=== PATIENT | female | born 1955 | race Caucasian/White ===

== ENCOUNTER 2024-09-28 23:05 | Inpatient (IN) | payer MEDICARE, OTHER, SELFPAY ==
--- NOTE | 2024-09-28 22:40 | ECG_ITS ---
APPROVED REPORT Exam: Resting ECG HR:167 bpm ECG Measurements Heart Rate 167 AXES QRSd 86 QRS 78 QT 206 T 0 QTc 297 Conclusion ATRIAL FIBRILLATION WITH RAPID VENTRICULAR RESPONSE NONSPECIFIC ST & T-WAVE ABNORMALITY CRITICAL TEST RESULT UNCONFIRMED REPORT Electronically signed by : JAJA ZIMMERMAN, 09/29/2024 06:37:07
--- NOTE | 2024-09-28 22:42 | CT_ITS ---
PROCEDURE INFORMATION: Exam: CTA Chest With Contrast Exam date and time: 09/28/2024 11:44 PM Age: 69 years old Clinical indication: Shortness of breath; Additional info: SOA, cough, covid TECHNIQUE: Imaging protocol: Computed tomographic angiography of the chest with contrast. Exam focused on the arteries. 3D rendering (Not supervised by radiologist): MIP and/or 3D reconstructed images were created by the technologist. Total images: 837 Radiation optimization: All CT scans at this facility use at least one of these dose optimization techniques: automated exposure control; mA and/or kV adjustment per patient size (includes targeted exams where dose is matched to clinical indication); or iterative reconstruction. Contrast material: ISOVUE; Contrast volume: 70 ml; Contrast route: INTRAVENOUS (IV); COMPARISON: CR XR CHEST PORTABLE 09/28/2024 10:58 PM FINDINGS: Pulmonary arteries: Adequate contrast opacification of the pulmonary arteries. Mildly enlarged main pulmonary arteries implying pulmonary arterial hypertension. No acute pulmonary emboli. Aorta: Moderately atherosclerotic thoracic aorta without aneurysm or dissection. Lungs: The trachea and main bronchi are patent. Transverse tracheal narrowing compatible with COPD. Mild bronchial wall thickening greatest in the lower lobes. There are impacted segmental left lower lobe bronchi. Scattered pulmonary calcified granuloma. Severe upper lobe predominant centrilobular emphysema. Considerable left lower lobe airspace consolidation/pneumonia, greater than expected based on recent chest radiograph. Pleural spaces: Small left pleural effusion. No pneumothorax. Heart: Normal heart size. Trace pericardial fluid versus thickening. Small quantity fluid in the superior pericardial recess. Coronary arteries: Mild coronary artery calcifications. Mediastinal space: No mediastinal mass or hematoma. Lymph nodes: No mediastinal or hilar lymphadenopathy. Intraperitoneal space: No acute process in the upper abdomen. Bones/joints: Osteopenia. Moderate degenerative changes of the thoracic spine. Soft tissues: Unremarkable. IMPRESSION: 1. Considerable left lower lobe consolidation in keeping with lobar pneumonia. This is greater than expected based on recent chest radiograph. 2. No acute pulmonary emboli. 3. Severe upper lobe predominant centrilobular emphysema with pulmonary arterial hypertension. 4. Remote calcified granulomatous disease. 5. Additional chronic and incidental findings. COMMENTS: The presence of pulmonary emphysema on CT is an independent risk factor for lung cancer. In the absence of a history or active diagnosis of lung cancer, it is recommended that this patient with emphysema be evaluated for enrollment in a low dose CT lung cancer screening program.
--- NOTE | 2024-09-28 22:43 | XR_ITS ---
PROCEDURE INFORMATION: Exam: XR Chest Exam date and time: 09/28/2024 10:58 PM Age: 69 years old Clinical indication: Shortness of breath; Additional info: SOA cp covid, hypoxemia TECHNIQUE: Imaging protocol: Radiologic exam of the chest. Views: 1 view. Total images: 1 COMPARISON: No relevant prior studies available. FINDINGS: Tubes, catheters and devices: EKG leads are present. Lungs: Moderate upper lobe centrilobular emphysema. Bibasilar interstitial coarsening. Additional left basilar infiltrate or atelectasis. No pulmonary vascular congestion. Pleural spaces: Small left pleural effusion. No pneumothorax. Heart/Mediastinum: Unremarkable. No cardiomegaly. No mediastinal widening or hilar enlargement. Bones/joints: Osteopenia. Mild degenerative changes of the thoracic spine. IMPRESSION: 1. Moderate upper lobe centrilobular emphysema 2. Bibasilar interstitial coarsening/fibrosis 3. Additional left basilar mild infiltrate versus atelectasis 4. Small left pleural effusion.
[2024-09-28 22:45] VITALS: BP 152/120; PULSE 167; RESP 28; TEMP 36.7; O2SAT 90; BMI 23.3
--- NOTE | 2024-09-28 22:46 | [facility].EDCP ---
Discharge Plan Disposition Chief Complaint: Weakness Prescriptions Prescriptions: No Action bisoprolol-hydrochlorothiazide 5-6.25 mg tablet 5 tab PO DAILY Patient Comments: TAKE 1 TABLET BY MOUTH EVERY DAY levothyroxine 100 mcg tablet 100 mcg PO DAILY Patient Comments: TAKE 1 TABLET BY MOUTH EVERY DAY omeprazole 20 mg capsule,delayed release(DR/EC) 20 mg PO DAILY Patient Comments: TAKE 1 CAPSULE BY MOUTH EVERY DAY sertraline 50 mg tablet 50 mg PO DAILY Patient Comments: TAKE 1 TABLET BY MOUTH EVERY DAY Referrals Follow up/Referrals: Provider,Referral, MD [Primary Care Provider] - See instructions Clinical Impressions Clinical Impression: Atrial fibrillation with controlled ventricular rate, CHF exacerbation, Acute hypoxemic respiratory failure, Left lower lobe pneumonia Print Language Print Language: Japanese Discharge ED Provider: Bjorn Shea HPI General Chief Complaint: Weakness Stated Complaint: weakness Time Seen by Provider: 09/28/24 23:05 History of Present Illness HPI narrative: Please note that above description of symptoms, in this electronic medical record under categorization of recalled from ER triage doctor by RN are reflective of an initial nursing assessment, however, is not reflective of my full history and physical exam that was personally taken and clarified. Consequentially, this preceding description of symptoms, which may include the patient's categorized chief complaint in the EMR, do not reflect my personal clinical impression, and the ultimate description of history of present illness and patient stated complaints should be deferred to this section of the note. Unless stated otherwise or congruent with this section of the note, additional signs, symptoms, or incongruence should be interpreted as inaccurate with my clinical impression. Related Data Home Medications ?Medication ?Instructions ?Recorded ?Confirmed bisoprolol 5 5 tab PO DAILY 09/28/24 09/28/24 mg-hydrochlorothiazide 6.25 mg tablet levothyroxine 100 mcg tablet 100 mcg PO DAILY 09/28/24 09/28/24 omeprazole 20 mg capsule,delayed 20 mg PO DAILY 09/28/24 09/28/24 release sertraline 50 mg tablet 50 mg PO DAILY 09/28/24 09/28/24 Allergies Allergy/AdvReac Type Severity Reaction Status Date / Time No Known Allergies Allergy Unverified 09/11/17 14:16 [facility] Disclaimer: The information contained in this section may have been updated after the patient was seen, as this information can be updated by other users. Social History Smoking Status: Former smoker alcohol intake: never current occupational status: retired Travel in the last 8 weeks: None ROS Obtained: Yes All systems reviewed & no additional complaints except as documented Physical Exam General General appearance: alert and in distress (Moderate respiratory distress) Neck Neck exam: Present trachea midline Chest Chest inspection: Present normal inspection and symmetric chest wall rise Respiratory Respiratory exam: Present respiratory distress, wheezes, accessory muscle use and prolonged expiratory phase; Absent stridor Cardiovascular Cardiovascular exam: Present tachycardia, irregular rhythm and other (Pulses equal and symmetric in upper and lower extremities) Abdominal Exam Abdominal exam: Present soft; Absent distention or tenderness Extremities Exam Extremities exam: Absent edema Neurological Exam Neurological exam: Present alert, oriented X3 and CN II-XII intact Skin Skin exam: Present warm and dry; Absent cyanosis, diaphoresis or pallor HEART Score HEART Score HEART Score assessment performed?: Yes History (anamnesis): Slightly suspicious ECG: Non-specific disturbance Age: >65 years Risk factors: 3 or more risk factors Troponin: </= normal limit HEART Score: 5 Critical Care Critical Care Time Critical Care Time: Yes (cardiopulmonary) Attestation: On 09/28/24, the high probability of a clinically significant, sudden or life threatening deterioration of the following system(s) required my full and direct attention, intervention and personal management. The time I documented below is in addition to time spent performing reported procedures but includes the following listed in this critical care notation. Total Time Total Critical Care Time: 60 Medical Decision Making Medical Records Medical records reviewed: Yes I reviewed the patient's medical records. Kunal Inquiry Pt receiving controlled substance: No Kunal was queried for this patient: No Vital Signs Vital Signs: 09/28/24 22:45 Temperature 98.0 F Temperature Source Oral Pulse Rate [Right Apical] 167 H Respiratory Rate 28 H Blood Pressure [Right Arm] 152/120 H Blood Pressure Mean [Right Arm] 130 Blood Pressure Source [Right Arm] Automatic Cuff Blood Pressure Position [Right Arm] Supine 02 Sat by Pulse Oximetry 90 L Oxygen Delivery Method Nasal Cannula Oxygen Flow Rate (LPM) 4 Lab Data Labs: Lab Results 09/28/24 22:44: WBC 25.3 H*, RBC 5.48 H, Hgb 14.9, Hct 43.3, MCV 79.0 L, MCH 27.2, MCHC 34.4, RDW 13.3, Plt Count 215, MPV 10.7 H, Neut % (Auto) 87.3 H, Lymph % (Auto) 3.2 L, Lander % (Auto) 8.4, Eos % (Auto) 0.0 L, Baso % (Auto) 0.2, Neut # (Auto) 22.1 H, Lymph # (Auto) 0.8, Lander # (Auto) 2.1 H, Eos # (Auto) 0.0, Baso # (Auto) 0.1, Total Counted 100, Neutrophils % (Manual) 89 H, Lymphocytes % (Manual) 3 L, Monocytes % (Manual) 8, Platelet Estimate Normal, PT 11.0, INR 0.98, APTT 35.0 H, VBG pH 7.37, VBG pCO2 44.6, VBG pO2 25.2 L, VBG HCO3 24.9, VBG Total CO2 26.3, VBG O2 Saturation 45.2 L, VBG Base Excess -0.5, VBG Lactic Acid 2.0, Sodium 132 L, Potassium 3.1 L, Chloride 95 L, Carbon Dioxide 29, Anion Gap 11.1, BUN 27 H, Creatinine 1.20 H, Estimated Creat Clear 44, Estimated GFR 45 L, Est GFR ( Amer) 54 L, Glucose 121 H, Lactate 1.6, Calcium 8.9, Magnesium 1.8, Total Bilirubin 1.7 H, AST 23, ALT 18, Alkaline Phosphatase 94, Troponin I 0.02, NT-Pro-B Natriuret Pep 1100 H, Total Protein 6.4, Albumin 3.6, Globulin 2.8, Albumin/Globulin Ratio 1.3, Procalcitonin 2.20 H, TSH 16.80 H, Thyroxine (T4) 6.5 09/28/24 22:44 09/28/24 22:44 Response Orders (Tests/Meds): ED MEDICATIONS Generic Name Dose Route Start Last Admin Trade Name Freq PRN Reason Stop Dose Admin Enoxaparin Sodium 65 mg 09/28/24 23:15 09/28/24 23:16 Enoxaparin 100mg/Ml Syringe 1 mg/kg (65 mg) 10/28/24 23:14 65 mg SUBCUT Administration Q12H [facility] Lactated Ringer's 1,000 mls @ 999 mls/hr 09/28/24 23:13 09/28/24 23:21 Lactated Ringer's 1000 Ml Bag IV 09/29/24 00:13 999 mls/hr .Q1H1M ONE Administration Potassium Chloride/Water 100 mls @ 50 mls/hr 09/28/24 23:13 09/28/24 23:17 Potassium Chloride 20meq/100ml Ivpb IV 09/29/24 03:12 50 mls/hr Q2H BREEZY Administration Sodium Chloride 10 ml 09/28/24 23:51 09/28/24 23:51 Sodium Chloride 0.9% 10ml Syr (Rad Only) IV 10/28/24 23:50 10 ml NEEDED PRN Administration Maintain IV Site Discontinued Medications Generic Name Dose Route Start Last Admin Trade Name Freq PRN Reason Stop Dose Admin Albuterol/Ipratropium 9 ml 09/28/24 22:42 09/28/24 23:09 Ipratropium/Albuterol 3 Ml Neb IH 09/28/24 22:43 9 ml ONCE ONE Administration Aspirin 324 mg 09/28/24 22:42 09/28/24 22:53 Aspirin 81mg Chewable Tablet PO 09/28/24 22:43 324 mg ONCE ONE Administration Diltiazem HCl 15 mg 09/28/24 23:23 09/28/24 23:29 Diltiazem 25mg/5ml Vial IV 09/28/24 23:24 15 mg ONCE ONE Administration Diltiazem HCl 20 mg 09/28/24 23:55 09/28/24 23:57 Diltiazem 25mg/5ml Vial IV 09/28/24 23:56 20 mg ONCE ONE Administration Magnesium Sulfate 2 gm in 50 mls @ 50 mls/hr 09/28/24 22:42 09/28/24 22:54 Magnesium Sulfate 2gm/50ml Premix IV 09/28/24 23:41 50 mls/hr ONCE ONE Administration Ceftriaxone Sodium 2 gm/ 100 mls @ 200 mls/hr 09/28/24 22:42 09/28/24 22:59 Sodium Chloride IV 09/28/24 23:11 200 mls/hr ONCE ONE Administration Lactated Ringer's 1,000 mls @ 999 mls/hr 09/28/24 22:53 09/28/24 22:56 Lactated Ringer's 1000 Ml Bag IV 09/28/24 23:53 999 mls/hr .Q1H1M ONE Administration Iopamidol 70 ml 09/28/24 23:51 09/28/24 23:52 Iopamidol-370 (76%);100ml Bottle IV 09/28/24 23:52 70 ml ONCE ONE Administration Magnesium Oxide 800 mg 09/28/24 22:42 09/28/24 22:54 Magnesium Oxide 400mg Tablet PO 09/28/24 22:43 800 mg ONCE ONE Administration Methylprednisolone Sodium Succinate 125 mg 09/28/24 22:42 09/28/24 22:54 Methylprednisolone Sod Succ 125mg Vial IV 09/28/24 22:43 125 mg ONCE ONE Administration Ondansetron HCl 4 mg 09/28/24 22:42 09/28/24 22:54 Ondansetron 4mg/2ml Vial IV 09/28/24 22:43 4 mg ONCE ONE Administration Sodium Chloride 50 ml 09/28/24 23:51 09/28/24 23:51 0.9 % Sodium Chloride 50 Ml Vial IV 09/28/24 23:52 50 ml ONCE ONE Administration ORDERS Category Date Time Status CT angio chest PE protocol Stat Cat Scan 09/28/24 22:42 Taken POCUS Point of Care (ER Only) Stat Exams 09/28/24 22:47 Ordered XR chest portable Stat Exams 09/28/24 22:43 Taken Complete Blood Count Auto Diff Stat Lab 09/28/24 22:44 Completed Comprehensive Metabolic Panel Stat Lab 09/28/24 22:44 Completed HIV Combo Stat Lab 09/28/24 22:44 Received Hep C Ab with Reflex to RNA Stat Lab 09/28/24 22:44 Received Lactic Acid Stat Lab 09/28/24 22:44 Completed Magnesium Stat Lab 09/28/24 22:44 Completed NT Pro Brain Natriuretic Pep. Stat Lab 09/28/24 22:44 Completed PT INR [Prothrombin Time INR] Stat Lab 09/28/24 22:44 Completed PTT [Activated Partial Thrombo Time] Stat Lab 09/28/24 22:44 Completed Procalcitonin Stat Lab 09/28/24 22:44 Completed T4 (Thyroxine) Stat Lab 09/28/24 22:44 Completed TSH [Thyroid Stimulating Hormone] Stat Lab 09/28/24 22:44 Completed Troponin I Q3H Lab 09/29/24 01:45 Ordered Troponin I Q3H Lab 09/29/24 04:45 Ordered Troponin I Stat Lab 09/28/24 22:44 Completed Urinalysis and Microscopic Stat Lab 09/28/24 22:44 Ordered Blood Culture Stat Micro 09/28/24 22:55 Received Venous Blood Gas Stat RT 09/28/24 22:44 Completed MDM Narrative Medical Decision Narrative: 69-year-old female history of hypertension, hyperlipidemia, COPD not currently smoking and not on home oxygen presenting with shortness of breath and chest pain. Patient states that her recently . She has not eaten or drank anything in about 5 days. She is also been diagnosed with COVID a few days prior to this and has been dealing with the symptoms of that. States that she is not having fevers or chills, but she is having cough productive of clear sputum. Intermittently having chest pain that is left-sided, radiates around to the lateral left chest wall. Associated shortness of breath with all of the symptoms. No lower extremity swelling, syncope, neurologic deficits. Patient called EMS just prior to arrival. On EMS arrival, vital signs concerning for pretty significant tachycardia with right 1 80-200. Started on fluid and brought to the emergency department. Nebs were not given per protocol. History was obtained via conversation with patient and EMS. On arrival, patient hemodynamically stable, alert, oriented x4, appropriate, GCS 15, moving all extremities spontaneously, pupils equal and reactive to light. Full physical exam performed and significant for 69-year-old female who is appears to be in moderate distress. Speaking in 1-2 word sentences, prolonged expiratory phase with bilateral expiratory wheezes diffusely. Patient does have inspiratory wheezes on the right as well. Subcostal retractions. Tachycardic, difficult to discern whether regular or irregular, but seems to be irregular. No lower extremity edema. Abdomen soft, nontender, nondistended. Patient grossly neurologically intact and answering questions appropriately. Differential includes ACS, OR, PE, pneumothorax, dehydration, CHF, arrhythmia, metabolic abnormality, endocrinologic abnormality, COPD exacerbation, pneumonia, sepsis, among others. Patient was given 2 g Rocephin, Solu-Medrol, DuoNebs, 1 L LR, IV magnesium and p.o. magnesium, aspirin for symptomatic management and correction of underlying abnormalities. Patient placed on continuous cardiac monitoring and continuous pulse ox with initial blood pressure 152/120, heart rate 167, saturation 84% on room air. 90% on 4 L nasal cannula. Independent interpretation of EKG shows A-fib with RVR 160 bpm with QRS 86, QTc 297. Patient's axis is normal, but she does have rate related ST depressions throughout the twelve-lead. No reciprocal elevations.. Workup independently interpreted and significant for leukocytosis 25,000 with monocyte EMEA neutrophilia. Patient's coags nonactionable. Her VBG also nonactionable. Chemistry with hyponatremia 132, hypokalemia 3.1, KAIN 1.2 with BUN 27 consistent with prerenal process. Lactate negative. LFTs nonactionable. Troponin 0.02, BNP elevated 1100. Procalcitonin elevated at 2.2. Patient's chest x-ray independently interpreted. I am losing contours of the left hemidiaphragm consistent with potential infectious process. Left-sided pleural effusion. Right lower lobe patchy opacity consistent with potentially developing infection as well. See radiology read for full review of final results. Heart score 5. Shortly after arrival with nebs and meds as well as fluids, patient remaining tachycardic in the 160s to 170s. 15 mg IV diltiazem was ordered. On reevaluation remains tachycardic. 20 mg IV diltiazem was ordered. CT chest ordered given new onset tachycardia, A-fib with RVR. No evidence of PE, but patient does have large left lower lobe pneumonia. Given persistent tachycardia in the 160s and 170s, diltiazem drip was started. Patient was given 1 mg/kg of Lovenox. Given patient presentation, workup, history, this most likely represents new onset A-fib with RVR, hypoxemic respiratory failure and sepsis in the setting of pneumonia. Hospital medicine was consulted and case was discussed at length, to be admitted. [employer] disclaimer Much of this encounter note is an electronic regional hr manager spoken language to printed text. Electronic regional hr manager of the spoken language may permit errors. Although I have reviewed the note, some errors may still exist.
[2024-09-28] MEDS: ASPIRIN 81MG CHEWABLE TABLET 324 MG PO (22:53)
[2024-09-28] MEDS: METHYLPREDNISOLONE SOD SUCC 125MG VIAL 125 MG IV (22:54)
[2024-09-28] MEDS: MAGNESIUM SULFATE IN WATER 2 GM/50 ML PIGGYBACK IV (22:54)
[2024-09-28] MEDS: ONDANSETRON 4MG/2ML VIAL 4 MG IV (22:54)
[2024-09-28] MEDS: MAGNESIUM OXIDE 400MG TABLET 800 MG PO (22:54)
[2024-09-28 22:55] LABS: Basophils # 0.1 K/mm3 (0-0.2); Basophils % 0.2 % (0.1-2.0); Hematocrit 43.3 % (37.0-47.0); Hemoglobin 14.9 g/dL (12.2-16.2); Lymphocytes # 0.8 K/mm3 (0.7-4.5); Lymphocytes % 3.2 % (10-50); Mean Corpuscular HGB Conc 34.4 g/dL (31.8-35.4); Mean Corpuscular Hemoglobin 27.2 pg (27.0-31.2); Mean Platelet Volume 10.7 fl (7.4-10.4); Monocytes # 2.1 K/mm3 (0.1-1.0); Monocytes % 8.4 % (1.7-9.3); Neutrophils # 22.1 K/mm3 (1.8-7.8); Neutrophils % 87.3 % (37.0-80.0); Platelet Count 215 K/mm3 (142-424); Red Blood Count 5.48 M/mm3 (4.20-5.40); Red Cell Distribution Width 13.3 % (11.5-17.5); VBG Base Excess -0.5 mmol/L (-2.4-2.3); VBG HCO3 24.9 mmol/L (23-30); VBG Oxygen Saturation 45.2 % (50-70); VBG PCO2 44.6 mmol/L (35-51); VBG PH 7.37 mmol/L (7.31-7.41); VBG PO2 25.2 mmol/L (28-40); VBG Total CO2 26.3 mmol/L (23-27); White Blood Count 25.3 K/mm3 (4.8-10.8)
[2024-09-28] MEDS: LACTATED RINGERS 1000ML 1,000 ML 999 ML IV ×2 (22:56→23:21)
[2024-09-28] MEDS: CEFTRIAXONE SODIUM 2 GM in 0.9 % SODIUM CHLORIDE 100 ML IV (22:59)
--- NOTE | 2024-09-28 22:59 | PC.NURSE ---
both sets of blood cultures sent to lab
[2024-09-28 23:00] LABS: MANUAL DIFFERENTIAL MANUAL DIFFERENTIAL (MANUAL DIFF)
[2024-09-28 23:02] LABS: Alanine Aminotransferase 18 U/L (12-78); Albumin Level 3.6 g/dl (3.5-5.0); Albumin/Globulin Ratio 1.3 (1.1-1.8); Alkaline Phosphatase 94 U/L (38-126); Aspartate Amino Transferase 23 U/L (14-36); Bilirubin,Total 1.7 mg/dl (0.2-1.3); Blood Urea Nitrogen 27 mg/dl (7-17); Calcium 8.9 mg/dl (8.4-10.2); Carbon Dioxide 29 mmol/L (22.0-30.0); Chloride 95 mmol/L (98-107); Creatinine Clearance Estimated 44 mL/min (50-200); Estimated Glomerular Filt Rate 45 ml/min (>60); GFR (African American) 54 ML/MIN (>60); Globulin 2.8 g/dL (1.3-3.2); Glucose 121 mg/dl (74-100); Magnesium 1.8 mg/dl (1.6-2.3); Potassium 3.1 mmoL/L (3.5-5.1); Total Protein,Serum 6.4 g/dl (6.3-8.2)
[2024-09-28 23:03] LABS: Lactic Acid 1.6 mmol/L (0.7-2.1)
[2024-09-28 23:04] LABS: INR 0.98 (0.9-1.1)
[2024-09-28] MEDS: IPRATROPIUM/ALBUTEROL 3 ML NEB 9 ML IH (23:09)
[2024-09-28 23:14] VITALS: BP 140/85; PULSE 168; RESP 18; O2SAT 98
[2024-09-28 23:15] VITALS: PULSE 142; RESP 17; O2SAT 98
[2024-09-28 23:15] LABS: Anion Gap 11.1 mEq/L (5-15); NT Pro Brain Natriuretic Pep. 1100 pg/mL (0-125); Sodium 132 mmol/L (136-145); Troponin I 0.02 ng/ml (0.00-0.034)
[2024-09-28] MEDS: ENOXAPARIN 100MG/ML SYRINGE 65 MG SUBCUT (23:16)
[2024-09-28] MEDS: KCl 20mEq/100ml 100 ML 50 MEQ IV (23:17)
[2024-09-28 23:20] LABS: T4 (Thyroxine) 6.5 ug/dl (5.53-11.0)
[2024-09-28] MEDS: dilTIAZem 25MG/5ML VIAL 15 MG IV (23:29)
[2024-09-28 23:30] VITALS: PULSE 146; RESP 23; O2SAT 97
[2024-09-28 23:31] VITALS: BP 139/87; PULSE 134; RESP 20; O2SAT 98
[2024-09-28 23:51] VITALS: PULSE 170; RESP 15; O2SAT 92
[2024-09-28] MEDS: 0.9 % SODIUM CHLORIDE 50 ML VIAL IV (23:51)
[2024-09-28] MEDS: SODIUM CHLORIDE 0.9% 10ML SYR (RAD ONLY) 10 ML IV (23:51)
[2024-09-28 23:52] LABS: Lymphocytes % 3 % (10-50); Monocytes % 8 % (2-9); Neutrophils % 89 % (42-76); Total Cells Counted 100
[2024-09-28] MEDS: IOPAMIDOL-370 (76%);100ML BOTTLE 70 ML IV (23:52)
[2024-09-28] MEDS: dilTIAZem 25MG/5ML VIAL 20 MG IV (23:57)
[2024-09-29] VITALS (96 sets, daily range): BP systolic 106–196; BP diastolic 49–104; PULSE 67–168; RESP 10–29; TEMP 36.3–37; O2SAT 75–98; BMI 25.0
[2024-09-29] LABS: Platelet Estimate Normal
[2024-09-29 00:08] LABS: HIV Combo NEGATIVE (Negative)
[2024-09-29] MEDS: dilTIAZem HCL 100 MG in 0.9 % SODIUM CHLORIDE 100 ML IV (00:16)
--- NOTE | 2024-09-29 00:25 | PC.NURSE ---
Attempted to call report, Nurse is busy at the moment and will call back to receive report.
--- NOTE | 2024-09-29 01:12 | ECG_ITS ---
APPROVED REPORT Exam: Resting ECG HR:73 bpm ECG Measurements Heart Rate 73 AXES OK 183 P 63 QRSd 89 QRS 57 QT 400 T 44 QTc 426 Conclusion SINUS RHYTHM NORMAL ECG UNCONFIRMED REPORT Electronically signed by : Timothy Del Rio MD 09/30/2024 10:47:58
[2024-09-29] MEDS: 0.9 % SODIUM CHLORIDE 1000ML 1,000 ML 125 ML IV (01:25)
[2024-09-29] MEDS: FAMOTIDINE 20MG/2ML VIAL 20 MG IV ×3 (01:33→20:04)
[2024-09-29] MEDS: SODIUM CHLORIDE 0.9% 10ML VIAL 8 ML IV ×3 (01:33→10:05)
[2024-09-29] MEDS: METOPROLOL TARTRATE 5MG/5ML VIAL 5 MG IV (01:39)
[2024-09-29] MEDS: AZITHROMYCIN 500 MG in 0.9 % SODIUM CHLORIDE 250 ML 250 MG IV (01:40)
--- NOTE | 2024-09-29 02:05 | P.HP_ITS ---
<Statement entered by Jovany Arias MD - 09/30/24 22:28> I personally evaluated the patient and agree with the plan as outlined by the RESILIENT TILE INSTALLER. History of Present Illness *Admission Date: 09/29/24 *Reason for visit:: Respiratory failure atrial fibs RVR pneumonia *History of present illness: This 69-year-old female, has come to the emergency room with a elevated heart rate and atrial fibs significant dehydration, viral illness, respiratory distress. Also noting that her and her both have had COVID before Jorge approximately 10 September, the went to the bathroom today and collapsed called her name. She came in was unable to help him went to get the phone to call 911 when she returned her had . The patient herself says that she has tested negative for COVID on the felt good for a day or 2 but then was around other family members including an infant that are positive for flu A. She also had episodes of vomiting not being able to drink.. 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 Family then convinced her not to stay with her and has brought her to the emergency room.. In the emergency room heart rates into the 170s 180s atrial for, oxygen is required by nasal cannula. She was given breathing treatments, steroids, antibiotics started,. CT scan of the chest shows a significant consolidation in the left lower lung of pneumonia.. 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 Was going to see oncology in September for that. Patient is a noted smoker for more than 30 years, she stopped in 2016. Emphysema is an underlying condition on her. , Laboratory test significant for elevated white blood count, hypoxia on venous blood gas on oxygen.. EKG with very rapid ventricular rate on EKG, TO NOTE patient's heart rate was afib in the 150's when brought to the ICU, patient had received calcium channel renetta in the emergency room slowing the heart rate from in the 180 down to the 150s.. Patient was changed from nasal cannula onto Vapotherm. Oxygen saturations marino from 88% pulse ox to 95%. 1 dose of metoprolol IV 5 mg was given IV patient converted to sinus rhythm with heart rate in the 90s. Also noting the patient appears to be still significantly dehydrated, had received 2 L of fluid in the emergency room and an abundance of nebulizer treatments due to her lung wheezing. Steroids have also been administered. With the improved oxygen saturation and now being in sinus rhythm in the 70s, I will give 1 dose of Cardizem 30mg po and then we will stop the Cardizem bolus in 1 hour.. At that point in time we will also continue to replace electrolytes per labs.. Patient is much more stable at this point in time but still very fragile. Will have cardiology and pulmonology to see the patient in the a.m. have not addressed any type of mental health needs at this time for potential grieving due to the loss of her tonight. But have 1 mg of Ativan ordered IV if it is needed. Family members were in the room while I was talking with the patient. Most of the patient's daughters are registered nurses. And I was given permission to speak with one of them by phone. Update given on the seriousness of this condition that their mother was in. Patient is a full code. [facility] Disclaimer: The information contained in this section may have been updated after the patient was seen, as this information can be updated by other users. Medical History (Updated 09/29/24 @ 02:37 by Albert Mireles APRN) COPD (chronic obstructive pulmonary disease) Lymphoma in remission Social History Smoking Status: Former smoker alcohol intake: never current occupational status: retired Travel in the last 8 weeks: None Other Medical History Have you received the Flu Vaccine for this season: No Have you received the Pneumonia Vaccine: Yes Review of Systems Review of Systems Review of systems:: pertinent systems reviewed and negative unless documented below Constitutional Constitutional: Reports as per HPI, Reports fatigue, Reports poor appetite, Reports lethargy and Reports weight loss Eyes Eyes: Reports as per HPI ENT Ears, Nose, Mouth, and Throat: Reports as per HPI and Reports disequilibrium Comments: Denies any throat pain *Cardiovascular Cardiovascular: Reports as per HPI, Reports dyspnea, Reports dyspnea on exertion, Reports irregular heart rhythm, Reports orthopnea, Reports palpitations and Reports rapid heart rate *Respiratory Respiratory: Reports as per HPI, Reports chest congestion, Reports cough, Reports dyspnea, Reports dyspnea on exertion and Reports wheezing *Gastrointestinal Gastrointestinal: Reports as per HPI, Reports abdominal pain, Reports nausea and Reports vomiting *Genitourinary Genitourinary: Reports as per HPI *Musculoskeletal Musculoskeletal: Reports as per HPI and Reports myalgias Integumentary/Breasts Skin/Breast: Reports as per HPI and Reports dry skin *Neurologic Neurologic: Reports as per HPI, Reports disequilibrium and Reports other (Very ill at this time but no acute signs of CVA) Psychiatric Psychiatric: Reports as per HPI Comments: Patient's has tonight at home. Family has mentioned this but the patient has not set a word about Endocrine Endocrine: Reports fatigue, Reports heat intolerance and Reports palpitations Hematologic/Lymphatic Hematologic/Lymphatic: Reports as per HPI Allergic/Immunologic Allergic/Immunologic: Reports wheezing Meds Home Medications and Allergies Home Medications ?Medication ?Instructions ?Recorded ?Confirmed ?Type bisoprolol 5 5 tab PO DAILY 09/28/24 09/29/24 History mg-hydrochlorothiazide 6.25 mg tablet levothyroxine 100 mcg tablet 100 mcg PO DAILY 09/28/24 09/29/24 History omeprazole 20 mg capsule,delayed 20 mg PO DAILY 09/28/24 09/29/24 History release sertraline 50 mg tablet 50 mg PO DAILY 09/28/24 09/29/24 History albuterol 90 mcg/actuation aerosol 90 mcg inhalation 10 shortness of 09/29/24 09/29/24 History inhaler air New Prescriptions to Start Prescriptions: Allergies Allergy/AdvReac Type Severity Reaction Status Date / Time No Known Allergies Allergy Verified 09/29/24 01:55 Exam Data for Last 24 hours Vital signs and Labs for Last 24 Hours: Temp Pulse Resp BP Pulse Ox O2 Del Method O2 Flow Rate 98.0 F 161 H 23 178/104 H 90 L Nasal Cannula 4 09/29/24 00:36 09/29/24 00:36 09/29/24 00:36 09/29/24 00:36 09/28/24 22:45 09/29/24 00:36 09/29/24 00:36 Laboratory Results - last 24 hr 09/28/24 22:44: WBC 25.3 H*, RBC 5.48 H, Hgb 14.9, Hct 43.3, MCV 79.0 L, MCH 27.2, MCHC 34.4, RDW 13.3, Plt Count 215, MPV 10.7 H, Neut % (Auto) 87.3 H, Lymph % (Auto) 3.2 L, [place] % (Auto) 8.4, Eos % (Auto) 0.0 L, Baso % (Auto) 0.2, Neut # (Auto) 22.1 H, Lymph # (Auto) 0.8, [place] # (Auto) 2.1 H, Eos # (Auto) 0.0, Baso # (Auto) 0.1, Total Counted 100, Neutrophils % (Manual) 89 H, Lymphocytes % (Manual) 3 L, Monocytes % (Manual) 8, Platelet Estimate Normal, PT 11.0, INR 0 .98, APTT 35.0 H, VBG pH 7.37, VBG pCO2 44.6, VBG pO2 25.2 L, VBG HCO3 24.9, VBG Total CO2 26.3, VBG O2 Saturation 45.2 L, VBG Base Excess -0.5, VBG Lactic Acid 2.0, Sodium 132 L, Potassium 3.1 L, Chloride 95 L, Carbon Dioxide 29, Anion Gap 11.1, BUN 27 H, Creatinine 1.20 H, Estimated Creat Clear 44, Estimated GFR 45 L, Est GFR ( Amer) 54 L, Glucose 121 H, Lactate 1.6, Calcium 8.9, Magnesium 1.8, Total Bilirubin 1.7 H, AST 23, ALT 18, Alkaline Phosphatase 94, Troponin I 0.02, NT-Pro-B Natriuret Pep 1100 H, Total Protein 6.4, Albumin 3.6, Globulin 2.8, Albumin/Globulin Ratio 1.3, Procalcitonin 2.20 H, TSH 16.80 H, Thyroxine (T4) 6.5, HIV Ag/Ab Combo Qual Negative I & O for Last 24 hours: Intake & Output 09/26/24 09/27/24 09/28/24 09/29/24 05:59 05:59 05:59 05:59 Weight 140 lb Radiology Reports for the Last 24 Hours: Significant left lower lung pneumonia, trace fluid right lung Constitutional Constitutional: severe distress, obese and cooperative *Routine HEENT Exam Head: Present normocephalic and atraumatic Eye: Present EOMI, PERRL and normal accommodation ENT: Present mucous membranes dry, oropharynx clear, nares patent and external ear normal *Routine Neck Exam Neck: Present supple and full ROM Routine Chest/Breast/Axilla Exam Comments: No tenderness or sign of injury were found during the exam of the chest. Patient is breathing equally on both sides respiratory rate approximately 24 *Routine Respiratory Exam Respiratory: Present accessory muscle use, decreased breath sounds, prolonged expiratory phase, respiratory distress, rhonchi, wheezes, distant breath sounds and symmetric chest movement *Routine Cardiovascular Exam Cardiovascular: Present tachycardia and irregular rhythm Comments: Patient was in A-fib but has converted to sinus rhythm *Routine Abdominal Exam Abdominal: Present soft, normoactive bowel sounds and obese Comments: No tenderness to palpation of the abdomen *Routine Rectal Exam Rectal:: deferred *Routine Genitalia Exam Genitalia:: deferred *Routine Extremities Exam Extremities: Present full ROM Comments: Patient is able to move her arms and legs well., No signs of injury or significant decrease in range of motion of any joint Routine Back/Spine/Pelvis Exam Back/Spine: Present warmth Comments: Patient showed no specific area of tenderness or pain to the back or the hips. *Routine Skin Exam Skin: Present intact and warm Comments: Even after 2 L of fluid very poor turgor and distal extremities *Routine Neurological Exam Neurological: Present alert, oriented X3, CN II-XII intact, normal tone, vision grossly intact, hearing grossly intact and normal speech Comments: Per patient is being is ill that she is she had very calm voice and able to answer questions as well as she could being short of breath Routine Psychiatric Exam Psychiatric: Present normal affect, normal thought process, cooperative, good insight and good judgment Comments: Patient was very appropriate for being as illness she was in being through losing her H&P: Result Impressions 1. COPD/emphysema with hypoxia, related to viral illness 2. Tachycardia A-fib, now converted to sinus rhythm 3. Dehydration/secondary to viral illness causing nausea vomiting for the last several weeks 4. Hypothyroidism on replacement therapy 5, workup showing concern for possible lung cancer., Noting had abnormal nodes of the neck surgically removed also treated for cancer and has been followed for 5 years. Noting being on thyroid replacement medication Imaging and Cardiology CT scan - chest: Status: image reviewed by me Additional comments: Large area of consolidation left lower lung diagnosis pneumonia, trace fluid seen in small places in the right lung distal lower Assessment and Plan *Assessment and plan (1) Acute hypoxemic respiratory failure: Status: Acute Category: Medical Code(s): J96.01 - Acute respiratory failure with hypoxia (2) Atrial fibrillation with controlled ventricular rate: Status: Acute Category: Medical Code(s): I48.91 - Unspecified atrial fibrillation (3) Left lower lobe pneumonia: Status: Acute Qualifiers: Pneumonia type: due to unspecified organism Qualified Code(s): J18.9 - Pneumonia, unspecified organism Category: Medical Code(s): J18.9 - Pneumonia, unspecified organism (4) Viral upper respiratory illness: Status: Acute Category: Medical Code(s): J06.9 - Acute upper respiratory infection, unspecified (5) Oxygen deficiency: Status: Acute Category: Medical Code(s): R09.02 - Hypoxemia (6) COPD (chronic obstructive pulmonary disease): Status: Acute Qualifiers: COPD type: emphysema Emphysema type: panlobular Qualified Code(s): J43.1 - Panlobular emphysema Category: Medical Code(s): J44.9 - Chronic obstructive pulmonary disease, unspecified (7) Lymphoma in remission: Status: Acute Category: Medical Code(s): C85.9A - Non-Hodgkin lymphoma, unspecified, in remission (8) CHF exacerbation: Status: Acute Qualifiers: Heart failure type: systolic Qualified Code(s): I50.23 - Acute on chronic systolic (congestive) heart failure Category: Medical Code(s): I50.9 - Heart failure, unspecified (9) Hypothyroidism: Status: Acute Qualifiers: Hypothyroidism type: postoperative Qualified Code(s): E89.0 - Postprocedural hypothyroidism Category: Medical Code(s): E03.9 - Hypothyroidism, unspecified (10) Hypokalemia: Status: Acute Category: Medical Code(s): E87.6 - Hypokalemia Plan 1. For the hypoxia with the left lower lobe pneumonia placing the body on distress causing dehydration with atrial fibs rapid ventricular response. Patient will be placed into the ICU. As noted calcium channel blockers and beta-renetta used. Fluid replacement of 2 L. Placement now on Vapotherm oxygen with 95% O2 saturations converting back to sinus rhythm in the ICU.. Patient remaining up on anticoagulation at this time. Patient will receive antibiotics DuoNebs, steroids, pulmonology and cardiology consults have been ordered. Plan to monitor the patient tonight slowly replacing fluid to counteract what appears to be significant dehydration. Vapotherm working quite well since respiratory rate is decreased oxygen saturations at 95. Will continue with electrolyte replacements as needed checking venous blood gases, and the patient will be monitored constantly. TIME : 420, labs returned positive for mycoplasma IgM. Negative for COVID and flu and RSV. 2. Left lower lung pneumonia will continue antibiotics.. , Unsure what to make of statement that she had a scan done that showed concerning nodules in the lungs before this infection. On present scan unable to determine if there is a neoplasm in the lungs. Patient has limited record access says does not come to the hospital he had very few old records to look at to know previous conditions. 3. Sudden loss of tonight: Will continue to monitor for grieving., A small dose of benzodiazepine has been added if needed.
--- NOTE | 2024-09-29 02:09 | ECG_ITS ---
APPROVED REPORT Exam: Resting ECG HR:159 bpm ECG Measurements Heart Rate 159 AXES QRSd 82 QRS 73 QT 228 T -43 QTc 317 Conclusion ATRIAL FIBRILLATION WITH RAPID VENTRICULAR RESPONSE NONSPECIFIC ST & T-WAVE ABNORMALITY CRITICAL TEST RESULT UNCONFIRMED REPORT Electronically signed by : Timothy Del Rio MD 09/30/2024 10:48:03
[2024-09-29] MEDS: KCl 20mEq/100ml 100 ML 50 MEQ IV (02:32)
[2024-09-29] MEDS: dilTIAZem 30MG TABLET 30 MG PO (02:32)
[2024-09-29 02:40] LABS: Coronavirus 19, PCR Not Detected (NotDetected); Human Rhinovirus Not Detected (NotDetected); Influenza A, PCR Not Detected (NotDetected); Influenza B, PCR Not Detected (NotDetected); Respiratory Syncytial Virus Not Detected (NotDetected)
[2024-09-29] MEDS: LORazepam 2MG/ML VIAL 1 MG IV ×2 (02:45→22:32)
[2024-09-29 02:59] LABS: Troponin I 0.02 ng/ml (0.00-0.034)
--- NOTE | 2024-09-29 03:05 | PC.NURSE ---
She is A&Ox4. She is currently on a vapotherm at 30LPM 75% FiO2. She was on 4LPM n/c when she first arrived to the floor but was quickly transitioned to a vapotherm via respiratory for O2 ranging 85-86%. She was initially on a vapotherm at 40LPM 80FiO2 and then wean to current rate. She arrived to the unit receiving cardizem at 15 and converted to NSR after receiving IV metoprolol. She has since been given oral cardizem with plans to turn off the cardizem gtt at 0238. Her son is at the bedside. Family and her are grieving the of her which occurred tonight. She was educated on and refuses the CRE screen. She states she has not ate in 5 days. She has been drinking water. She has a cough that she states is productive; she states it was an orange tint but she believes it may have been related to medication she took. No sputum thus far and she has been educated on the need for a urine and sputum; she verbalizes understanding. She reports her last BM was on 09/28/24. She turns herself independently.
--- NOTE | 2024-09-29 03:32 | PC.NURSE ---
RESP CARE NOTE: Pt initially started on vapotherm at 40L/100% to achieve SPO2 at 96%. After several manipulations with vapotherm, patient is maintaining SPO2 of 95% with 30L/75% FIO2. Respiratory Care will continue to wean as tolerated.
[2024-09-29 03:58] LABS: Mycoplasma Pneumo IGM (Rapid) Reactive (Non-Reactiv)
[2024-09-29 04:02] LABS: Microscopic, Urine URINE MICROSCOPIC (MICROSCOPIC)
[2024-09-29 04:04] LABS: Appearance,Urine CLEAR (Clear); Bilirubin,Urine Negative (Negative); Blood, Urine TRACE-L (Negative); Color,Urine YELLOW (Yellow); Glucose,Urine (UA) Negative (Negative); Ketones,Urine 1+ (Negative); Leukocyte Esterase,Urine Negative (Negative); Nitrate,Urine Negative (Negative); Protein,Urine Negative (Negative); Specific Gravity, Urine <= 1.005 (1.005-1.030)
[2024-09-29 04:17] LABS: Bacteria,Urine 1+ /lpf; WBC,Urine Occasional #/hpf (0-3)
[2024-09-29 06:43] LABS: Lactate Venous 1.7 mmol/L (0.4-2.0); VBG Base Excess -3.8 mmol/L (-2.4-2.3); VBG HCO3 22.4 mmol/L (23-30); VBG Oxygen Saturation 48.4 % (50-70); VBG PCO2 45.5 mmol/L (35-51); VBG PH 7.31 mmol/L (7.31-7.41); VBG PO2 27.6 mmol/L (28-40); VBG Total CO2 23.8 mmol/L (23-27)
[2024-09-29] MEDS: IPRATROPIUM/ALBUTEROL 3 ML NEB IH ×5 (06:44→21:57)
--- NOTE | 2024-09-29 07:12 | ECG_ITS ---
APPROVED REPORT Exam: Resting ECG HR:79 bpm ECG Measurements Heart Rate 79 AXES IA 184 P 76 QRSd 86 QRS 59 QT 404 T 48 QTc 439 Conclusion SINUS RHYTHM WITH OCCASIONAL SUPRAVENTRICULAR PREMATURE COMPLEXES BORDERLINE ECG UNCONFIRMED REPORT Electronically signed by : Timothy Del Rio MD 09/30/2024 10:47:53
[2024-09-29 08:05] LABS: Troponin I 0.02 ng/ml (0.00-0.034)
--- NOTE | 2024-09-29 09:49 | PC.NURSE ---
Assisted patient up to BSC with assist x 1. Patient is unsteady but can safely stand and pivot to get on BSC with the 1 assist. Patient's oxygen sats remained in the mid 90s while moving. Also assisted patient with basin bath and changed bed linens. Patient was able to clean her face and front torso while I assisted with back and legs/feet. By the end when patient was getting back in bed, she started to feel worn out. Oxygen sats still remained in the 90s but RR was around slightly elevated from what it had been at 28. Patient recovered quickly after getting settled in bed. I explained to patient that getting up and moving around would be beneficial for her and asked patient if she would feel comfortable getting up to use the BSC when she needed to use the bathroom versus purwick and she agreed. Purwick was not replaced and BSC left at bedside. Patient was reminded that she still needed to call for assistance to use BSC. Call light within reach and family is at the bedside. Patient also given IS that was in the room, reminded on how to use it, and also to use it at least every hour while awake.
[2024-09-29] MEDS: LEVOTHYROXINE 100MCG (0.1MG) TAB 100 MCG PO (10:04)
[2024-09-29] MEDS: METHYLPREDNISOLONE SOD SUCC 40MG VIAL 40 MG IV ×2 (10:04→20:04)
[2024-09-29] MEDS: ASPIRIN EC 81MG TABLET 81 MG PO (10:05)
[2024-09-29] MEDS: SERTRALINE 50MG TABLET 50 MG PO (10:05)
[2024-09-29] MEDS: ARTIFICIAL TEARS SOLN 15ML BOTTLE OP (10:06)
--- NOTE | 2024-09-29 10:15 | CA_ITS ---
APPROVED REPORT EXAM: Comprehensive 2D, Doppler, and color-flow Echocardiogram Recovery Analyst: Patricia Bennett RVT Ht: 5 ft 4 in Wt: 150lbs BSA: 1.73 BP: 173/104 mmHg Indications: A-FIB,CP,HTN,HLD,SOA,EX SMOKER,HX LYMPHOMA,PT ON HIGH FLOW O2,PNEUMONIA TDS-PT SCANNED FLAT ON BACK,PT IS MOVING NON-STOP R/T RLS 2D Dimensions IVSd 0.91 cm F: 0.6-1.0 LVEF (Visual) 59.60 % PWd 1.05 cm F: 0.6 - 1.0 LA Volume 35.50 mL LVDd 3.58 cm F: 3.9 - 5.3 LA Volume Index 20.52 mL/m2 (M/F) 16-34 LVDs 2.47 cm F: 2.2 - 3.5 M-Mode Dimensions LA Diam 3.00 cm (1.9-4.0) TAPSE 2.58 (<1.7) LV Diastology E Decel Time 150 (160-240 msec) E/A Ratio 1.8 Aortic Valve AO Peak GR. 2.10 mmHg Mitral Valve MV E Max Freddy. 127.0 (40-130 cm/s) MV A Velocity 71.0 (40-130 cm/s) E/A Ratio 1.79 MV PHT 44.0 ms Pulmonary Valve PV Peak Velocity 81.0 (50-150 cm/s) Tricuspid Valve TR P. Velocity 357.00 cm/s RAP Estimate 10.00 mmHg RVSP 61.10 mmHg Left Ventricle The left ventricle is normal size. The left ventricular systolic function is normal. The left ventricular ejection fraction is within the normal range. There is increased LV wall thickness. There is normal LV segmental wall motion. The left ventricular diastolic function is normal. LVEF is 60%. Right Ventricle Right ventricle is mildly dilated. The right ventricular systolic function is normal. Atria The left atrium is mildly dilated. The right atrium size is normal. There is no Doppler evidence of interatrial shunt. Aortic Valve The aortic valve is mildly thickened. There is no aortic valvular stenosis. Trace aortic regurgitation. Mitral Valve The mitral valve is normal in structure. No evidence of mitral valve stenosis. Mild mitral regurgitation. Tricuspid Valve Tricuspid valve is grossly normal in structure and function. Trace tricuspid regurgitation. There is insufficient TR jet to estimate RVSP. Pulmonic Valve The pulmonary valve is normal in structure. Trace pulmonic regurgitation. Great Vessels The aortic root is normal in size. The IVC is dilated, but collapses > 50% with respirophasic variation. RA pressures estimated at 8 mmHg. Pericardium There is no pericardial effusion. Other Information Study Quality: Fair Conclusion Normal biventricular systolic function. Mild RV dilation. Mild LA dilation. Mild MR. Electronically signed by : Shelia Fenton MD 09/29/2024 17:52:37
[2024-09-29 10:25] LABS: Albumin Level 3.2 g/dl (3.5-5.0); Chloride 100 mmol/L (98-107); Potassium 3.7 mmoL/L (3.5-5.1); Sodium 136 mmol/L (136-145)
[2024-09-29 10:26] LABS: Basophils % 0.2 % (0.1-2.0); Hemoglobin 13.5 g/dL (12.2-16.2); Lymphocytes # 0.3 K/mm3 (0.7-4.5); Lymphocytes % 1.4 % (10-50); Mean Corpuscular HGB Conc 33.8 g/dL (31.8-35.4); Mean Corpuscular Hemoglobin 27.3 pg (27.0-31.2); Mean Corpuscular Volume 80.8 fl (81-99); Mean Platelet Volume 11.2 fl (7.4-10.4); Monocytes # 0.6 K/mm3 (0.1-1.0); Monocytes % 3.1 % (1.7-9.3); Neutrophils # 18.2 K/mm3 (1.8-7.8); Neutrophils % 93.4 % (37.0-80.0); Platelet Count 217 K/mm3 (142-424); Red Blood Count 4.95 M/mm3 (4.20-5.40); Red Cell Distribution Width 13.6 % (11.5-17.5); White Blood Count 19.5 K/mm3 (4.8-10.8)
[2024-09-29 10:27] LABS: Iron 22 ug/dL (37-170)
[2024-09-29 10:28] LABS: Alanine Aminotransferase 21 U/L (12-78); Albumin/Globulin Ratio 1.1 (1.1-1.8); Alkaline Phosphatase 96 U/L (38-126); Anion Gap 11.7 mEq/L (5-15); Aspartate Amino Transferase 26 U/L (14-36); Bilirubin,Total 0.9 mg/dl (0.2-1.3); Blood Urea Nitrogen 21 mg/dl (7-17); Carbon Dioxide 28 mmol/L (22.0-30.0); Creatinine Clearance Estimated 57 mL/min (50-200); Estimated Glomerular Filt Rate 71 ml/min (>60); GFR (African American) 86 ML/MIN (>60); Globulin 2.9 g/dL (1.3-3.2); Glucose 163 mg/dl (74-100); Total Protein,Serum 6.1 g/dl (6.3-8.2)
[2024-09-29 10:29] LABS: Calcium 8.5 mg/dl (8.4-10.2)
[2024-09-29 10:37] LABS: Total Iron Binding Capacity 240 ug/dL (265-497)
[2024-09-29 11:03] LABS: Ferritin 332 ng/ml (11.1-264)
[2024-09-29] MEDS: ENOXAPARIN 80MG/0.8ML SYRINGE 70 MG SUBCUT ×2 (11:34→20:06)
[2024-09-29] MEDS: PRAMIPEXOLE 1MG TAB 1 MG PO ×2 (11:39→20:06)
[2024-09-29] MEDS: KETOROLAC 30MG/ML VIAL 15 MG IV (13:27)
[2024-09-29] MEDS: METOPROLOL SUCCINATE XL 50MG TABLET 50 MG PO (13:38)
--- NOTE | 2024-09-29 15:13 | PC.NURSE ---
VS stable and patient weaned from 30L75% to 30L65%. NSR on monitor. Patient very restless, restless leg syndrome medication reordered with some improvement. Patient began to complain on pain starting on left side of back and radiating around the bottom of the lung to the abdomen, MD aware and toradol ordered and given. Some relief noted. Lung sounds expiratory rhonchi at bases, clear in upper lobes.
[2024-09-29] MEDS: BUDESONIDE 0.5MG/2ML NEB 0.5 MG IH (18:32)
--- NOTE | 2024-09-29 19:35 | PC.NURSE ---
bed alarm is off because family is in room
[2024-09-29] MEDS: CEFTRIAXONE SODIUM 2 GM in 0.9 % SODIUM CHLORIDE 100 ML IV (20:04)
--- NOTE | 2024-09-29 20:21 | EXP.EVENT.NO ---
Kaur Dan is a 69-year-old female with a history of COPD not on home O2 who presents with shortness of breath, chest pain and admitted for acute hypoxic respiratory failure secondary to COPD exacerbation, mycoplasma pneumonia, A-fib RVR. Of note, her from COVID-19 at home just prior to admission. #Acute hypoxic respiratory failure #Acute COPD exacerbation #Sepsis #Community-acquired pneumonia #Chronic pulmonary arterial hypertension ? CTA chest reveals LLL pneumonia with no pulmonary emboli. ? Requiring 30 L Vapotherm 65% FiO2. Initial VBG reassuring for hypercapnia. ? WBC improving 19.5, peaked 23.5. Tachycardia resolved. Procalcitonin 2.2. ? Respiratory panel positive for mycoplasma. ? Moderate wheezing, restricted air movement throughout lung rangel. ? DuoNebs Q4RT, Pulmicort twice daily. ? IV Solu-Medrol 40 mg twice daily. ? Ceftriaxone, azithromycin day 2. ? Follow-up blood, sputum cultures. ? Low suspicion for heart failure, no signs of fluid overload. BNP 1100. ? Follow-up ECHO. #A-fib versus SVT #RVR resolved ? Initial EKG is suggestive of A-fib versus SVT with HR 167 bpm. ? Converted to NSR with IV diltiazem. ? Started metoprolol succinate 50 mg daily. ? Therapeutic Lovenox until cardiology evaluation. Can be discontinued if arrhythmia is SVT. ? [id number] score 3 for age, sex, hypertension. ? ECHO reveals normal biventricular function without valvular issues. #Elevated TSH ? TSH 16.8, however obtained in acute and severe illness. Can be repeated once more stable. ? Follow-up T4. #Restless leg syndrome ? Continue home pramipexole. Full code DVT prophylaxis: Therapeutic Lovenox as above
--- NOTE | 2024-09-29 20:56 | PC.NURSE ---
Best IS of 750 at this time.
[2024-09-30] VITALS (122 sets, daily range): BP systolic 101–181; BP diastolic 46–114; PULSE 58–141; RESP 14–33; TEMP 36.5–37.2; O2SAT 85–98; BMI 23.5
[2024-09-30] MEDS: AZITHROMYCIN 500 MG in 0.9 % SODIUM CHLORIDE 250 ML 250 MG IV (00:28)
[2024-09-30] MEDS: IPRATROPIUM/ALBUTEROL 3 ML NEB IH ×4 (02:43→14:48)
--- NOTE | 2024-09-30 05:52 | PC.NURSE ---
Pt family member came from room to report pt was coughing up blood. Upon assessment of pt she does has streaky blood tinged sputum present on tissue. Hospitalist notified and sample sent to lab. Pt denies new complaints.
[2024-09-30] MEDS: LEVOTHYROXINE 100MCG (0.1MG) TAB 100 MCG PO (06:17)
[2024-09-30] MEDS: FUROSEMIDE 40MG/4ML VIAL 40 MG IV (06:17)
[2024-09-30] MEDS: BUDESONIDE 0.5MG/2ML NEB 0.5 MG IH ×2 (06:25→18:36)
[2024-09-30 07:09] LABS: Alanine Aminotransferase 25 U/L (12-78); Albumin Level 3.6 g/dl (3.5-5.0); Albumin/Globulin Ratio 1.2 (1.1-1.8); Alkaline Phosphatase 115 U/L (38-126); Anion Gap 11.3 mEq/L (5-15); Aspartate Amino Transferase 31 U/L (14-36); Bilirubin,Total 0.7 mg/dl (0.2-1.3); Blood Urea Nitrogen 29 mg/dl (7-17); Calcium 9.3 mg/dl (8.4-10.2); Carbon Dioxide 29 mmol/L (22.0-30.0); Chloride 100 mmol/L (98-107); Creatinine Clearance Estimated 54 mL/min (50-200); Estimated Glomerular Filt Rate 71 ml/min (>60); GFR (African American) 86 ML/MIN (>60); Globulin 2.9 g/dL (1.3-3.2); Glucose 119 mg/dl (74-100); Magnesium 2.4 mg/dl (1.6-2.3); Phosphorous 3.7 mg/dl (2.5-4.5); Potassium 4.3 mmoL/L (3.5-5.1); Sodium 136 mmol/L (136-145); Total Protein,Serum 6.5 g/dl (6.3-8.2)
[2024-09-30 07:11] LABS: Basophils # 0.1 K/mm3 (0-0.2); Basophils % 0.2 % (0.1-2.0); Hematocrit 40.3 % (37.0-47.0); Hemoglobin 13.3 g/dL (12.2-16.2); Lymphocytes # 0.5 K/mm3 (0.7-4.5); Lymphocytes % 1.7 % (10-50); Mean Corpuscular Hemoglobin 27.1 pg (27.0-31.2); Mean Corpuscular Volume 82.2 fl (81-99); Mean Platelet Volume 10.5 fl (7.4-10.4); Monocytes # 0.9 K/mm3 (0.1-1.0); Monocytes % 3.5 % (1.7-9.3); Neutrophils # 25.2 K/mm3 (1.8-7.8); Neutrophils % 94.1 % (37.0-80.0); Platelet Count 302 K/mm3 (142-424); Red Cell Distribution Width 14.3 % (11.5-17.5); White Blood Count 26.8 K/mm3 (4.8-10.8)
[2024-09-30 07:14] LABS: MANUAL DIFFERENTIAL MANUAL DIFFERENTIAL (MANUAL DIFF)
[2024-09-30 07:20] LABS: Lactic Acid 0.9 mmol/L (0.7-2.1)
[2024-09-30 07:40] LABS: Lymphocytes % 4 % (10-50); Monocytes % 1 % (2-9); Neutrophils % 95 % (42-76); Platelet Estimate Normal; RBC Morphology Normal; Total Cells Counted 100
[2024-09-30 08:34] LABS: VBG Base Excess 1.9 mmol/L (-2.4-2.3); VBG HCO3 26.8 mmol/L (23-30); VBG PCO2 44.6 mmol/L (35-51); VBG PO2 37.3 mmol/L (28-40); VBG Total CO2 28.1 mmol/L (23-27)
[2024-09-30 08:35] LABS: Lactate Venous 2.2 mmol/L (0.4-2.0)
[2024-09-30 08:57] LABS: Free T4 (Free Thyroxine) 1.65 ng/dl (0.78-2.19)
[2024-09-30] MEDS: ASPIRIN EC 81MG TABLET 81 MG PO (09:59)
[2024-09-30] MEDS: PRAMIPEXOLE 1MG TAB 1 MG PO ×3 (09:59→21:30)
[2024-09-30] MEDS: METHYLPREDNISOLONE SOD SUCC 40MG VIAL 40 MG IV ×2 (09:59→20:17)
[2024-09-30] MEDS: SERTRALINE 50MG TABLET 50 MG PO (09:59)
[2024-09-30] MEDS: FAMOTIDINE 20MG/2ML VIAL 20 MG IV ×2 (10:00→20:17)
[2024-09-30] MEDS: SODIUM CHLORIDE 0.9% 10ML VIAL 8 ML IV (10:00)
[2024-09-30] MEDS: ENOXAPARIN 80MG/0.8ML SYRINGE 65 MG SUBCUT ×2 (10:01→20:18)
[2024-09-30] MEDS: METOPROLOL SUCCINATE XL 50MG TABLET 50 MG PO (10:01)
[2024-09-30] MEDS: ARTIFICIAL TEARS SOLN 15ML BOTTLE OP ×4 (10:22→20:18)
--- NOTE | 2024-09-30 10:32 | P.CONS_ITS ---
[facility] Disclaimer: The information contained in this section may have been updated after the patient was seen, as this information can be updated by other users. Medical History (Updated 09/29/24 @ 02:37 by Alebrt Mireles APRN) COPD (chronic obstructive pulmonary disease) Lymphoma in remission Social History Smoking Status: Former smoker alcohol intake: never current occupational status: retired Travel in the last 8 weeks: None Review of Systems Constitutional Constitutional: Reports anorexia, Reports body ache(s) and Reports fatigue Eyes Eyes: Denies eye discharge, Denies dry eyes, Denies irritation and Denies itchy eyes ENT Ears, Nose, Mouth, and Throat: Reports disequilibrium, Denies lip swelling and Denies throat swelling *Cardiovascular Cardiovascular: Reports dyspnea and Reports dyspnea on exertion *Respiratory Respiratory: Reports chest congestion, Reports cough, Reports dyspnea, Reports dyspnea on exertion, Denies excessive phlegm production, Denies hemoptysis, Denies pain on inspiration, Denies pain with cough and Reports wheezing *Gastrointestinal Gastrointestinal: Denies abdominal pain, Denies belching and Denies cramping *Musculoskeletal Musculoskeletal: Reports back pain, Reports myalgias and Reports other (No small joint swelling or Pain) *Neurologic Neurologic: Reports as per HPI, Reports disequilibrium and Reports other (Very ill at this time but no acute signs of CVA) Psychiatric Psychiatric: Denies homicidal ideation and Denies suicidal ideation Endocrine Endocrine: Reports fatigue and Denies heat intolerance Hematologic/Lymphatic Hematologic/Lymphatic: Denies easy bleeding and Denies lymphadenopathy Allergic/Immunologic Allergic/Immunologic: Denies itchy eyes, Denies lip swelling, Denies throat swelling and Reports wheezing Pulmonology Exam Inpatient Vital signs and Labs for Last 24 Hours: Temp Pulse Resp BP Pulse Ox O2 Del Method O2 Flow Rate 98.2 F 76 20 159/74 H 91 L Vapotherm 30 09/30/24 08:13 09/30/24 10:07 09/30/24 10:07 09/30/24 10:08 09/30/24 10:07 09/30/24 07:00 09/30/24 07:00 FiO2 60 09/30/24 06:25 Laboratory Results - last 24 hr 09/29/24 06:10: TIBC 240 L, Iron Saturation 9.21679 L, Ferritin 332 H 09/30/24 06:35: WBC 26.8 H* D, RBC 4.90, Hgb 13.3, Hct 40.3, MCV 82.2, MCH 27.1, MCHC 33.0, RDW 14.3, Plt Count 302 D, MPV 10.5 H, Neut % (Auto) 94.1 H, Lymph % (Auto) 1.7 L, Roberts % (Auto) 3.5, Eos % (Auto) 0.0 L, Baso % (Auto) 0.2, Neut # (Auto) 25.2 H, Lymph # (Auto) 0.5 L, Roberts # (Auto) 0.9, Eos # (Auto) 0.0, Baso # (Auto) 0.1, Total Counted 100, Neutrophils % (Manual) 95 H, Lymphocytes % (Manual) 4 L, Monocytes % (Manual) 1 L, Platelet Estimate Normal, RBC Morphology Normal, Sodium 136, Potassium 4.3, Chloride 100, Carbon Dioxide 29, Anion Gap 11.3, BUN 29 H D, Creatinine 0.80, Estimated Creat Clear 54, Estimated GFR 71, Est GFR ( Amer) 86, Glucose 119 H, Lactate 0.9, Calcium 9.3, Phosphorus 3.7, Magnesium 2.4 H D, Total Bilirubin 0.7, AST 31, ALT 25, Alkaline Phosphatase 115, Total Protein 6.5, Albumin 3.6 D, Globulin 2.9, Albumin/Globulin Ratio 1.2, Free T4 1.65 09/30/24 08:11: VBG pH 7.40, VBG pCO2 44.6, VBG pO2 37.3, VBG HCO3 26.8, VBG Total CO2 28.1 H, VBG O2 Saturation 74.0 H, VBG Base Excess 1.9, VBG Lactic Acid 2.2 H I & O for Labs for Last 24 Hours: Intake & Output 09/27/24 09/28/24 09/29/24 09/30/24 23:59 23:59 23:59 23:59 Intake Total 1245 / 1345 590 / 590 Output Total 1100 / 1100 Balance 145 / 245 590 / 590 Weight 140 lb 150 lb 5 oz 141 lb 4.8 oz Microbiology Reports for the Last 24 Hours: Microbiology 09/29/24 12:21 Sputum - Expectorated Sputum Gram Stain - Final 09/29/24 12:21 Sputum - Expectorated Sputum Sputum Culture - Preliminary 09/28/24 22:55 Blood Blood Culture - Preliminary NO GROWTH AFTER 24 HOURS Constitutional: Present severe distress Head: Present normocephalic and atraumatic ENT: Present normal exam, normal oropharynx and mucous membranes moist Neck: Present normal inspection and full ROM Respiratory: Present prolonged expiratory phase, respiratory distress, rhonchi, wheezes and diminished air movement; Absent able to speak in complete sentences Cardiac: Present S1/S2, Tachycardia and radial pulses present GI: Present soft and distention; Absent tenderness or guarding Rectal (female): Present deferred (female): Present deferred Skin: Present intact; Absent cyanosis or jaundice Neuro: Present alert, awake and oriented x 3 Extremities: Present normal inspection; Absent clubbing or cyanosis Psychiatric: Present normal affect and cooperative Meds Home Medications and Allergies Home Medications ?Medication ?Instructions ?Recorded ?Confirmed ?Type bisoprolol 5 1 tab PO DAILY 09/28/24 09/29/24 History mg-hydrochlorothiazide 6.25 mg tablet levothyroxine 100 mcg tablet 100 mcg PO DAILY 09/28/24 09/29/24 History omeprazole 20 mg capsule,delayed 20 mg PO DAILY 09/28/24 09/29/24 History release sertraline 50 mg tablet 50 mg PO DAILY 09/28/24 09/29/24 History albuterol 90 mcg/actuation aerosol 90 mcg inhalation Q4HP PRN 09/29/24 09/29/24 History inhaler Shortness Of Breath pramipexole 1 mg tablet 1 mg PO TID 09/29/24 09/29/24 History New Prescriptions to Start Prescriptions: Allergies Allergy/AdvReac Type Severity Reaction Status Date / Time No Known Allergies Allergy Verified 09/29/24 01:55 Results Laboratory Findings 09/30/24 06:35 09/30/24 06:35 PT/INR, D-dimer PT 11.0 seconds (10.1-12.5) 09/28/24 22:44 INR 0.98 (0.9-1.1) 09/28/24 22:44 Abnormal lab findings: Abnormal Labs 09/28/24 09/29/24 09/29/24 22:44 06:00 06:10 WBC 25.3 H* 19.5 H RBC 5.48 H MCV 79.0 L 80.8 L MPV 10.7 H 11.2 H Neut % (Auto) 87.3 H 93.4 H Lymph % (Auto) 3.2 L 1.4 L Eos % (Auto) 0.0 L 0.0 L Neut # (Auto) 22.1 H 18.2 H Lymph # (Auto) 0.3 L Roberts # (Auto) 2.1 H Neutrophils % (Manual) 89 H Lymphocytes % (Manual) 3 L Monocytes % (Manual) APTT 35.0 H VBG pO2 25.2 L 27.6 L VBG HCO3 22.4 L VBG Total CO2 VBG O2 Saturation 45.2 L 48.4 L VBG Base Excess -3.8 L VBG Lactic Acid Sodium 132 L Potassium 3.1 L Chloride 95 L BUN 27 H 21 H Creatinine 1.20 H Estimated GFR 45 L Est GFR ( Amer) 54 L Glucose 121 H 163 H D Magnesium Iron 22 L TIBC 240 L Iron Saturation 9.37333 L Ferritin 332 H Total Bilirubin 1.7 H NT-Pro-B Natriuret Pep 1100 H Total Protein 6.1 L Albumin 3.2 L D Procalcitonin 2.20 H TSH 16.80 H Mycoplasma pneumon IgM Reactive A 09/30/24 09/30/24 06:35 08:11 WBC 26.8 H* D RBC MCV MPV 10.5 H Neut % (Auto) 94.1 H Lymph % (Auto) 1.7 L Eos % (Auto) 0.0 L Neut # (Auto) 25.2 H Lymph # (Auto) 0.5 L Roberts # (Auto) Neutrophils % (Manual) 95 H Lymphocytes % (Manual) 4 L Monocytes % (Manual) 1 L APTT VBG pO2 VBG HCO3 VBG Total CO2 28.1 H VBG O2 Saturation 74.0 H VBG Base Excess VBG Lactic Acid 2.2 H Sodium Potassium Chloride BUN 29 H D Creatinine Estimated GFR Est GFR ( Amer) Glucose 119 H Magnesium 2.4 H D Iron TIBC Iron Saturation Ferritin Total Bilirubin NT-Pro-B Natriuret Pep Total Protein Albumin Procalcitonin TSH Mycoplasma pneumon IgM Assessment and Plan *Assessment and plan (1) COPD (chronic obstructive pulmonary disease): Status: Acute Qualifiers: COPD type: emphysema Emphysema type: panlobular Qualified Code(s): J 43.1 - Panlobular emphysema Category: Medical Code(s): J44.9 - Chronic obstructive pulmonary disease, unspecified (2) Left lower lobe pneumonia: Status: Acute Qualifiers: Pneumonia type: due to unspecified organism Qualified Code(s): J18.9 - Pneumonia, unspecified organism Category: Medical Code(s): J18.9 - Pneumonia, unspecified organism (3) Acute hypoxemic respiratory failure: Status: Acute Category: Medical Code(s): J96.01 - Acute respiratory failure with hypoxia Plan Mr. Dan is a 69-year-old female presented to the ER with worsening respiratory distress needing high flow nasal oxygen supplementation pulmonary was called for further evaluation and management. Admits sick contact for COVID-19 pneumonia. CTA upon admission no evidence of pulmonary embolism. Diffuse centrilobular emphysematous changes. Left lower lobe lobar pneumonia noted. COVID-19 and flu PCR panel upon admission negative. Mycoplasma pneumonia positive. Receiving ceftriaxone and azithromycin. Worsening leukocytosis. On high flow nasal cannula. Prelim sputum cultures gram-negative rods. Plan: F/u CXR Continue high flow nasal oxygen supplementation, currently on 40 L 80%. Escalate antibiotics to cefepime pending final sputum culture results and MRSA PCR Continue methylprednisolone 40 twice daily
[2024-09-30 12:36] LABS: Reflex Lactic Add Lactic Reflex
--- NOTE | 2024-09-30 12:47 | XR_ITS ---
FINAL REPORT CLINICAL HISTORY: PNM COMPARISON: 09/28/2024 FINDINGS: The heart size is normal. The mediastinum is normal. There are worsening airspace opacities in the left base as well as a left pleural effusion, consistent with acute pneumonia. There are no pleural effusions. There is no pneumothorax. There is no osseous abnormality. IMPRESSION: There are worsening airspace opacities in the left base as well as a left pleural effusion, consistent with worsening pneumonia. Reviewed, Interpreted and Dictated by Kee Stanley MD Transcribed by Janie Ramos Authenticated and [facility]
--- NOTE | 2024-09-30 14:32 | EXP.CARD.CON ---
History of Present Illness History of Present Illness Consult date: 09/30/24 Requesting physician: Tylor Pagan Consult reason: shortness of breath Chief complaint: SOA History of present illness: Oxygen this is a 69-year-old female who presented to the emergency department with shortness of breath and was also found to be in atrial fibrillation with RVR. The patient reports that she and her were diagnosed with COVID on September 10. She states that they were very sick with the COVID and got over it and then on 19 September they were feeling better so they were around family members including an who tested positive for flu A. Since that time the patient states that she had gotten sick again with episodes of vomiting. She states that she felt very fatigued and was short of breath all the time with a productive cough. She states that she was coughing up phlegm. On the day of her admission she states that she found her on the floor after he yelled her name and collapsed. The patient reports that she went to try to get a belt to help get him up and called EMS and when she got back to her he had . She states that EMS was concerned about her health and told her she needed to come to the emergency department because her heart rate was in the 170s and 180s and her oxygen saturation was low. The patient agreed and came to the emergency department was found to be in atrial fibrillation with RVR. She also found to have multifocal pneumonia and severe COPD exacerbation. [facility] Disclaimer: The information contained in this section may have been updated after the patient was seen, as this information can be updated by other users. Medical History (Updated 09/30/24 @ 14:48 by Sheela Gary APRN) Emphysema lung Left lower lobe pneumonia Atrial fibrillation with RVR COPD (chronic obstructive pulmonary disease) Lymphoma in remission Social History Smoking Status: Former smoker alcohol intake: never current occupational status: retired Travel in the last 8 weeks: None Review of Systems Review of Systems Review of systems:: pertinent systems reviewed and negative unless documented below Constitutional Constitutional: Reports system reviewed and no additional complaints, except as documented, Reports body ache(s), Reports fatigue, Reports fever(s), Reports poor appetite, Reports lethargy and Reports weakness Eyes Eyes: Reports system reviewed and no additional complaints, except as documented ENT Ears, Nose, Mouth, and Throat: Reports system reviewed and no additional complaints, except as documented *Cardiovascular Cardiovascular: Reports system reviewed and no additional complaints, except as documented, Denies chest pain, Reports dyspnea, Reports dyspnea on exertion and Reports orthopnea *Respiratory Respiratory: Reports system reviewed and no additional complaints, except as documented, Reports dyspnea and Reports dyspnea on exertion *Gastrointestinal Gastrointestinal: Reports system reviewed and no additional complaints, except as documented *Genitourinary Genitourinary: Reports system reviewed and no additional complaints, except as documented *Musculoskeletal Musculoskeletal: Reports system reviewed and no additional complaints, except as documented Integumentary/Breasts Skin/Breast: Reports system reviewed and no additional complaints, except as documented *Neurologic Neurologic: Reports system reviewed and no additional complaints, except as documented, Reports as per HPI, Reports weakness and Reports other (Very ill at this time but no acute signs of CVA) Psychiatric Psychiatric: Reports system reviewed and no additional complaints, except as documented Endocrine Endocrine: Reports system reviewed and no additional complaints, except as documented and Reports fatigue Hematologic/Lymphatic Hematologic/Lymphatic: Reports system reviewed and no additional complaints, except as documented Allergic/Immunologic Allergic/Immunologic: Reports system reviewed and no additional complaints, except as documented Exam Data for Last 24 hours Vital signs and Labs for Last 24 Hours: Temp Pulse Resp BP Pulse Ox O2 Del Method O2 Flow Rate 97.7 F 76 21 152/65 H 94 L Vapotherm 40 09/30/24 12:00 09/30/24 13:15 09/30/24 13:15 09/30/24 12:05 09/30/24 13:15 09/30/24 11:35 09/30/24 11:35 FiO2 80 09/30/24 11:35 Laboratory Results - last 24 hr 09/30/24 06:35: WBC 26.8 H* D, RBC 4.90, Hgb 13.3, Hct 40.3, MCV 82.2, MCH 27.1, MCHC 33.0, RDW 14.3, Plt Count 302 D, MPV 10.5 H, Neut % (Auto) 94.1 H, Lymph % (Auto) 1.7 L, Bradley % (Auto) 3.5, Eos % (Auto) 0.0 L, Baso % (Auto) 0.2, Neut # (Auto) 25.2 H, Lymph # (Auto) 0.5 L, Bradley # (Auto) 0.9, Eos # (Auto) 0.0, Baso # (Auto) 0.1, Total Counted 100, Neutrophils % (Manual) 95 H, Lymphocytes % (Manual) 4 L, Monocytes % (Manual) 1 L, Platelet Estimate Normal, RBC Morphology Normal, Sodium 136, Potassium 4.3, Chloride 100, Carbon Dioxide 29, Anion Gap 11.3, BUN 29 H D, Creatinine 0.80, Estimated Creat Clear 54, Estimated GFR 71, Est GFR ( Amer) 86, Glucose 119 H, Lactate 0.9, Calcium 9.3, Phosphorus 3.7, Magnesium 2.4 H D, Total Bilirubin 0.7, AST 31, ALT 25, Alkaline Phosphatase 115, Total Protein 6.5, Albumin 3.6 D, Globulin 2.9, Albumin/Globulin Ratio 1.2, Free T4 1.65 09/30/24 08:11: VBG pH 7.40, VBG pCO2 44.6, VBG pO2 37.3, VBG HCO3 26.8, VBG Total CO2 28.1 H, VBG O2 Saturation 74.0 H, VBG Base Excess 1.9, VBG Lactic Acid 2.2 H I & O for Last 24 hours: Intake & Output 09/27/24 09/28/24 09/29/24 09/30/24 23:59 23:59 23:59 23:59 Intake Total 1245 / 1345 590 / 590 Output Total 1100 / 1100 0 / 0 Balance 145 / 245 590 / 590 Weight 140 lb 150 lb 5 oz 141 lb 4.8 oz Microbiology Reports for the Last 24 Hours: Microbiology 09/29/24 12:21 Sputum - Expectorated Sputum Gram Stain - Final 09/29/24 12:21 Sputum - Expectorated Sputum Sputum Culture - Preliminary 09/28/24 22:55 Blood Blood Culture - Preliminary NO GROWTH AFTER 24 HOURS Constitutional Constitutional: no acute distress and average body habitus *Routine HEENT Exam Head: Present normocephalic and atraumatic ENT: Present mucous membranes moist *Routine Neck Exam Neck: Present supple, full ROM and normal carotid upstroke; Absent JVD, carotid bruit or lymphadenopathy *Routine Respiratory Exam Respiratory: Present rhonchi, wheezes, diminished air movement and symmetric chest movement *Routine Cardiovascular Exam Cardiovascular: Present RRR, Normal S1 and Normal S2; Absent murmur or gallop *Routine Abdominal Exam Abdominal: Present soft and normoactive bowel sounds; Absent tenderness, distended or organomegaly *Routine Extremities Exam Extremities: Present full ROM, pulses intact and normal capillary refill; Absent cyanosis, clubbing or edema *Routine Skin Exam Skin: Present intact and warm; Absent erythema *Routine Neurological Exam Neurological: Present alert, oriented X3 and CN II-XII intact; Absent sensory deficit or motor deficit Routine Psychiatric Exam Psychiatric: Present normal affect Meds Home Medications and Allergies Home Medications ?Medication ?Instructions ?Recorded ?Confirmed ?Type bisoprolol 5 1 tab PO DAILY 09/28/24 09/29/24 History mg-hydrochlorothiazide 6.25 mg tablet levothyroxine 100 mcg tablet 100 mcg PO DAILY 09/28/24 09/29/24 History omeprazole 20 mg capsule,delayed 20 mg PO DAILY 09/28/24 09/29/24 History release sertraline 50 mg tablet 50 mg PO DAILY 09/28/24 09/29/24 History albuterol 90 mcg/actuation aerosol 90 mcg inhalation Q4HP PRN 09/29/24 09/29/24 History inhaler Shortness Of Breath pramipexole 1 mg tablet 1 mg PO TID 09/29/24 09/29/24 History New Prescriptions to Start Prescriptions: Allergies Allergy/AdvReac Type Severity Reaction Status Date / Time No Known Allergies Allergy Verified 09/29/24 01:55 Assessment and Plan *Assessment and plan (1) Atrial fibrillation with RVR: Status: Acute Category: Medical Code(s): I48.91 - Unspecified atrial fibrillation (2) Left lower lobe pneumonia: Status: Acute Qualifiers: Pneumonia type: due to unspecified organism Qualified Code(s): J18.9 - Pneumonia, unspecified organism Category: Medical Code(s): J18.9 - Pneumonia, unspecified organism (3) Lymphoma in remission: Status: Acute Category: Medical Code(s): C85.9A - Non-Hodgkin lymphoma, unspecified, in remission (4) Emphysema lung: Status: Acute Qualifiers: Emphysema type: other Qualified Code(s): J43.8 - Other emphysema Category: Medical Code(s): J43.9 - Emphysema, unspecified (5) COPD (chronic obstructive pulmonary disease): Status: Acute Qualifiers: COPD type: emphysema Emphysema type: panlobular Qualified Code(s): J43.1 - Panlobular emphysema Category: Medical Code(s): J44.9 - Chronic obstructive pulmonary disease, unspecified Plan Plan: 1. The patient was admitted to the hospital with multifocal pneumonia and severe emphysema. The patient has been consulted by pulmonology. Will defer. 2. The patient was found to be in atrial fibrillation with RVR on admission. She was treated with IV metoprolol and did convert to sinus rhythm. She maintained sinus rhythm at this time. Continue oral metoprolol for suppression of the atrial fibrillation. 3. Currently the patient is on Lovenox for anticoagulation. Prior to discharge home the patient will need to be converted over to either oral Xarelto or oral Eliquis for long-term anticoagulation. 4. The patient ruled out for an NM. No plans for invasive left cardiac catheterization at this time. She denies any chest pain or pressure. On an outpatient basis she would benefit from an outpatient ischemic evaluation once she has recovered from her pneumonia. 5. Her blood pressure is well-controlled. 6. Her LDL goal is less than 100. Will get a lipid panel. 7. The patient did have a slightly elevated BNP on admission. She was treated with IV Lasix. We do recommend low-dose Lasix 20 mg p.o. daily. 8. No further recommendations at this time from a cardiac standpoint. Once the patient is discharged home from a cardiac standpoint she can follow-up in cardiology clinic in 1 to 2 weeks on an outpatient basis with an outpatient ischemic evaluation. Once she is stable for discharge home the patient can be discharged on the following cardiac medications: Metoprolol succinate 50 mg p.o. daily, Lasix 20 mg daily and either Eliquis or Xarelto for long-term anticoagulation. Thank you for the opportunity to help dissipate in the care of this patient. All recommendations and orders are per Dr. Fenton.
[2024-09-30 14:39] LABS: Lactic Acid Follow Up (RFLX 1) 0.8 mmol/L (0.7-2.1)
[2024-09-30] MEDS: CEFEPIME HCL 2 GM in 0.9 % SODIUM CHLORIDE 100 ML IV (14:47)
--- NOTE | 2024-09-30 15:42 | ECG_ITS ---
APPROVED REPORT Exam: Resting ECG HR:140 bpm ECG Measurements Heart Rate 140 AXES QRSd 86 QRS 46 QT 282 T 1 QTc 363 Conclusion ATRIAL FLUTTER/TACHYCARDIA WITH RAPID VENTRICULAR RESPONSE MODERATE ST DEPRESSION [0.05+ mV ST DEPRESSION] ABNORMAL ECG UNCONFIRMED REPORT Electronically signed by : Timothy Del Rio MD 10/04/2024 08:33:35
--- NOTE | 2024-09-30 15:47 | P.PN_ITS ---
Subjective *Date: 09/30/24 *Time: 17:31 Interval history: Family at bedside. Continues to necessitate Vapotherm. Afebrile. White cell count elevated again today. Intermittent confusion. No nausea or vomiting. Denies chest pain. Still quite ill. Necessitating ICU level care. Medical Exam Vital signs and Labs for Last 24 Hours: Vital Signs Temp Pulse Pulse Resp BP Pulse Ox O2 Del Method 09/30/24 15:30 140 H 29 H 90 L 09/30/24 15:24 130 H 20 171/96 H 92 L 09/30/24 15:15 130 H 21 85 L 09/30/24 15:00 71 21 96 09/30/24 14:45 73 21 94 L 09/30/24 14:12 79 18 169/79 H 95 09/30/24 13:34 80 181/70 H 94 L 09/30/24 13:15 76 21 94 L 09/30/24 13:00 65 22 94 L 09/30/24 12:45 78 21 95 09/30/24 12:30 78 26 H 96 09/30/24 12:15 75 14 98 09/30/24 12:05 76 22 152/65 H 98 09/30/24 12:05 152/65 H 09/30/24 12:00 172/111 H 09/30/24 12:00 97.7 F 83 18 172/111 H 94 L 09/30/24 11:45 81 16 91 L 09/30/24 11:35 90 L Vapotherm 09/30/24 11:30 79 93 L 09/30/24 11:15 80 20 91 L 09/30/24 11:00 82 25 H 90 L 09/30/24 10:45 87 26 H 92 L 09/30/24 10:34 96 Vapotherm 09/30/24 10:30 85 23 95 09/30/24 10:15 78 18 91 L 09/30/24 10:15 78 09/30/24 10:15 81 09/30/24 10:08 81 26 H 92 L 09/30/24 10:08 159/74 H 09/30/24 10:07 76 20 159/74 H 91 L 09/30/24 10:00 81 22 92 L 09/30/24 09:45 82 25 H 90 L 09/30/24 09:30 85 92 L Vapotherm 09/30/24 09:30 69 21 93 L 09/30/24 09:15 84 17 93 L 09/30/24 09:00 Vapotherm 09/30/24 09:00 72 33 H 94 L 09/30/24 08:45 87 16 93 L 09/30/24 08:30 79 22 97 09/30/24 08:15 83 18 92 L 09/30/24 08:13 98.2 F 76 18 135/52 L 96 09/30/24 08:00 92 H 20 90 L 09/30/24 07:45 83 24 93 L 09/30/24 07:30 84 20 91 L 09/30/24 07:15 86 20 87 L 09/30/24 07:00 Vapotherm 09/30/24 07:00 82 17 94 L 09/30/24 06:45 81 21 95 09/30/24 06:30 83 18 93 L 09/30/24 06:25 89 09/30/24 06:25 90 09/30/24 06:25 91 L Vapotherm 09/30/24 06:15 85 25 H 90 L 09/30/24 06:08 84 18 93 L 09/30/24 06:07 83 20 170/86 H 91 L 09/30/24 05:00 Vapotherm 09/30/24 05:00 79 15 95 09/30/24 04:45 79 17 95 09/30/24 04:30 63 20 95 09/30/24 04:15 65 19 95 09/30/24 04:07 58 L 17 127/92 H 92 L 09/30/24 04:00 85 09/30/24 04:00 Vapotherm 09/30/24 03:51 97.8 F 09/30/24 03:45 65 18 95 09/30/24 03:30 69 21 93 L 09/30/24 03:15 82 22 95 09/30/24 03:00 Vapotherm 09/30/24 03:00 76 20 91 L 09/30/24 02:45 62 20 92 L 09/30/24 02:43 61 09/30/24 02:43 64 09/30/24 02:43 93 L Vapotherm 09/30/24 02:30 61 14 93 L 09/30/24 02:15 60 20 93 L 09/30/24 02:00 62 22 132/63 93 L 09/30/24 01:45 63 20 92 L 09/30/24 01:30 61 20 92 L 09/30/24 01:15 61 20 92 L 09/30/24 01:00 64 20 92 L 09/30/24 01:00 Vapotherm 09/30/24 00:45 65 21 92 L 09/30/24 00:30 64 21 91 L 09/30/24 00:15 65 21 91 L 09/30/24 00:01 67 20 127/59 L 92 L 09/30/24 00:00 65 09/30/24 00:00 68 21 92 L 09/29/24 23:45 76 21 91 L 09/29/24 23:33 98.6 F 09/29/24 23:30 71 23 90 L 09/29/24 23:15 73 23 91 L 09/29/24 23:00 88 22 75 L 09/29/24 23:00 Vapotherm 09/29/24 22:51 75 23 161/76 H 94 L 09/29/24 22:45 80 13 88 L 09/29/24 22:34 75 16 196/81 H 89 L 09/29/24 22:30 78 23 92 L 09/29/24 22:15 74 16 94 L 09/29/24 22:00 74 13 179/69 H 96 09/29/24 21:57 76 09/29/24 21:57 76 09/29/24 21:57 94 L Vapotherm 09/29/24 21:45 74 18 97 09/29/24 21:30 79 20 96 09/29/24 21:15 71 18 91 L 09/29/24 21:08 79 15 89 L 09/29/24 21:00 Vapotherm 09/29/24 20:15 84 19 95 09/29/24 20:01 81 20 96 09/29/24 20:00 80 09/29/24 20:00 96 Vapotherm 09/29/24 20:00 81 18 160/81 H 96 09/29/24 20:00 98.2 F 09/29/24 19:45 21 09/29/24 19:30 81 18 96 09/29/24 19:15 87 22 94 L 09/29/24 19:00 79 18 95 01/06/25 19:00 76 09/29/24 19:00 79 09/29/24 19:00 94 L Vapotherm 09/29/24 18:47 Room Air 09/29/24 18:45 78 16 91 L 09/29/24 18:30 17 09/29/24 18:22 19 09/29/24 18:22 152/70 H 09/29/24 18:15 22 09/29/24 18:00 24 09/29/24 17:45 67 19 94 L 09/29/24 17:30 72 21 95 09/29/24 17:15 82 17 97 09/29/24 17:00 76 18 98 09/29/24 17:00 Vapotherm 09/29/24 16:45 73 20 94 L 09/29/24 16:30 74 17 94 L 09/29/24 16:15 72 18 97 09/29/24 16:12 75 18 92 L 09/29/24 16:12 97.4 F L 155/77 H 09/29/24 16:00 76 O2 Flow Rate FiO2 09/30/24 15:30 09/30/24 15:24 09/30/24 15:15 09/30/24 15:00 09/30/24 14:45 09/30/24 14:12 09/30/24 13:34 09/30/24 13:15 09/30/24 13:00 09/30/24 12:45 09/30/24 12:30 09/30/24 12:15 09/30/24 12:05 09/30/24 12:05 09/30/24 12:00 09/30/24 12:00 09/30/24 11:45 09/30/24 11:35 40 80 09/30/24 11:30 09/30/24 11:15 09/30/24 11:00 09/30/24 10:45 09/30/24 10:34 70 09/30/24 10:30 09/30/24 10:15 09/30/24 10:15 09/30/24 10:15 09/30/24 10:08 09/30/24 10:08 09/30/24 10:07 09/30/24 10:00 09/30/24 09:45 09/30/24 09:30 30 70 09/30/24 09:30 09/30/24 09:15 09/30/24 09:00 30 09/30/24 09:00 09/30/24 08:45 09/30/24 08:30 09/30/24 08:15 09/30/24 08:13 09/30/24 08:00 09/30/24 07:45 09/30/24 07:30 09/30/24 07:15 09/30/24 07:00 30 09/30/24 07:00 09/30/24 06:45 09/30/24 06:30 09/30/24 06:25 09/30/24 06:25 09/30/24 06:25 30 60 09/30/24 06:15 09/30/24 06:08 09/30/24 06:07 09/30/24 05:00 30 09/30/24 05:00 09/30/24 04:45 09/30/24 04:30 09/30/24 04:15 09/30/24 04:07 09/30/24 04:00 09/30/24 04:00 30 09/30/24 03:51 09/30/24 03:45 09/30/24 03:30 09/30/24 03:15 09/30/24 03:00 09/30/24 03:00 09/30/24 02:45 09/30/24 02:43 09/30/24 02:43 09/30/24 02:43 30 60 09/30/24 02:30 09/30/24 02:15 09/30/24 02:00 09/30/24 01:45 09/30/24 01:30 09/30/24 01:15 09/30/24 01:00 09/30/24 01:00 09/30/24 00:45 09/30/24 00:30 09/30/24 00:15 09/30/24 00:01 09/30/24 00:00 09/30/24 00:00 09/29/24 23:45 09/29/24 23:33 09/29/24 23:30 09/29/24 23:15 09/29/24 23:00 09/29/24 23:00 30 09/29/24 22:51 09/29/24 22:45 09/29/24 22:34 09/29/24 22:30 09/29/24 22:15 09/29/24 22:00 09/29/24 21:57 09/29/24 21:57 09/29/24 21:57 30 50 09/29/24 21:45 09/29/24 21:30 09/29/24 21:15 09/29/24 21:08 09/29/24 21:00 30 09/29/24 20:15 09/29/24 20:01 09/29/24 20:00 09/29/24 20:00 30 65 09/29/24 20:00 09/29/24 20:00 09/29/24 19:45 09/29/24 19:30 09/29/24 19:15 09/29/24 19:00 09/29/24 19:00 09/29/24 19:00 09/29/24 19:00 30 65 09/29/24 18:47 09/29/24 18:45 09/29/24 18:30 09/29/24 18:22 09/29/24 18:22 09/29/24 18:15 09/29/24 18:00 09/29/24 17:45 09/29/24 17:30 09/29/24 17:15 09/29/24 17:00 09/29/24 17:00 30 09/29/24 16:45 09/29/24 16:30 09/29/24 16:15 09/29/24 16:12 09/29/24 16:12 09/29/24 16:00 Intake and Output 09/29/24 09/30/24 09/30/24 23:59 07:59 15:59 Intake Total 350 / 590 240 / 590 Output Total 0 / 1100 0 / 0 Balance 0 / 245 350 / 590 240 / 590 Intake: Intake, Oral Amount 240 / 240 Intake, Total IV Amount 350 / 350 Azithromycin 500 mg In 0.9 % 250 / 250 Sodium Chloride 250 ml @ 250 mls/hr IV Q24H [facility] Rx#:[id number] Ceftriaxone Sodium 2 gm In 0.9 100 / 100 % Sodium Chloride 100 ml @ 200 mls/hr IV Q24H [facility] Rx#:[id number] Output: Output, Urine Amount 0 / 1100 0 / 0 Other: Number of Unmeasured Voids 1 0 1 Weight 64.093 kg Patient Weight 09/30/24 23:59 Weight 64.093 kg Laboratory Results - last 24 hr 09/30/24 06:35: WBC 26.8 H* D, RBC 4.90, Hgb 13.3, Hct 40.3, MCV 82.2, MCH 27.1, MCHC 33.0, RDW 14.3, Plt Count 302 D, MPV 10.5 H, Neut % (Auto) 94.1 H, Lymph % (Auto) 1.7 L, Leslie % (Auto) 3.5, Eos % (Auto) 0.0 L, Baso % (Auto) 0.2, Neut # (Auto) 25.2 H, Lymph # (Auto) 0.5 L, Leslie # (Auto) 0.9, Eos # (Auto) 0.0, Baso # (Auto) 0.1, Total Counted 100, Neutrophils % (Manual) 95 H, Lymphocytes % (Manual) 4 L, Monocytes % (Manual) 1 L, Platelet Estimate Normal, RBC Morphology Normal, Sodium 136, Potassium 4.3, Chloride 100, Carbon Dioxide 29, Anion Gap 11.3, BUN 29 H D, Creatinine 0.80, Estimated Creat Clear 54, Estimated GFR 71, Est GFR ( Amer) 86, Glucose 119 H, Lactate 0.9, Calcium 9.3, Phosphorus 3.7, Magnesium 2.4 H D, Total Bilirubin 0.7, AST 31, ALT 25, Alkaline Phosphatase 115, Total Protein 6.5, Albumin 3.6 D, Globulin 2.9, Albumin/Globulin Ratio 1.2, Free T4 1.65 09/30/24 08:11: VBG pH 7.40, VBG pCO2 44.6, VBG pO2 37.3, VBG HCO3 26.8, VBG Total CO2 28.1 H, VBG O2 Saturation 74.0 H, VBG Base Excess 1.9, VBG Lactic Acid 2.2 H 09/30/24 14:25: Lactate 0.8 I & O for Labs for Last 24 Hours: Intake & Output 09/27/24 09/28/24 09/29/24 09/30/24 23:59 23:59 23:59 23:59 Intake Total 1245 / 1345 590 / 590 Output Total 1100 / 1100 0 / 0 Balance 145 / 245 590 / 590 Weight 63.503 kg 68.181 kg 64.093 kg Microbiology Reports for the Last 24 Hours: Microbiology 09/29/24 12:21 Sputum - Expectorated Sputum Gram Stain - Final 09/29/24 12:21 Sputum - Expectorated Sputum Sputum Culture - Preliminary 09/28/24 22:55 Blood Blood Culture - Preliminary NO GROWTH AFTER 24 HOURS Constitutional: Present moderate distress, average body habitus, chronically ill appearing and cooperative Head: Present atraumatic and normocephalic ENT: Present normal exam Respiratory: Present accessory muscle use, prolonged expiratory phase, wheezes and crackles; Absent rhonchi Cardiac: Present Regular Rate and Regular Rhythm GI: Present soft and normal bowel sounds; Absent distention or tenderness Extremities: Present normal inspection and full ROM Skin: Present intact; Absent erythema Neuro: Present Grossly Intact, alert, awake and moves all extremities Comment:: Oriented to self, thinks she is at hospital and [place] Assessment and Plan *Assessment and plan (1) Acute hypoxemic respiratory failure: Status: Acute Category: Medical Code(s): J96.01 - Acute respiratory failure with hypoxia (2) Atrial fibrillation with controlled ventricular rate: Status: Acute Category: Medical Code(s): I48.91 - Unspecified atrial fibrillation (3) Left lower lobe pneumonia: Status: Acute Qualifiers: Pneumonia type: due to unspecified organism Qualified Code(s): J18.9 - Pneumonia, unspecified organism Category: Medical Code(s): J18.9 - Pneumonia, unspecified organism (4) Viral upper respiratory illness: Status: Acute Category: Medical Code(s): J06.9 - Acute upper respiratory infection, unspecified (5) Oxygen deficiency: Status: Acute Category: Medical Code(s): R09.02 - Hypoxemia (6) COPD (chronic obstructive pulmonary disease): Status: Acute Qualifiers: COPD type: emphysema Emphysema type: panlobular Qualified Code(s): J43.1 - Panlobular emphysema Category: Medical Code(s): J44.9 - Chronic obstructive pulmonary disease, unspecified (7) Lymphoma in remission: Status: Acute Category: Medical Code(s): C85.9A - Non-Hodgkin lymphoma, unspecified, in remission (8) CHF exacerbation: Status: Acute Qualifiers: Heart failure type: systolic Qualified Code(s): I50.23 - Acute on chronic systolic (congestive) heart failure Category: Medical Code(s): I50.9 - Heart failure, unspecified (9) Hypothyroidism: Status: Acute Qualifiers: Hypothyroidism type: postoperative Qualified Code(s): E89.0 - Postprocedural hypothyroidism Category: Medical Code(s): E03.9 - Hypothyroidism, unspecified (10) Hypokalemia: Status: Acute Category: Medical Code(s): E87.6 - Hypokalemia Plan Kaur Dan is a 69-year-old female with a history of COPD not on home O2 who presents with shortness of breath, chest pain and admitted for acute hypoxic respiratory failure secondary to COPD exacerbation, mycoplasma pneumonia, A-fib RVR. Of note, her from COVID-19 at home just prior to admission. Patient has been sick for at least 2 weeks. Continues to require ICU level care. Increased oxygen requirement today. Condition serious, prognosis guarded. Problems addressed as follows: #Acute hypoxic respiratory failure #Acute COPD exacerbation #Sepsis #Community-acquired pneumonia #Chronic pulmonary arterial hypertension ? CTA chest reveals LLL pneumonia with no pulmonary emboli. Continues to r equire Vapotherm at 30 L and 80%. -Pulmonology consulted, discussed case today, broaden antibiotics to cefepime. Will hold on vancomycin. MRSA swab pending. Continue azithromycin 500 mg daily. -White cell count remains elevated at 26, blood gas with normal pH of 7.4, pCO2 44.6. Kidney function normal with BUN 29, creatinine 0.8. Electrolytes stable with potassium 4.3, phosphorus 3.7, magnesium 2.4. -Repeat CBC, CMP, magnesium ordered for the morning ?Serum IgM positive for mycoplasma. ? Moderate wheezing, restricted air movement throughout lung rangel. ? DuoNebs Q4RT, Pulmicort twice daily. ? IV Solu-Medrol 40 mg twice daily. ? Follow-up blood, sputum cultures. #A-fib versus SVT #RVR resolved ? Initial EKG is suggestive of A-fib versus SVT with HR 167 bpm. Converted to NSR with IV diltiazem. ? Discussed case with cardiology today, recommend continuing oral metoprolol 50 mg daily for suppression of A-fib. Continue Lovenox while admitted, recommend transitioning to oral NOAC prior to discharge. No plan for interventional procedure during admission. -Cardiology recommends low-dose Lasix daily due to elevated BNP on admission ? [id number] score 3 for age, sex, hypertension. ? ECHO reveals normal biventricular function without valvular issues. #Elevated TSH: TSH 16.8, however obtained in acute and severe illness. Can be repeated once more stable. Free T4 normal at 1.6. Continue levothyroxine 100 mcg daily #Restless leg syndrome: Continue home pramipexole. ICU/Critical care attestation This patient is critically ill with 35 minutes devoted solely to this patient managing life/organ supporting interventions that required physician assessment. This includes time spent making adjustments in ventilator settings, IV fluid administration, titration of pressors, adjustments of medications, discussion of patient with consultants and other care providers as well as updating patient and/or family (if patient by virtue of his/her condition is unable to participate in decision making). This does not include time spent performing separately billed procedures. Time is not concurrent with that of other providers. Full code PLOV
[2024-09-30] MEDS: METOPROLOL TARTRATE 5MG/5ML VIAL 5 MG IV ×3 (15:59→19:11)
[2024-09-30] MEDS: LORazepam 2MG/ML VIAL 1 MG IV (16:27)
[2024-09-30] MEDS: LEVALBUTEROL 0.63MG/3ML NEB 0.63 MG IH ×2 (18:36→21:51)
[2024-09-30] MEDS: IPRATROPIUM BROMIDE 0.5 MG/2.5ML SOLUTION IH ×2 (18:36→21:51)
--- NOTE | 2024-09-30 19:29 | PC.NURSE ---
pt noted to have fast hr in the 130-140's at 1530. upon entering room it was noted that pt was having a conversation with her family in regards to arrangments having been made for her without her input. pt was noted to be upset. a black present in unit at time rate noted. order received for pt to have 5mg lopressor. medicare biller at 1535 hr remained in the 130's. notified a black 1545 order received for 2nd dose of lopressor 5mg iv. notified a black 1505 that pt hr still elevated. per a black given lorazepam that is already ordered. if med unsuccesful, give 3rd dose of lopressor 5mg iv.
[2024-09-30] MEDS: OLANZapine 10 MG VIAL 5 MG IM (20:58)
[2024-10-01] VITALS (102 sets, daily range): BP systolic 47–212; BP diastolic 28–181; PULSE 43–87; RESP 11–25; TEMP 36.2–36.9; O2SAT 84–98; BMI 24.6
--- NOTE | 2024-10-01 00:22 | ECG_ITS ---
APPROVED REPORT Exam: Resting ECG HR:77 bpm ECG Measurements Heart Rate 77 AXES NM 187 P 55 QRSd 91 QRS 36 QT 416 T 39 QTc 448 Conclusion SINUS RHYTHM WITH FREQUENT SUPRAVENTRICULAR PREMATURE COMPLEXES ABNORMAL RHYTHM ECG UNCONFIRMED REPORT Electronically signed by : Timothy Del Rio MD 10/04/2024 08:32:55
[2024-10-01] MEDS: CEFEPIME HCL 2 GM in 0.9 % SODIUM CHLORIDE 100 ML IV ×2 (00:46→12:32)
[2024-10-01] MEDS: AZITHROMYCIN 500 MG in 0.9 % SODIUM CHLORIDE 250 ML 250 MG IV (01:25)
[2024-10-01 05:10] LABS: HCV Ab Non Reactive (Non Reactive)
[2024-10-01 06:06] LABS: Basophils % 0.1 % (0.1-2.0); Lymphocytes % 2.7 % (10-50)
[2024-10-01 06:12] LABS: Hematocrit 35.5 % (37.0-47.0); Hemoglobin 11.5 g/dL (12.2-16.2); Lymphocytes # 0.4 K/mm3 (0.7-4.5); Mean Corpuscular HGB Conc 32.4 g/dL (31.8-35.4); Mean Corpuscular Hemoglobin 26.7 pg (27.0-31.2); Mean Corpuscular Volume 82.6 fl (81-99); Mean Platelet Volume 10.2 fl (7.4-10.4); Monocytes # 0.6 K/mm3 (0.1-1.0); Monocytes % 4.9 % (1.7-9.3); Neutrophils # 11.8 K/mm3 (1.8-7.8); Neutrophils % 91.8 % (37.0-80.0); Platelet Count 241 K/mm3 (142-424); Red Cell Distribution Width 14.1 % (11.5-17.5); White Blood Count 12.9 K/mm3 (4.8-10.8)
[2024-10-01 06:13] LABS: MANUAL DIFFERENTIAL MANUAL DIFFERENTIAL (MANUAL DIFF)
[2024-10-01 06:14] LABS: Lactate Dehydrogenase 183 U/L (313-618)
[2024-10-01 06:19] LABS: C-Reactive Protein 216.1 mg/L (0-4)
[2024-10-01] MEDS: IPRATROPIUM BROMIDE 0.5 MG/2.5ML SOLUTION IH ×5 (06:29→22:07)
[2024-10-01] MEDS: BUDESONIDE 0.5MG/2ML NEB 0.5 MG IH ×2 (06:29→18:15)
[2024-10-01] MEDS: LEVALBUTEROL 0.63MG/3ML NEB 0.63 MG IH ×5 (06:30→22:07)
[2024-10-01 06:57] LABS: Alanine Aminotransferase 22 U/L (12-78); Albumin Level 2.8 g/dl (3.5-5.0); Albumin/Globulin Ratio 1.1 (1.1-1.8); Alkaline Phosphatase 91 U/L (38-126); Aspartate Amino Transferase 29 U/L (14-36); Bilirubin,Total 0.8 mg/dl (0.2-1.3); Blood Urea Nitrogen 33 mg/dl (7-17); Calcium 8.6 mg/dl (8.4-10.2); Carbon Dioxide 28 mmol/L (22.0-30.0); Chloride 103 mmol/L (98-107); Creatinine Clearance Estimated 56 mL/min (50-200); Estimated Glomerular Filt Rate 83 ml/min (>60); GFR (African American) 100 ML/MIN (>60); Globulin 2.5 g/dL (1.3-3.2); Glucose 111 mg/dl (74-100); Lymphocytes % 4 % (10-50); Magnesium 2.3 mg/dl (1.6-2.3); Monocytes % 1 % (2-9); Neutrophils % 95 % (42-76); Potassium 3.7 mmoL/L (3.5-5.1); Total Cells Counted 100; Total Protein,Serum 5.3 g/dl (6.3-8.2)
[2024-10-01 06:58] LABS: Hypochromasia 1+
[2024-10-01 07:01] LABS: Anion Gap 8.7 mEq/L (5-15); Platelet Estimate Normal; Sodium 136 mmol/L (136-145)
--- NOTE | 2024-10-01 07:40 | EXP.PHA.CONS ---
Pharmacy Consult Date: 10/01/24 Time: 07:42 Referring provider: DR CRUZ Reason for Consult:: VANCOMYCIN DOSING CONSULT Allergies Allergy/AdvReac Type Severity Reaction Status Date / Time No Known Allergies Allergy Verified 09/29/24 01:55 Home Medications ?Medication ?Instructions ?Recorded ?Confirmed ?Type bisoprolol 5 1 tab PO DAILY 09/28/24 09/29/24 History mg-hydrochlorothiazide 6.25 mg tablet levothyroxine 100 mcg tablet 100 mcg PO DAILY 09/28/24 09/29/24 History omeprazole 20 mg capsule,delayed 20 mg PO DAILY 09/28/24 09/29/24 History release sertraline 50 mg tablet 50 mg PO DAILY 09/28/24 09/29/24 History albuterol 90 mcg/actuation aerosol 90 mcg inhalation Q4HP PRN 09/29/24 09/29/24 History inhaler Shortness Of Breath pramipexole 1 mg tablet 1 mg PO TID 09/29/24 09/29/24 History New Prescriptions to Start Prescriptions: Height: 1.65 m Weight: 67.086 kg Laboratory Results:: Laboratory Results - last 24 hr 09/28/24 22:44: Hepatitis C Antibody Non reactive 09/30/24 06:35: Total Counted 100, Neutrophils % (Manual) 95 H, Lymphocytes % (Manual) 4 L, Monocytes % (Manual) 1 L, Platelet Estimate Normal, RBC Morphology Normal, Free T4 1.65 09/30/24 08:11: VBG pH 7.40, VBG pCO2 44.6, VBG pO2 37.3, VBG HCO3 26.8, VBG Total CO2 28.1 H, VBG O2 Saturation 74.0 H, VBG Base Excess 1.9, VBG Lactic Acid 2.2 H 09/30/24 14:25: Lactate 0.8 10/01/24 05:52: WBC 12.9 H D, RBC 4.30, Hgb 11.5 L D, Hct 35.5 L, MCV 82.6, MCH 26.7 L, MCHC 32.4, RDW 14.1, Plt Count 241, MPV 10.2, Neut % (Auto) 91.8 H, Lymph % (Auto) 2.7 L, [place] % (Auto) 4.9, Eos % (Auto) 0.0 L, Baso % (Auto) 0.1, Neut # (Auto) 11.8 H, Lymph # (Auto) 0.4 L, [place] # (Auto) 0.6, Eos # (Auto) 0.0, Baso # (Auto) 0.0, Total Counted 100, Neutrophils % (Manual) 95 H, Lymphocytes % (Manual) 4 L, Monocytes % (Manual) 1 L, Platelet Estimate Normal, Hypochromasia 1+, Sodium 136, Potassium 3.7, Chloride 103, Carbon Dioxide 28, Anion Gap 8.7, BUN 33 H, Creatinine 0.70, Estimated Creat Clear 56, Estimated GFR 83, Est GFR ( Amer) 100, Glucose 111 H, Calcium 8.6, Magnesium 2.3, Total Bilirubin 0.8, AST 29, ALT 22, Alkaline Phosphatase 91, Lactate Dehydrogenase 183 L, C-Reactive Protein 216.1 H, Total Protein 5.3 L, Albumin 2.8 L D, Globulin 2.5, Albumin/Globulin Ratio 1.1 Medical History: Medical History (Updated 09/30/24 @ 14:48 by Sheela Gary APRN) Emphysema lung Left lower lobe pneumonia Atrial fibrillation with RVR COPD (chronic obstructive pulmonary disease) Lymphoma in remission Assessment and Plan Assessment and plan all Dx Assessment and Plan for all problems:: Pharmacokinetic dosing service Objective: Age: 69 yo Serum creatinine: 0.7 mg/dL Height: 65.0 Inches Weight (kg): 67.086 Diagnosis: COMMUNITY ACQUIRED PNEUMONIA,ICU Assessment: IBW (kg): 57.00 Dosing wt(kg): 67.086 Estimated Creatinine clearance (ml/min): 68.3 CRCL method: Cockcroft and Gault using ibw(default). Drug selected: Vancomycin Loading dose (mg): 1250 MG Vd (liters): 43.6 (factor used: 0.65 L/kg) Rojas (hr-1): 0.061 Half life (hrs): 11.36 CLvanco=?? 2.660 L/hr Recommended dose: 1000 mg Interval: 18 hrs Infusion time (hrs): 2.0 Predicted peak (mcg/mL): 32.4 Predicted trough (mcg/mL): 12.21 Total body weight is being used for vancomycin dosing. Recommendations: Give Vancomycin 1000 mg q 18 hrs with an expected Cpeak of 32.4 mcg/ml and an expected Ctrough of 12.21 mcg/ml TO START 10/02/24 AT 02:00, PATIENT TO RECEIVE ONE TIME LOADING DOSE OF VANCOMYCIN 1250 MG IV 10/01/24 AT 08:00. AUC 0-24 /JOSUÉ Data: JOSUÉ 0.5 mcg/mL:?? AUC/JOSUÉ:? 1002.5 JOSUÉ 1.0 mcg/mL:?? AUC/JOSUÉ:? 501.3 --------- JOSUÉ 1.5 mcg/mL:?? AUC/JOSUÉ:? 334.2 JOSUÉ 2.0 mcg/mL:?? AUC/JOSUÉ:? 250.6 Thank you for the consult
[2024-10-01] MEDS: FAMOTIDINE 20MG/2ML VIAL 20 MG IV ×2 (08:21→20:59)
[2024-10-01] MEDS: SERTRALINE 50MG TABLET 50 MG PO (08:21)
[2024-10-01] MEDS: LEVOTHYROXINE 100MCG (0.1MG) TAB 100 MCG PO (08:21)
[2024-10-01] MEDS: METOPROLOL SUCCINATE XL 50MG TABLET 50 MG PO (08:21)
[2024-10-01] MEDS: SODIUM CHLORIDE 0.9% 10ML VIAL 8 ML IV ×2 (08:21→20:59)
[2024-10-01] MEDS: PRAMIPEXOLE 1MG TAB 1 MG PO ×3 (08:21→20:59)
[2024-10-01] MEDS: METHYLPREDNISOLONE SOD SUCC 40MG VIAL 40 MG IV ×2 (08:21→20:59)
[2024-10-01] MEDS: ASPIRIN EC 81MG TABLET 81 MG PO (08:21)
[2024-10-01] MEDS: ENOXAPARIN 80MG/0.8ML SYRINGE 65 MG SUBCUT ×2 (08:21→20:59)
[2024-10-01] MEDS: ARTIFICIAL TEARS SOLN 15ML BOTTLE OP (08:22)
[2024-10-01] MEDS: VANCOMYCIN/WATER FOR INJ (PEG) 1.25 GM/250 ML PIGGYBACK IV (08:22)
--- NOTE | 2024-10-01 09:30 | EXP.ACUTE.PN ---
Subjective *Date: 10/01/24 *Time: 20:24 Interval history: Patient appeared somewhat comfortable on exam this morning. Family at bedside. Remains on Vapotherm. Poor p.o. intake. Sputum culture with gram-positive cocci, antibiotics broadened today. Afebrile overnight. No nausea or vomiting. Medical Exam Vital signs and Labs for Last 24 Hours: Vital Signs Temp Pulse Pulse Resp BP Pulse Ox O2 Del Method 10/01/24 06:59 66 18 148/73 H 94 L Vapotherm 10/01/24 06:55 Vapotherm 10/01/24 06:01 168/72 H 10/01/24 06:01 70 18 168/72 H 94 L 10/01/24 06:00 67 17 94 L 10/01/24 05:45 64 10/01/24 05:45 67 10/01/24 05:45 94 L Vapotherm 10/01/24 05:45 67 18 93 L 10/01/24 05:30 67 19 92 L 10/01/24 05:30 144/62 H 10/01/24 05:15 67 19 93 L 10/01/24 05:01 68 19 135/61 92 L 10/01/24 05:01 135/61 10/01/24 05:00 Vapotherm 10/01/24 05:00 97.1 F L 65 18 90 L 10/01/24 04:45 69 19 93 L 10/01/24 04:30 69 18 92 L 10/01/24 04:30 119/63 10/01/24 04:15 67 18 91 L 10/01/24 04:01 68 17 89 L 10/01/24 04:01 123/77 10/01/24 04:00 60 10/01/24 04:00 79 17 91 L 10/01/24 04:00 69 93 L Vapotherm 10/01/24 03:48 127/97 H 10/01/24 03:48 22 90 L 10/01/24 03:33 61 90 L 10/01/24 03:33 47/28 L 10/01/24 03:30 43 L 91 L 10/01/24 03:15 68 17 95 10/01/24 03:00 Vapotherm 10/01/24 03:00 77 19 112/69 94 L 10/01/24 03:00 112/69 10/01/24 02:45 68 19 96 10/01/24 02:30 119/62 10/01/24 02:30 69 17 95 10/01/24 02:15 50 L 23 95 10/01/24 02:00 80 21 92 L 10/01/24 02:00 122/55 L 10/01/24 01:31 60 18 96 10/01/24 01:31 118/65 10/01/24 01:30 16 10/01/24 01:15 71 17 95 10/01/24 01:00 Vapotherm 10/01/24 01:00 62 17 118/54 L 93 L 10/01/24 01:00 118/54 L 10/01/24 00:45 67 19 96 10/01/24 00:30 123/52 L 10/01/24 00:30 70 18 94 L 10/01/24 00:15 73 21 96 10/01/24 00:00 97.7 F 10/01/24 00:00 65 95 Vapotherm 10/01/24 00:00 80 10/01/24 00:00 92/44 L 10/01/24 00:00 53 L 22 92/44 L 92 L 09/30/24 23:45 64 20 94 L 09/30/24 23:31 82 19 94 L 09/30/24 23:31 113/46 L 09/30/24 23:30 71 20 92 L 09/30/24 23:17 101/63 L 09/30/24 23:17 136 H 22 95 09/30/24 23:15 134 H 20 95 09/30/24 23:00 75 92 L 09/30/24 23:00 Vapotherm 09/30/24 22:45 115 H 93 L 09/30/24 22:42 137 H 93 L 09/30/24 22:42 148/98 H 09/30/24 22:38 133 H 18 92 L 09/30/24 22:38 169/114 H 09/30/24 22:36 155/101 H 09/30/24 22:36 131 H 29 H 88 L 09/30/24 22:30 135 H 18 95 09/30/24 22:15 81 22 94 L 09/30/24 22:10 84 09/30/24 22:10 84 09/30/24 22:09 82 18 176/83 H 95 09/30/24 22:09 176/83 H 09/30/24 22:00 78 17 95 09/30/24 21:48 83 24 96 09/30/24 21:48 165/70 H 09/30/24 21:45 86 18 96 09/30/24 21:30 87 17 95 09/30/24 21:15 25 H 09/30/24 21:00 78 22 94 L 09/30/24 21:00 82 24 165/70 H 96 Vapotherm 09/30/24 21:00 Vapotherm 09/30/24 20:45 85 16 93 L 09/30/24 20:30 73 20 95 09/30/24 20:15 74 20 95 09/30/24 20:00 78 92 L Vapotherm 09/30/24 20:00 98.9 F 75 21 95 09/30/24 19:45 81 16 95 09/30/24 19:30 77 22 98 09/30/24 19:28 Vapotherm 09/30/24 19:15 79 16 95 09/30/24 19:00 134 H 21 95 09/30/24 18:54 108 H 09/30/24 18:54 108 H 09/30/24 18:54 96 Vapotherm 09/30/24 18:45 133 H 28 H 91 L 09/30/24 18:30 81 21 95 09/30/24 18:15 19 09/30/24 18:04 135 H 22 144/65 H 96 09/30/24 18:04 144/65 H 09/30/24 18:01 135 H 23 96 09/30/24 18:00 135 H 22 96 09/30/24 17:45 139 H 21 94 L 09/30/24 17:30 139 H 25 H 95 09/30/24 17:27 139 H 18 95 09/30/24 17:26 138 H 22 151/91 H 95 09/30/24 17:25 137 H 21 149/100 H 95 09/30/24 17:23 138 H 22 169/109 H 94 L 09/30/24 17:22 138 H 155/110 H 94 L 09/30/24 17:15 138 H 94 L 09/30/24 17:00 132 H 93 L 09/30/24 17:00 Vapotherm 09/30/24 16:45 81 88 L 09/30/24 16:30 70 19 95 09/30/24 16:15 136 H 16 95 09/30/24 16:00 130 H 09/30/24 16:00 98.5 F 25 H 158/97 H 09/30/24 16:00 158/97 H 09/30/24 16:00 134 H 96 Vapotherm 09/30/24 15:52 133 H 26 H 140/103 H 91 L 09/30/24 15:52 140/103 H 09/30/24 15:52 78 09/30/24 15:45 141 H 24 90 L 09/30/24 15:30 140 H 29 H 90 L 09/30/24 15:24 130 H 20 171/96 H 92 L 09/30/24 15:15 130 H 21 85 L 09/30/24 15:00 Vapotherm 09/30/24 15:00 71 21 96 09/30/24 14:48 91 L Vapotherm 09/30/24 14:48 131 H 09/30/24 14:45 73 21 94 L 09/30/24 14:12 79 18 169/79 H 95 09/30/24 13:34 80 181/70 H 94 L 09/30/24 13:15 76 21 94 L 09/30/24 13:00 Vapotherm 09/30/24 13:00 65 22 94 L 09/30/24 12:45 78 21 95 09/30/24 12:40 76 94 L Vapotherm 09/30/24 12:30 78 26 H 96 09/30/24 12:15 75 14 98 09/30/24 12:05 76 22 152/65 H 98 09/30/24 12:05 152/65 H 09/30/24 12:00 70 09/30/24 12:00 172/111 H 09/30/24 12:00 97.7 F 83 18 172/111 H 94 L 09/30/24 11:45 81 16 91 L 09/30/24 11:35 90 L Vapotherm 09/30/24 11:30 79 93 L 09/30/24 11:15 80 20 91 L 09/30/24 11:00 Vapotherm 09/30/24 11:00 82 25 H 90 L 09/30/24 10:45 87 26 H 92 L 09/30/24 10:34 96 Vapotherm 09/30/24 10:30 85 23 95 09/30/24 10:15 78 18 91 L 09/30/24 10:15 78 09/30/24 10:15 81 09/30/24 10:08 81 26 H 92 L 09/30/24 10:08 159/74 H 09/30/24 10:07 76 20 159/74 H 91 L 09/30/24 10:00 81 22 92 L 09/30/24 09:45 82 25 H 90 L O2 Flow Rate FiO2 10/01/24 06:59 10/01/24 06:55 40 10/01/24 06:01 10/01/24 06:01 10/01/24 06:00 10/01/24 05:45 10/01/24 05:45 10/01/24 05:45 75 10/01/24 05:45 10/01/24 05:30 10/01/24 05:30 10/01/24 05:15 10/01/24 05:01 10/01/24 05:01 10/01/24 05:00 40 10/01/24 05:00 10/01/24 04:45 10/01/24 04:30 10/01/24 04:30 10/01/24 04:15 10/01/24 04:01 10/01/24 04:01 10/01/24 04:00 10/01/24 04:00 10/01/24 04:00 40 10/01/24 03:48 10/01/24 03:48 10/01/24 03:33 10/01/24 03:33 10/01/24 03:30 10/01/24 03:15 10/01/24 03:00 40 10/01/24 03:00 10/01/24 03:00 10/01/24 02:45 10/01/24 02:30 10/01/24 02:30 10/01/24 02:15 10/01/24 02:00 10/01/24 02:00 10/01/24 01:31 10/01/24 01:31 10/01/24 01:30 10/01/24 01:15 10/01/24 01:00 40 10/01/24 01:00 10/01/24 01:00 10/01/24 00:45 10/01/24 00:30 10/01/24 00:30 10/01/24 00:15 10/01/24 00:00 10/01/24 00:00 40 10/01/24 00:00 10/01/24 00:00 10/01/24 00:00 09/30/24 23:45 09/30/24 23:31 09/30/24 23:31 09/30/24 23:30 09/30/24 23:17 09/30/24 23:17 09/30/24 23:15 09/30/24 23:00 09/30/24 23:00 40 09/30/24 22:45 09/30/24 22:42 09/30/24 22:42 09/30/24 22:38 09/30/24 22:38 09/30/24 22:36 09/30/24 22:36 09/30/24 22:30 09/30/24 22:15 09/30/24 22:10 09/30/24 22:10 09/30/24 22:09 09/30/24 22:09 09/30/24 22:00 09/30/24 21:48 09/30/24 21:48 09/30/24 21:45 09/30/24 21:30 09/30/24 21:15 09/30/24 21:00 09/30/24 21:00 40 09/30/24 21:00 40 09/30/24 20:45 09/30/24 20:30 09/30/24 20:15 09/30/24 20:00 09/30/24 20:00 09/30/24 19:45 09/30/24 19:30 09/30/24 19:28 40 09/30/24 19:15 09/30/24 19:00 09/30/24 18:54 09/30/24 18:54 09/30/24 18:54 40 75 09/30/24 18:45 09/30/24 18:30 09/30/24 18:15 09/30/24 18:04 09/30/24 18:04 09/30/24 18:01 09/30/24 18:00 09/30/24 17:45 09/30/24 17:30 09/30/24 17:27 09/30/24 17:26 09/30/24 17:25 09/30/24 17:23 09/30/24 17:22 09/30/24 17:15 09/30/24 17:00 09/30/24 17:00 40 09/30/24 16:45 09/30/24 16:30 09/30/24 16:15 09/30/24 16:00 09/30/24 16:00 09/30/24 16:00 09/30/24 16:00 40 75 09/30/24 15:52 09/30/24 15:52 09/30/24 15:52 09/30/24 15:45 09/30/24 15:30 09/30/24 15:24 09/30/24 15:15 09/30/24 15:00 40 09/30/24 15:00 09/30/24 14:48 40 75 09/30/24 14:48 09/30/24 14:45 09/30/24 14:12 09/30/24 13:34 09/30/24 13:15 09/30/24 13:00 40 09/30/24 13:00 09/30/24 12:45 09/30/24 12:40 40 80 09/30/24 12:30 09/30/24 12:15 09/30/24 12:05 09/30/24 12:05 09/30/24 12:00 09/30/24 12:00 09/30/24 12:00 09/30/24 11:45 09/30/24 11:35 40 80 09/30/24 11:30 09/30/24 11:15 09/30/24 11:00 09/30/24 11:00 09/30/24 10:45 09/30/24 10:34 70 09/30/24 10:30 09/30/24 10:15 09/30/24 10:15 09/30/24 10:15 09/30/24 10:08 09/30/24 10:08 09/30/24 10:07 09/30/24 10:00 09/30/24 09:45 Intake and Output 09/30/24 10/01/24 10/01/24 23:59 07:59 15:59 Intake Total 100 / 690 100 / 100 Output Total 1000 / 1000 300 / 300 Balance -900 / -310 -200 / -200 Intake: Intake, Oral Amount 0 / 240 0 / 0 Intake, Total IV Amount 100 / 450 100 / 100 Cefepime HCl 2 gm In 0.9 % 100 / 100 100 / 100 Sodium Chloride 100 ml @ 200 mls/hr IV Q12H [facility] Rx#:[id number] Output: Output, Urine Amount 1000 / 1000 300 / 300 Other: Number of Unmeasured Voids 1 0 Weight 67.086 kg 67 kg Patient Weight 10/01/24 23:59 Weight 67 kg Laboratory Results - last 24 hr 09/28/24 22:44: Hepatitis C Antibody Non reactive 09/30/24 14:25: Lactate 0.8 10/01/24 05:52: WBC 12.9 H D, RBC 4.30, Hgb 11.5 L D, Hct 35.5 L, MCV 82.6, MCH 26.7 L, MCHC 32.4, RDW 14.1, Plt Count 241, MPV 10.2, Neut % (Auto) 91.8 H, Lymph % (Auto) 2.7 L, Bollinger % (Auto) 4.9, Eos % (Auto) 0.0 L, Baso % (Auto) 0.1, Neut # (Auto) 11.8 H, Lymph # (Auto) 0.4 L, Bollinger # (Auto) 0.6, Eos # (Auto) 0.0, Baso # (Auto) 0.0, Total Counted 100, Neutrophils % (Manual) 95 H, Lymphocytes % (Manual) 4 L, Monocytes % (Manual) 1 L, Platelet Estimate Normal, Hypochromasia 1+, Sodium 136, Potassium 3.7, Chloride 103, Carbon Dioxide 28, Anion Gap 8.7, BUN 33 H, Creatinine 0.70, Estimated Creat Clear 56, Estimated GFR 83, Est GFR ( Amer) 100, Glucose 111 H, Calcium 8.6, Magnesium 2.3, Total Bilirubin 0.8, AST 29, ALT 22, Alkaline Phosphatase 91, Lactate Dehydrogenase 183 L, C-Reactive Protein 216.1 H, Total Protein 5.3 L, Albumin 2.8 L D, Globulin 2.5, Albumin/Globulin Ratio 1.1 I & O for Labs for Last 24 Hours: Intake & Output 09/28/24 09/29/24 09/30/24 10/01/24 23:59 23:59 23:59 23:59 Intake Total 1245 / 1345 690 / 690 100 / 100 Output Total 1100 / 1100 1000 / 1000 300 / 300 Balance 145 / 245 -310 / -310 -200 / -200 Weight 63.503 kg 68.181 kg 64.093 kg 67 kg Microbiology Reports for the Last 24 Hours: Microbiology 09/29/24 14:15 Anus CRE Surveillance Culture - Final Negative 09/29/24 12:21 Sputum - Expectorated Sputum Gram Stain - Final 09/29/24 12:21 Sputum - Expectorated Sputum Sputum Culture - Preliminary Gram Positive Cocci 09/28/24 22:55 Blood Blood Culture - Preliminary NO GROWTH AFTER 48 HOURS Constitutional: Present moderate distress, average body habitus, chronically ill appearing and cooperative Head: Present atraumatic and normocephalic ENT: Present normal exam Respiratory: Present accessory muscle use, prolonged expiratory phase, wheezes and crackles; Absent rhonchi Cardiac: Present Regular Rate and Regular Rhythm GI: Present soft and normal bowel sounds; Absent distention or tenderness Extremities: Present normal inspection and full ROM Skin: Present intact; Absent erythema Neuro: Present Grossly Intact, alert, awake and moves all extremities Comment:: Oriented to self, thinks she is at hospital and Deputy Assessment and Plan *Assessment and plan (1) Acute hypoxemic respiratory failure: Status: Acute Category: Medical Code(s): J96.01 - Acute respiratory failure with hypoxia (2) Atrial fibrillation with controlled ventricular rate: Status: Acute Category: Medical Code(s): I48.91 - Unspecified atrial fibrillation (3) Left lower lobe pneumonia: Status: Acute Qualifiers: Pneumonia type: due to unspecified organism Qualified Code(s): J18.9 - Pneumonia, unspecified organism Category: Medical Code(s): J18.9 - Pneumonia, unspecified organism (4) Viral upper respiratory illness: Status: Acute Category: Medical Code(s): J06.9 - Acute upper respiratory infection, unspecified (5) Oxygen deficiency: Status: Acute Category: Medical Code(s): R09.02 - Hypoxemia (6) COPD (chronic obstructive pulmonary disease): Status: Acute Qualifiers: COPD type: emphysema Emphysema type: panlobular Qualified Code(s): J43.1 - Panlobular emphysema Category: Medical Code(s): J44.9 - Chronic obstructive pulmonary disease, unspecified (7) Lymphoma in remission: Status: Acute Category: Medical Code(s): C85.9A - Non-Hodgkin lymphoma, unspecified, in remission (8) CHF exacerbation: Status: Acute Qualifiers: Heart failure type: systolic Qualified Code(s): I50.23 - Acute on chronic systolic (congestive) heart failure Category: Medical Code(s): I50.9 - Heart failure, unspecified (9) Hypothyroidism: Status: Acute Qualifiers: Hypothyroidism type: postoperative Qualified Code(s): E89.0 - Postprocedural hypothyroidism Category: Medical Code(s): E03.9 - Hypothyroidism, unspecified (10) Hypokalemia: Status: Acute Category: Medical Code(s): E87.6 - Hypokalemia Plan Kaur Dan is a 69-year-old female with a history of COPD not on home O2 who presents with shortness of breath, chest pain and admitted for acute hypoxic respiratory failure secondary to COPD exacerbation, mycoplasma pneumonia, A-fib RVR. Of note, her from COVID-19 at home just prior to admission. Patient has been sick for at least 2 weeks. Continues to require ICU level care. Increased oxygen requirement today. Condition serious, prognosis guarded. Problems addressed as follows: #Acute hypoxic respiratory failure #Acute COPD exacerbation #Sepsis #Community-acquired pneumonia #Chronic pulmonary arterial hypertension ? CTA chest reveals LLL pneumonia with no pulmonary emboli. - Discussed case with pulmonology, continue high flow nasal cannula. Wean as tolerated, goal sats greater 90%. - Continue cefepime pending final culture results and nasal PCR. Continue methylprednisolone 40 mg IV twice daily -Initiate vancomycin today, monitor for renal toxicity. -BUN elevated at 33, creatinine 0.7. Repeat CBC, CMP, magnesium ordered for the morning. -White count improved to 13, down from 26. Hemoglobin 12. -CRP severely elevated 216. ? DuoNebs Q4RT, Pulmicort twice daily. #A-fib versus SVT #RVR resolved ? Initial EKG is suggestive of A-fib versus SVT with HR 167 bpm. Converted to NSR with IV diltiazem. ? Discussed case with cardiology today, recommend continuing oral metoprolol 50 mg daily for suppression of A-fib. Continue Lovenox while admitted, recommend transitioning to oral NOAC prior to discharge. No plan for interventional procedure during admission. -Cardiology recommends low-dose Lasix daily due to elevated BNP on admission ? [id number] score 3 for age, sex, hypertension. ? ECHO reveals normal biventricular function without valvular issues. #Elevated TSH: TSH 16.8, however obtained in acute and severe illness. Can be repeated once more stable. Free T4 normal at 1.6. Continue levothyroxine 100 mcg daily #Restless leg syndrome: Continue home pramipexole. ICU/Critical care attestation This patient is critically ill with 35 minutes devoted solely to this patient managing life/organ supporting interventions that required physician assessment. This includes time spent making adjustments in ventilator settings, IV fluid administration, titration of pressors, adjustments of medications, discussion of patient with consultants and other care providers as well as updating patient and/or family (if patient by virtue of his/her condition is unable to participate in decision making). This does not include time spent performing separately billed procedures. Time is not concurrent with that of other providers. Full code PLOV
--- NOTE | 2024-10-01 09:51 | HMH.OTEV ---
OT Inpatient Evaluation Rehab OT IP Evaluation Start: 09/30/24 11:07 Freq: ONCE Status: Active Protocol: Document 10/01/24 09:45 [facility] (Rec: 10/01/24 09:51 [facility] [id number]) Rehab OT IP Assessment Subjective History Pt oriented x 1 on arrival. Pt agreeable to engage in therapy session. Family present and supportive during therapy evaluation. Pt admitted on 09/29/24. History and physical: This 69-year-old female, has come to the emergency room with a elevated heart rate and atrial fibs significant dehydration, viral illness, respiratory distress. Also noting that her and her both have had COVID before [place] approximately 10 September, the went to the bathroom today and collapsed called her name. She came in was unable to help him went to get the phone to call 911 when she returned her had . The patient herself says that she has tested negative for COVID on the felt good for a day or 2 but then was around other family members including an that are positive for flu A. She also had episodes of vomiting not being able to drink.. 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 Family then convinced her not to stay with her and has brought her to the emergency room.. In the emergency room heart rates into the 170s 180s atrial for, oxygen is required by nasal cannula. She was given breathing treatments, steroids, antibiotics started, . CT scan of the chest shows a significant consolidation in the left lower lung of pneumonia.. Subjective Kaur. Family provides prior functioning history. Prior to being in the hospital, pt lived at home with her . She provided care for him. She was independent with all ADLs and IADLs. She did not require any type of AE during functional transfers. Pt also still drove. Objective Patient Orientation Person Right Upper Extremity Gross ROM Min Limitation <25% Left Upper Extremity Gross ROM Min Limitation <25% Shoulder ROM Limitations Muscle Weakness Elbow ROM Limitations Muscle Weakness Wrist Limitations of Range of Motion Muscle Weakness Bed Mobility bed mobility-scooting,bed mobility - supine/sit Assist Level Minimal x 2 (25% assist) Transfer Training Sit/Stand Transfer Assist Level Minimal x 2 (25% assist) Lower Body Dressing Ability Maximum Assistance Rehab OT IP prob,goals,plan Problems Date of Evaluation: 10/01/24 OT IP Problems Bed Mobility,Transfers,Balance ,Self care,Safety Rehab Potential Rehab Potential Good Equipment Needs Assistive Devices Rolling / Wheeled Walker Plan OT intervention Plan Bed Mobility,Transfers,Balance ,Self care,Safety,Therapeutic Exercise OT Plan Frequency Daily Duration LOS Discharge Goals Bed Mobility Ability Standby Assistance Sit to Stand Chair Transfer Ability Minimal x 1 (25% assist) Chair Transfer Ability Minimal x 1 (25% assist) Chair Transfer Technique Sit to/from Ambulatory Chair Transfer Assistive Devices Rolling Walker Feeding Ability Assist with Tray Set Up Lower Body Dressing Ability Moderate Assistance Upper Body Dressing Ability Standby Assistance Bathing Ability Moderate Assistance Performing Toilet Hygiene Ability Moderate Assistance Overall Commode/Toilet Transfer Ability Contact Guard,Minimal Assistance Commode/Toilet Transfer Technique Sit to/from Ambulatory Discharge Plan OT Discharge Plan Pt will continue to be seen for OT services while at [facility]. Therapist recommended short term rehab at [facility] following hospital stay. However, family appeared reluctant. Family reports they will provide 24/7 assist upon discharge as long as needed. If she does return home with family, therapist recommends OT evaluation for continued skilled therapy. Continued skilled therapy is important in order for patient to improve strength, safety, endurance, ADL independence, and functional transfers to reach PLOF. Eval Complexity Eval Charge Codes 05124 - Moderate Complexity PHYSICIAN CERTIFICATION: I certify the specified therapy services for Kaur Dan are required, authorized, and reviewed every 30 days.
--- NOTE | 2024-10-01 09:54 | HMH.PTEV ---
Physical Therapy Evaluation Rehab PT IP Evaluation Start: 09/30/24 11:07 Freq: ONCE Status: Active Protocol: Document 10/01/24 09:43 BELEN (Rec: 10/01/24 09:54 BELEN [id number]) Subjective/History History History Per H&P, This 69-year-old female, has come to the emergency room with a elevated heart rate and atrial fibs significant dehydration, viral illness, respiratory distress . Also noting that her and her both have had COVID before approximately 10 September, the went to the bathroom today and collapsed called her name. She came in was unable to help him went to get the phone to call 911 when she returned her had . The patient herself says that she has tested negative for COVID on the felt good for a day or 2 but then was around other family members including an infant that are positive for flu A. She also had episodes of vomiting not being able to drink.. 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 Family then convinced her not to stay with her and has brought her to the emergency room.. In the emergency room heart rates into the 170s 180s atrial for, oxygen is required by nasal cannula. She was given breathing treatments, steroids, antibiotics started, . CT scan of the chest shows a significant consolidation in the left lower lung of pneumonia.. 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 Was going to see oncology in September for that. Patient is a noted smoker for more than 30 years, she stopped in 2016. Emphysema is an underlying condition on her. , Laboratory test significant for elevated white blood count, hypoxia on venous blood gas on oxygen.. EKG with very rapid ventricular rate on EKG, TO NOTE patient's heart rate was afib in the 150's when brought to the ICU, patient had received calcium channel renetta in the emergency room slowing the heart rate from in the 180 down to the 150s.. Patient was changed from nasal cannula onto Vapotherm. Oxygen saturations marino from 88% pulse ox to 95%. 1 dose of metoprolol IV 5 mg was given IV patient converted to sinus rhythm with heart rate in the 90s. Also noting the patient appears to be still significantly dehydrated, had received 2 L of fluid in the emergency room and an abundance of nebulizer treatments due to her lung wheezing. Steroids have also been administered. With the improved oxygen saturation and now being in sinus rhythm in the 70s, I will give 1 dose of Cardizem 30mg po and then we will stop the Cardizem bolus in 1 hour.. At that point in time we will also continue to replace electrolytes per labs. . Patient is much more stable at this point in time but still very fragile. Will have cardiology and pulmonology to see the patient in the a.m. have not addressed any type of mental health needs at this time for potential grieving due to the loss of her carlos manuel. But have 1 mg of Ativan ordered IV if it is needed. Family members were in the room while I was talking with the patient. Most of the patient's daughters are registered nurses. And I was given permission to speak with one of them by phone. Update given on the seriousness of this condition that their mother was in. Patient is a full code. Subjective Subjective Pt is supine in bed upon arrival with family members present. Pt unable to provide thorough history. Pt's daughter able to provide subjective history. Dtr reports that she was fully independent prior to getting sick before Jorge. 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 Pt ambulated without an assistive device. She also continued to drive. New diagnosis of cancer in past 12 No months? Rehab PT IP Eval Objective Appearance Patient Behavior Confused Patient Orientation Name Difficulty following instructions none Speech Pattern Soft-Spoken Ambulation Patient Able to Ambulate No Balance Ability to Arise Able, uses arms to help Sitting Balance Steady, safe Standing Balance Steady, wide stance Dynamic Sitting Balance Ability Poor Dynamic Standing Balance Ability Poor Transfers Bed Transfer Ability Minimal x 2 (25% assist) Sit to Stand Bed Transfer Ability Minimal x 2 (25% assist) Rehab PT IP prob,goals,plan Problems Date of Evaluation: 10/01/24 PT IP Problems Bed Mobility,Transfers,Gait, Balance,Self care,Safety Rehab Potential Rehab Potential Fair Equipment Needs Assistive Devices Rolling / Wheeled Walker Plan PT Intervention Plan Bed Mobility,Transfers,Gait, Balance,Self care,Safety, Therapeutic Exercise PT Plan Frequency BID Duration LOS Discharge Goals Bed Transfer Ability Independent Sit to Stand Chair Transfer Ability Supervision/Stand by Ambulation Assistive Device Rolling Walker Ambulation Distance (feet) 20 Discharge Plan PT Discharge Plan Pt presents below baseline in bed mobility, transfers and ambulation. PT is recommending home with HH and 24 hr assist upon discharge. If the patient does not have 24 hr assist upon discharge, then short term rehab would be more appropriate for this patient. The pt would benefit from skilled PT while she is in the hospital to address her current impairments and to prevent further decline. Eval Complexity Eval Charge Codes 96038 - High Complexity PHYSICIAN CERTIFICATION: I certify the specified therapy services for Kaur Dan are required, authorized, and reviewed every 30 days.
--- NOTE | 2024-10-01 10:21 | XR_ITS ---
FINAL REPORT CLINICAL HISTORY: repeat for pneumonia COMPARISON: 09/30/2024 FINDINGS: The heart size remains normal. There are airspace infiltrates present at the left base and left perihilar regions, that are worse than seen on the prior exam of September 30. A small to moderate left pleural effusion is noted. There is no pneumothorax. There is no osseous abnormality. IMPRESSION: Increasing airspace infiltrates involving the left base and perihilar regions, consistent with progressive pneumonia. Small to moderate left pleural effusion. Reviewed, Interpreted and Dictated by Kee Stanley MD Transcribed by Janie Ramos Authenticated and [facility]
--- NOTE | 2024-10-01 11:00 | EXP.PULM.PN ---
Subjective *Date: 10/01/24 *Time: 12:57 Interval history: No acute respiratory vents overnight. Patient admits continued improvement in her respiratory symptoms. Pulmonology Exam Inpatient Vital signs and Labs for Last 24 Hours: Temp Pulse Resp BP Pulse Ox O2 Del Method O2 Flow Rate 97.1 F L 69 19 202/87 H 95 Vapotherm 40 10/01/24 05:00 10/01/24 10:30 10/01/24 10:30 10/01/24 09:00 10/01/24 10:30 10/01/24 10:17 10/01/24 10:17 FiO2 75 10/01/24 10:17 Laboratory Results - last 24 hr 09/28/24 22:44: Hepatitis C Antibody Non reactive 09/30/24 14:25: Lactate 0.8 10/01/24 05:52: WBC 12.9 H D, RBC 4.30, Hgb 11.5 L D, Hct 35.5 L, MCV 82.6, MCH 26.7 L, MCHC 32.4, RDW 14.1, Plt Count 241, MPV 10.2, Neut % (Auto) 91.8 H, Lymph % (Auto) 2.7 L, [place] % (Auto) 4.9, Eos % (Auto) 0.0 L, Baso % (Auto) 0.1, Neut # (Auto) 11.8 H, Lymph # (Auto) 0.4 L, [place] # (Auto) 0.6, Eos # (Auto) 0.0, Baso # (Auto) 0.0, Total Counted 100, Neutrophils % (Manual) 95 H, Lymphocytes % (Manual) 4 L, Monocytes % (Manual) 1 L, Platelet Estimate Normal, Hypochromasia 1+, Sodium 136, Potassium 3.7, Chloride 103, Carbon Dioxide 28, Anion Gap 8.7, BUN 33 H, Creatinine 0.70, Estimated Creat Clear 56, Estimated GFR 83, Est GFR ( Amer) 100, Glucose 111 H, Calcium 8.6, Magnesium 2.3, Total Bilirubin 0.8, AST 29, ALT 22, Alkaline Phosphatase 91, Lactate Dehydrogenase 183 L, C-Reactive Protein 216.1 H, Total Protein 5.3 L, Albumin 2.8 L D, Globulin 2.5, Albumin/Globulin Ratio 1.1 Temp Pulse Resp BP Pulse Ox O2 Del Method O2 Flow Rate 98.2 F 76 20 159/74 H 91 L Vapotherm 30 09/30/24 08:13 09/30/24 10:07 09/30/24 10:07 09/30/24 10:08 09/30/24 10:07 09/30/24 07:00 09/30/24 07:00 FiO2 60 09/30/24 06:25 Laboratory Results - last 24 hr 09/29/24 06:10: TIBC 240 L, Iron Saturation 9.16728 L, Ferritin 332 H 09/30/24 06:35: WBC 26.8 H* D, RBC 4.90, Hgb 13.3, Hct 40.3, MCV 82.2, MCH 27.1, MCHC 33.0, RDW 14.3, Plt Count 302 D, MPV 10.5 H, Neut % (Auto) 94.1 H, Lymph % (Auto) 1.7 L, [place] % (Auto) 3.5, Eos % (Auto) 0.0 L, Baso % (Auto) 0.2, Neut # (Auto) 25.2 H, Lymph # (Auto) 0.5 L, [place] # (Auto) 0.9, Eos # (Auto) 0.0, Baso # (Auto) 0.1, Total Counted 100, Neutrophils % (Manual) 95 H, Lymphocytes % (Manual) 4 L, Monocytes % (Manual) 1 L, Platelet Estimate Normal, RBC Morphology Normal, Sodium 136, Potassium 4.3, Chloride 100, Carbon Dioxide 29, Anion Gap 11.3, BUN 29 H D, Creatinine 0.80, Estimated Creat Clear 54, Estimated GFR 71, Est GFR ( Amer) 86, Glucose 119 H, Lactate 0.9, Calcium 9.3, Phosphorus 3.7, Magnesium 2.4 H D, Total Bilirubin 0.7, AST 31, ALT 25, Alkaline Phosphatase 115, Total Protein 6.5, Albumin 3.6 D, Globulin 2.9, Albumin/Globulin Ratio 1.2, Free T4 1.65 09/30/24 08:11: VBG pH 7.40, VBG pCO2 44.6, VBG pO2 37.3, VBG HCO3 26.8, VBG Total CO2 28.1 H, VBG O2 Saturation 74.0 H, VBG Base Excess 1.9, VBG Lactic Acid 2.2 H I & O for Labs for Last 24 Hours: Intake & Output 09/28/24 09/29/24 09/30/24 10/01/24 23:59 23:59 23:59 23:59 Intake Total 1245 / 1345 690 / 690 100 / 100 Output Total 1100 / 1100 1000 / 1000 300 / 300 Balance 145 / 245 -310 / -310 -200 / -200 Weight 140 lb 150 lb 5 oz 141 lb 4.8 oz 147 lb 11.355 oz Intake & Output 09/27/24 09/28/24 09/29/24 09/30/24 23:59 23:59 23:59 23:59 Intake Total 1245 / 1345 590 / 590 Output Total 1100 / 1100 Balance 145 / 245 590 / 590 Weight 140 lb 150 lb 5 oz 141 lb 4.8 oz Microbiology Reports for the Last 24 Hours: Microbiology 09/29/24 14:15 Anus CRE Surveillance Culture - Final Negative 09/29/24 12:21 Sputum - Expectorated Sputum Gram Stain - Final 09/29/24 12:21 Sputum - Expectorated Sputum Sputum Culture - Preliminary Gram Positive Cocci 09/28/24 22:55 Blood Blood Culture - Preliminary NO GROWTH AFTER 48 HOURS Microbiology 09/29/24 12:21 Sputum - Expectorated Sputum Gram Stain - Final 09/29/24 12:21 Sputum - Expectorated Sputum Sputum Culture - Preliminary 09/28/24 22:55 Blood Blood Culture - Preliminary NO GROWTH AFTER 24 HOURS Constitutional: Present severe distress Head: Present normocephalic and atraumatic ENT: Present normal exam, normal oropharynx and mucous membranes moist Neck: Present normal inspection and full ROM Respiratory: Present prolonged expiratory phase, respiratory distress, rhonchi, wheezes and diminished air movement; Absent able to speak in complete sentences Cardiac: Present S1/S2, Tachycardia and radial pulses present GI: Present soft and distention; Absent tenderness or guarding Rectal (female): Present deferred (female): Present deferred Skin: Present intact; Absent cyanosis or jaundice Neuro: Present alert, awake and oriented x 3 Extremities: Present normal inspection; Absent clubbing or cyanosis Psychiatric: Present normal affect and cooperative Assessment and Plan *Assessment and plan (1) COPD (chronic obstructive pulmonary disease): Status: Acute Qualifiers: COPD type: emphysema Emphysema type: panlobular Qualified Code(s): J43.1 - Panlobular emphysema Category: Medical Code(s): J44.9 - Chronic obstructive pulmonary disease, unspecified (2) Left lower lobe pneumonia: Status: Acute Qualifiers: Pneumonia type: due to unspecified organism Qualified Code(s): J18.9 - Pneumonia, unspecified organism Category: Medical Code(s): J18.9 - Pneumonia, unspecified organism (3) Acute hypoxemic respiratory failure: Status: Acute Category: Medical Code(s): J96.01 - Acute respiratory failure with hypoxia Plan Mr. Dan is a 69-year-old female presented to the ER with worsening respiratory distress needing high flow nasal oxygen supplementation pulmonary was called for further evaluation and management. Admits sick contact for COVID-19 pneumonia. CTA upon admission no evidence of pulmonary embolism. Diffuse centrilobular emphysematous changes. Left lower lobe lobar pneumonia noted. COVID-19 and flu PCR panel upon admission negative. Mycoplasma pneumonia positive. Receiving ceftriaxone and azithromycin. Worsening leukocytosis. On high flow nasal cannula. Prelim sputum cultures gram-negative rods. Interval update: Chest x-ray bilateral lower lobe predominant left greater than right pulmonary infiltrates appear to be worsened from admission, concerning for ARDS. Antibiotics cleared to cefepime. White count continued to improve. Slight improvement in oxygen placement with improving saturation levels from yesterday. CRP elevated at 216.1 Plan: Continue high flow nasal oxygen supplementation, wean to 35 L 65%. Will follow. Continue vancomycin and cefepime pending final culture results and nasal MRSA PCR Continue methylprednisolone 40mg IV twice daily Total critical care time spent on this patient is 35 minutes managing acute hypoxic respiratory failure HFNC . This time spent include reviewing test results including interpreting chest x-rays, labs and optimizing the HFNC settings,formulating plan of care, discussing the plan of care with the team and the nursing staff.
[2024-10-02] VITALS (71 sets, daily range): BP systolic 140–199; BP diastolic 56–120; PULSE 62–87; RESP 14–23; TEMP 36.4–37.1; O2SAT 84–95; BMI 24.5
[2024-10-02] MEDS: CEFEPIME HCL 2 GM in 0.9 % SODIUM CHLORIDE 100 ML IV ×2 (00:48→13:44)
[2024-10-02] MEDS: AZITHROMYCIN 500 MG in 0.9 % SODIUM CHLORIDE 250 ML 250 MG IV (01:21)
[2024-10-02] MEDS: LEVALBUTEROL 0.63MG/3ML NEB 0.63 MG IH ×6 (02:22→21:12)
[2024-10-02] MEDS: IPRATROPIUM BROMIDE 0.5 MG/2.5ML SOLUTION IH ×6 (02:22→21:12)
[2024-10-02] MEDS: VANCOMYCIN HCL 1,000 MG in 0.9 % SODIUM CHLORIDE 250 ML 125 MG IV ×2 (02:42→20:00)
--- NOTE | 2024-10-02 06:08 | PC.NURSE ---
Pt alert to person. Pt has been confused pulling off her vapotherm multiple times during shift and becoming restless/agitated with staff at times. Pt is currently on vapotherm at 40L/75%, tolerating well with sat 90-95%. Pt drops to low 80s when removing oxygen but quickly recovers when reapplied by staff. Lung sounds diminished throughout with exp. rhochi noted to LLL and has had intermittent productive cough throughout shift. Pt has been hypertensive during shift with SBP going into 180s/190s at times. has been made aware. Pt has been up to BSC during shift, tolerating well with 1x assist. Purewick in place while asleep. Family at bedside. Bed alarm on for pt safety. Call light within reach.
[2024-10-02] MEDS: LEVOTHYROXINE 100MCG (0.1MG) TAB 100 MCG PO (06:21)
[2024-10-02] MEDS: BUDESONIDE 0.5MG/2ML NEB 0.5 MG IH ×2 (06:24→18:46)
[2024-10-02 06:44] LABS: Basophils % 0.1 % (0.1-2.0); Hematocrit 35.5 % (37.0-47.0); Hemoglobin 11.7 g/dL (12.2-16.2); Lymphocytes # 0.3 K/mm3 (0.7-4.5); Lymphocytes % 3.2 % (10-50); Mean Corpuscular Volume 81.8 fl (81-99); Mean Platelet Volume 10.4 fl (7.4-10.4); Monocytes # 0.7 K/mm3 (0.1-1.0); Monocytes % 6.7 % (1.7-9.3); Neutrophils % 88.9 % (37.0-80.0); Platelet Count 256 K/mm3 (142-424); Red Blood Count 4.34 M/mm3 (4.20-5.40); Red Cell Distribution Width 14.1 % (11.5-17.5); White Blood Count 10.2 K/mm3 (4.8-10.8)
[2024-10-02 06:58] LABS: Alanine Aminotransferase 22 U/L (12-78); Albumin Level 2.8 g/dl (3.5-5.0); Albumin/Globulin Ratio 1.1 (1.1-1.8); Alkaline Phosphatase 90 U/L (38-126); Aspartate Amino Transferase 25 U/L (14-36); Bilirubin,Total 0.4 mg/dl (0.2-1.3); Blood Urea Nitrogen 37 mg/dl (7-17); Calcium 8.8 mg/dl (8.4-10.2); Carbon Dioxide 31 mmol/L (22.0-30.0); Chloride 105 mmol/L (98-107); Creatinine Clearance Estimated 56 mL/min (50-200); Estimated Glomerular Filt Rate 83 ml/min (>60); GFR (African American) 100 ML/MIN (>60); Globulin 2.5 g/dL (1.3-3.2); Glucose 115 mg/dl (74-100); Sodium 139 mmol/L (136-145); Total Protein,Serum 5.3 g/dl (6.3-8.2)
[2024-10-02] MEDS: ENOXAPARIN 80MG/0.8ML SYRINGE 65 MG SUBCUT ×2 (08:05→20:01)
[2024-10-02] MEDS: PRAMIPEXOLE 1MG TAB 1 MG PO ×3 (08:06→20:02)
[2024-10-02] MEDS: METOPROLOL SUCCINATE XL 50MG TABLET 50 MG PO (08:06)
[2024-10-02] MEDS: SERTRALINE 50MG TABLET 50 MG PO (08:06)
[2024-10-02] MEDS: ASPIRIN EC 81MG TABLET 81 MG PO (08:07)
[2024-10-02] MEDS: METHYLPREDNISOLONE SOD SUCC 40MG VIAL 40 MG IV ×2 (08:07→20:02)
[2024-10-02 08:39] LABS: Magnesium 2.4 mg/dl (1.6-2.3)
--- NOTE | 2024-10-02 10:07 | EXP.PULM.PN ---
Subjective *Date: 10/02/24 *Time: 12:31 Interval history: No acute respiratory vents overnight. Pulmonology Exam Inpatient Vital signs and Labs for Last 24 Hours: Temp Pulse Resp BP Pulse Ox O2 Del Method O2 Flow Rate 98.4 F 77 18 190/84 H 93 L Vapotherm 40 10/02/24 08:00 10/02/24 09:00 10/02/24 09:00 10/02/24 09:00 10/02/24 09:00 10/02/24 09:00 10/02/24 08:05 FiO2 75 10/02/24 08:05 Laboratory Results - last 24 hr 10/02/24 05:52: WBC 10.2, RBC 4.34, Hgb 11.7 L, Hct 35.5 L, MCV 81.8, MCH 27.0, MCHC 33.0, RDW 14.1, Plt Count 256, MPV 10.4, Neut % (Auto) 88.9 H, Lymph % (Auto) 3.2 L, [place] % (Auto) 6.7, Eos % (Auto) 0.0 L, Baso % (Auto) 0.1, Neut # (Auto) 9.0 H, Lymph # (Auto) 0.3 L, [place] # (Auto) 0.7, Eos # (Auto) 0.0, Baso # (Auto) 0.0, Sodium 139, Potassium 4.0, Chloride 105, Carbon Dioxide 31 H, Anion Gap 7.0, BUN 37 H, Creatinine 0.70, Estimated Creat Clear 56, Estimated GFR 83, Est GFR ( Amer) 100, Glucose 115 H, Calcium 8.8, Magnesium 2.4 H, Total Bilirubin 0.4, AST 25, ALT 22, Alkaline Phosphatase 90, Total Protein 5.3 L, Albumin 2.8 L, Globulin 2.5, Albumin/Globulin Ratio 1.1 Temp Pulse Resp BP Pulse Ox O2 Del Method O2 Flow Rate 98.2 F 76 20 159/74 H 91 L Vapotherm 30 09/30/24 08:13 09/30/24 10:07 09/30/24 10:07 09/30/24 10:08 09/30/24 10:07 09/30/24 07:00 09/30/24 07:00 FiO2 60 09/30/24 06:25 Laboratory Results - last 24 hr 09/29/24 06:10: TIBC 240 L, Iron Saturation 9.39289 L, Ferritin 332 H 09/30/24 06:35: WBC 26.8 H* D, RBC 4.90, Hgb 13.3, Hct 40.3, MCV 82.2, MCH 27.1, MCHC 33.0, RDW 14.3, Plt Count 302 D, MPV 10.5 H, Neut % (Auto) 94.1 H, Lymph % (Auto) 1.7 L, [place] % (Auto) 3.5, Eos % (Auto) 0.0 L, Baso % (Auto) 0.2, Neut # (Auto) 25.2 H, Lymph # (Auto) 0.5 L, [place] # (Auto) 0.9, Eos # (Auto) 0.0, Baso # (Auto) 0.1, Total Counted 100, Neutrophils % (Manual) 95 H, Lymphocytes % (Manual) 4 L, Monocytes % (Manual) 1 L, Platelet Estimate Normal, RBC Morphology Normal, Sodium 136, Potassium 4.3, Chloride 100, Carbon Dioxide 29, Anion Gap 11.3, BUN 29 H D, Creatinine 0.80, Estimated Creat Clear 54, Estimated GFR 71, Est GFR ( Amer) 86, Glucose 119 H, Lactate 0.9, Calcium 9.3, Phosphorus 3.7, Magnesium 2.4 H D, Total Bilirubin 0.7, AST 31, ALT 25, Alkaline Phosphatase 115, Total Protein 6.5, Albumin 3.6 D, Globulin 2.9, Albumin/Globulin Ratio 1.2, Free T4 1.65 09/30/24 08:11: VBG pH 7.40, VBG pCO2 44.6, VBG pO2 37.3, VBG HCO3 26.8, VBG Total CO2 28.1 H, VBG O2 Saturation 74.0 H, VBG Base Excess 1.9, VBG Lactic Acid 2.2 H I & O for Labs for Last 24 Hours: Intake & Output 09/29/24 09/30/24 10/01/24 10/02/24 23:59 23:59 23:59 23:59 Intake Total 1245 / 1345 690 / 690 660 / 660 910 / 910 Output Total 1100 / 1100 1000 / 1000 550 / 550 0 / 0 Balance 145 / 245 -310 / -310 110 / 110 910 / 910 Weight 150 lb 5 oz 141 lb 4.8 oz 147 lb 11.355 oz 147 lb Intake & Output 09/27/24 09/28/24 09/29/24 09/30/24 23:59 23:59 23:59 23:59 Intake Total 1245 / 1345 590 / 590 Output Total 1100 / 1100 Balance 145 / 245 590 / 590 Weight 140 lb 150 lb 5 oz 141 lb 4.8 oz Microbiology Reports for the Last 24 Hours: Microbiology 09/30/24 14:58 Nose - Nasal MRSA Culture - Final Negative 09/29/24 12:21 Sputum - Expectorated Sputum Gram Stain - Final 09/29/24 12:21 Sputum - Expectorated Sputum Sputum Culture - Final Staphylococcus aureus 09/29/24 14:15 Anus CRE Surveillance Culture - Final Negative Microbiology 09/29/24 12:21 Sputum - Expectorated Sputum Gram Stain - Final 09/29/24 12:21 Sputum - Expectorated Sputum Sputum Culture - Preliminary 09/28/24 22:55 Blood Blood Culture - Preliminary NO GROWTH AFTER 24 HOURS Constitutional: Present severe distress Head: Present normocephalic and atraumatic ENT: Present normal exam, normal oropharynx and mucous membranes moist Neck: Present normal inspection and full ROM Respiratory: Present prolonged expiratory phase, respiratory distress, rhonchi, wheezes and diminished air movement; Absent able to speak in complete sentences Cardiac: Present S1/S2, Tachycardia and radial pulses present GI: Present soft and distention; Absent tenderness or guarding Rectal (female): Present deferred (female): Present deferred Skin: Present intact; Absent cyanosis or jaundice Neuro: Present alert, awake and oriented x 3 Extremities: Present normal inspection; Absent clubbing or cyanosis Psychiatric: Present normal affect and cooperative Assessment and Plan *Assessment and plan (1) COPD (chronic obstructive pulmonary disease): Status: Acute Qualifiers: COPD type: emphysema Emphysema type: panlobular Qualified Code(s): J43.1 - Panlobular emphysema Category: Medical Code(s): J44.9 - Chronic obstructive pulmonary disease, unspecified (2) Left lower lobe pneumonia: Status: Acute Qualifiers: Pneumonia type: due to unspecified organism Qualified Code(s): J18.9 - Pneumonia, unspecified organism Category: Medical Code(s): J18.9 - Pneumonia, unspecified organism (3) Acute hypoxemic respiratory failure: Status: Acute Category: Medical Code(s): J96.01 - Acute respiratory failure with hypoxia Plan Mr. Dan is a 69-year-old female presented to the ER with worsening respiratory distress needing high flow nasal oxygen supplementation pulmonary was called for further evaluation and management. Admits sick contact for COVID-19 pneumonia. CTA upon admission no evidence of pulmonary embolism. Diffuse centrilobular emphysematous changes. Left lower lobe lobar pneumonia noted. COVID-19 and flu PCR panel upon admission negative. Mycoplasma pneumonia positive. Receiving ceftriaxone and azithromycin. Worsening leukocytosis. On high flow nasal cannula. Prelim sputum cultures gram-negative rods. Continue to receive cefepime and vancomycin. CRP elevated at 216.1. Interval update: Sputum cultures growing Staph aureus MRSA. Improving leukocytosis Worsening oxygen Compared to yesterday, now back on 40 L 75% with saturations at 90 to 92%. Plan: Follow with repeat sputum cultures Lasix 40 mg IV once Continue high flow nasal oxygen supplementation, wean to 35 L 65%. Will follow. Continue vancomycin x 10 days and cefepime Continue DuoNebs every 4 and Pulmicort every 12 scheduled Continue methylprednisolone 40mg IV twice daily Total critical care time spent on this patient is 35 minutes managing acute hypoxic respiratory failure HFNC . This time spent include reviewing test results including interpreting labs and optimizing the HFNC settings,formulating plan of care, discussing the plan of care with the team and the nursing staff.
--- NOTE | 2024-10-02 10:15 | P.PN_ITS ---
Subjective *Date: 10/02/24 *Time: 10:15 Medical Exam Vital signs and Labs for Last 24 Hours: Vital Signs Temp Pulse Pulse Resp BP Pulse Ox O2 Del Method 10/02/24 10:00 78 22 92 L 10/02/24 10:00 199/96 H 10/02/24 09:00 77 18 93 L 10/02/24 09:00 190/84 H 10/02/24 09:00 Vapotherm 10/02/24 08:45 79 19 94 L 10/02/24 08:30 83 16 92 L 10/02/24 08:30 199/92 H 10/02/24 08:15 80 19 92 L 10/02/24 08:05 94 L Vapotherm 10/02/24 08:00 98.4 F 10/02/24 08:00 87 19 93 L 10/02/24 08:00 179/87 H 10/02/24 07:30 196/89 H 10/02/24 07:15 83 91 L 10/02/24 07:00 73 90 L 10/02/24 07:00 87 180/72 H 93 L 10/02/24 06:47 Vapotherm 10/02/24 06:30 76 10/02/24 06:30 75 10/02/24 06:30 92 L Vapotherm 10/02/24 06:00 66 193/93 H 91 L Vapotherm 10/02/24 05:30 66 19 145/60 H 91 L Vapotherm 10/02/24 05:15 74 21 88 L 10/02/24 05:00 165/69 H 10/02/24 05:00 70 19 165/69 H 92 L Vapotherm 10/02/24 04:45 84 18 86 L 10/02/24 04:43 Vapotherm 10/02/24 04:30 63 18 92 L 10/02/24 04:30 143/57 H 10/02/24 04:15 63 19 93 L 10/02/24 04:01 62 18 93 L 10/02/24 04:01 145/61 H 10/02/24 04:00 98.4 F 62 20 145/61 H 91 L Vapotherm 10/02/24 04:00 63 10/02/24 04:00 93 L Vapotherm 10/02/24 03:45 64 93 L 10/02/24 03:30 165/72 H 10/02/24 03:30 71 88 L 10/02/24 03:15 67 90 L 10/02/24 03:01 72 20 179/73 H 93 L Vapotherm 10/02/24 03:01 179/73 H 10/02/24 03:00 75 94 L 10/02/24 03:00 Vapotherm 10/02/24 02:45 73 95 10/02/24 02:35 69 10/02/24 02:35 74 10/02/24 02:30 171/76 H 10/02/24 02:30 70 90 L 10/02/24 02:15 74 85 L 10/02/24 02:00 176/75 H 10/02/24 02:00 75 22 176/75 H 93 L Vapotherm 10/02/24 01:45 74 91 L 10/02/24 01:30 175/73 H 10/02/24 01:30 75 92 L 10/02/24 01:15 68 95 10/02/24 01:00 171/80 H 10/02/24 01:00 71 20 171/80 H 93 L Vapotherm 10/02/24 01:00 Vapotherm 10/02/24 00:45 69 92 L 10/02/24 00:30 193/79 H 10/02/24 00:30 76 88 L 10/02/24 00:15 74 94 L 10/02/24 00:00 70 92 L 10/02/24 00:00 179/95 H 10/02/24 00:00 98.7 F 10/02/24 00:00 74 10/02/24 00:00 93 L 10/02/24 00:00 77 20 179/95 H 94 L Vapotherm 10/01/24 23:45 76 92 L 10/01/24 23:30 186/67 H 10/01/24 23:30 72 19 88 L 10/01/24 23:15 69 94 L 10/01/24 23:11 74 94 L 10/01/24 23:11 182/82 H 10/01/24 23:09 67 95 10/01/24 23:09 177/75 H 10/01/24 23:00 Vapotherm 10/01/24 23:00 73 22 182/82 H 94 L Vapotherm 10/01/24 23:00 190/85 H 10/01/24 22:45 74 95 10/01/24 22:30 71 92 L 10/01/24 22:30 173/80 H 10/01/24 22:15 74 96 10/01/24 22:11 78 10/01/24 22:11 77 10/01/24 22:11 96 Vapotherm 10/01/24 22:00 73 21 179/76 H 96 Vapotherm 10/01/24 22:00 179/76 H 10/01/24 21:45 80 25 H 97 10/01/24 21:30 78 22 96 10/01/24 21:30 167/79 H 10/01/24 21:15 79 18 93 L 10/01/24 21:00 65 20 157/78 H 93 L Vapotherm 10/01/24 21:00 157/78 H 10/01/24 20:56 Vapotherm 10/01/24 20:45 63 18 94 L 10/01/24 20:30 64 92 L 10/01/24 20:30 152/69 H 10/01/24 20:15 63 95 10/01/24 20:01 60 10/01/24 20:00 94 L Vapotherm 10/01/24 20:00 141/68 H 10/01/24 20:00 98.4 F 65 18 141/68 H 92 L Vapotherm 10/01/24 19:45 64 18 93 L 10/01/24 19:36 66 11 L 90 L 10/01/24 19:36 175/80 H 10/01/24 19:32 65 19 92 L 10/01/24 19:32 212/181 H 10/01/24 19:30 62 17 94 L 10/01/24 19:15 65 19 93 L 10/01/24 19:00 66 17 92 L 10/01/24 19:00 157/74 H 10/01/24 19:00 70 17 157/74 H 90 L Vapotherm 10/01/24 18:45 74 16 91 L 10/01/24 18:33 74 10/01/24 18:33 70 10/01/24 18:33 93 L Vapotherm 10/01/24 18:33 Vapotherm 10/01/24 18:30 73 18 92 L 10/01/24 18:15 67 17 97 10/01/24 18:03 154/69 H 10/01/24 18:03 72 17 97 10/01/24 17:30 60 17 155/68 H 84 L 10/01/24 17:01 66 18 167/67 H 93 L 10/01/24 17:00 Vapotherm 10/01/24 16:45 69 18 96 10/01/24 16:00 70 10/01/24 16:00 68 16 95 10/01/24 16:00 132/50 L 10/01/24 16:00 68 91 L Vapotherm 10/01/24 15:45 72 12 93 L 10/01/24 15:01 70 20 91 L 10/01/24 15:00 67 19 168/73 H 91 L 10/01/24 15:00 Vapotherm 10/01/24 14:30 74 21 139/123 H 88 L 10/01/24 14:15 85 16 92 L 10/01/24 14:00 164/65 H 10/01/24 14:00 74 19 89 L 10/01/24 13:55 92 L Vapotherm 10/01/24 13:45 87 19 90 L 10/01/24 13:30 79 21 90 L 10/01/24 13:30 168/71 H 10/01/24 13:10 82 10/01/24 13:10 86 10/01/24 13:00 84 19 166/69 H 93 L 10/01/24 13:00 Vapotherm 10/01/24 12:45 83 22 94 L 10/01/24 12:30 189/81 H 10/01/24 12:30 78 19 92 L 10/01/24 12:15 81 24 92 L 10/01/24 12:00 75 21 93 L 10/01/24 12:00 187/83 H 10/01/24 12:00 74 10/01/24 12:00 78 Vapotherm 10/01/24 11:45 80 22 97 10/01/24 11:30 77 21 94 L 10/01/24 11:30 162/83 H 10/01/24 11:20 189/85 H 10/01/24 11:20 77 23 94 L 10/01/24 11:15 76 20 94 L 10/01/24 11:00 72 23 94 L 10/01/24 11:00 Vapotherm 10/01/24 10:45 72 19 94 L 10/01/24 10:30 69 19 95 10/01/24 10:17 66 10/01/24 10:17 67 10/01/24 10:17 94 L Vapotherm O2 Flow Rate FiO2 10/02/24 10:00 10/02/24 10:00 10/02/24 09:00 10/02/24 09:00 10/02/24 09:00 10/02/24 08:45 10/02/24 08:30 10/02/24 08:30 10/02/24 08:15 10/02/24 08:05 40 75 10/02/24 08:00 10/02/24 08:00 10/02/24 08:00 10/02/24 07:30 10/02/24 07:15 10/02/24 07:00 10/02/24 07:00 10/02/24 06:47 40 10/02/24 06:30 10/02/24 06:30 10/02/24 06:30 40 75 10/02/24 06:00 40 10/02/24 05:30 40 10/02/24 05:15 10/02/24 05:00 10/02/24 05:00 40 10/02/24 04:45 10/02/24 04:43 40 10/02/24 04:30 10/02/24 04:30 10/02/24 04:15 10/02/24 04:01 10/02/24 04:01 10/02/24 04:00 40 10/02/24 04:00 10/02/24 04:00 40 75 10/02/24 03:45 10/02/24 03:30 10/02/24 03:30 10/02/24 03:15 10/02/24 03:01 40 10/02/24 03:01 10/02/24 03:00 10/02/24 03:00 40 10/02/24 02:45 10/02/24 02:35 10/02/24 02:35 10/02/24 02:30 10/02/24 02:30 10/02/24 02:15 10/02/24 02:00 10/02/24 02:00 40 10/02/24 01:45 10/02/24 01:30 10/02/24 01:30 10/02/24 01:15 10/02/24 01:00 10/02/24 01:00 40 10/02/24 01:00 40 10/02/24 00:45 10/02/24 00:30 10/02/24 00:30 10/02/24 00:15 10/02/24 00:00 10/02/24 00:00 10/02/24 00:00 10/02/24 00:00 10/02/24 00:00 40 80 10/02/24 00:00 40 10/01/24 23:45 10/01/24 23:30 10/01/24 23:30 10/01/24 23:15 10/01/24 23:11 10/01/24 23:11 10/01/24 23:09 10/01/24 23:09 10/01/24 23:00 40 10/01/24 23:00 40 10/01/24 23:00 10/01/24 22:45 10/01/24 22:30 10/01/24 22:30 10/01/24 22:15 10/01/24 22:11 10/01/24 22:11 10/01/24 22:11 40 90 10/01/24 22:00 40 10/01/24 22:00 10/01/24 21:45 10/01/24 21:30 10/01/24 21:30 10/01/24 21:15 10/01/24 21:00 40 10/01/24 21:00 10/01/24 20:56 40 10/01/24 20:45 10/01/24 20:30 10/01/24 20:30 10/01/24 20:15 10/01/24 20:01 10/01/24 20:00 40 90 10/01/24 20:00 10/01/24 20:00 40 10/01/24 19:45 10/01/24 19:36 10/01/24 19:36 10/01/24 19:32 10/01/24 19:32 10/01/24 19:30 10/01/24 19:15 10/01/24 19:00 10/01/24 19:00 10/01/24 19:00 40 10/01/24 18:45 10/01/24 18:33 10/01/24 18:33 10/01/24 18:33 40 90 10/01/24 18:33 40 10/01/24 18:30 10/01/24 18:15 10/01/24 18:03 10/01/24 18:03 10/01/24 17:30 10/01/24 17:01 10/01/24 17:00 10/01/24 16:45 10/01/24 16:00 10/01/24 16:00 10/01/24 16:00 10/01/24 16:00 40 90 10/01/24 15:45 10/01/24 15:01 10/01/24 15:00 10/01/24 15:00 10/01/24 14:30 10/01/24 14:15 10/01/24 14:00 10/01/24 14:00 10/01/24 13:55 32 10/01/24 13:45 10/01/24 13:30 10/01/24 13:30 10/01/24 13:10 10/01/24 13:10 10/01/24 13:00 10/01/24 13:00 35 10/01/24 12:45 10/01/24 12:30 10/01/24 12:30 10/01/24 12:15 10/01/24 12:00 10/01/24 12:00 10/01/24 12:00 10/01/24 12:00 35 65 10/01/24 11:45 10/01/24 11:30 10/01/24 11:30 10/01/24 11:20 10/01/24 11:20 10/01/24 11:15 10/01/24 11:00 10/01/24 11:00 40 10/01/24 10:45 10/01/24 10:30 10/01/24 10:17 10/01/24 10:17 10/01/24 10:17 40 75 Intake and Output 10/01/24 10/02/24 10/02/24 23:59 07:59 15:59 Intake Total 240 / 660 790 / 910 120 / 910 Output Total 250 / 550 0 / 0 Balance -10 110 790 / 910 120 / 910 Intake: Intake, Oral Amount 200 / 320 120 / 320 Intake, Oral Supplement Amount 240 / 240 Intake, Total IV Amount 590 / 590 Azithromycin 500 mg In 0.9 % 245 / 245 Sodium Chloride 250 ml @ 250 mls/hr IV Q24H [facility] Rx#:[id number] Cefepime HCl 2 gm In 0.9 % 100 / 100 Sodium Chloride 100 ml @ 200 mls/hr IV Q12H [facility] Rx#:[id number] Vancomycin HCl 1,000 mg In 0.9 245 / 245 % Sodium Chloride 250 ml @ 125 mls/hr IV Q18H [facility] Rx#:[id number] Output: Output, Urine Amount 250 / 550 0 / 0 Other: Number of Unmeasured Voids 0 1 Weight 66.678 kg Patient Weight 10/02/24 23:59 Weight 66.678 kg Laboratory Results - last 24 hr 10/02/24 05:52: WBC 10.2, RBC 4.34, Hgb 11.7 L, Hct 35.5 L, MCV 81.8, MCH 27.0, MCHC 33.0, RDW 14.1, Plt Count 256, MPV 10.4, Neut % (Auto) 88.9 H, Lymph % (Auto) 3.2 L, [place] % (Auto) 6.7, Eos % (Auto) 0.0 L, Baso % (Auto) 0.1, Neut # (Auto) 9.0 H, Lymph # (Auto) 0.3 L, [place] # (Auto) 0.7, Eos # (Auto) 0.0, Baso # (Auto) 0.0, Sodium 139, Potassium 4.0, Chloride 105, Carbon Dioxide 31 H, Anion Gap 7.0, BUN 37 H, Creatinine 0.70, Estimated Creat Clear 56, Estimated GFR 83, Est GFR ( Amer) 100, Glucose 115 H, Calcium 8.8, Magnesium 2.4 H, Total Bilirubin 0.4, AST 25, ALT 22, Alkaline Phosphatase 90, Total Protein 5.3 L, Albumin 2.8 L, Globulin 2.5, Albumin/Globulin Ratio 1.1 I & O for Labs for Last 24 Hours: Intake & Output 01/03/1809/30/24 10/01/24 10/02/24 23:59 23:59 23:59 23:59 Intake Total 1245 / 1345 690 / 690 660 / 660 910 / 910 Output Total 1100 / 1100 1000 / 1000 550 / 550 0 / 0 Balance 145 / 245 -310 / -310 110 / 110 910 / 910 Weight 68.181 kg 64.093 kg 67 kg 66.678 kg Microbiology Reports for the Last 24 Hours: Microbiology 09/30/24 14:58 Nose - Nasal MRSA Culture - Final Negative 09/29/24 12:21 Sputum - Expectorated Sputum Gram Stain - Final 09/29/24 12:21 Sputum - Expectorated Sputum Sputum Culture - Final Staphylococcus aureus 09/29/24 14:15 Anus CRE Surveillance Culture - Final Negative The patient's infection will respond to the chosen ABx?: Yes (SPUTUM = MRSA, PATIENT ON VANCOMYCIN. WHITE COUNT 10.2, AFEBRILE OVER 24 HR) Is the patient receiving the right drug, dose, and route?: Yes Could a more targeted ABx be ordered?: No
[2024-10-02] MEDS: FUROSEMIDE 40MG/4ML VIAL 40 MG IV (13:44)
--- NOTE | 2024-10-02 14:17 | P.PN_ITS ---
Subjective *Date: 10/02/24 *Time: 11:30 Interval history: Patient more interactive on exam this morning. Answering questions and paying attention to discussion. Discussed current status with family at bedside and over the phone. Remains afebrile. White count normalized. Tolerating Mountain Dew, seems to be enjoying it this morning. Slight improvement in Vapotherm overnight, down to 75% by morning rounds. No nausea or vomiting. Denies chest pain. Medical Exam Vital signs and Labs for Last 24 Hours: Vital Signs Temp Pulse Pulse Resp BP Pulse Ox O2 Del Method 10/02/24 14:00 82 23 84 L 10/02/24 14:00 185/86 H 10/02/24 13:44 79 10/02/24 13:44 78 10/02/24 13:44 94 L Vapotherm 10/02/24 13:00 180/78 H 10/02/24 13:00 75 22 94 L 10/02/24 13:00 Vapotherm 10/02/24 12:31 82 20 193/83 H 94 L 10/02/24 12:00 97.9 F 10/02/24 12:00 80 91 L 10/02/24 12:00 95 Vapotherm 10/02/24 11:45 77 20 90 L 10/02/24 11:01 76 19 90 L 10/02/24 11:01 181/79 H 10/02/24 11:00 Vapotherm 10/02/24 11:00 71 20 181/79 H 90 L 10/02/24 10:30 73 10/02/24 10:30 75 10/02/24 10:30 93 L Vapotherm 10/02/24 10:00 78 22 92 L 10/02/24 10:00 199/96 H 10/02/24 09:00 77 18 93 L 10/02/24 09:00 190/84 H 10/02/24 09:00 Vapotherm 10/02/24 08:45 79 19 94 L 10/02/24 08:30 83 16 92 L 10/02/24 08:30 199/92 H 10/02/24 08:15 80 19 92 L 10/02/24 08:05 94 L Vapotherm 10/02/24 08:00 98.4 F 10/02/24 08:00 87 19 93 L 10/02/24 08:00 179/87 H 10/02/24 07:30 196/89 H 10/02/24 07:15 83 91 L 10/02/24 07:00 73 90 L 10/02/24 07:00 87 180/72 H 93 L 10/02/24 06:47 Vapotherm 10/02/24 06:30 76 10/02/24 06:30 75 10/02/24 06:30 92 L Vapotherm 10/02/24 06:00 66 193/93 H 91 L Vapotherm 10/02/24 05:30 66 19 145/60 H 91 L Vapotherm 10/02/24 05:15 74 21 88 L 10/02/24 05:00 165/69 H 10/02/24 05:00 70 19 165/69 H 92 L Vapotherm 10/02/24 04:45 84 18 86 L 10/02/24 04:43 Vapotherm 10/02/24 04:30 63 18 92 L 10/02/24 04:30 143/57 H 10/02/24 04:15 63 19 93 L 10/02/24 04:01 62 18 93 L 10/02/24 04:01 145/61 H 10/02/24 04:00 98.4 F 62 20 145/61 H 91 L Vapotherm 10/02/24 04:00 63 10/02/24 04:00 93 L Vapotherm 10/02/24 03:45 64 93 L 10/02/24 03:30 165/72 H 10/02/24 03:30 71 88 L 10/02/24 03:15 67 90 L 10/02/24 03:01 72 20 179/73 H 93 L Vapotherm 10/02/24 03:01 179/73 H 10/02/24 03:00 75 94 L 10/02/24 03:00 Vapotherm 10/02/24 02:45 73 95 10/02/24 02:35 69 10/02/24 02:35 74 10/02/24 02:30 171/76 H 10/02/24 02:30 70 90 L 10/02/24 02:15 74 85 L 10/02/24 02:00 176/75 H 10/02/24 02:00 75 22 176/75 H 93 L Vapotherm 10/02/24 01:45 74 91 L 10/02/24 01:30 175/73 H 10/02/24 01:30 75 92 L 10/02/24 01:15 68 95 10/02/24 01:00 171/80 H 10/02/24 01:00 71 20 171/80 H 93 L Vapotherm 10/02/24 01:00 Vapotherm 10/02/24 00:45 69 92 L 10/02/24 00:30 193/79 H 10/02/24 00:30 76 88 L 10/02/24 00:15 74 94 L 10/02/24 00:00 70 92 L 10/02/24 00:00 179/95 H 10/02/24 00:00 98.7 F 10/02/24 00:00 74 10/02/24 00:00 93 L 10/02/24 00:00 77 20 179/95 H 94 L Vapotherm 10/01/24 23:45 76 92 L 10/01/24 23:30 186/67 H 10/01/24 23:30 72 19 88 L 10/01/24 23:15 69 94 L 10/01/24 23:11 74 94 L 10/01/24 23:11 182/82 H 10/01/24 23:09 67 95 10/01/24 23:09 177/75 H 10/01/24 23:00 Vapotherm 10/01/24 23:00 73 22 182/82 H 94 L Vapotherm 10/01/24 23:00 190/85 H 10/01/24 22:45 74 95 10/01/24 22:30 71 92 L 10/01/24 22:30 173/80 H 10/01/24 22:15 74 96 10/01/24 22:11 78 10/01/24 22:11 77 10/01/24 22:11 96 Vapotherm 10/01/24 22:00 73 21 179/76 H 96 Vapotherm 10/01/24 22:00 179/76 H 10/01/24 21:45 80 25 H 97 10/01/24 21:30 78 22 96 10/01/24 21:30 167/79 H 10/01/24 21:15 79 18 93 L 10/01/24 21:00 65 20 157/78 H 93 L Vapotherm 10/01/24 21:00 157/78 H 10/01/24 20:56 Vapotherm 10/01/24 20:45 63 18 94 L 10/01/24 20:30 64 92 L 10/01/24 20:30 152/69 H 10/01/24 20:15 63 95 10/01/24 20:01 60 10/01/24 20:00 94 L Vapotherm 10/01/24 20:00 141/68 H 10/01/24 20:00 98.4 F 65 18 141/68 H 92 L Vapotherm 10/01/24 19:45 64 18 93 L 10/01/24 19:36 66 11 L 90 L 10/01/24 19:36 175/80 H 10/01/24 19:32 65 19 92 L 10/01/24 19:32 212/181 H 10/01/24 19:30 62 17 94 L 10/01/24 19:15 65 19 93 L 10/01/24 19:00 66 17 92 L 10/01/24 19:00 157/74 H 10/01/24 19:00 70 17 157/74 H 90 L Vapotherm 10/01/24 18:45 74 16 91 L 10/01/24 18:33 74 10/01/24 18:33 70 10/01/24 18:33 93 L Vapotherm 10/01/24 18:33 Vapotherm 10/01/24 18:30 73 18 92 L 10/01/24 18:15 67 17 97 10/01/24 18:03 154/69 H 10/01/24 18:03 72 17 97 10/01/24 17:30 60 17 155/68 H 84 L 10/01/24 17:01 66 18 167/67 H 93 L 10/01/24 17:00 Vapotherm 10/01/24 16:45 69 18 96 10/01/24 16:00 70 10/01/24 16:00 68 16 95 10/01/24 16:00 132/50 L 10/01/24 16:00 68 91 L Vapotherm 10/01/24 15:45 72 12 93 L 10/01/24 15:01 70 20 91 L 10/01/24 15:00 67 19 168/73 H 91 L 10/01/24 15:00 Vapotherm 10/01/24 14:30 74 21 139/123 H 88 L O2 Flow Rate FiO2 10/02/24 14:00 10/02/24 14:00 10/02/24 13:44 10/02/24 13:44 10/02/24 13:44 40 75 10/02/24 13:00 10/02/24 13:00 10/02/24 13:00 10/02/24 12:31 10/02/24 12:00 10/02/24 12:00 10/02/24 12:00 40 75 10/02/24 11:45 10/02/24 11:01 10/02/24 11:01 10/02/24 11:00 10/02/24 11:00 10/02/24 10:30 10/02/24 10:30 10/02/24 10:30 40 75 10/02/24 10:00 10/02/24 10:00 10/02/24 09:00 10/02/24 09:00 10/02/24 09:00 10/02/24 08:45 10/02/24 08:30 10/02/24 08:30 10/02/24 08:15 10/02/24 08:05 40 75 10/02/24 08:00 10/02/24 08:00 10/02/24 08:00 10/02/24 07:30 10/02/24 07:15 10/02/24 07:00 10/02/24 07:00 10/02/24 06:47 40 10/02/24 06:30 10/02/24 06:30 10/02/24 06:30 40 75 10/02/24 06:00 40 10/02/24 05:30 40 10/02/24 05:15 10/02/24 05:00 10/02/24 05:00 40 10/02/24 04:45 10/02/24 04:43 40 10/02/24 04:30 10/02/24 04:30 10/02/24 04:15 10/02/24 04:01 10/02/24 04:01 10/02/24 04:00 40 10/02/24 04:00 10/02/24 04:00 40 75 10/02/24 03:45 10/02/24 03:30 10/02/24 03:30 10/02/24 03:15 10/02/24 03:01 40 10/02/24 03:01 10/02/24 03:00 10/02/24 03:00 40 10/02/24 02:45 10/02/24 02:35 10/02/24 02:35 10/02/24 02:30 10/02/24 02:30 10/02/24 02:15 10/02/24 02:00 10/02/24 02:00 40 10/02/24 01:45 10/02/24 01:30 10/02/24 01:30 10/02/24 01:15 10/02/24 01:00 10/02/24 01:00 40 10/02/24 01:00 40 10/02/24 00:45 10/02/24 00:30 10/02/24 00:30 10/02/24 00:15 10/02/24 00:00 10/02/24 00:00 10/02/24 00:00 10/02/24 00:00 10/02/24 00:00 40 80 10/02/24 00:00 40 10/01/24 23:45 10/01/24 23:30 10/01/24 23:30 10/01/24 23:15 10/01/24 23:11 10/01/24 23:11 10/01/24 23:09 10/01/24 23:09 10/01/24 23:00 40 10/01/24 23:00 40 10/01/24 23:00 10/01/24 22:45 10/01/24 22:30 10/01/24 22:30 10/01/24 22:15 10/01/24 22:11 10/01/24 22:11 10/01/24 22:11 40 90 10/01/24 22:00 40 10/01/24 22:00 10/01/24 21:45 10/01/24 21:30 10/01/24 21:30 10/01/24 21:15 10/01/24 21:00 40 10/01/24 21:00 10/01/24 20:56 40 10/01/24 20:45 10/01/24 20:30 10/01/24 20:30 10/01/24 20:15 10/01/24 20:01 10/01/24 20:00 40 90 10/01/24 20:00 10/01/24 20:00 40 10/01/24 19:45 10/01/24 19:36 10/01/24 19:36 10/01/24 19:32 10/01/24 19:32 10/01/24 19:30 10/01/24 19:15 10/01/24 19:00 10/01/24 19:00 10/01/24 19:00 40 10/01/24 18:45 10/01/24 18:33 10/01/24 18:33 10/01/24 18:33 40 90 10/01/24 18:33 40 10/01/24 18:30 10/01/24 18:15 10/01/24 18:03 10/01/24 18:03 10/01/24 17:30 10/01/24 17:01 10/01/24 17:00 10/01/24 16:45 10/01/24 16:00 10/01/24 16:00 10/01/24 16:00 10/01/24 16:00 40 90 10/01/24 15:45 10/01/24 15:01 10/01/24 15:00 10/01/24 15:00 10/01/24 14:30 Intake and Output 10/01/24 10/02/24 10/02/24 23:59 07:59 15:59 Intake Total 240 / 660 790 / 910 120 / 910 Output Total 250 / 550 0 / 350 350 / 350 Balance -10 / 110 790 / 560 -230 / 560 Intake: Intake, Oral Amount 200 / 320 120 / 320 Intake, Oral Supplement Amount 240 / 240 Intake, Total IV Amount 590 / 590 Azithromycin 500 mg In 0.9 % 245 / 245 Sodium Chloride 250 ml @ 250 mls/hr IV Q24H [facility] Rx#:[id number] Cefepime HCl 2 gm In 0.9 % 100 / 100 Sodium Chloride 100 ml @ 200 mls/hr IV Q12H [facility] Rx#:[id number] Vancomycin HCl 1,000 mg In 0.9 245 / 245 % Sodium Chloride 250 ml @ 125 mls/hr IV Q18H [facility] Rx#:[id number] Output: Output, Urine Amount 250 / 550 0 / 350 350 / 350 Other: Number of Unmeasured Voids 0 1 Weight 66.678 kg Patient Weight 10/02/24 23:59 Weight 66.678 kg Laboratory Results - last 24 hr 10/02/24 05:52: WBC 10.2, RBC 4.34, Hgb 11.7 L, Hct 35.5 L, MCV 81.8, MCH 27.0, MCHC 33.0, RDW 14.1, Plt Count 256, MPV 10.4, Neut % (Auto) 88.9 H, Lymph % (Auto) 3.2 L, [place] % (Auto) 6.7, Eos % (Auto) 0.0 L, Baso % (Auto) 0.1, Neut # (Auto) 9.0 H, Lymph # (Auto) 0.3 L, [place] # (Auto) 0.7, Eos # (Auto) 0.0, Baso # (Auto) 0.0, Sodium 139, Potassium 4.0, Chloride 105, Carbon Dioxide 31 H, Anion Gap 7.0, BUN 37 H, Creatinine 0.70, Estimated Creat Clear 56, Estimated GFR 83, Est GFR ( Amer) 100, Glucose 115 H, Calcium 8.8, Magnesium 2.4 H, Total Bilirubin 0.4, AST 25, ALT 22, Alkaline Phosphatase 90, Total Protein 5.3 L, Albumin 2.8 L, Globulin 2.5, Albumin/Globulin Ratio 1.1 I & O for Labs for Last 24 Hours: Intake & Output 09/29/24 09/30/24 10/01/24 10/02/24 23:59 23:59 23:59 23:59 Intake Total 1245 / 1345 690 / 690 660 / 660 910 / 910 Output Total 1100 / 1100 1000 / 1000 550 / 550 350 / 350 Balance 145 / 245 -310 / -310 110 / 110 560 / 560 Weight 68.181 kg 64.093 kg 67 kg 66.678 kg Microbiology Reports for the Last 24 Hours: Microbiology 09/30/24 14:58 Nose - Nasal MRSA Culture - Final Negative 09/29/24 12:21 Sputum - Expectorated Sputum Gram Stain - Final 09/29/24 12:21 Sputum - Expectorated Sputum Sputum Culture - Final Staphylococcus aureus Constitutional: Present mild distress, average body habitus, chronically ill appearing and cooperative Head: Present atraumatic and normocephalic ENT: Present normal exam Respiratory: Present accessory muscle use, prolonged expiratory phase, wheezes and crackles; Absent rhonchi Cardiac: Present Regular Rate and Regular Rhythm GI: Present soft and normal bowel sounds; Absent distention or tenderness Extremities: Present normal inspection and full ROM Skin: Present intact; Absent erythema Neuro: Present Grossly Intact, alert, awake and moves all extremities Comment:: Oriented to self, thinks she is at hospital and [place] Assessment and Plan *Assessment and plan (1) Acute hypoxemic respiratory failure: Status: Acute Category: Medical Code(s): J96.01 - Acute respiratory failure with hypoxia (2) Atrial fibrillation with controlled ventricular rate: Status: Acute Category: Medical Code(s): I48.91 - Unspecified atrial fibrillation (3) Left lower lobe pneumonia: Status: Acute Qualifiers: Pneumonia type: due to unspecified organism Qualified Code(s): J18.9 - Pneumonia, unspecified organism Category: Medical Code(s): J18.9 - Pneumonia, unspecified organism (4) Viral upper respiratory illness: Status: Acute Category: Medical Code(s): J06.9 - Acute upper respiratory infection, unspecified (5) Oxygen deficiency: Status: Acute Category: Medical Code(s): R09.02 - Hypoxemia (6) COPD (chronic obstructive pulmonary disease): Status: Acute Qualifiers: COPD type: emphysema Emphysema type: panlobular Qualified Code(s): J43.1 - Panlobular emphysema Category: Medical Code(s): J44.9 - Chronic obstructive pulmonary disease, unspecified (7) Lymphoma in remission: Status: Acute Category: Medical Code(s): C85.9A - Non-Hodgkin lymphoma, unspecified, in remission (8) CHF exacerbation: Status: Acute Qualifiers: Heart failure type: systolic Qualified Code(s): I50.23 - Acute on chronic systolic (congestive) heart failure Category: Medical Code(s): I50.9 - Heart failure, unspecified (9) Hypothyroidism: Status: Acute Qualifiers: Hypothyroidism type: postoperative Qualified Code(s): E89.0 - Postprocedural hypothyroidism Category: Medical Code(s): E03.9 - Hypothyroidism, unspecified (10) Hypokalemia: Status: Acute Category: Medical Code(s): E87.6 - Hypokalemia Plan Kaur Dan is a 69-year-old female with a history of COPD not on home O2 who presents with shortness of breath, chest pain and admitted for acute hypoxic respiratory failure secondary to COPD exacerbation, mycoplasma pneumonia, A-fib RVR. Of note, her from COVID-19 at home just prior to admission. Patient has been sick for at least 2 weeks. Continues to require ICU level care. Showing slight improvement in oxygen requirement. Condition serious, prognosis guarded. Problems addressed as follows: #Acute hypoxic respiratory failure #Acute COPD exacerbation #Sepsis #Community-acquired pneumonia #Chronic pulmonary arterial hypertension ? Discussed case with pulmonology, recommend continuing Vapotherm. Wean to 35 L and 65%. Goal sats greater 90%. Administer Lasix 40 mg IV once today. - continue vancomycin for 10 days and cefepime due to MRSA positive sputum. Continue DuoNebs every 4 hours and Pulmicort twice daily. Methylprednisolone 40 mg IV twice daily. -BUN elevated at 37, creatinine 0.7. Repeat CBC, CMP, magnesium ordered for the morning. -White count improved to 10, down from 26 on admission. Hemoglobin stable at approximately 12. - CRP severely elevated 216 yesterday, repeat CRP and procalcitonin ordered for tomorrow. #A-fib versus SVT #RVR resolved ? Initial EKG is suggestive of A-fib versus SVT with HR 167 bpm. Converted to NSR with IV diltiazem. ? Discussed case with cardiology today, recommend continuing oral metoprolol 50 mg daily for suppression of A-fib. Continue Lovenox while admitted, recommend transitioning to oral NOAC prior to discharge. No plan for interventional procedure during admission. -Cardiology recommends low-dose Lasix daily due to elevated BNP on admission ? [id number] score 3 for age, sex, hypertension. ? ECHO reveals normal biventricular function without valvular issues. #Elevated TSH: TSH 16.8, however obtained in acute and severe illness. Can be repeated once more stable. Free T4 normal at 1.6. Continue levothyroxine 100 mcg daily #Restless leg syndrome: Continue home pramipexole. ICU/Critical care attestation This patient is critically ill with 35 minutes devoted solely to this patient managing life/organ supporting interventions that required physician assessment. This includes time spent making adjustments in ventilator settings, IV fluid administration, titration of pressors, adjustments of medications, discussion of patient with consultants and other care providers as well as updating patient and/or family (if patient by virtue of his/her condition is unable to participate in decision making). This does not include time spent performing separately billed procedures. Time is not concurrent with that of other providers. Full code PLOV
[2024-10-02] MEDS: SODIUM CHLORIDE 0.9% 10ML VIAL 8 ML IV (20:01)
[2024-10-02] MEDS: FAMOTIDINE 20MG/2ML VIAL 20 MG IV (20:01)
[2024-10-03] VITALS (62 sets, daily range): BP systolic 130–220; BP diastolic 50–146; PULSE 40–101; RESP 14–28; TEMP 36.2–36.9; O2SAT 80–100; BMI 24.5
[2024-10-03 00:57] LABS: Lactate Venous 1.2 mmol/L (0.4-2.0); VBG Base Excess 6.1 mmol/L (-2.4-2.3); VBG HCO3 27.8 mmol/L (23-30); VBG Oxygen Saturation 96.2 % (50-70); VBG PCO2 29.9 mmol/L (35-51); VBG PO2 74.9 mmol/L (28-40); VBG Total CO2 28.8 mmol/L (23-27)
[2024-10-03 00:58] LABS: VBG PH 7.59 mmol/L (7.31-7.41)
--- NOTE | 2024-10-03 01:13 | EXP.EVENT.NO ---
Problem: Patient having hallucinations some agitation at time. Question ICU psychosis,, patient constantly taking oxygen off dropping into the 70s with oxygen on the pulse ox usually 92 but can be up into the mid 90s., Venous blood gas done showing an increase in pH to 7.59 CO2 decreased to 29.9 base excess increased to 6.1 with lactic acid declining. Patient making slow gains about 5% today. As far as oxygenation. Other problems is her is going to be very sometime this week.,, Family members that are with her daughter are also mentally and physically stressed. But are very appropriate Exam: Patient is sitting up skin is pink she is sitting on the side of the bed drinking milk talking to her daughter.. Respiratory rate approximately 18-20, without signs of respiratory distress. Plan: Have talked with the daughter and give her an update on her mom's condition. 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 That this is common with a lot of patients who have been under stress and into an ICU. Teaching done with the daughter that she must also have sleep and rest during this stressful time., Will add ABG for the a.m. and then reevaluate for acid-base levels..
[2024-10-03] MEDS: LEVALBUTEROL 0.63MG/3ML NEB 0.63 MG IH ×6 (01:20→22:52)
[2024-10-03] MEDS: IPRATROPIUM BROMIDE 0.5 MG/2.5ML SOLUTION IH ×6 (01:20→22:52)
[2024-10-03] MEDS: CEFEPIME HCL 2 GM in 0.9 % SODIUM CHLORIDE 100 ML IV (01:25)
[2024-10-03] MEDS: AZITHROMYCIN 500 MG in 0.9 % SODIUM CHLORIDE 250 ML 250 MG IV (02:09)
--- NOTE | 2024-10-03 04:39 | ECG_ITS ---
APPROVED REPORT Exam: Resting ECG HR:70 bpm ECG Measurements Heart Rate 70 AXES AZ 170 P 61 QRSd 98 QRS 45 QT 449 T 76 QTc 470 Conclusion SINUS RHYTHM NORMAL ECG UNCONFIRMED REPORT Electronically signed by : Timothy Del Rio MD 10/04/2024 08:31:22
--- NOTE | 2024-10-03 04:50 | PC.NURSE ---
Addendum entered by Audrey Contreras RN 10/03/24 06:38: After EKG performed, pt was able to state chest pain was intermittent, worse with insp. breathing. Pt states pain resolved shortly afterward. Original Note: Pt voiced complaint of chest pain and was holding hand to chest. Attempted to ask about pt chest pain and pt confused, not answering. VSS. EKG performed showing NSR.
[2024-10-03] MEDS: LEVOTHYROXINE 100MCG (0.1MG) TAB 100 MCG PO (06:29)
[2024-10-03 06:34] LABS: Basophils % 0.2 % (0.1-2.0); Hematocrit 37.1 % (37.0-47.0); Hemoglobin 12.4 g/dL (12.2-16.2); Lymphocytes # 0.4 K/mm3 (0.7-4.5); Lymphocytes % 3.6 % (10-50); Mean Corpuscular HGB Conc 33.4 g/dL (31.8-35.4); Mean Corpuscular Hemoglobin 26.9 pg (27.0-31.2); Mean Corpuscular Volume 80.5 fl (81-99); Monocytes % 10.2 % (1.7-9.3); Neutrophils # 7.9 K/mm3 (1.8-7.8); Neutrophils % 81.5 % (37.0-80.0); Platelet Count 294 K/mm3 (142-424); Red Blood Count 4.61 M/mm3 (4.20-5.40); Red Cell Distribution Width 13.7 % (11.5-17.5); White Blood Count 9.7 K/mm3 (4.8-10.8)
[2024-10-03] MEDS: BUDESONIDE 0.5MG/2ML NEB 0.5 MG IH ×2 (06:40→18:07)
--- NOTE | 2024-10-03 06:40 | PC.NURSE ---
Pt is more alert and oriented this AM compared to last night. Pt is currently sitting up in bed talking to family. Vapotherm continues @ 40L/70%. Pt pulled oxygen off multiple times through night dropping to upper 70s quickly. Pt o2 sat 90-95% while oxygen remains in place. Lung sounds diminished this AM with exp rhonchi to LLL. Pt has been using IS while awake, best of was 1000. NSR on telemetry. Pt has got up to BSC during shift, tolerating well with 1x assist. Call light within reach.
[2024-10-03 06:46] LABS: Alanine Aminotransferase 23 U/L (12-78); Albumin Level 3.1 g/dl (3.5-5.0); Albumin/Globulin Ratio 1.2 (1.1-1.8); Alkaline Phosphatase 87 U/L (38-126); Anion Gap 8.3 mEq/L (5-15); Aspartate Amino Transferase 27 U/L (14-36); Bilirubin,Total 0.8 mg/dl (0.2-1.3); Blood Urea Nitrogen 34 mg/dl (7-17); Calcium 8.8 mg/dl (8.4-10.2); Carbon Dioxide 33 mmol/L (22.0-30.0); Chloride 101 mmol/L (98-107); Creatinine Clearance Estimated 56 mL/min (50-200); Estimated Glomerular Filt Rate 83 ml/min (>60); GFR (African American) 100 ML/MIN (>60); Globulin 2.6 g/dL (1.3-3.2); Glucose 126 mg/dl (74-100); Potassium 3.3 mmoL/L (3.5-5.1); Sodium 139 mmol/L (136-145); Total Protein,Serum 5.7 g/dl (6.3-8.2)
--- NOTE | 2024-10-03 07:00 | XR_ITS ---
FINAL REPORT CLINICAL HISTORY: PNM COMPARISON: 10/01/2024 FINDINGS: The heart size is normal. The mediastinum is normal. There is an abnormal airspace opacity in the left lung base. A moderate left pleural effusion is noted. Findings are similar to the previous study.. There are no pleural effusions. There is no pneumothorax. There is no osseous abnormality. IMPRESSION: Stable left lung base airspace opacity and left pleural effusion. Reviewed, Interpreted and Dictated by Kee Stanley MD Transcribed by Edna E[place]a Authenticated and [facility]
[2024-10-03 07:39] LABS: Magnesium 2.2 mg/dl (1.6-2.3); Phosphorous 2.5 mg/dl (2.5-4.5)
[2024-10-03 07:44] LABS: C-Reactive Protein 52.1 mg/L (0-4)
[2024-10-03] MEDS: METOPROLOL SUCCINATE XL 50MG TABLET 50 MG PO (08:00)
[2024-10-03] MEDS: PRAMIPEXOLE 1MG TAB 1 MG PO ×3 (08:00→20:45)
[2024-10-03] MEDS: ASPIRIN EC 81MG TABLET 81 MG PO (08:00)
[2024-10-03] MEDS: ENOXAPARIN 80MG/0.8ML SYRINGE 65 MG SUBCUT ×2 (08:00→20:40)
[2024-10-03] MEDS: SERTRALINE 50MG TABLET 50 MG PO (08:00)
[2024-10-03] MEDS: METHYLPREDNISOLONE SOD SUCC 40MG VIAL 40 MG IV ×2 (08:01→20:40)
[2024-10-03] MEDS: ARTIFICIAL TEARS SOLN 15ML BOTTLE OP ×3 (08:14→16:14)
--- NOTE | 2024-10-03 08:48 | P.PN_ITS ---
Subjective *Date: 10/03/24 *Time: 08:48 Medical Exam Vital signs and Labs for Last 24 Hours: Vital Signs Temp Pulse Resp BP Pulse Ox O2 Del Method O2 Flow Rate 10/03/24 08:00 69 89 L Vapotherm 10/03/24 08:00 179/75 H 10/03/24 08:00 97.5 F L Vapotherm 10/03/24 07:03 71 94 L Vapotherm 10/03/24 07:03 169/73 H 10/03/24 07:00 73 19 169/73 H 93 L Vapotherm 40 10/03/24 06:50 Vapotherm 40 10/03/24 06:40 72 10/03/24 06:40 72 10/03/24 06:40 92 L Vapotherm 40 10/03/24 06:00 171/73 H 10/03/24 06:00 73 18 171/73 H 92 L Vapotherm 40 10/03/24 06:00 74 18 171/73 H 93 L Vapotherm 40 10/03/24 05:30 63 20 88 L 10/03/24 05:30 143/57 H 10/03/24 05:00 160/73 H 10/03/24 05:00 61 20 160/73 H 90 L Vapotherm 40 10/03/24 04:49 Vapotherm 40 10/03/24 04:42 72 19 93 L 10/03/24 04:42 155/62 H 10/03/24 04:31 80 20 97 10/03/24 04:31 165/146 H 10/03/24 04:12 80 10/03/24 04:01 149/53 H 10/03/24 04:01 64 18 92 L 10/03/24 04:00 59 L 19 91 L 10/03/24 04:00 94 L Vapotherm 40 10/03/24 04:00 66 18 155/62 H 94 L Vapotherm 40 10/03/24 03:31 82 17 90 L 10/03/24 03:31 220/74 H 10/03/24 03:00 70 14 93 L 10/03/24 03:00 141/60 H 10/03/24 03:00 Vapotherm 40 10/03/24 03:00 79 18 141/60 H 95 Vapotherm 40 10/03/24 02:30 138/63 10/03/24 02:30 65 20 95 10/03/24 02:01 65 20 130/50 L 93 L Vapotherm 40 10/03/24 02:01 130/50 L 10/03/24 02:00 67 21 96 10/03/24 01:31 66 20 89 L 10/03/24 01:31 162/72 H 10/03/24 01:21 74 10/03/24 01:21 67 10/03/24 01:19 77 17 91 L 10/03/24 01:19 173/94 H 10/03/24 01:00 72 21 173/94 H 95 Vapotherm 40 10/03/24 01:00 Vapotherm 40 10/03/24 00:42 70 10/03/24 00:31 161/100 H 10/03/24 00:31 74 23 85 L 10/03/24 00:19 69 25 H 87 L 10/03/24 00:19 174/70 H 10/03/24 00:00 91 L Vapotherm 40 10/03/24 00:00 71 18 174/70 H 95 Vapotherm 40 10/02/24 23:31 70 15 92 L 10/02/24 23:31 173/73 H 10/02/24 23:17 66 21 173/73 H 91 L Vapotherm 40 10/02/24 23:17 163/101 H 10/02/24 23:00 Vapotherm 40 10/02/24 23:00 66 15 95 10/02/24 22:16 169/86 H 10/02/24 22:16 72 16 169/86 H 92 L Vapotherm 40 10/02/24 22:01 70 14 90 L 10/02/24 22:01 159/120 H 10/02/24 22:00 68 19 88 L 10/02/24 21:31 74 17 90 L 10/02/24 21:31 146/61 H 10/02/24 21:21 74 16 95 10/02/24 21:21 169/70 H 10/02/24 21:12 76 10/02/24 21:12 75 10/02/24 21:00 71 21 146/61 H 90 L Vapotherm 40 10/02/24 21:00 Vapotherm 40 10/02/24 20:30 80 22 91 L 10/02/24 20:30 181/79 H 10/02/24 20:00 70 10/02/24 20:00 97.9 F 79 18 170/72 H 90 L Vapotherm 40 10/02/24 20:00 170/72 H 10/02/24 20:00 91 L Vapotherm 40 10/02/24 19:30 71 16 92 L 10/02/24 19:30 153/61 H 10/02/24 19:00 171/89 H 10/02/24 19:00 72 20 153/61 H 90 L Vapotherm 40 10/02/24 18:46 74 10/02/24 18:46 79 10/02/24 18:46 93 L Vapotherm 40 10/02/24 18:30 73 19 94 L 10/02/24 18:30 144/73 H 10/02/24 18:01 66 16 93 L 10/02/24 18:01 167/73 H 10/02/24 18:00 76 15 91 L 10/02/24 18:00 69 20 167/73 H 93 L Vapotherm 10/02/24 17:30 140/56 L 10/02/24 17:30 65 20 89 L 10/02/24 17:00 Vapotherm 10/02/24 17:00 68 19 89 L 10/02/24 17:00 153/62 H 10/02/24 16:01 74 16 91 L 10/02/24 16:01 169/73 H 10/02/24 16:00 97.5 F L 10/02/24 16:00 90 L Vapotherm 40 10/02/24 16:00 76 15 91 L 10/02/24 15:00 Vapotherm 10/02/24 15:00 174/67 H 10/02/24 15:00 77 15 89 L 10/02/24 14:31 77 15 88 L 10/02/24 14:31 191/97 H 10/02/24 14:00 82 23 84 L 10/02/24 14:00 185/86 H 10/02/24 13:44 79 10/02/24 13:44 78 10/02/24 13:44 94 L Vapotherm 40 10/02/24 13:00 180/78 H 10/02/24 13:00 75 22 94 L 10/02/24 13:00 Vapotherm 10/02/24 12:31 82 20 193/83 H 94 L 10/02/24 12:00 97.9 F 10/02/24 12:00 80 91 L 10/02/24 12:00 95 Vapotherm 40 10/02/24 11:45 77 20 90 L 10/02/24 11:01 76 19 90 L 10/02/24 11:01 181/79 H 10/02/24 11:00 Vapotherm 10/02/24 11:00 71 20 181/79 H 90 L 10/02/24 10:30 73 10/02/24 10:30 75 10/02/24 10:30 93 L Vapotherm 40 10/02/24 10:00 78 22 92 L 10/02/24 10:00 199/96 H 10/02/24 09:00 77 18 93 L 10/02/24 09:00 190/84 H 10/02/24 09:00 Vapotherm FiO2 10/03/24 08:00 10/03/24 08:00 10/03/24 08:00 10/03/24 07:03 10/03/24 07:03 10/03/24 07:00 10/03/24 06:50 10/03/24 06:40 10/03/24 06:40 10/03/24 06:40 70 10/03/24 06:00 10/03/24 06:00 10/03/24 06:00 10/03/24 05:30 10/03/24 05:30 10/03/24 05:00 10/03/24 05:00 10/03/24 04:49 10/03/24 04:42 10/03/24 04:42 10/03/24 04:31 10/03/24 04:31 10/03/24 04:12 10/03/24 04:01 10/03/24 04:01 10/03/24 04:00 10/03/24 04:00 70 10/03/24 04:00 10/03/24 03:31 10/03/24 03:31 10/03/24 03:00 10/03/24 03:00 10/03/24 03:00 10/03/24 03:00 10/03/24 02:30 10/03/24 02:30 10/03/24 02:01 10/03/24 02:01 10/03/24 02:00 10/03/24 01:31 10/03/24 01:31 10/03/24 01:21 10/03/24 01:21 10/03/24 01:19 10/03/24 01:19 10/03/24 01:00 10/03/24 01:00 10/03/24 00:42 10/03/24 00:31 10/03/24 00:31 10/03/24 00:19 10/03/24 00:19 10/03/24 00:00 70 10/03/24 00:00 10/02/24 23:31 10/02/24 23:31 10/02/24 23:17 10/02/24 23:17 10/02/24 23:00 10/02/24 23:00 10/02/24 22:16 10/02/24 22:16 10/02/24 22:01 10/02/24 22:01 10/02/24 22:00 10/02/24 21:31 10/02/24 21:31 10/02/24 21:21 10/02/24 21:21 10/02/24 21:12 10/02/24 21:12 10/02/24 21:00 10/02/24 21:00 10/02/24 20:30 10/02/24 20:30 10/02/24 20:00 10/02/24 20:00 10/02/24 20:00 10/02/24 20:00 70 10/02/24 19:30 10/02/24 19:30 10/02/24 19:00 10/02/24 19:00 10/02/24 18:46 10/02/24 18:46 10/02/24 18:46 70 10/02/24 18:30 10/02/24 18:30 10/02/24 18:01 10/02/24 18:01 10/02/24 18:00 10/02/24 18:00 10/02/24 17:30 10/02/24 17:30 10/02/24 17:00 10/02/24 17:00 10/02/24 17:00 10/02/24 16:01 10/02/24 16:01 10/02/24 16:00 10/02/24 16:00 70 10/02/24 16:00 10/02/24 15:00 10/02/24 15:00 10/02/24 15:00 10/02/24 14:31 10/02/24 14:31 10/02/24 14:00 10/02/24 14:00 10/02/24 13:44 10/02/24 13:44 10/02/24 13:44 75 10/02/24 13:00 10/02/24 13:00 10/02/24 13:00 10/02/24 12:31 10/02/24 12:00 10/02/24 12:00 10/02/24 12:00 75 10/02/24 11:45 10/02/24 11:01 10/02/24 11:01 10/02/24 11:00 10/02/24 11:00 10/02/24 10:30 10/02/24 10:30 10/02/24 10:30 75 10/02/24 10:00 10/02/24 10:00 10/02/24 09:00 10/02/24 09:00 10/02/24 09:00 Intake and Output 10/02/24 10/03/24 10/03/24 23:59 07:59 15:59 Intake Total 235 / 1306 335 / 335 Output Total 900 / 2650 300 / 300 Balance -665 / -1344 35 / 35 Intake: Intake, Total IV Amount 235 / 926 335 / 335 Azithromycin 500 mg In 0.9 % 235 / 235 Sodium Chloride 250 ml @ 250 mls/hr IV Q24H [facility] Rx#:[id number] Cefepime HCl 2 gm In 0.9 % 100 / 100 Sodium Chloride 100 ml @ 200 mls/hr IV Q12H [facility] Rx#:[id number] Vancomycin HCl 1,000 mg In 0.9 235 / 480 % Sodium Chloride 250 ml @ 125 mls/hr IV Q18H [facility] Rx#:[id number] Output: Output, Urine Amount 900 / 2650 300 / 300 Other: Number of Unmeasured Voids 0 0 Weight 66.75 kg Patient Weight 10/03/24 23:59 Weight 66.75 kg Laboratory Results - last 24 hr 10/03/24 00:52: VBG pH 7.59 H, VBG pCO2 29.9 L, VBG pO2 74.9 H, VBG HCO3 27.8, VBG Total CO2 28.8 H, VBG O2 Saturation 96.2 H, VBG Base Excess 6.1 H, VBG Lactic Acid 1.2 10/03/24 05:41: WBC 9.7, RBC 4.61, Hgb 12.4, Hct 37.1, MCV 80.5 L, MCH 26.9 L, MCHC 33.4, RDW 13.7, Plt Count 294, MPV 10.0, Neut % (Auto) 81.5 H, Lymph % (Auto) 3.6 L, [place] % (Auto) 10.2 H, Eos % (Auto) 0.0 L, Baso % (Auto) 0.2, Neut # (Auto) 7.9 H, Lymph # (Auto) 0.4 L, [place] # (Auto) 1.0, Eos # (Auto) 0.0, Baso # (Auto) 0.0, Sodium 139, Potassium 3.3 L, Chloride 101, Carbon Dioxide 33 H, Anion Gap 8.3, BUN 34 H, Creatinine 0.70, Estimated Creat Clear 56, Estimated GFR 83, Est GFR ( Amer) 100, Glucose 126 H, Calcium 8.8, Phosphorus 2.5 D, Magnesium 2.2, Total Bilirubin 0.8, AST 27, ALT 23, Alkaline Phosphatase 87, C-Reactive Protein 52.1 H D, Total Protein 5.7 L, Albumin 3.1 L D, Globulin 2.6, Albumin/Globulin Ratio 1.2 I & O for Labs for Last 24 Hours: Intake & Output 09/30/24 10/01/24 10/02/24 10/03/24 23:59 23:59 23:59 23:59 Intake Total 690 / 690 660 / 660 1306 / 1306 335 / 335 Output Total 1000 / 1000 550 / 550 2350 / 2650 300 / 300 Balance -310 / -310 110 / 110 -1044 / -1344 35 / 35 Weight 64.093 kg 67 kg 66.678 kg 66.75 kg Microbiology Reports for the Last 24 Hours: Microbiology 09/28/24 22:55 Blood Blood Culture - Preliminary NO GROWTH AFTER 4 DAYS 09/30/24 14:58 Nose - Nasal MRSA Culture - Final Negative 09/29/24 12:21 Sputum - Expectorated Sputum Gram Stain - Final 09/29/24 12:21 Sputum - Expectorated Sputum Sputum Culture - Final Staphylococcus aureus The patient's infection will respond to the chosen ABx?: Yes (SPUTUM = MRSA, ON VANCOMYCIN, BLOOD CX PENDING, AFEBRILE OVER 24 HR) Is the patient receiving the right drug, dose, and route?: Yes Could a more targeted ABx be ordered?: No How long ABx needed (days)?: 7
--- NOTE | 2024-10-03 09:19 | PC.NURSE ---
pt at bedside working with pt
--- NOTE | 2024-10-03 09:45 | EXP.PULM.PN ---
Subjective *Date: 10/03/24 *Time: 11:22 Interval history: No acute respiratory vents overnight. Patient admits improvement in her respiratory symptoms from yesterday. Pulmonology Exam Inpatient Vital signs and Labs for Last 24 Hours: Temp Pulse Resp BP Pulse Ox O2 Del Method O2 Flow Rate 97.5 F L 72 19 170/73 H 91 L Vapotherm 40 10/03/24 08:00 10/03/24 09:00 10/03/24 09:00 10/03/24 09:00 10/03/24 09:00 10/03/24 09:10 10/03/24 09:10 FiO2 70 10/03/24 08:00 Laboratory Results - last 24 hr 10/03/24 00:52: VBG pH 7.59 H, VBG pCO2 29.9 L, VBG pO2 74.9 H, VBG HCO3 27.8, VBG Total CO2 28.8 H, VBG O2 Saturation 96.2 H, VBG Base Excess 6.1 H, VBG Lactic Acid 1.2 10/03/24 05:41: WBC 9.7, RBC 4.61, Hgb 12.4, Hct 37.1, MCV 80.5 L, MCH 26.9 L, MCHC 33.4, RDW 13.7, Plt Count 294, MPV 10.0, Neut % (Auto) 81.5 H, Lymph % (Auto) 3.6 L, [place] % (Auto) 10.2 H, Eos % (Auto) 0.0 L, Baso % (Auto) 0.2, Neut # (Auto) 7.9 H, Lymph # (Auto) 0.4 L, [place] # (Auto) 1.0, Eos # (Auto) 0.0, Baso # (Auto) 0.0, Sodium 139, Potassium 3.3 L, Chloride 101, Carbon Dioxide 33 H, Anion Gap 8.3, BUN 34 H, Creatinine 0.70, Estimated Creat Clear 56, Estimated GFR 83, Est GFR ( Amer) 100, Glucose 126 H, Calcium 8.8, Phosphorus 2.5 D, Magnesium 2.2, Total Bilirubin 0.8, AST 27, ALT 23, Alkaline Phosphatase 87, C-Reactive Protein 52.1 H D, Total Protein 5.7 L, Albumin 3.1 L D, Globulin 2.6, Albumin/Globulin Ratio 1.2 Temp Pulse Resp BP Pulse Ox O2 Del Method O2 Flow Rate 98.2 F 76 20 159/74 H 91 L Vapotherm 30 09/30/24 08:13 09/30/24 10:07 09/30/24 10:07 09/30/24 10:08 09/30/24 10:07 09/30/24 07:00 09/30/24 07:00 FiO2 60 09/30/24 06:25 Laboratory Results - last 24 hr 09/29/24 06:10: TIBC 240 L, Iron Saturation 9.90802 L, Ferritin 332 H 09/30/24 06:35: WBC 26.8 H* D, RBC 4.90, Hgb 13.3, Hct 40.3, MCV 82.2, MCH 27.1, MCHC 33.0, RDW 14.3, Plt Count 302 D, MPV 10.5 H, Neut % (Auto) 94.1 H, Lymph % (Auto) 1.7 L, [place] % (Auto) 3.5, Eos % (Auto) 0.0 L, Baso % (Auto) 0.2, Neut # (Auto) 25.2 H, Lymph # (Auto) 0.5 L, [place] # (Auto) 0.9, Eos # (Auto) 0.0, Baso # (Auto) 0.1, Total Counted 100, Neutrophils % (Manual) 95 H, Lymphocytes % (Manual) 4 L, Monocytes % (Manual) 1 L, Platelet Estimate Normal, RBC Morphology Normal, Sodium 136, Potassium 4.3, Chloride 100, Carbon Dioxide 29, Anion Gap 11.3, BUN 29 H D, Creatinine 0.80, Estimated Creat Clear 54, Estimated GFR 71, Est GFR ( Amer) 86, Glucose 119 H, Lactate 0.9, Calcium 9.3, Phosphorus 3.7, Magnesium 2.4 H D, Total Bilirubin 0.7, AST 31, ALT 25, Alkaline Phosphatase 115, Total Protein 6.5, Albumin 3.6 D, Globulin 2.9, Albumin/Globulin Ratio 1.2, Free T4 1.65 09/30/24 08:11: VBG pH 7.40, VBG pCO2 44.6, VBG pO2 37.3, VBG HCO3 26.8, VBG Total CO2 28.1 H, VBG O2 Saturation 74.0 H, VBG Base Excess 1.9, VBG Lactic Acid 2.2 H I & O for Labs for Last 24 Hours: Intake & Output 09/30/24 10/01/24 10/02/24 10/03/24 23:59 23:59 23:59 23:59 Intake Total 690 / 690 660 / 660 1306 / 1306 335 / 335 Output Total 1000 / 1000 550 / 550 2350 / 2650 600 / 600 Balance -310 / -310 110 / 110 -1044 / -1344 -265 / -265 Weight 141 lb 4.8 oz 147 lb 11.355 oz 147 lb 147 lb 2.537 oz Intake & Output 09/27/24 09/28/24 09/29/24 09/30/24 23:59 23:59 23:59 23:59 Intake Total 1245 / 1345 590 / 590 Output Total 1100 / 1100 Balance 145 / 245 590 / 590 Weight 140 lb 150 lb 5 oz 141 lb 4.8 oz Microbiology Reports for the Last 24 Hours: Microbiology 09/28/24 22:55 Blood Blood Culture - Preliminary NO GROWTH AFTER 4 DAYS 09/30/24 14:58 Nose - Nasal MRSA Culture - Final Negative 09/29/24 12:21 Sputum - Expectorated Sputum Gram Stain - Final 09/29/24 12:21 Sputum - Expectorated Sputum Sputum Culture - Final Staphylococcus aureus Microbiology 09/29/24 12:21 Sputum - Expectorated Sputum Gram Stain - Final 09/29/24 12:21 Sputum - Expectorated Sputum Sputum Culture - Preliminary 09/28/24 22:55 Blood Blood Culture - Preliminary NO GROWTH AFTER 24 HOURS Constitutional: Present severe distress Head: Present normocephalic and atraumatic ENT: Present normal exam, normal oropharynx and mucous membranes moist Neck: Present normal inspection and full ROM Respiratory: Present prolonged expiratory phase, respiratory distress, rhonchi and wheezes; Absent able to speak in complete sentences Cardiac: Present S1/S2, Tachycardia and radial pulses present GI: Present soft and distention; Absent tenderness or guarding Rectal (female): Present deferred (female): Present deferred Skin: Present intact; Absent cyanosis or jaundice Neuro: Present alert, awake and oriented x 3 Extremities: Present normal inspection; Absent clubbing or cyanosis Psychiatric: Present normal affect and cooperative Assessment and Plan *Assessment and plan (1) COPD (chronic obstructive pulmonary disease): Status: Acute Qualifiers: COPD type: emphysema Emphysema type: panlobular Qualified Code(s): J43.1 - Panlobular emphysema Category: Medical Code(s): J44.9 - Chronic obstructive pulmonary disease, unspecified (2) Left lower lobe pneumonia: Status: Acute Qualifiers: Pneumonia type: due to unspecified organism Qualified Code(s): J18.9 - Pneumonia, unspecified organism Category: Medical Code(s): J18.9 - Pneumonia, unspecified organism (3) Acute hypoxemic respiratory failure: Status: Acute Category: Medical Code(s): J96.01 - Acute respiratory failure with hypoxia Plan Mr. Dan is a 69-year-old female presented to the ER with worsening respiratory distress needing high flow nasal oxygen supplementation pulmonary was called for further evaluation and management. Admits sick contact for COVID-19 pneumonia. CTA upon admission no evidence of pulmonary embolism. Diffuse centrilobular emphysematous changes. Left lower lobe lobar pneumonia noted. COVID-19 and flu PCR panel upon admission negative. Mycoplasma pneumonia positive. Receiving ceftriaxone and azithromycin. Worsening leukocytosis. On high flow nasal cannula. Prelim sputum cultures gram-negative rods. Continue to receive cefepime and vancomycin. CRP elevated at 216.1, improving now at 52.1 Sputum cultures growing Staph aureus MRSA. Interval update: No acute respiratory vents overnight. Stable leukocytosis. Continue to receive vancomycin and cefepime. Chest x-ray from this morning stable bilateral lower lobe predominant infiltrates left greater than right with small left pleural effusion. Improving oxygen requirements from yesterday. Plan: Follow with repeat sputum cultures Lasix 40 mg IV once today after potassium repletion for noted hypokalemia with K at 3.3 Continue high flow nasal oxygen supplementation, wean to 30L 55%. Will follow. Continue vancomycin x 10 days and cefepime Continue DuoNebs every 4 and Pulmicort every 12 scheduled Continue methylprednisolone 40mg IV twice daily Total critical care time spent on this patient is 35 minutes managing acute hypoxic respiratory failure HFNC . This time spent include reviewing test results including interpreting labs and optimizing the HFNC settings,formulating plan of care, discussing the plan of care with the team and the nursing staff.
--- NOTE | 2024-10-03 10:10 | PC.NURSE ---
assisted pt to the chair.
--- NOTE | 2024-10-03 10:20 | PC.NURSE ---
family assisted pt back to the her bed.
--- NOTE | 2024-10-03 10:23 | PC.NURSE ---
dr fisher at bedside
--- NOTE | 2024-10-03 10:57 | DIET.NUTRFU ---
Meal intake improved this AM, 100% ensure consumed.
--- NOTE | 2024-10-03 11:14 | SW/DCPLANNER ---
I spoke w/ patient and her son this AM regarding plans once medically stable for discharge. PT/OT evaluated patient and recommended SNF level of care or home w/ 16/04 care and home health services. Patient stated that she is not interested in SNF level of care and prefers to return home. Son stated that family will be available to assist patient at home. Patient stated that she would like to think about home health services prior to making a decision. I will continue to follow up w/ patient, family and MD. Discharge date is unknown at this time.
--- NOTE | 2024-10-03 13:09 | PC.NURSE ---
pt/ot at bedside working with pt at this time
[2024-10-03] MEDS: KCl 20mEq/100ml 100 ML 50 MEQ IV (13:15)
[2024-10-03] MEDS: FUROSEMIDE 40MG/4ML VIAL 40 MG IV (13:16)
--- NOTE | 2024-10-03 13:16 | PC.NURSE ---
lab at bedside drawing labs
[2024-10-03] MEDS: PHA TO NURSING INSTRUCTION 1 EACH NOTAPPLIC (13:20)
--- NOTE | 2024-10-03 14:20 | PC.NURSE ---
called jelena in pharmacy about vanc trough being 8.0. he stated to hold vanc and he was going to look at her order and possibly redose her
--- NOTE | 2024-10-03 14:42 | P.CONPHA_ITS ---
Pharmacy Consult Date: 10/03/24 Time: 14:43 Referring provider: DR. CRUZ Reason for Consult:: VANCOMYCIN LEVEL AND DOSE CHANGE Allergies Allergy/AdvReac Type Severity Reaction Status Date / Time No Known Allergies Allergy Verified 09/29/24 01:55 Home Medications ?Medication ?Instructions ?Recorded ?Confirmed ?Type bisoprolol 5 1 tab PO DAILY 09/28/24 09/29/24 History mg-hydrochlorothiazide 6.25 mg tablet levothyroxine 100 mcg tablet 100 mcg PO DAILY 09/28/24 09/29/24 History omeprazole 20 mg capsule,delayed 20 mg PO DAILY 09/28/24 09/29/24 History release sertraline 50 mg tablet 50 mg PO DAILY 09/28/24 09/29/24 History albuterol 90 mcg/actuation aerosol 90 mcg inhalation Q4HP PRN 09/29/24 09/29/24 History inhaler Shortness Of Breath pramipexole 1 mg tablet 1 mg PO TID 09/29/24 09/29/24 History New Prescriptions to Start Prescriptions: Height: 1.65 m Weight: 66.75 kg Laboratory Results:: Laboratory Results - last 24 hr 10/03/24 00:52: VBG pH 7.59 H, VBG pCO2 29.9 L, VBG pO2 74.9 H, VBG HCO3 27.8, VBG Total CO2 28.8 H, VBG O2 Saturation 96.2 H, VBG Base Excess 6.1 H, VBG Lactic Acid 1.2 10/03/24 05:41: WBC 9.7, RBC 4.61, Hgb 12.4, Hct 37.1, MCV 80.5 L, MCH 26.9 L, MCHC 33.4, RDW 13.7, Plt Count 294, MPV 10.0, Neut % (Auto) 81.5 H, Lymph % (Auto) 3.6 L, [place] % (Auto) 10.2 H, Eos % (Auto) 0.0 L, Baso % (Auto) 0.2, Neut # (Auto) 7.9 H, Lymph # (Auto) 0.4 L, [place] # (Auto) 1.0, Eos # (Auto) 0.0, Baso # (Auto) 0.0, Sodium 139, Potassium 3.3 L, Chloride 101, Carbon Dioxide 33 H, Anion Gap 8.3, BUN 34 H, Creatinine 0.70, Estimated Creat Clear 56, Estimated GFR 83, Est GFR ( Amer) 100, Glucose 126 H, Calcium 8.8, Phosphorus 2.5 D, Magnesium 2.2, Total Bilirubin 0.8, AST 27, ALT 23, Alkaline Phosphatase 87, C-Reactive Protein 52.1 H D, Total Protein 5.7 L, Albumin 3.1 L D, Globulin 2.6, Albumin/Globulin Ratio 1.2 10/03/24 13:15: Vancomycin Trough 8.0 Medical History: Medical History (Updated 09/30/24 @ 14:48 by Sheela Gary APRN) Emphysema lung Left lower lobe pneumonia Atrial fibrillation with RVR COPD (chronic obstructive pulmonary disease) Lymphoma in remission Assessment and Plan Assessment and plan all Dx Assessment and Plan for all problems:: Pharmacokinetic dosing service Patient: Floor: Weight: 67.1 Kilograms Vancomycin single level analysis: Current dose being given: 1000 mg Current dosing interval: 18 hrs Current infusion time (hrs): 2 Single level Trough Data: Trough level obtained: 8 mcg/ml Timing of trough - # of hrs before next dose: 1 Hrs Desired peak: 35 mcg/ml Desired trough: 15 mcg/ml Estimated PK Parameters: New rate constant (josesito): 0.071 hr-1 Half-life: 9.76 Hours Vd from levels: 53.68 Liters (0.7 L/kg) CLvanco=?? 3.811 L/hr Estimated New Dose and Interval Recommended dose: 1264.2 mg Recommended interval: 13.9 Hrs Patient response: Patient is responding to treatment [yes/no] wbc decreasing, S/SX reduced [yes/no] Renal function is stable/unstable Recommendations: Give Vancomycin 1000 mg q 12 hrs. Infuse over 2 hrs Expected Cpeak: 30.3 mcg/mL Expected Ctrough: 14.9 mcg/mL AUC 0-24 /JOSUÉ Data: JOSUÉ 0.5 mcg/mL:?? AUC/JOSUÉ:? 1049.6 JOSUÉ 1.0 mcg/mL:?? AUC/JOSUÉ:? 524.8
[2024-10-03] MEDS: VANCOMYCIN HCL 1,000 MG in 0.9 % SODIUM CHLORIDE 250 ML 125 MG IV ×2 (14:54→22:52)
--- NOTE | 2024-10-03 18:33 | EXP.ACUTE.PN ---
Subjective *Date: 10/03/24 *Time: 18:52 Interval history: Patient pleasant on exam this morning. Has been having sundowning at night and some confusion. Blood gas this morning showed VBG with respiratory alkalosis. Inflammatory markers however another labs improving. Family at bedside. Slowly weaning oxygen, currently on 70% with Vapotherm. Tolerating more p.o. intake. Got up to bedside chair yesterday, said it felt good to get out of bed. Medical Exam Vital signs and Labs for Last 24 Hours: Vital Signs Temp Pulse Resp BP Pulse Ox O2 Del Method O2 Flow Rate 10/03/24 18:07 76 10/03/24 18:07 74 10/03/24 18:07 91 L Vapotherm 30 10/03/24 18:00 68 20 175/77 H 91 L Vapotherm 30 10/03/24 17:30 83 18 164/70 H 100 Vapotherm 30 10/03/24 17:10 Vapotherm 30 10/03/24 16:33 178/72 H 10/03/24 16:33 68 21 91 L 10/03/24 16:20 92 L Vapotherm 30 10/03/24 16:00 97.2 F L 10/03/24 16:00 85 10/03/24 15:08 Vapotherm 30 10/03/24 15:01 82 18 91 L 10/03/24 15:01 161/97 H 10/03/24 14:30 80 14 92 L Vapotherm 10/03/24 14:00 72 16 88 L Vapotherm 10/03/24 14:00 166/70 H 10/03/24 13:58 89 L Vapotherm 30 10/03/24 13:18 77 10/03/24 13:18 78 10/03/24 13:18 91 L Vapotherm 30 10/03/24 13:08 Vapotherm 30 10/03/24 13:00 170/83 H 10/03/24 13:00 76 20 90 L Vapotherm 10/03/24 12:25 91 L Vapotherm 30 10/03/24 12:00 98.4 F 10/03/24 12:00 69 10/03/24 12:00 177/78 H 10/03/24 12:00 68 16 91 L Vapotherm 10/03/24 11:05 90 L Vapotherm 10/03/24 11:03 Vapotherm 30 10/03/24 11:00 76 23 80 L 10/03/24 11:00 175/83 H 10/03/24 10:38 70 10/03/24 10:38 68 10/03/24 10:38 91 L Vapotherm 30 10/03/24 10:00 67 16 93 L Vapotherm 10/03/24 10:00 182/77 H 10/03/24 09:10 Vapotherm 40 10/03/24 09:00 170/73 H 10/03/24 09:00 72 19 91 L Vapotherm 10/03/24 08:00 72 10/03/24 08:00 92 L Vapotherm 40 10/03/24 08:00 69 89 L Vapotherm 10/03/24 08:00 179/75 H 10/03/24 08:00 97.5 F L Vapotherm 10/03/24 07:03 71 94 L Vapotherm 10/03/24 07:03 169/73 H 10/03/24 07:00 73 19 169/73 H 93 L Vapotherm 40 10/03/24 06:50 Vapotherm 40 10/03/24 06:40 72 10/03/24 06:40 72 10/03/24 06:40 92 L Vapotherm 40 10/03/24 06:00 171/73 H 10/03/24 06:00 73 18 171/73 H 92 L Vapotherm 40 10/03/24 06:00 74 18 171/73 H 93 L Vapotherm 40 10/03/24 05:30 63 20 88 L 10/03/24 05:30 143/57 H 10/03/24 05:00 160/73 H 10/03/24 05:00 61 20 160/73 H 90 L Vapotherm 40 10/03/24 04:49 Vapotherm 40 10/03/24 04:42 72 19 93 L 10/03/24 04:42 155/62 H 10/03/24 04:31 80 20 97 10/03/24 04:31 165/146 H 10/03/24 04:12 80 10/03/24 04:01 149/53 H 10/03/24 04:01 64 18 92 L 10/03/24 04:00 59 L 19 91 L 10/03/24 04:00 94 L Vapotherm 40 10/03/24 04:00 66 18 155/62 H 94 L Vapotherm 40 10/03/24 03:31 82 17 90 L 10/03/24 03:31 220/74 H 10/03/24 03:00 70 14 93 L 10/03/24 03:00 141/60 H 10/03/24 03:00 Vapotherm 40 10/03/24 03:00 79 18 141/60 H 95 Vapotherm 40 10/03/24 02:30 138/63 10/03/24 02:30 65 20 95 10/03/24 02:01 65 20 130/50 L 93 L Vapotherm 40 10/03/24 02:01 130/50 L 10/03/24 02:00 67 21 96 10/03/24 01:31 66 20 89 L 10/03/24 01:31 162/72 H 10/03/24 01:21 74 10/03/24 01:21 67 10/03/24 01:19 77 17 91 L 10/03/24 01:19 173/94 H 10/03/24 01:00 72 21 173/94 H 95 Vapotherm 40 10/03/24 01:00 Vapotherm 40 10/03/24 00:42 70 10/03/24 00:31 161/100 H 10/03/24 00:31 74 23 85 L 10/03/24 00:19 69 25 H 87 L 10/03/24 00:19 174/70 H 10/03/24 00:00 91 L Vapotherm 40 10/03/24 00:00 71 18 174/70 H 95 Vapotherm 40 10/02/24 23:31 70 15 92 L 10/02/24 23:31 173/73 H 10/02/24 23:17 66 21 173/73 H 91 L Vapotherm 40 10/02/24 23:17 163/101 H 10/02/24 23:00 Vapotherm 40 10/02/24 23:00 66 15 95 10/02/24 22:16 169/86 H 10/02/24 22:16 72 16 169/86 H 92 L Vapotherm 40 10/02/24 22:01 70 14 90 L 10/02/24 22:01 159/120 H 10/02/24 22:00 68 19 88 L 10/02/24 21:31 74 17 90 L 10/02/24 21:31 146/61 H 10/02/24 21:21 74 16 95 10/02/24 21:21 169/70 H 10/02/24 21:12 76 10/02/24 21:12 75 10/02/24 21:00 71 21 146/61 H 90 L Vapotherm 40 10/02/24 21:00 Vapotherm 40 10/02/24 20:30 80 22 91 L 10/02/24 20:30 181/79 H 10/02/24 20:00 70 10/02/24 20:00 97.9 F 79 18 170/72 H 90 L Vapotherm 40 10/02/24 20:00 170/72 H 10/02/24 20:00 91 L Vapotherm 40 10/02/24 19:30 71 16 92 L 10/02/24 19:30 153/61 H 10/02/24 19:00 171/89 H 10/02/24 19:00 72 20 153/61 H 90 L Vapotherm 40 10/02/24 18:46 74 10/02/24 18:46 79 10/02/24 18:46 93 L Vapotherm 40 FiO2 10/03/24 18:07 10/03/24 18:07 10/03/24 18:07 70 10/03/24 18:00 10/03/24 17:30 10/03/24 17:10 10/03/24 16:33 10/03/24 16:33 10/03/24 16:20 70 10/03/24 16:00 10/03/24 16:00 10/03/24 15:08 10/03/24 15:01 10/03/24 15:01 10/03/24 14:30 10/03/24 14:00 10/03/24 14:00 10/03/24 13:58 80 10/03/24 13:18 10/03/24 13:18 10/03/24 13:18 70 10/03/24 13:08 10/03/24 13:00 10/03/24 13:00 10/03/24 12:25 70 10/03/24 12:00 10/03/24 12:00 10/03/24 12:00 10/03/24 12:00 10/03/24 11:05 10/03/24 11:03 10/03/24 11:00 10/03/24 11:00 10/03/24 10:38 10/03/24 10:38 10/03/24 10:38 55 10/03/24 10:00 10/03/24 10:00 10/03/24 09:10 10/03/24 09:00 10/03/24 09:00 10/03/24 08:00 10/03/24 08:00 70 10/03/24 08:00 10/03/24 08:00 10/03/24 08:00 10/03/24 07:03 10/03/24 07:03 10/03/24 07:00 10/03/24 06:50 10/03/24 06:40 10/03/24 06:40 10/03/24 06:40 70 10/03/24 06:00 10/03/24 06:00 10/03/24 06:00 10/03/24 05:30 10/03/24 05:30 10/03/24 05:00 10/03/24 05:00 10/03/24 04:49 10/03/24 04:42 10/03/24 04:42 10/03/24 04:31 10/03/24 04:31 10/03/24 04:12 10/03/24 04:01 10/03/24 04:01 10/03/24 04:00 10/03/24 04:00 70 10/03/24 04:00 10/03/24 03:31 10/03/24 03:31 10/03/24 03:00 10/03/24 03:00 10/03/24 03:00 10/03/24 03:00 10/03/24 02:30 10/03/24 02:30 10/03/24 02:01 10/03/24 02:01 10/03/24 02:00 10/03/24 01:31 10/03/24 01:31 10/03/24 01:21 10/03/24 01:21 10/03/24 01:19 10/03/24 01:19 10/03/24 01:00 10/03/24 01:00 10/03/24 00:42 10/03/24 00:31 10/03/24 00:31 10/03/24 00:19 10/03/24 00:19 10/03/24 00:00 70 10/03/24 00:00 10/02/24 23:31 10/02/24 23:31 10/02/24 23:17 10/02/24 23:17 10/02/24 23:00 10/02/24 23:00 10/02/24 22:16 10/02/24 22:16 10/02/24 22:01 10/02/24 22:01 10/02/24 22:00 10/02/24 21:31 10/02/24 21:31 10/02/24 21:21 10/02/24 21:21 10/02/24 21:12 10/02/24 21:12 10/02/24 21:00 10/02/24 21:00 10/02/24 20:30 10/02/24 20:30 10/02/24 20:00 10/02/24 20:00 10/02/24 20:00 10/02/24 20:00 70 10/02/24 19:30 10/02/24 19:30 10/02/24 19:00 10/02/24 19:00 10/02/24 18:46 10/02/24 18:46 10/02/24 18:46 70 Intake and Output 10/03/24 10/03/24 10/03/24 07:59 15:59 23:59 Intake Total 335 / 575 240 / 575 Output Total 300 / 2350 300 / 2350 1750 / 2350 Balance 35 / -1775 -60 / -1775 -1750 / -1775 Intake: Intake, Oral Amount 240 / 240 Intake, Total IV Amount 335 / 335 Azithromycin 500 mg In 0.9 % 235 / 235 Sodium Chloride 250 ml @ 250 mls/hr IV Q24H [facility] Rx#:[id number] Cefepime HCl 2 gm In 0.9 % 100 / 100 Sodium Chloride 100 ml @ 200 mls/hr IV Q12H [facility] Rx#:[id number] Output: Output, Urine Amount 300 / 2350 300 / 2350 1750 / 2350 Other: Number of Unmeasured Voids 0 Weight 66.75 kg 66.75 kg Patient Weight 10/03/24 23:59 Weight 66.75 kg Laboratory Results - last 24 hr 10/03/24 00:52: VBG pH 7.59 H, VBG pCO2 29.9 L, VBG pO2 74.9 H, VBG HCO3 27.8, VBG Total CO2 28.8 H, VBG O2 Saturation 96.2 H, VBG Base Excess 6.1 H, VBG Lactic Acid 1.2 10/03/24 05:41: WBC 9.7, RBC 4.61, Hgb 12.4, Hct 37.1, MCV 80.5 L, MCH 26.9 L, MCHC 33.4, RDW 13.7, Plt Count 294, MPV 10.0, Neut % (Auto) 81.5 H, Lymph % (Auto) 3.6 L, Sutter % (Auto) 10.2 H, Eos % (Auto) 0.0 L, Baso % (Auto) 0.2, Neut # (Auto) 7.9 H, Lymph # (Auto) 0.4 L, Sutter # (Auto) 1.0, Eos # (Auto) 0.0, Baso # (Auto) 0.0, Sodium 139, Potassium 3.3 L, Chloride 101, Carbon Dioxide 33 H, Anion Gap 8.3, BUN 34 H, Creatinine 0.70, Estimated Creat Clear 56, Estimated GFR 83, Est GFR ( Amer) 100, Glucose 126 H, Calcium 8.8, Phosphorus 2.5 D, Magnesium 2.2, Total Bilirubin 0.8, AST 27, ALT 23, Alkaline Phosphatase 87, C-Reactive Protein 52.1 H D, Total Protein 5.7 L, Albumin 3.1 L D, Globulin 2.6, Albumin/Globulin Ratio 1.2 10/03/24 13:15: Vancomycin Trough 8.0 I & O for Labs for Last 24 Hours: Intake & Output 09/30/24 10/01/24 10/02/24 10/03/24 23:59 23:59 23:59 23:59 Intake Total 690 / 690 660 / 660 1306 / 1306 575 / 575 Output Total 1000 / 1000 550 / 550 2350 / 2650 2350 / 2350 Balance -310 / -310 110 / 110 -1044 / -1344 -1775 / -1775 Weight 64.093 kg 67 kg 66.678 kg 66.75 kg Microbiology Reports for the Last 24 Hours: Microbiology 09/28/24 22:55 Blood Blood Culture - Preliminary NO GROWTH AFTER 4 DAYS Constitutional: Present mild distress, average body habitus, chronically ill appearing and cooperative Head: Present atraumatic and normocephalic ENT: Present normal exam Respiratory: Present accessory muscle use, prolonged expiratory phase, wheezes and crackles; Absent rhonchi Cardiac: Present Regular Rate and Regular Rhythm GI: Present soft and normal bowel sounds; Absent distention or tenderness Extremities: Present normal inspection and full ROM Skin: Present intact; Absent erythema Neuro: Present Grossly Intact, alert, awake and moves all extremities Comment:: Oriented to self, thinks she is at hospital and [place] Assessment and Plan *Assessment and plan (1) Acute hypoxemic respiratory failure: Status: Acute Category: Medical Code(s): J96.01 - Acute respiratory failure with hypoxia (2) Atrial fibrillation with controlled ventricular rate: Status: Acute Category: Medical Code(s): I48.91 - Unspecified atrial fibrillation (3) Left lower lobe pneumonia: Status: Acute Qualifiers: Pneumonia type: due to unspecified organism Qualified Code(s): J18.9 - Pneumonia, unspecified organism Category: Medical Code(s): J18.9 - Pneumonia, unspecified organism (4) Viral upper respiratory illness: Status: Acute Category: Medical Code(s): J06.9 - Acute upper respiratory infection, unspecified (5) Oxygen deficiency: Status: Acute Category: Medical Code(s): R09.02 - Hypoxemia (6) COPD (chronic obstructive pulmonary disease): Status: Acute Qualifiers: COPD type: emphysema Emphysema type: panlobular Qualified Code(s): J43.1 - Panlobular emphysema Category: Medical Code(s): J44.9 - Chronic obstructive pulmonary disease, unspecified (7) Lymphoma in remission: Status: Acute Category: Medical Code(s): C85.9A - Non-Hodgkin lymphoma, unspecified, in remission (8) CHF exacerbation: Status: Acute Qualifiers: Heart failure type: systolic Qualified Code(s): I50.23 - Acute on chronic systolic (congestive) heart failure Category: Medical Code(s): I50.9 - Heart failure, unspecified (9) Hypothyroidism: Status: Acute Qualifiers: Hypothyroidism type: postoperative Qualified Code(s): E89.0 - Postprocedural hypothyroidism Category: Medical Code(s): E03.9 - Hypothyroidism, unspecified (10) Hypokalemia: Status: Acute Category: Medical Code(s): E87.6 - Hypokalemia (11) Delirium: Status: Acute Category: Medical Code(s): R41.0 - Disorientation, unspecified Plan Kaur Dan is a 69-year-old female with a history of COPD not on home O2 who presents with shortness of breath, chest pain and admitted for acute hypoxic respiratory failure secondary to COPD exacerbation, mycoplasma pneumonia, A-fib RVR. Of note, her from COVID-19 at home just prior to admission. Patient has been sick for at least 2 weeks. Continues to require ICU level care. Having delirium at night. Showing slight improvement in oxygen requirement. Condition serious, prognosis guarded. Problems addressed as follows: #Acute hypoxic respiratory failure #Acute COPD exacerbation #Sepsis #Community-acquired pneumonia #Chronic pulmonary arterial hypertension ? Discussed case with pulmonology, recommend continuing Vapotherm. Wean to 30 L and 70%. Goal sats greater 90%. - Lasix 40 mg IV once today, patient is negative almost 2 L. - Chest x-ray obtained today, per my review shows stable airspace disease. Effusion appears stable. No new consolidation. - continue vancomycin for 10 days. Discontinue cefepime and azithromycin as sputum culture is growing MRSA. Has completed at least 5 days of antibiotics for gram-negative's. Additionally will see if mentation improves with stopping cefepime. - Continue DuoNebs every 4 hours and Pulmicort twice daily. Methylprednisolone 40 mg IV twice daily. -BUN 34, creatinine 0.7. Repeat CBC, CMP, magnesium, procalcitonin and CRP ordered for the morning. -White count remains normal at 9.7, inflammatory markers improved at 52 for CRP down from 216. #A-fib versus SVT #RVR resolved ? Initial EKG is suggestive of A-fib versus SVT with HR 167 bpm. Converted to NSR with IV diltiazem. ? Discussed case with cardiology today, recommend continuing oral metoprolol 50 mg daily for suppression of A-fib. Continue Lovenox while admitted, recommend transitioning to oral NOAC prior to discharge. No plan for interventional procedure during admission. -Cardiology recommends low-dose Lasix daily due to elevated BNP on admission ? [id number] score 3 for age, sex, hypertension. ? ECHO reveals normal biventricular function without valvular issues. #Elevated TSH: TSH 16.8, however obtained in acute and severe illness. Can be repeated once more stable. Free T4 normal at 1.6. Continue levothyroxine 100 mcg daily #Restless leg syndrome: Continue home pramipexole. Developing some ICU delirium. Initiate Zyprexa 5 mg scheduled nightly. Will administer a second 5 mg dose if no benefit after 1 hour. Continue with day night routine. Reorientation from nursing and family at bedside. Minimize interruptions and distractions at night. Full code PLOV Cardiac diet
[2024-10-03] MEDS: FAMOTIDINE 20MG/2ML VIAL 20 MG IV (20:40)
[2024-10-03] MEDS: OLANZapine 5 MG ODT TABLET SL (20:44)
--- NOTE | 2024-10-03 20:53 | PC.NURSE ---
Patient visitor came running out of room screaming I need some help Upon entering room pt was diaphoretic and pale. Visitor stated the patient became unresponsive and her eye rolled back in her head. Noted to have a HR >200 on cardiac cath technologist. Episode lasted 30-40 secs. Pt assessed upon entering room, A&Ox4. states she just feels hot and nauseous. Provider notified, new orders received for state mag, ekg, BMP and troponin.
[2024-10-03] MEDS: ONDANSETRON 4MG/2ML VIAL 4 MG IV (21:02)
--- NOTE | 2024-10-03 21:11 | ECG_ITS ---
APPROVED REPORT Exam: Resting ECG HR:69 bpm ECG Measurements Heart Rate 69 AXES GA 174 P 57 QRSd 73 QRS 13 QT 482 T 66 QTc 501 Conclusion SINUS RHYTHM Norm ecg UNCONFIRMED REPORT Electronically signed by : Timothy Del Rio MD 10/04/2024 08:31:05
--- NOTE | 2024-10-03 21:13 | PC.NURSE ---
provider at bedside.
[2024-10-03 21:22] LABS: Chloride 98 mmol/L (98-107); Potassium 3.1 mmoL/L (3.5-5.1); Sodium 135 mmol/L (136-145)
[2024-10-03 21:25] LABS: Blood Urea Nitrogen 29 mg/dl (7-17); Creatinine Clearance Estimated 56 mL/min (50-200); Estimated Glomerular Filt Rate 83 ml/min (>60); GFR (African American) 100 ML/MIN (>60)
[2024-10-03 21:26] LABS: Anion Gap 8.1 mEq/L (5-15); Calcium 9.1 mg/dl (8.4-10.2); Carbon Dioxide 32 mmol/L (22.0-30.0); Glucose 132 mg/dl (74-100)
[2024-10-03 21:38] LABS: Troponin I 0.18 ng/ml (0.00-0.034)
--- NOTE | 2024-10-03 21:54 | PC.NURSE ---
Milton ARCE on phone with bryan
--- NOTE | 2024-10-03 23:25 | PC.NURSE ---
Spoke to Floyd pt step daughter (password given) about patient POC and update of status. Step daughter asked about her episode she had earlier, updated her on that. Samira stated she wants to know when any medications are ordered to her. Will pass along in report.
[2024-10-04] VITALS (58 sets, daily range): BP systolic 95–189; BP diastolic 44–97; PULSE 43–90; RESP 11–24; TEMP 36.4–36.8; O2SAT 82–94; BMI 22.8
[2024-10-04] MEDS: IPRATROPIUM BROMIDE 0.5 MG/2.5ML SOLUTION IH ×6 (01:45→21:51)
[2024-10-04] MEDS: LEVALBUTEROL 0.63MG/3ML NEB 0.63 MG IH ×6 (01:45→21:52)
[2024-10-04] MEDS: KCl 20mEq/100ml 100 ML 50 MEQ IV (01:51)
--- NOTE | 2024-10-04 03:25 | PC.NURSE ---
Assumed care of patient at 0100. She is A&Ox4. She continues on vapotherm but has been weaned from 35LPM 90% FiO2 to 30LPM 80 FiO2. She denies any pain. Her sister is at the bedside.
[2024-10-04] MEDS: BUDESONIDE 0.5MG/2ML NEB 0.5 MG IH ×2 (06:00→18:30)
[2024-10-04] MEDS: LEVOTHYROXINE 100MCG (0.1MG) TAB 100 MCG PO (06:04)
[2024-10-04 06:28] LABS: Basophils % 0.1 % (0.1-2.0); Hematocrit 40.9 % (37.0-47.0); Hemoglobin 13.7 g/dL (12.2-16.2); Lymphocytes # 0.5 K/mm3 (0.7-4.5); Lymphocytes % 3.9 % (10-50); Mean Corpuscular HGB Conc 33.5 g/dL (31.8-35.4); Mean Corpuscular Volume 80.7 fl (81-99); Mean Platelet Volume 9.9 fl (7.4-10.4); Monocytes # 1.1 K/mm3 (0.1-1.0); Monocytes % 7.9 % (1.7-9.3); Neutrophils # 11.5 K/mm3 (1.8-7.8); Neutrophils % 85.4 % (37.0-80.0); Platelet Count 371 K/mm3 (142-424); Red Blood Count 5.07 M/mm3 (4.20-5.40); Red Cell Distribution Width 13.7 % (11.5-17.5); White Blood Count 13.5 K/mm3 (4.8-10.8)
[2024-10-04 06:36] LABS: Albumin Level 3.4 g/dl (3.5-5.0); Chloride 99 mmol/L (98-107); Potassium 3.8 mmoL/L (3.5-5.1); Sodium 135 mmol/L (136-145)
[2024-10-04 06:39] LABS: Alanine Aminotransferase 28 U/L (12-78); Albumin/Globulin Ratio 1.3 (1.1-1.8); Alkaline Phosphatase 90 U/L (38-126); Anion Gap 7.8 mEq/L (5-15); Aspartate Amino Transferase 27 U/L (14-36); Bilirubin,Total 1.1 mg/dl (0.2-1.3); Blood Urea Nitrogen 38 mg/dl (7-17); Carbon Dioxide 32 mmol/L (22.0-30.0); Creatinine Clearance Estimated 52 mL/min (50-200); Estimated Glomerular Filt Rate 83 ml/min (>60); GFR (African American) 100 ML/MIN (>60); Globulin 2.7 g/dL (1.3-3.2); Total Protein,Serum 6.1 g/dl (6.3-8.2)
[2024-10-04 06:40] LABS: Glucose 131 mg/dl (74-100); Magnesium 2.1 mg/dl (1.6-2.3)
[2024-10-04 06:53] LABS: C-Reactive Protein 34.1 mg/L (0-4)
[2024-10-04 07:06] LABS: Procalcitonin 0.146 ng/mL (0.0-2.0)
--- NOTE | 2024-10-04 08:52 | ECG_ITS ---
APPROVED REPORT Exam: Resting ECG HR:78 bpm ECG Measurements Heart Rate 78 AXES IA 145 P 22 QRSd 83 QRS -11 QT 483 T 77 QTc 517 Conclusion SINUS RHYTHM WITH FREQUENT SUPRAVENTRICULAR PREMATURE COMPLEXES SEPTAL MYOCARDIAL INFARCTION , OF INDETERMINATE AGE [40+ ms Q WAVE IN V1/V2] ABNORMAL ECG UNCONFIRMED REPORT Electronically signed by : Timothy Del Rio MD 10/07/2024 20:07:07
[2024-10-04] MEDS: ENOXAPARIN 80MG/0.8ML SYRINGE 65 MG SUBCUT ×2 (09:10→20:25)
[2024-10-04] MEDS: METOPROLOL SUCCINATE XL 50MG TABLET 50 MG PO (09:11)
[2024-10-04] MEDS: METHYLPREDNISOLONE SOD SUCC 40MG VIAL 40 MG IV ×2 (09:11→20:26)
[2024-10-04] MEDS: ASPIRIN EC 81MG TABLET 81 MG PO (09:11)
[2024-10-04] MEDS: ARTIFICIAL TEARS SOLN 15ML BOTTLE OP ×3 (09:12→20:26)
[2024-10-04] MEDS: VANCOMYCIN HCL 1,000 MG in 0.9 % SODIUM CHLORIDE 250 ML 125 MG IV (11:38)
--- NOTE | 2024-10-04 15:49 | PC.NURSE ---
Pt A&O x4 this shift. Has denied any discomfort. She has remained on Vapotherm, but it has been titrated down. Current settings are: 30L 65%. Pt O2 sats are low 90s. Pt educated on using incentive spirometer with returned demonstration. Pt has voided via BSC. No BM. Appetite has been fair. Family remains a bedside. Call light within reach.
--- NOTE | 2024-10-04 18:13 | EXP.ACUTE.PN ---
Subjective *Date: 10/04/24 *Time: 21:16 Interval history: Patient pleasant on exam this morning. Has been having sundowning at night and some confusion. Overnight had an episode of torsades and QT prolongation. Suspect secondary to medications. I have discontinued her Zofran, pramipexole, Zoloft, and Zyprexa. Discussed with family the need to de-escalate medications. They state understanding. Patient appears comfortable this morning. Still on Vapotherm. Currently 30 L and 80%. Will attempt to wean today. Patient denies any nausea or vomiting. Tolerating portions of her diet. Getting to bedside chair. Medical Exam Vital signs and Labs for Last 24 Hours: Vital Signs Temp Pulse Pulse Resp BP Pulse Ox O2 Del Method 10/04/24 18:00 87 19 89 L 10/04/24 18:00 177/92 H 10/04/24 17:30 87 16 89 L 10/04/24 17:30 182/97 H 10/04/24 17:01 90 20 91 L 10/04/24 17:01 189/86 H 10/04/24 17:00 Vapotherm 10/04/24 16:00 70 10/04/24 16:00 98.3 F 76 16 162/70 H 91 L Vapotherm 10/04/24 16:00 Vapotherm 10/04/24 15:30 78 17 88 L 10/04/24 15:30 86 17 189/86 H 93 L Vapotherm 10/04/24 15:00 147/73 H 10/04/24 15:00 79 11 L 91 L 10/04/24 15:00 Vapotherm 10/04/24 14:31 77 14 91 L 10/04/24 14:31 146/60 H 10/04/24 14:10 83 10/04/24 14:10 73 10/04/24 14:10 93 L Vapotherm 10/04/24 14:00 158/64 H 10/04/24 14:00 79 18 90 L 10/04/24 14:00 97.8 F 78 18 146/60 H 90 L Vapotherm 10/04/24 13:31 144/66 H 10/04/24 13:31 76 11 L 94 L 10/04/24 13:00 82 15 89 L 10/04/24 13:00 179/74 H 10/04/24 13:00 Vapotherm 10/04/24 12:30 84 20 93 L 10/04/24 12:30 185/89 H 10/04/24 12:00 90 10/04/24 12:00 184/84 H 10/04/24 12:00 77 13 92 L 10/04/24 12:00 98.0 F 84 20 184/84 H 91 L Vapotherm 10/04/24 12:00 Vapotherm 10/04/24 11:30 81 19 90 L 10/04/24 11:30 179/87 H 10/04/24 11:01 182/74 H 10/04/24 11:01 72 21 94 L 10/04/24 11:00 20 10/04/24 11:00 Vapotherm 10/04/24 11:00 74 20 184/74 H 90 L Vapotherm 10/04/24 10:30 136/67 10/04/24 10:30 74 17 86 L 10/04/24 10:00 98.1 F 66 18 94 L 10/04/24 10:00 163/72 H 10/04/24 09:59 72 10/04/24 09:59 71 10/04/24 09:59 92 L Vapotherm 10/04/24 09:30 78 14 89 L 10/04/24 09:30 166/83 H 10/04/24 09:00 Vapotherm 10/04/24 08:30 161/76 H 10/04/24 08:30 85 14 92 L 10/04/24 08:01 82 19 94 L 10/04/24 08:01 144/62 H 10/04/24 08:00 80 10/04/24 08:00 79 15 90 L 10/04/24 08:00 97.5 F L 84 20 161/76 H 90 L Vapotherm 10/04/24 07:44 Vapotherm 10/04/24 07:30 159/64 H 10/04/24 07:30 87 21 91 L 10/04/24 07:00 160/76 H 10/04/24 07:00 72 18 90 L 10/04/24 06:38 98.1 F 77 20 163/72 H 90 L Vapotherm 10/04/24 06:37 80 20 171/77 H 92 L Vapotherm 10/04/24 06:30 74 21 89 L 10/04/24 06:30 154/67 H 10/04/24 06:29 97.5 F L 10/04/24 06:07 83 10/04/24 06:07 67 10/04/24 06:07 92 L Vapotherm 10/04/24 06:05 Vapotherm 10/04/24 06:01 74 24 156/83 H 92 L Vapotherm 10/04/24 05:00 70 16 150/94 H 89 L Vapotherm 10/04/24 04:45 97.7 F 10/04/24 04:37 Vapotherm 10/04/24 04:31 151/85 H 10/04/24 04:00 66 18 138/59 L 88 L Vapotherm 10/04/24 04:00 80 10/04/24 03:31 69 12 91 L 10/04/24 03:31 95/66 L 10/04/24 03:26 75 92 L Vapotherm 10/04/24 03:00 69 15 93 L 10/04/24 03:00 142/72 H 10/04/24 03:00 Vapotherm 10/04/24 02:31 67 16 149/62 H 94 L Vapotherm 10/04/24 02:28 97.7 F 75 22 121/76 91 L 10/04/24 02:01 66 19 85 L 10/04/24 02:01 121/76 10/04/24 02:00 76 21 82 L 10/04/24 01:45 72 10/04/24 01:45 73 10/04/24 01:45 90 L Vapotherm 10/04/24 01:30 46 L 23 89 L 10/04/24 01:30 119/60 10/04/24 01:15 Vapotherm 10/04/24 01:00 115/56 L 10/04/24 01:00 51 L 24 89 L 10/04/24 01:00 69 22 119/60 90 L 10/04/24 01:00 91 L Vapotherm 10/04/24 00:32 43 L 19 92 L 10/04/24 00:32 105/66 L 10/04/24 00:15 90 L Vapotherm 10/04/24 00:01 58 L 20 90 L 10/04/24 00:01 104/44 L 10/04/24 00:00 54 L 20 89 L 10/04/24 00:00 90 L Vapotherm 10/04/24 00:00 60 10/04/24 00:00 97.7 F 60 20 104/44 L 92 L 10/03/24 23:31 65 20 88 L 10/03/24 23:31 149/71 H 10/03/24 23:30 Vapotherm 10/03/24 23:01 148/60 H 10/03/24 23:01 40 L 23 90 L 10/03/24 23:00 40 L 19 89 L 10/03/24 23:00 101 H 22 148/60 H 92 L 10/03/24 22:55 83 10/03/24 22:31 41 L 21 90 L 10/03/24 22:31 163/66 H 10/03/24 22:01 71 17 93 L 10/03/24 22:01 173/79 H 10/03/24 22:00 62 15 94 L 10/03/24 22:00 69 19 163/76 H 95 Vapotherm 10/03/24 21:30 72 19 92 L 10/03/24 21:30 163/76 H 10/03/24 21:15 Vapotherm 10/03/24 21:01 67 20 92 L 10/03/24 21:01 178/74 H 10/03/24 21:00 54 L 20 93 L 10/03/24 21:00 94 H 18 167/82 H 93 L Vapotherm 10/03/24 20:31 69 19 91 L 10/03/24 20:31 167/82 H 10/03/24 20:30 85 L Vapotherm 10/03/24 20:30 74 19 155/80 H 85 L Vapotherm 10/03/24 20:30 70 10/03/24 20:01 155/80 H 10/03/24 20:01 69 22 89 L 10/03/24 20:00 74 19 88 L 10/03/24 19:30 169/83 H 10/03/24 19:30 74 16 87 L 10/03/24 19:01 161/85 H 10/03/24 19:01 81 19 88 L 10/03/24 19:00 72 16 89 L 10/03/24 19:00 69 18 161/85 H 90 L Vapotherm 10/03/24 18:46 Vapotherm 10/03/24 18:30 153/68 H 10/03/24 18:30 68 15 175/77 H 94 L Vapotherm 10/03/24 18:30 91 L Vapotherm O2 Flow Rate FiO2 10/04/24 18:00 10/04/24 18:00 10/04/24 17:30 10/04/24 17:30 10/04/24 17:01 10/04/24 17:01 10/04/24 17:00 30 10/04/24 16:00 10/04/24 16:00 10/04/24 16:00 30 65 10/04/24 15:30 10/04/24 15:30 10/04/24 15:00 10/04/24 15:00 10/04/24 15:00 30 10/04/24 14:31 10/04/24 14:31 10/04/24 14:10 10/04/24 14:10 10/04/24 14:10 30 70 10/04/24 14:00 10/04/24 14:00 10/04/24 14:00 30 10/04/24 13:31 10/04/24 13:31 10/04/24 13:00 10/04/24 13:00 10/04/24 13:00 30 10/04/24 12:30 10/04/24 12:30 10/04/24 12:00 10/04/24 12:00 10/04/24 12:00 10/04/24 12:00 30 10/04/24 12:00 30 70 10/04/24 11:30 10/04/24 11:30 10/04/24 11:01 10/04/24 11:01 10/04/24 11:00 10/04/24 11:00 30 10/04/24 11:00 10/04/24 10:30 10/04/24 10:30 10/04/24 10:00 10/04/24 10:00 10/04/24 09:59 10/04/24 09:59 10/04/24 09:59 30 80 10/04/24 09:30 10/04/24 09:30 10/04/24 09:00 30 01/11/25 08:30 10/04/24 08:30 10/04/24 08:01 10/04/24 08:01 10/04/24 08:00 10/04/24 08:00 10/04/24 08:00 10/04/24 07:44 30 80 10/04/24 07:30 10/04/24 07:30 10/04/24 07:00 10/04/24 07:00 10/04/24 06:38 30 10/04/24 06:37 30 10/04/24 06:30 10/04/24 06:30 10/04/24 06:29 10/04/24 06:07 10/04/24 06:07 10/04/24 06:07 30 80 10/04/24 06:05 30 10/04/24 06:01 30 10/04/24 05:00 30 10/04/24 04:45 10/04/24 04:37 30 10/04/24 04:31 10/04/24 04:00 30 10/04/24 04:00 10/04/24 03:31 10/04/24 03:31 10/04/24 03:26 30 80 10/04/24 03:00 10/04/24 03:00 10/04/24 03:00 30 10/04/24 02:31 30 10/04/24 02:28 40 10/04/24 02:01 10/04/24 02:01 10/04/24 02:00 10/04/24 01:45 10/04/24 01:45 10/04/24 01:45 40 90 10/04/24 01:30 10/04/24 01:30 10/04/24 01:15 35 10/04/24 01:00 10/04/24 01:00 10/04/24 01:00 40 10/04/24 01:00 40 90 10/04/24 00:32 10/04/24 00:32 10/04/24 00:15 35 80 10/04/24 00:01 10/04/24 00:01 10/04/24 00:00 10/04/24 00:00 35 80 10/04/24 00:00 10/04/24 00:00 35 10/03/24 23:31 10/03/24 23:31 10/03/24 23:30 35 10/03/24 23:01 10/03/24 23:01 10/03/24 23:00 10/03/24 23:00 35 10/03/24 22:55 10/03/24 22:31 10/03/24 22:31 10/03/24 22:01 10/03/24 22:01 10/03/24 22:00 10/03/24 22:00 35 10/03/24 21:30 10/03/24 21:30 10/03/24 21:15 35 10/03/24 21:01 10/03/24 21:01 10/03/24 21:00 10/03/24 21:00 35 10/03/24 20:31 10/03/24 20:31 10/03/24 20:30 35 75 10/03/24 20:30 30 10/03/24 20:30 10/03/24 20:01 10/03/24 20:01 10/03/24 20:00 10/03/24 19:30 10/03/24 19:30 10/03/24 19:01 10/03/24 19:01 10/03/24 19:00 10/03/24 19:00 35 10/03/24 18:46 30 10/03/24 18:30 10/03/24 18:30 35 10/03/24 18:30 35 70 Intake and Output 10/04/24 10/04/24 10/04/24 07:59 15:59 23:59 Intake Total 300 / 1090 790 / 1090 Output Total 300 / 500 200 / 500 Balance 300 / 590 490 / 590 -200 / 590 Intake: Intake, Oral Amount 540 / 540 Intake, Total IV Amount 300 / 550 250 / 550 KCl 20mEq/100ml 100 ml @ 50 mls 50 / 50 /hr IV ONCE ONE Rx#:[id number] Vancomycin HCl 1,000 mg In 0.9 250 / 250 % Sodium Chloride 250 ml @ 125 mls/hr IV 1100,2300 BREE[facility]Y Rx#: [id number] Vancomycin HCl 1,000 mg In 0.9 250 / 250 % Sodium Chloride 250 ml @ 125 mls/hr IV Q18H BREEZY Rx#:[id number] Output: Output, Urine Amount 300 / 500 200 / 500 Other: Number of Unmeasured Voids 1 Weight 62.199 kg Patient Weight 10/04/24 23:59 Weight 62.199 kg Laboratory Results - last 24 hr 10/03/24 21:08: Sodium 135 L, Potassium 3.1 L, Chloride 98, Carbon Dioxide 32 H, Anion Gap 8.1, BUN 29 H, Creatinine 0.70, Estimated Creat Clear 56, Estimated GFR 83, Est GFR ( Amer) 100, Glucose 132 H, Calcium 9.1, Magnesium 2.0, Troponin I 0.18 H 10/04/24 06:12: WBC 13.5 H D, RBC 5.07, Hgb 13.7, Hct 40.9, MCV 80.7 L, MCH 27.0, MCHC 33.5, RDW 13.7, Plt Count 371 D, MPV 9.9, Neut % (Auto) 85.4 H, Lymph % (Auto) 3.9 L, [place] % (Auto) 7.9, Eos % (Auto) 0.0 L, Baso % (Auto) 0.1, Neut # (Auto) 11.5 H, Lymph # (Auto) 0.5 L, [place] # (Auto) 1.1 H, Eos # (Auto) 0.0, Baso # (Auto) 0.0, Sodium 135 L, Potassium 3.8 D, Chloride 99, Carbon Dioxide 32 H, Anion Gap 7.8, BUN 38 H D, Creatinine 0.70, Estimated Creat Clear 52, Estimated GFR 83, Est GFR ( Amer) 100, Glucose 131 H, Calcium 9.0, Magnesium 2.1, Total Bilirubin 1.1, AST 27, ALT 28, Alkaline Phosphatase 90, C-Reactive Protein 34.1 H D, Total Protein 6.1 L, Albumin 3.4 L, Globulin 2.7, Albumin/Globulin Ratio 1.3, Procalcitonin 0.146 I & O for Labs for Last 24 Hours: Intake & Output 10/01/24 10/02/24 10/03/24 10/04/24 23:59 23:59 23:59 23:59 Intake Total 660 / 660 1306 / 1306 695 / 945 1090 / 1090 Output Total 550 / 550 2350 / 2650 2650 / 2650 500 / 500 Balance 110 / 110 -1044 / -1344 -1955 / -1705 590 / 590 Weight 67 kg 66.678 kg 66.75 kg 62.199 kg Microbiology Reports for the Last 24 Hours: Microbiology 09/28/24 22:55 Blood Blood Culture - Final NO GROWTH AFTER 5 DAYS Constitutional: Present mild distress, average body habitus, chronically ill appearing and cooperative Head: Present atraumatic and normocephalic ENT: Present normal exam Respiratory: Present accessory muscle use and prolonged expiratory phase; Absent rhonchi, wheezes or crackles Cardiac: Present Regular Rate and Regular Rhythm GI: Present soft and normal bowel sounds; Absent distention or tenderness Extremities: Present normal inspection and full ROM Skin: Present intact; Absent erythema Neuro: Present Grossly Intact, alert, awake and moves all extremities Comment:: Oriented to self, thinks she is at hospital and [place] Assessment and Plan *Assessment and plan (1) Acute hypoxemic respiratory failure: Status: Acute Category: Medical Code(s): J96.01 - Acute respiratory failure with hypoxia (2) Atrial fibrillation with controlled ventricular rate: Status: Acute Category: Medical Code(s): I48.91 - Unspecified atrial fibrillation (3) Left lower lobe pneumonia: Status: Acute Qualifiers: Pneumonia type: due to unspecified organism Qualified Code(s): J18.9 - Pneumonia, unspecified organism Category: Medical Code(s): J18.9 - Pneumonia, unspecified organism (4) Viral upper respiratory illness: Status: Acute Category: Medical Code(s): J06.9 - Acute upper respiratory infection, unspecified (5) Oxygen deficiency: Status: Acute Category: Medical Code(s): R09.02 - Hypoxemia (6) COPD (chronic obstructive pulmonary disease): Status: Acute Qualifiers: COPD type: emphysema Emphysema type: panlobular Qualified Code(s): J43.1 - Panlobular emphysema Category: Medical Code(s): J44.9 - Chronic obstructive pulmonary disease, unspecified (7) Lymphoma in remission: Status: Acute Category: Medical Code(s): C85.9A - Non-Hodgkin lymphoma, unspecified, in remission (8) CHF exacerbation: Status: Acute Qualifiers: Heart failure type: systolic Qualified Code(s): I50.23 - Acute on chronic systolic (congestive) heart failure Category: Medical Code(s): I50.9 - Heart failure, unspecified (9) Hypothyroidism: Status: Acute Qualifiers: Hypothyroidism type: postoperative Qualified Code(s): E89.0 - Postprocedural hypothyroidism Category: Medical Code(s): E03.9 - Hypothyroidism, unspecified (10) Hypokalemia: Status: Acute Category: Medical Code(s): E87.6 - Hypokalemia (11) Delirium: Status: Acute Category: Medical Code(s): R41.0 - Disorientation, unspecified Plan Kaur Dan is a 69-year-old female with a history of COPD not on home O2 who presents with shortness of breath, chest pain and admitted for acute hypoxic respiratory failure secondary to COPD exacerbation, mycoplasma pneumonia, A-fib RVR. Of note, her from COVID-19 at home just prior to admission. Patient has been sick for at least 2 weeks. Continues to require ICU level care. Had an episode of torsades overnight due to QTc prolongation. Medications de-escalated. Slight improvement on oxygen. Alert this morning. Problems addressed as follows: #Acute hypoxic respiratory failure #Acute COPD exacerbation #Sepsis #Community-acquired pneumonia #Chronic pulmonary arterial hypertension ? Discussed case with pulmonology, recommend continuing Vapotherm. If unable to wean today, recommend CTA tomorrow to evaluate for PE as her inflammatory markers are improving along with white count but oxygen requirement slow to recover. -Hold on Lasix today. Negative volume status since admission - continue vancomycin for 10 days. - Continue DuoNebs every 4 hours and Pulmicort twice daily. Methylprednisolone 40 mg IV twice daily. -BUN 38, creatinine 0.7, procalcitonin improved at 0.146. CRP improved to 34. Repeat CBC, CMP, magnesium, procalcitonin and CRP ordered for the morning. -White count with slight bump with patient remains afebrile. White count 13.5. Hemoglobin 13.7. #A-fib versus SVT #RVR resolved QTc prolongation/torsades ? Initial EKG is suggestive of A-fib versus SVT with HR 167 bpm. Converted to NSR with IV diltiazem. ?No plan for intervention at this time from cardiology. -Will consider Lasix daily. ? [id number] score 3 for age, sex, hypertension. ? ECHO reveals normal biventricular function without valvular issues. -Torsades overnight due to meds. Evaluated med list. Discontinued all QT prolonging medications. Repeat EKG still shows QTc of 500. Will reevaluate EKG in the morning. #Elevated TSH: TSH 16.8, however obtained in acute and severe illness. Can be repeated once more stable. Free T4 normal at 1.6. Continue levothyroxine 100 mcg daily #Restless leg syndrome: Continue home pramipexole. Developing some ICU delirium. Initiate melatonin 5 mg nightly for sleep. If needs anything stronger, will continue trazodone or temazepam. Will avoid antipsychotics due to QT prolongation, continue daily routine. Reorientation from nursing and family at bedside. Minimize interruptions and distractions at night. Full code PLOV Cardiac diet
[2024-10-04] MEDS: CAPTOPRIL 12.5MG TABLET 6.25 MG PO (18:44)
--- NOTE | 2024-10-04 18:44 | PC.NURSE ---
notified of BP trending up. New orders received to give Captopril 6.25 mg PO. Orders carried out.
[2024-10-04] MEDS: MELATONIN 5MG TABLET 5 MG PO (20:25)
[2024-10-04] MEDS: FAMOTIDINE 20MG TABLET 20 MG PO (20:25)
[2024-10-04 22:50] LABS: Vancomycin,Trough 16.6 ug/mL (5.0-10.0)
--- NOTE | 2024-10-04 22:52 | PC.NURSE ---
pt o2 sat was consistently 87-88%. RT called and instructed to adjust vapotherm settings. pt adjusted from 30L and 65% to 30L and 80%. pt now satting 90% and above. no new orders at this time.
[2024-10-05] VITALS (49 sets, daily range): BP systolic 98–211; BP diastolic 43–153; PULSE 55–89; RESP 10–26; TEMP 36.6–36.8; O2SAT 85–99; BMI 23.0
[2024-10-05] MEDS: VANCOMYCIN HCL 1,000 MG in 0.9 % SODIUM CHLORIDE 250 ML 125 MG IV ×2 (00:05→11:37)
--- NOTE | 2024-10-05 00:40 | PC.NURSE ---
pt has been resting in bed most of shift. pt vapotherm settings adjusted previously in shift ( see previous note). pt was satting 95% on . pt settings are now 30/60. pt is satting 91% on new settings. pt has had some spells of confusion (hospitalist aware of past delirium) but answered all orientation questions correctly. pt has had no complaints this shift. pt voided 200 using bsc x1 assistance. no new orders at this time. call light within reach.
[2024-10-05] MEDS: BUDESONIDE 0.5MG/2ML NEB 0.5 MG IH ×2 (05:08→18:45)
[2024-10-05] MEDS: IPRATROPIUM BROMIDE 0.5 MG/2.5ML SOLUTION IH ×5 (05:08→22:45)
[2024-10-05] MEDS: LEVALBUTEROL 0.63MG/3ML NEB 0.63 MG IH ×5 (05:08→22:45)
[2024-10-05] MEDS: LEVOTHYROXINE 100MCG (0.1MG) TAB 100 MCG PO (06:09)
[2024-10-05 06:21] LABS: Basophils % 0.2 % (0.1-2.0); Hematocrit 39.8 % (37.0-47.0); Hemoglobin 13.3 g/dL (12.2-16.2); Lymphocytes # 0.7 K/mm3 (0.7-4.5); Lymphocytes % 3.7 % (10-50); MANUAL DIFFERENTIAL MANUAL DIFFERENTIAL (MANUAL DIFF); Mean Corpuscular HGB Conc 33.4 g/dL (31.8-35.4); Mean Corpuscular Hemoglobin 27.1 pg (27.0-31.2); Mean Corpuscular Volume 81.2 fl (81-99); Mean Platelet Volume 9.9 fl (7.4-10.4); Monocytes # 1.1 K/mm3 (0.1-1.0); Monocytes % 6.1 % (1.7-9.3); Neutrophils # 15.3 K/mm3 (1.8-7.8); Neutrophils % 87.3 % (37.0-80.0); Platelet Count 342 K/mm3 (142-424); Red Cell Distribution Width 13.7 % (11.5-17.5); White Blood Count 17.6 K/mm3 (4.8-10.8)
[2024-10-05 06:29] LABS: Potassium 3.8 mmoL/L (3.5-5.1)
[2024-10-05 06:32] LABS: Alanine Aminotransferase 31 U/L (12-78); Albumin Level 3.3 g/dl (3.5-5.0); Albumin/Globulin Ratio 1.3 (1.1-1.8); Alkaline Phosphatase 72 U/L (38-126); Anion Gap 10.8 mEq/L (5-15); Aspartate Amino Transferase 31 U/L (14-36); Bilirubin,Total 0.9 mg/dl (0.2-1.3); Blood Urea Nitrogen 45 mg/dl (7-17); Carbon Dioxide 32 mmol/L (22.0-30.0); Chloride 100 mmol/L (98-107); Creatinine Clearance Estimated 52 mL/min (50-200); Estimated Glomerular Filt Rate 71 ml/min (>60); GFR (African American) 86 ML/MIN (>60); Globulin 2.5 g/dL (1.3-3.2); Glucose 110 mg/dl (74-100); Sodium 139 mmol/L (136-145); Total Protein,Serum 5.8 g/dl (6.3-8.2)
[2024-10-05 06:33] LABS: Magnesium 2.2 mg/dl (1.6-2.3)
[2024-10-05 06:48] LABS: Lymphocytes % 8 % (10-50); Monocytes % 1 % (2-9); Neutrophils % 91 % (42-76); Platelet Estimate Normal; Total Cells Counted 100
[2024-10-05 06:49] LABS: Microcytosis 1+
[2024-10-05] MEDS: SENNA 8.6MG TABLET 8.6 MG PO (07:00)
[2024-10-05] MEDS: ENOXAPARIN 80MG/0.8ML SYRINGE 65 MG SUBCUT ×2 (08:11→20:12)
[2024-10-05] MEDS: METOPROLOL SUCCINATE XL 50MG TABLET 50 MG PO (08:12)
[2024-10-05] MEDS: METHYLPREDNISOLONE SOD SUCC 40MG VIAL 40 MG IV ×2 (08:12→20:12)
[2024-10-05] MEDS: ASPIRIN EC 81MG TABLET 81 MG PO (08:12)
[2024-10-05] MEDS: ARTIFICIAL TEARS SOLN 15ML BOTTLE OP ×4 (08:12→20:11)
--- NOTE | 2024-10-05 08:36 | CT_ITS ---
PROCEDURE INFORMATION: Exam: CTA Chest With Contrast Exam date and time: 10/05/2024 10:26 AM Age: 69 years old Clinical indication: Shortness of breath; Additional info: Eval fro pe, inability to wean o2 TECHNIQUE: Imaging protocol: Computed tomographic angiography of the chest with contrast. Exam focused on the arteries. 3D rendering (Not supervised by radiologist): MIP and/or 3D reconstructed images were created by the technologist. Radiation optimization: All CT scans at this facility use at least one of these dose optimization techniques: automated exposure control; mA and/or kV adjustment per patient size (includes targeted exams where dose is matched to clinical indication); or iterative reconstruction. Contrast material: ISOVUE; Contrast volume: 70 ml; Contrast route: INTRAVENOUS (IV); COMPARISON: CT ANGIO CHEST PE PROTOCOL 09/28/2024 11:44 PM FINDINGS: Pulmonary arteries: Pulmonary vasculature is adequately opacified without filling defects or other evidence of acute pulmonary embolism. Aorta: Unremarkable. No aortic aneurysm. No aortic dissection. Lungs: COPD with diffuse upper lobe emphysematous changes redemonstrated. There is heterogeneous confluence consolidation posteriorly left lower lobe redemonstrated likely representing combination of pneumonia and atelectasis. There is a small accompanying left basilar pleural effusion mildly increased from previous exam. There are superimposed diffuse interstitial opacities within the mid to lower lung zones more extensive on the left that have significantly progressed from prior examination and of uncertain etiology. They may also be infectious in nature or represent atypical CHF pattern. Pleural spaces: See Lungs finding. Heart: Heart is borderline enlarged unchanged. Mild calcification of coronary arteries. No significant pericardial effusion. Lymph nodes: Unremarkable. No enlarged lymph nodes. Bones/joints: Unremarkable. No acute fracture. Soft tissues: Unremarkable. IMPRESSION: 1. Negative CT angiogram of the chest. No evidence of acute pulmonary embolism. 2. Left lower lobe consolidation with small accompanying pleural effusion likely representing combination of pneumonia and atelectasis redemonstrated. 3. COPD with progressive lower lobe interstitial infiltrates more pronounced on the left there may also be infectious in nature or represent atypical CHF pattern. COMMENTS: The presence of pulmonary emphysema on CT is an independent risk factor for lung cancer. In the absence of a history or active diagnosis of lung cancer, it is recommended that this patient with emphysema be evaluated for enrollment in a low dose CT lung cancer screening program.
--- NOTE | 2024-10-05 09:34 | EXP.PHA.CONS ---
Pharmacy Consult Date: 10/05/24 Time: 09:34 Referring provider: DR. CRUZ Reason for Consult:: VANCOMYCIN TROUGH LEVEL Allergies Allergy/AdvReac Type Severity Reaction Status Date / Time No Known Allergies Allergy Verified 09/29/24 01:55 Home Medications ?Medication ?Instructions ?Recorded ?Confirmed ?Type bisoprolol 5 1 tab PO DAILY 09/28/24 09/29/24 History mg-hydrochlorothiazide 6.25 mg tablet levothyroxine 100 mcg tablet 100 mcg PO DAILY 09/28/24 09/29/24 History omeprazole 20 mg capsule,delayed 20 mg PO DAILY 09/28/24 09/29/24 History release sertraline 50 mg tablet 50 mg PO DAILY 09/28/24 09/29/24 History albuterol 90 mcg/actuation aerosol 90 mcg inhalation Q4HP PRN 09/29/24 09/29/24 History inhaler Shortness Of Breath pramipexole 1 mg tablet 1 mg PO TID 09/29/24 09/29/24 History New Prescriptions to Start Prescriptions: Height: 1.65 m Weight: 62.596 kg Laboratory Results:: Laboratory Results - last 24 hr 09/29/24 03:25: Urine Color Yellow, Urine Appearance Clear, Urine pH 6.0, Ur Specific [place] <= 1.005, Urine Protein Negative, Urine Glucose (UA) Negative, Urine Ketones 1+, Urine Blood Trace-l, Urine Nitrate Negative, Urine Bilirubin Negative, Urine Urobilinogen 1.0, Ur Leukocyte Esterase Negative, Urine RBC None, Urine WBC Occasional, Ur Squamous Epith Cells 3-5, Urine Bacteria 1+ 10/04/24 21:55: Vancomycin Trough 16.6 H 10/05/24 06:13: WBC 17.6 H D, RBC 4.90, Hgb 13.3, Hct 39.8, MCV 81.2, MCH 27.1, MCHC 33.4, RDW 13.7, Plt Count 342, MPV 9.9, Neut % (Auto) 87.3 H, Lymph % (Auto) 3.7 L, [place] % (Auto) 6.1, Eos % (Auto) 0.0 L, Baso % (Auto) 0.2, Neut # (Auto) 15.3 H, Lymph # (Auto) 0.7, [place] # (Auto) 1.1 H, Eos # (Auto) 0.0, Baso # (Auto) 0.0, Total Counted 100, Neutrophils % (Manual) 91 H, Lymphocytes % (Manual) 8 L, Monocytes % (Manual) 1 L, Platelet Estimate Normal, Microcytosis 1+, Sodium 139, Potassium 3.8, Chloride 100, Carbon Dioxide 32 H, Anion Gap 10.8, BUN 45 H, Creatinine 0.80, Estimated Creat Clear 52, Estimated GFR 71, Est GFR ( Amer) 86, Glucose 110 H, Calcium 9.0, Magnesium 2.2, Total Bilirubin 0.9, AST 31, ALT 31, Alkaline Phosphatase 72, Total Protein 5.8 L, Albumin 3.3 L, Globulin 2.5, Albumin/Globulin Ratio 1.3 Medical History: Medical History (Updated 10/03/24 @ 18:34 by Tylor Cruz MD) Emphysema lung Left lower lobe pneumonia Atrial fibrillation with RVR COPD (chronic obstructive pulmonary disease) Lymphoma in remission Assessment and Plan Assessment and plan all Dx Assessment and Plan for all problems:: BASED ON PATIENT FACTORS AND VANCOMYCIN TROUGH LEVEL OF 16.6, RECOMMEND CONTINUING CURRENT DOSE OF VANCOMYCIN AT 1,000MG IV EVERY 12 HOURS. PHARMACY WILL CONTINUE TO MONITOR AND WILL ADJUST DOSE APPROPRIATE. -TONY RODRIGUEZ, ERICD
[2024-10-05] MEDS: 0.9 % SODIUM CHLORIDE 50 ML VIAL IV (10:39)
[2024-10-05] MEDS: IOPAMIDOL-370 (76%);100ML BOTTLE 70 ML IV (10:39)
[2024-10-05] MEDS: SODIUM CHLORIDE 0.9% 10ML SYR (RAD ONLY) 10 ML IV (10:39)
[2024-10-05] MEDS: CAPTOPRIL 12.5MG TABLET 6.25 MG PO (11:27)
[2024-10-05] MEDS: BUMETANIDE 1MG/4ML VIAL 1 MG IV (12:35)
--- NOTE | 2024-10-05 13:14 | EXP.ACUTE.PN ---
Subjective *Date: 10/05/24 *Time: 13:33 Interval history: Patient was interactive this morning. Alert and oriented x 4. Had a better night last night. Does not appear dyspneic on exam, able to complete sentences without shortness of breath. Remains on 30 L and 70%. Afebrile overnight. Denies chest pain. Family at bedside even thinks she looks better today. Medical Exam Vital signs and Labs for Last 24 Hours: Vital Signs Temp Pulse Resp BP Pulse Ox O2 Del Method O2 Flow Rate 10/05/24 12:00 65 10/05/24 12:00 Vapotherm 30 10/05/24 12:00 68 17 146/67 H 91 L Vapotherm 10/05/24 11:00 Vapotherm 30 10/05/24 11:00 73 18 209/95 H 91 L Vapotherm 10/05/24 09:00 Vapotherm 30 10/05/24 09:00 66 18 172/69 H 90 L Vapotherm 10/05/24 08:00 74 10/05/24 08:00 98.3 F 71 18 178/71 H 90 L Vapotherm 10/05/24 07:59 Vapotherm 30 10/05/24 07:00 74 18 178/81 H 90 L Vapotherm 30 10/05/24 06:52 Vapotherm 30 10/05/24 06:00 67 20 166/71 H 89 L Vapotherm 30 10/05/24 05:08 60 10/05/24 05:08 64 10/05/24 05:08 91 L Vapotherm 30 10/05/24 05:00 Vapotherm 30 10/05/24 05:00 61 16 156/66 H 96 Vapotherm 30 10/05/24 04:06 Vapotherm 30 10/05/24 04:00 92 L Vapotherm 30 10/05/24 04:00 60 10/05/24 04:00 97.8 F 59 L 18 102/43 L 96 Vapotherm 30 10/05/24 03:00 Vapotherm 30 10/05/24 03:00 55 L 20 128/66 90 L Vapotherm 30 10/05/24 02:00 57 L 18 98/69 L 89 L Vapotherm 30 10/05/24 01:00 63 20 135/61 90 L Vapotherm 30 10/05/24 00:44 Vapotherm 30 10/05/24 00:00 98.0 F 63 18 165/70 H 93 L Vapotherm 30 10/05/24 00:00 Vapotherm 30 10/05/24 00:00 60 10/04/24 23:00 60 20 127/60 89 L Vapotherm 30 10/04/24 22:45 Vapotherm 30 10/04/24 22:00 65 22 146/60 H 90 L Vapotherm 30 10/04/24 21:52 81 10/04/24 21:52 81 10/04/24 21:00 Vapotherm 30 10/04/24 21:00 70 22 152/68 H 90 L Vapotherm 30 10/04/24 20:08 Vapotherm 30 10/04/24 20:00 65 10/04/24 20:00 98.3 F 75 22 174/74 H 92 L Vapotherm 30 10/04/24 19:27 90 L Vapotherm 10/04/24 19:00 79 18 174/70 H 92 L Vapotherm 10/04/24 18:49 Vapotherm 30 10/04/24 18:45 83 10/04/24 18:30 84 10/04/24 18:00 87 19 89 L 10/04/24 18:00 177/92 H 10/04/24 17:30 87 16 89 L 10/04/24 17:30 182/97 H 10/04/24 17:01 90 20 91 L 10/04/24 17:01 189/86 H 10/04/24 17:00 Vapotherm 30 10/04/24 16:00 70 10/04/24 16:00 98.3 F 76 16 162/70 H 91 L Vapotherm 10/04/24 16:00 Vapotherm 30 10/04/24 15:30 78 17 88 L 10/04/24 15:30 86 17 189/86 H 93 L Vapotherm 10/04/24 15:00 147/73 H 10/04/24 15:00 79 11 L 91 L 10/04/24 15:00 Vapotherm 30 10/04/24 14:31 77 14 91 L 10/04/24 14:31 146/60 H 10/04/24 14:10 83 10/04/24 14:10 73 10/04/24 14:10 93 L Vapotherm 30 10/04/24 14:00 158/64 H 10/04/24 14:00 79 18 90 L 10/04/24 14:00 97.8 F 78 18 146/60 H 90 L Vapotherm 30 10/04/24 13:31 144/66 H 10/04/24 13:31 76 11 L 94 L FiO2 10/05/24 12:00 10/05/24 12:00 70 10/05/24 12:00 10/05/24 11:00 10/05/24 11:00 10/05/24 09:00 10/05/24 09:00 10/05/24 08:00 10/05/24 08:00 10/05/24 07:59 70 10/05/24 07:00 10/05/24 06:52 10/05/24 06:00 10/05/24 05:08 10/05/24 05:08 10/05/24 05:08 70 10/05/24 05:00 10/05/24 05:00 10/05/24 04:06 80 10/05/24 04:00 70 10/05/24 04:00 10/05/24 04:00 10/05/24 03:00 10/05/24 03:00 10/05/24 02:00 10/05/24 01:00 10/05/24 00:44 10/05/24 00:00 10/05/24 00:00 10/05/24 00:00 10/04/24 23:00 10/04/24 22:45 10/04/24 22:00 10/04/24 21:52 10/04/24 21:52 10/04/24 21:00 10/04/24 21:00 10/04/24 20:08 65 10/04/24 20:00 10/04/24 20:00 10/04/24 19:27 10/04/24 19:00 10/04/24 18:49 10/04/24 18:45 10/04/24 18:30 10/04/24 18:00 10/04/24 18:00 10/04/24 17:30 10/04/24 17:30 10/04/24 17:10/04/24 17:01 10/04/24 17:00 10/04/24 16:00 10/04/24 16:00 10/04/24 16:00 65 10/04/24 15:30 10/04/24 15:30 10/04/24 15:00 10/04/24 15:00 10/04/24 15:00 10/04/24 14:31 10/04/24 14:31 10/04/24 14:10 10/04/24 14:10 10/04/24 14:10 70 10/04/24 14:00 10/04/24 14:00 10/04/24 14:00 10/04/24 13:31 10/04/24 13:31 Intake and Output 10/04/24 10/05/24 10/05/24 23:59 07:59 15:59 Intake Total 240 / 1450 370 / 640 270 / 640 Output Total 200 / 500 200 / 400 200 / 400 Balance 40 / 950 170 / 240 70 / 240 Intake: Intake, Oral Amount 240 / 900 120 / 390 270 / 390 Intake, Total IV Amount 250 / 250 Vancomycin HCl 1,000 mg In 0.9 250 / 250 % Sodium Chloride 250 ml @ 125 mls/hr IV Q18H [facility] Rx#:[id number] Output: Output, Urine Amount 200 / 500 200 / 400 200 / 400 Other: Number of Unmeasured Voids 1 1 Weight 62.596 kg 62.596 kg Patient Weight 10/05/24 23:59 Weight 62.596 kg Laboratory Results - last 24 hr 09/29/24 03:25: Urine Color Yellow, Urine Appearance Clear, Urine pH 6.0, Ur Specific [place] <= 1.005, Urine Protein Negative, Urine Glucose (UA) Negative, Urine Ketones 1+, Urine Blood Trace-l, Urine Nitrate Negative, Urine Bilirubin Negative, Urine Urobilinogen 1.0, Ur Leukocyte Esterase Negative, Urine RBC None, Urine WBC Occasional, Ur Squamous Epith Cells 3-5, Urine Bacteria 1+ 10/04/24 21:55: Vancomycin Trough 16.6 H 10/05/24 06:13: WBC 17.6 H D, RBC 4.90, Hgb 13.3, Hct 39.8, MCV 81.2, MCH 27.1, MCHC 33.4, RDW 13.7, Plt Count 342, MPV 9.9, Neut % (Auto) 87.3 H, Lymph % (Auto) 3.7 L, [place] % (Auto) 6.1, Eos % (Auto) 0.0 L, Baso % (Auto) 0.2, Neut # (Auto) 15.3 H, Lymph # (Auto) 0.7, [place] # (Auto) 1.1 H, Eos # (Auto) 0.0, Baso # (Auto) 0.0, Total Counted 100, Neutrophils % (Manual) 91 H, Lymphocytes % (Manual) 8 L, Monocytes % (Manual) 1 L, Platelet Estimate Normal, Microcytosis 1+, Sodium 139, Potassium 3.8, Chloride 100, Carbon Dioxide 32 H, Anion Gap 10.8, BUN 45 H, Creatinine 0.80, Estimated Creat Clear 52, Estimated GFR 71, Est GFR ( Amer) 86, Glucose 110 H, Calcium 9.0, Magnesium 2.2, Total Bilirubin 0.9, AST 31, ALT 31, Alkaline Phosphatase 72, Total Protein 5.8 L, Albumin 3.3 L, Globulin 2.5, Albumin/Globulin Ratio 1.3 I & O for Labs for Last 24 Hours: Intake & Output 10/02/24 10/03/24 10/04/24 10/05/24 23:59 23:59 23:59 23:59 Intake Total 1306 / 1306 695 / 945 1330 / 1450 640 / 640 Output Total 2350 / 2650 2650 / 2650 500 / 500 400 / 400 Balance -1044 / -1344 -1955 / -1705 830 / 950 240 / 240 Weight 66.678 kg 66.75 kg 62.199 kg 62.596 kg Microbiology Reports for the Last 24 Hours: Microbiology 09/28/24 22:55 Blood Blood Culture - Final Staphylococcus hominis Constitutional: Present no acute distress, average body habitus, chronically ill appearing and cooperative Head: Present atraumatic and normocephalic ENT: Present normal exam Respiratory: Present prolonged expiratory phase; Absent rhonchi, wheezes or crackles Cardiac: Present Regular Rate and Regular Rhythm GI: Present soft and normal bowel sounds; Absent distention or tenderness Extremities: Present normal inspection and full ROM Skin: Present intact; Absent erythema Neuro: Present Grossly Intact, alert, awake, oriented x 3 and moves all extremities Assessment and Plan *Assessment and plan (1) Acute hypoxemic respiratory failure: Status: Acute Category: Medical Code(s): J96.01 - Acute respiratory failure with hypoxia (2) Atrial fibrillation with controlled ventricular rate: Status: Acute Category: Medical Code(s): I48.91 - Unspecified atrial fibrillation (3) Left lower lobe pneumonia: Status: Acute Qualifiers: Pneumonia type: due to unspecified organism Qualified Code(s): J18.9 - Pneumonia, unspecified organism Category: Medical Code(s): J18.9 - Pneumonia, unspecified organism (4) Viral upper respiratory illness: Status: Acute Category: Medical Code(s): J06.9 - Acute upper respiratory infection, unspecified (5) Oxygen deficiency: Status: Acute Category: Medical Code(s): R09.02 - Hypoxemia (6) COPD (chronic obstructive pulmonary disease): Status: Acute Qualifiers: COPD type: emphysema Emphysema type: panlobular Qualified Code(s): J43.1 - Panlobular emphysema Category: Medical Code(s): J44.9 - Chronic obstructive pulmonary disease, unspecified (7) Lymphoma in remission: Status: Acute Category: Medical Code(s): C85.9A - Non-Hodgkin lymphoma, unspecified, in remission (8) CHF exacerbation: Status: Acute Qualifiers: Heart failure type: systolic Qualified Code(s): I50.23 - Acute on chronic systolic (congestive) heart failure Category: Medical Code(s): I50.9 - Heart failure, unspecified (9) Hypothyroidism: Status: Acute Qualifiers: Hypothyroidism type: postoperative Qualified Code(s): E89.0 - Postprocedural hypothyroidism Category: Medical Code(s): E03.9 - Hypothyroidism, unspecified (10) Hypokalemia: Status: Acute Category: Medical Code(s): E87.6 - Hypokalemia (11) Delirium: Status: Acute Category: Medical Code(s): R41.0 - Disorientation, unspecified Plan Kaur Dan is a 69-year-old female with a history of COPD not on home O2 who presents with shortness of breath, chest pain and admitted for acute hypoxic respiratory failure secondary to COPD exacerbation, mycoplasma pneumonia, A-fib RVR. Of note, her from COVID-19 at home just prior to admission. Patient has been sick for at least 2 weeks prior to admission. Showing very slow improvement. Continues to require inpatient management, de-escalate to stepdown level of care. CTA of chest today to evaluate for PE. No further cardiac events overnight. Alert and oriented x 4 this morning. Problems addressed as follows: #Acute hypoxic respiratory failure #Acute COPD exacerbation #Sepsis #Community-acquired pneumonia #Chronic pulmonary arterial hypertension ? Discussed case with pulmonology, recommend continuing Vapotherm, wean if tolerated. Currently on 30 L and 70%. CTA of chest obtained, per my read, has bilateral lower lobe pneumonia with small effusion on the left side. Discussed results with pulmonology. Since there is no PE, continue with current course. Will continue with vancomycin only for positive MRSA sputum culture. -White count increased to 17.6 but patient remains afebrile. Suspect secondary to steroid effect. Inflammatory markers continuing to trend down. -Repeat CBC, CMP, magnesium, CRP, procalcitonin ordered for the morning -In light of effusion, will give Bumex 1 mg once today - continue vancomycin for 10 days. - Continue DuoNebs every 4 hours and Pulmicort twice daily. Methylprednisolone 40 mg IV twice daily. -Kidney function unchanged with BUN 45, creatinine 0.8. Potassium 3.8, magnesium 2.2. Hemoglobin stable at 13.3. #A-fib versus SVT #RVR resolved QTc prolongation/torsades ? Initial EKG is suggestive of A-fib versus SVT with HR 167 bpm. Converted to NSR with IV diltiazem. ? No plan for intervention at this time from cardiology. ? [id number] score 3 for age, sex, hypertension. ? ECHO reveals normal biventricular function without valvular issues. -Repeat EKG to monitor QTc. QTc prolonged at 500 yesterday. Holding prolonging medications at this time. #Elevated TSH: TSH 16.8, however obtained in acute and severe illness. Can be repeated once more stable. Free T4 normal at 1.6. Continue levothyroxine 100 mcg daily #Restless leg syndrome: Continue home pramipexole. Developing some ICU delirium, appears to be improving. Continue melatonin 5 mg nightly for sleep. If needs anything stronger, will continue trazodone or temazepam. Will avoid antipsychotics due to QT prolongation, continue daily routine. Reorientation from nursing and family at bedside. Minimize interruptions and distractions at night. Full code PLOV Cardiac diet
--- NOTE | 2024-10-05 13:37 | ECG_ITS ---
APPROVED REPORT Exam: Resting ECG HR:68 bpm ECG Measurements Heart Rate 68 AXES NC 147 P 54 QRSd 82 QRS 11 QT 444 T 71 QTc 460 Conclusion SINUS RHYTHM NONSPECIFIC T-WAVE ABNORMALITY BORDERLINE ECG UNCONFIRMED REPORT Electronically signed by : Timothy Del Rio MD 10/06/2024 13:39:22
[2024-10-05] MEDS: MINERAL OIL 30 ML UDC PO (18:30)
[2024-10-05] MEDS: FAMOTIDINE 20MG TABLET 20 MG PO (20:12)
[2024-10-05] MEDS: MELATONIN 5MG TABLET 5 MG PO (20:12)
[2024-10-05] MEDS: POLYETHYLENE GLYCOL 3350 17 GM PACKET PO (20:48)
[2024-10-06] VITALS (32 sets, daily range): BP systolic 90–182; BP diastolic 44–84; PULSE 56–83; RESP 12–29; TEMP 36.3–36.5; O2SAT 87–100; BMI 23.0
[2024-10-06] MEDS: VANCOMYCIN HCL 1,000 MG in 0.9 % SODIUM CHLORIDE 250 ML 125 MG IV ×3 (00:30→23:29)
[2024-10-06] MEDS: LEVALBUTEROL 0.63MG/3ML NEB 0.63 MG IH ×5 (02:11→22:18)
[2024-10-06] MEDS: IPRATROPIUM BROMIDE 0.5 MG/2.5ML SOLUTION IH ×5 (02:11→22:18)
[2024-10-06] MEDS: BUDESONIDE 0.5MG/2ML NEB 0.5 MG IH (06:05)
[2024-10-06 06:22] LABS: Basophils # 0.1 K/mm3 (0-0.2); Basophils % 0.2 % (0.1-2.0); Hematocrit 38.8 % (37.0-47.0); Hemoglobin 12.8 g/dL (12.2-16.2); Lymphocytes # 0.8 K/mm3 (0.7-4.5); Lymphocytes % 3.6 % (10-50); Mean Corpuscular Hemoglobin 26.7 pg (27.0-31.2); Mean Platelet Volume 10.2 fl (7.4-10.4); Neutrophils # 18.5 K/mm3 (1.8-7.8); Neutrophils % 89.5 % (37.0-80.0); Platelet Count 317 K/mm3 (142-424); Red Blood Count 4.79 M/mm3 (4.20-5.40); Red Cell Distribution Width 13.7 % (11.5-17.5); White Blood Count 20.7 K/mm3 (4.8-10.8)
[2024-10-06] MEDS: LEVOTHYROXINE 100MCG (0.1MG) TAB 100 MCG PO (06:28)
[2024-10-06 06:36] LABS: MANUAL DIFFERENTIAL MANUAL DIFFERENTIAL (MANUAL DIFF)
[2024-10-06 06:40] LABS: Alanine Aminotransferase 34 U/L (12-78); Albumin Level 3.3 g/dl (3.5-5.0); Albumin/Globulin Ratio 1.4 (1.1-1.8); Alkaline Phosphatase 82 U/L (38-126); Anion Gap 9.7 mEq/L (5-15); Aspartate Amino Transferase 48 U/L (14-36); Bilirubin,Total 1.2 mg/dl (0.2-1.3); Blood Urea Nitrogen 39 mg/dl (7-17); Calcium 8.8 mg/dl (8.4-10.2); Carbon Dioxide 30 mmol/L (22.0-30.0); Chloride 102 mmol/L (98-107); Creatinine Clearance Estimated 52 mL/min (50-200); Estimated Glomerular Filt Rate 83 ml/min (>60); GFR (African American) 100 ML/MIN (>60); Globulin 2.4 g/dL (1.3-3.2); Glucose 102 mg/dl (74-100); Magnesium 2.1 mg/dl (1.6-2.3); Potassium 3.7 mmoL/L (3.5-5.1); Sodium 138 mmol/L (136-145); Total Protein,Serum 5.7 g/dl (6.3-8.2)
[2024-10-06 06:45] LABS: C-Reactive Protein 12.7 mg/L (0-4)
[2024-10-06 06:57] LABS: Procalcitonin 0.122 ng/mL (0.0-2.0)
[2024-10-06 07:36] LABS: Hypochromasia 1+; Lymphocytes % 7 % (10-50); Monocytes % 1 % (2-9); Neutrophils % 92 % (42-76); Platelet Estimate Normal; Total Cells Counted 100
--- NOTE | 2024-10-06 08:13 | EXP.PHA.PN ---
Subjective *Date: 10/06/24 *Time: 08:13 Medical Exam Vital signs and Labs for Last 24 Hours: Vital Signs Temp Pulse Resp BP Pulse Ox O2 Del Method O2 Flow Rate 10/06/24 07:00 65 16 103/62 L 93 L Vapotherm 30 10/06/24 07:00 Vapotherm 10/06/24 06:06 61 10/06/24 06:06 58 L 10/06/24 06:06 97 Vapotherm 30 10/06/24 06:00 56 L 25 H 161/72 H 99 Vapotherm 30 10/06/24 05:00 66 18 167/75 H 100 Vapotherm 10/06/24 04:00 97.5 F L 60 20 155/67 H 100 Vapotherm 30 10/06/24 04:00 Vapotherm 30 10/06/24 04:00 66 10/06/24 03:00 61 19 163/64 H 88 L Vapotherm 30 10/06/24 02:12 66 10/06/24 02:11 65 10/06/24 02:00 61 15 153/68 H 92 L Vapotherm 30 10/06/24 01:00 61 19 149/73 H 88 L Vapotherm 30 10/06/24 01:00 Vapotherm 10/06/24 00:00 97.7 F 10/06/24 00:00 58 L 17 158/73 H 87 L 30 10/06/24 00:00 Vapotherm 30 10/06/24 00:00 60 10/05/24 23:00 62 16 152/82 H 93 L 30 10/05/24 23:00 Vapotherm 10/05/24 22:46 65 10/05/24 22:46 63 10/05/24 22:00 160/69 H 10/05/24 22:00 59 L 10 L 160/69 H 90 L Vapotherm 30 10/05/24 21:00 59 L 19 153/68 H 89 L Vapotherm 30 10/05/24 21:00 Vapotherm 30 10/05/24 20:02 98.3 F 74 12 175/76 H 92 L Vapotherm 30 10/05/24 20:00 72 10/05/24 20:00 Vapotherm 30 10/05/24 19:47 Vapotherm 30 10/05/24 19:01 71 10 L 135/65 96 Vapotherm 30 10/05/24 19:00 66 10/05/24 19:00 71 18 135/65 96 Vapotherm 10/05/24 18:45 66 10/05/24 18:41 Vapotherm 30 10/05/24 18:00 79 18 168/72 H 94 L Vapotherm 30 10/05/24 17:00 Vapotherm 30 10/05/24 17:00 76 16 171/83 H 91 L Vapotherm 30 10/05/24 16:00 82 10/05/24 16:00 75 15 199/74 H 93 L Vapotherm 10/05/24 15:31 Vapotherm 30 10/05/24 15:00 Vapotherm 30 10/05/24 15:00 79 18 163/71 H 91 L Vapotherm 10/05/24 14:00 98.2 F 89 18 154/76 H 87 L Vapotherm 10/05/24 13:38 92 L Vapotherm 30 10/05/24 13:24 65 10/05/24 13:24 65 10/05/24 13:23 69 10/05/24 13:23 67 10/05/24 13:00 183/78 H 10/05/24 13:00 69 17 92 L 10/05/24 13:00 Vapotherm 30 10/05/24 12:30 176/86 H 10/05/24 12:30 66 12 96 10/05/24 12:00 58 L 17 91 L 10/05/24 12:00 173/69 H 10/05/24 12:00 65 10/05/24 12:00 Vapotherm 30 10/05/24 12:00 68 17 146/67 H 91 L Vapotherm 10/05/24 11:31 64 15 92 L 10/05/24 11:31 177/64 H 10/05/24 11:21 66 26 H 99 10/05/24 11:21 209/95 H 10/05/24 11:20 75 15 92 L 10/05/24 11:20 211/105 H 10/05/24 11:18 201/96 H 10/05/24 11:18 73 13 92 L 10/05/24 11:00 80 22 90 L 10/05/24 11:00 Vapotherm 30 10/05/24 11:00 73 18 209/95 H 91 L Vapotherm 10/05/24 10:00 66 16 88 L 10/05/24 10:00 168/69 H 10/05/24 09:30 63 22 87 L 10/05/24 09:30 172/69 H 10/05/24 09:01 185/153 H 10/05/24 09:01 75 19 89 L 10/05/24 09:00 73 24 91 L 10/05/24 09:00 Vapotherm 30 10/05/24 09:00 66 18 172/69 H 90 L Vapotherm 10/05/24 08:30 185/121 H 10/05/24 08:30 66 19 91 L FiO2 10/06/24 07:00 10/06/24 07:00 10/06/24 06:06 10/06/24 06:06 10/06/24 06:06 60 10/06/24 06:00 10/06/24 05:00 10/06/24 04:00 10/06/24 04:00 65 10/06/24 04:00 10/06/24 03:00 10/06/24 02:12 10/06/24 02:11 10/06/24 02:00 10/06/24 01:00 10/06/24 01:00 10/06/24 00:00 10/06/24 00:00 10/06/24 00:00 75 10/06/24 00:00 10/05/24 23:00 10/05/24 23:00 10/05/24 22:46 10/05/24 22:46 10/05/24 22:00 10/05/24 22:00 10/05/24 21:00 10/05/24 21:00 10/05/24 20:02 10/05/24 20:00 10/05/24 20:00 60 10/05/24 19:47 60 10/05/24 19:01 10/05/24 19:00 10/05/24 19:00 10/05/24 18:45 10/05/24 18:41 10/05/24 18:00 10/05/24 17:00 10/05/24 17:00 10/05/24 16:00 10/05/24 16:00 10/05/24 15:31 60 10/05/24 15:00 10/05/24 15:00 10/05/24 14:00 10/05/24 13:38 50 10/05/24 13:24 10/05/24 13:24 10/05/24 13:23 10/05/24 13:23 10/05/24 13:00 10/05/24 13:00 10/05/24 13:00 10/05/24 12:30 10/05/24 12:30 10/05/24 12:00 10/05/24 12:00 10/05/24 12:00 10/05/24 12:00 70 10/05/24 12:00 10/05/24 11:31 10/05/24 11:31 10/05/24 11:21 10/05/24 11:21 10/05/24 11:20 10/05/24 11:20 10/05/24 11:18 10/05/24 11:18 10/05/24 11:00 10/05/24 11:00 10/05/24 11:00 10/05/24 10:00 10/05/24 10:00 10/05/24 09:30 10/05/24 09:30 10/05/24 09:01 10/05/24 09:01 10/05/24 09:00 10/05/24 09:00 10/05/24 09:00 10/05/24 08:30 10/05/24 08:30 Intake and Output 10/05/24 10/06/24 10/06/24 23:59 07:59 15:59 Intake Total 890 / 2390 500 / 500 Output Total 900 / 1700 300 / 300 Balance -10 / 200 / 200 Intake: Intake, Oral Amount 890 / 1890 250 / 250 Intake, Total IV Amount 250 / 250 Vancomycin HCl 1,000 mg In 0.9 250 / 250 % Sodium Chloride 250 ml @ 125 mls/hr IV 1100,2300 [facility] Rx#: [id number] Output: Output, Urine Amount 900 / 1700 300 / 300 Other: Number of Unmeasured Voids 0 1 Number of Bowel Movements 1 Weight 62.596 kg Patient Weight 10/06/24 23:59 Weight 62.596 kg Laboratory Results - last 24 hr 10/06/24 05:26: WBC 20.7 H*, RBC 4.79, Hgb 12.8, Hct 38.8, MCV 81.0, MCH 26.7 L, MCHC 33.0, RDW 13.7, Plt Count 317, MPV 10.2, Neut % (Auto) 89.5 H, Lymph % (Auto) 3.6 L, [place] % (Auto) 5.0, Eos % (Auto) 0.0 L, Baso % (Auto) 0.2, Neut # (Auto) 18.5 H, Lymph # (Auto) 0.8, [place] # (Auto) 1.0, Eos # (Auto) 0.0, Baso # (Auto) 0.1, Total Counted 100, Neutrophils % (Manual) 92 H, Lymphocytes % (Manual) 7 L, Monocytes % (Manual) 1 L, Platelet Estimate Normal, Hypochromasia 1+, Sodium 138, Potassium 3.7, Chloride 102, Carbon Dioxide 30, Anion Gap 9.7, BUN 39 H, Creatinine 0.70, Estimated Creat Clear 52, Estimated GFR 83, Est GFR ( Amer) 100, Glucose 102 H, Calcium 8.8, Magnesium 2.1, Total Bilirubin 1.2, AST 48 H D, ALT 34, Alkaline Phosphatase 82, C-Reactive Protein 12.7 H D, Total Protein 5.7 L, Albumin 3.3 L, Globulin 2.4, Albumin/Globulin Ratio 1.4, Procalcitonin 0.122 I & O for Labs for Last 24 Hours: Intake & Output 10/03/24 10/04/24 10/05/24 10/06/24 23:59 23:59 23:59 23:59 Intake Total 695 / 945 1330 / 1450 1890 / 2390 500 / 500 Output Total 2650 / 2650 500 / 500 1700 / 1700 300 / 300 Balance -1955 / -1705 830 / 950 190 / 690 200 / 200 Weight 66.75 kg 62.199 kg 62.596 kg 62.596 kg Microbiology Reports for the Last 24 Hours: Microbiology 09/28/24 22:55 Blood Blood Culture - Final Staphylococcus hominis The patient's infection will respond to the chosen ABx?: Yes Is the patient receiving the right drug, dose, and route?: Yes Could a more targeted ABx be ordered?: No (AFEBRILE, WBC STILL ELEVATED, MRSA IN SPUTUM-SENSITIVE TO VANCO) How long ABx needed (days)?: 7
[2024-10-06] MEDS: METOPROLOL SUCCINATE XL 50MG TABLET 50 MG PO (10:00)
[2024-10-06] MEDS: POLYETHYLENE GLYCOL 3350 17 GM PACKET PO ×2 (10:01→20:45)
[2024-10-06] MEDS: ENOXAPARIN 80MG/0.8ML SYRINGE 65 MG SUBCUT ×2 (10:01→20:45)
[2024-10-06] MEDS: METHYLPREDNISOLONE SOD SUCC 40MG VIAL 40 MG IV ×2 (10:01→20:45)
[2024-10-06] MEDS: ASPIRIN EC 81MG TABLET 81 MG PO (10:01)
[2024-10-06] MEDS: ARTIFICIAL TEARS SOLN 15ML BOTTLE OP ×3 (10:02→20:46)
--- NOTE | 2024-10-06 10:04 | EXP.PULM.PN ---
Subjective *Date: 10/06/24 *Time: 12:02 Interval history: No acute respiratory vents overnight. Patient admits improvement in her respiratory distress. Improving hemoptysis Pulmonology Exam Inpatient Vital signs and Labs for Last 24 Hours: Temp Pulse Resp BP Pulse Ox O2 Del Method O2 Flow Rate 97.5 F L 70 29 H 96/63 L 93 L Vapotherm 25 10/06/24 04:00 10/06/24 10:00 10/06/24 08:00 10/06/24 08:00 10/06/24 10:00 10/06/24 10:00 10/06/24 10:00 FiO2 50 10/06/24 10:00 Laboratory Results - last 24 hr 10/06/24 05:26: WBC 20.7 H*, RBC 4.79, Hgb 12.8, Hct 38.8, MCV 81.0, MCH 26.7 L, MCHC 33.0, RDW 13.7, Plt Count 317, MPV 10.2, Neut % (Auto) 89.5 H, Lymph % (Auto) 3.6 L, [place] % (Auto) 5.0, Eos % (Auto) 0.0 L, Baso % (Auto) 0.2, Neut # (Auto) 18.5 H, Lymph # (Auto) 0.8, [place] # (Auto) 1.0, Eos # (Auto) 0.0, Baso # (Auto) 0.1, Total Counted 100, Neutrophils % (Manual) 92 H, Lymphocytes % (Manual) 7 L, Monocytes % (Manual) 1 L, Platelet Estimate Normal, Hypochromasia 1+, Sodium 138, Potassium 3.7, Chloride 102, Carbon Dioxide 30, Anion Gap 9.7, BUN 39 H, Creatinine 0.70, Estimated Creat Clear 52, Estimated GFR 83, Est GFR ( Amer) 100, Glucose 102 H, Calcium 8.8, Magnesium 2.1, Total Bilirubin 1.2, AST 48 H D, ALT 34, Alkaline Phosphatase 82, C-Reactive Protein 12.7 H D, Total Protein 5.7 L, Albumin 3.3 L, Globulin 2.4, Albumin/Globulin Ratio 1.4, Procalcitonin 0.122 I & O for Labs for Last 24 Hours: Intake & Output 10/03/24 10/04/24 10/05/2410/06/25 23:59 23:59 23:59 23:59 Intake Total 695 / 945 1330 / 1450 1890 / 2390 770 / 770 Output Total 2650 / 2650 500 / 500 1700 / 1700 300 / 300 Balance -1955 / -1705 830 / 950 190 / 690 470 / 470 Weight 147 lb 2.537 oz 137 lb 2 oz 138 lb 138 lb Microbiology Reports for the Last 24 Hours: Microbiology 09/28/24 22:55 Blood Blood Culture - Final Staphylococcus hominis Assessment and Plan *Assessment and plan (1) COPD (chronic obstructive pulmonary disease): Status: Acute Qualifiers: COPD type: emphysema Emphysema type: panlobular Qualified Code(s): J43.1 - Panlobular emphysema Category: Medical Code(s): J44.9 - Chronic obstructive pulmonary disease, unspecified (2) Left lower lobe pneumonia: Status: Acute Qualifiers: Pneumonia type: due to unspecified organism Qualified Code(s): J18.9 - Pneumonia, unspecified organism Category: Medical Code(s): J18.9 - Pneumonia, unspecified organism (3) Acute hypoxemic respiratory failure: Status: Acute Category: Medical Code(s): J96.01 - Acute respiratory failure with hypoxia Plan Mr. Dan is a 69-year-old female presented to the ER with worsening respiratory distress needing high flow nasal oxygen supplementation pulmonary was called for further evaluation and management. Admits sick contact for COVID-19 pneumonia. CTA upon admission no evidence of pulmonary embolism. Diffuse centrilobular emphysematous changes. Left lower lobe lobar pneumonia noted. COVID-19 and flu PCR panel upon admission negative. Mycoplasma pneumonia positive. Receiving ceftriaxone and azithromycin. Worsening leukocytosis. On high flow nasal cannula. Prelim sputum cultures gram-negative rods. Continue to receive cefepime and vancomycin. CRP elevated at 216.1, improving now at 52.1 Sputum cultures growing Staph aureus MRSA. Interval update: No acute respiratory vents over the weekend. Continue to receive vancomycin. Worsening leukocytosis. CTA over the weekend, bilateral lower lobe airspace disease left greater than right. Bilateral small effusions left greater than right. Left lingular opacity also noted. The left lingula and right lower lobe airspace disease were new from her admission CT scan. Procalcitonin from this morning within normal limits. CRP improving. Plan: Continue high flow nasal oxygen supplementation. Currently on 25 L 50%. Continue vancomycin x 10 days e Continue DuoNebs every 4 and Pulmicort every 12 scheduled Continue methylprednisolone 40mg IV twice daily Total critical care time spent on this patient is 35 minutes managing acute hypoxic respiratory failure HFNC . This time spent include reviewing test results including interpreting labs and optimizing the HFNC settings,formulating plan of care, discussing the plan of care with the team and the nursing staff.
[2024-10-06] MEDS: MELATONIN 5MG TABLET 5 MG PO (20:45)
[2024-10-06] MEDS: FAMOTIDINE 20MG TABLET 20 MG PO (20:45)
--- NOTE | 2024-10-06 23:40 | EXP.ACUTE.PN ---
Subjective *Date: 10/06/24 *Time: 23:40 Interval history: Patient was interactive this morning. Alert and oriented x 4. Did not sleep last night but feels good today. Weaning Vapotherm. Inflammatory markers coming down. Tolerating p.o. intake. Overall doing well Medical Exam Vital signs and Labs for Last 24 Hours: Vital Signs Temp Pulse Pulse Resp BP BP Pulse Ox 10/06/24 22:18 70 10/06/24 22:18 68 10/06/24 22:18 90 L 10/06/24 21:00 10/06/24 20:00 65 19 125/61 91 L 10/06/24 20:00 92 L 10/06/24 20:00 80 10/06/24 20:00 97.3 F L 10/06/24 18:46 10/06/24 18:00 83 18 90/44 L 89 L 10/06/24 17:00 10/06/24 16:00 90 L 10/06/24 16:00 97.7 F 10/06/24 16:00 70 10/06/24 16:00 80 18 100/57 L 90 L 10/06/24 15:25 89 L 10/06/24 15:00 10/06/24 14:32 75 10/06/24 14:32 74 10/06/24 14:32 89 L 10/06/24 14:00 70 12 135/61 88 L 10/06/24 13:00 13 148/75 H 10/06/24 13:00 10/06/24 12:37 91 L 10/06/24 12:34 73 15 167/82 H 93 L 10/06/24 12:01 97.7 F 71 15 175/73 H 89 L 10/06/24 12:00 80 10/06/24 11:40 10/06/24 11:10 72 20 146/81 H 91 L 10/06/24 10:00 75 22 182/76 H 93 L 10/06/24 10:00 70 10/06/24 10:00 66 10/06/24 10:00 93 L 10/06/24 09:00 10/06/24 09:00 76 15 151/71 H 90 L 10/06/24 08:01 70 10/06/24 08:00 78 29 H 96/63 L 93 L 10/06/24 08:00 71 92 L 10/06/24 07:25 70 22 103/62 L 92 L 10/06/24 07:00 65 16 103/62 L 93 L 10/06/24 07:00 10/06/24 06:06 61 10/06/24 06:06 58 L 10/06/24 06:06 97 10/06/24 06:00 56 L 25 H 161/72 H 99 10/06/24 05:00 66 18 167/75 H 100 10/06/24 04:00 97.5 F L 60 20 155/67 H 100 10/06/24 04:00 10/06/24 04:00 66 10/06/24 03:00 61 19 163/64 H 88 L 10/06/24 02:12 66 10/06/24 02:11 65 10/06/24 02:00 61 15 153/68 H 92 L 10/06/24 01:00 61 19 149/73 H 88 L 10/06/24 01:00 10/06/24 00:00 97.7 F 10/06/24 00:00 58 L 17 158/73 H 87 L 10/06/24 00:00 10/06/24 00:00 60 O2 Del Method O2 Flow Rate FiO2 10/06/24 22:18 10/06/24 22:18 10/06/24 22:18 Vapotherm 25 50 10/06/24 21:00 Vapotherm 25 10/06/24 20:00 Vapotherm 25 50 10/06/24 20:00 Vapotherm 25 50 10/06/24 20:00 10/06/24 20:00 10/06/24 18:46 Vapotherm 25 10/06/24 18:00 Vapotherm 25 50 10/06/24 17:00 Vapotherm 25 10/06/24 16:00 Vapotherm 25 50 10/06/24 16:00 10/06/24 16:00 10/06/24 16:00 Vapotherm 25 50 10/06/24 15:25 Vapotherm 25 50 10/06/24 15:00 Vapotherm 20 10/06/24 14:32 10/06/24 14:32 10/06/24 14:32 Vapotherm 25 50 10/06/24 14:00 Vapotherm 10/06/24 13:00 10/06/24 13:00 Vapotherm 25 10/06/24 12:37 Vapotherm 25 10/06/24 12:34 Vapotherm 10/06/24 12:01 Vapotherm 25 10/06/24 12:00 10/06/24 11:40 Vapotherm 25 10/06/24 11:10 Vapotherm 25 10/06/24 10:00 Vapotherm 25 10/06/24 10:00 10/06/24 10:00 10/06/24 10:00 Vapotherm 25 50 10/06/24 09:00 Vapotherm 30 10/06/24 09:00 Vapotherm 30 10/06/24 08:01 10/06/24 08:00 Vapotherm 30 10/06/24 08:00 Vapotherm 30 60 10/06/24 07:25 Vapotherm 30 10/06/24 07:00 Vapotherm 30 10/06/24 07:00 Vapotherm 10/06/24 06:06 10/06/24 06:06 10/06/24 06:06 Vapotherm 30 60 10/06/24 06:00 Vapotherm 30 10/06/24 05:00 Vapotherm 10/06/24 04:00 Vapotherm 30 10/06/24 04:00 Vapotherm 30 65 10/06/24 04:00 10/06/24 03:00 Vapotherm 30 10/06/24 02:12 10/06/24 02:11 10/06/24 02:00 Vapotherm 30 10/06/24 01:00 Vapotherm 30 10/06/24 01:00 Vapotherm 10/06/24 00:00 10/06/24 00:00 30 10/06/24 00:00 Vapotherm 30 75 10/06/24 00:00 Intake and Output 10/06/24 10/06/24 10/06/24 07:59 15:59 23:59 Intake Total 500 / 1345 605 / 1345 240 / 1345 Output Total 300 / 900 300 / 900 300 / 900 Balance 200 / 445 305 / 445 -60 / 445 Intake: Intake, Oral Amount 250 / 1095 605 / 1095 240 / 1095 Intake, Total IV Amount 250 / 250 Vancomycin HCl 1,000 mg In 0.9 250 / 250 % Sodium Chloride 250 ml @ 125 mls/hr IV 1100,2300 [facility] Rx#: [id number] Output: Output, Urine Amount 300 / 900 300 / 900 300 / 900 Other: Number of Unmeasured Voids 1 Number of Bowel Movements 1 1 Weight 62.596 kg Patient Weight 10/06/24 23:59 Weight 62.596 kg Laboratory Results - last 24 hr 10/06/24 05:26: WBC 20.7 H*, RBC 4.79, Hgb 12.8, Hct 38.8, MCV 81.0, MCH 26.7 L, MCHC 33.0, RDW 13.7, Plt Count 317, MPV 10.2, Neut % (Auto) 89.5 H, Lymph % (Auto) 3.6 L, [place] % (Auto) 5.0, Eos % (Auto) 0.0 L, Baso % (Auto) 0.2, Neut # (Auto) 18.5 H, Lymph # (Auto) 0.8, [place] # (Auto) 1.0, Eos # (Auto) 0.0, Baso # (Auto) 0.1, Total Counted 100, Neutrophils % (Manual) 92 H, Lymphocytes % (Manual) 7 L, Monocytes % (Manual) 1 L, Platelet Estimate Normal, Hypochromasia 1+, Sodium 138, Potassium 3.7, Chloride 102, Carbon Dioxide 30, Anion Gap 9.7, BUN 39 H, Creatinine 0.70, Estimated Creat Clear 52, Estimated GFR 83, Est GFR ( Amer) 100, Glucose 102 H, Calcium 8.8, Magnesium 2.1, Total Bilirubin 1.2, AST 48 H D, ALT 34, Alkaline Phosphatase 82, C-Reactive Protein 12.7 H D, Total Protein 5.7 L, Albumin 3.3 L, Globulin 2.4, Albumin/Globulin Ratio 1.4, Procalcitonin 0.122 I & O for Labs for Last 24 Hours: Intake & Output 10/03/24 10/04/24 10/05/24 10/06/24 23:59 23:59 23:59 23:59 Intake Total 695 / 945 1330 / 1450 1890 / 2390 1345 / 1345 Output Total 2650 / 2650 500 / 500 1700 / 1700 900 / 900 Balance -1955 / -1705 830 / 950 190 / 690 445 / 445 Weight 66.75 kg 62.199 kg 62.596 kg 62.596 kg Constitutional: Present no acute distress, average body habitus, chronically ill appearing and cooperative Head: Present atraumatic and normocephalic ENT: Present normal exam Respiratory: Present prolonged expiratory phase; Absent rhonchi, wheezes or crackles Cardiac: Present Regular Rate and Regular Rhythm GI: Present soft and normal bowel sounds; Absent distention or tenderness Extremities: Present normal inspection and full ROM Skin: Present intact; Absent erythema Neuro: Present Grossly Intact, alert, awake, oriented x 3 and moves all extremities Assessment and Plan *Assessment and plan (1) Acute hypoxemic respiratory failure: Status: Acute Category: Medical Code(s): J96.01 - Acute respiratory failure with hypoxia (2) Atrial fibrillation with controlled ventricular rate: Status: Acute Category: Medical Code(s): I48.91 - Unspecified atrial fibrillation (3) Left lower lobe pneumonia: Status: Acute Qualifiers: Pneumonia type: due to unspecified organism Qualified Code(s): J18.9 - Pneumonia, unspecified organism Category: Medical Code(s): J18.9 - Pneumonia, unspecified organism (4) Viral upper respiratory illness: Status: Acute Category: Medical Code(s): J06.9 - Acute upper respiratory infection, unspecified (5) Oxygen deficiency: Status: Acute Category: Medical Code(s): R09.02 - Hypoxemia (6) COPD (chronic obstructive pulmonary disease): Status: Acute Qualifiers: COPD type: emphysema Emphysema type: panlobular Qualified Code(s): J43.1 - Panlobular emphysema Category: Medical Code(s): J44.9 - Chronic obstructive pulmonary disease, unspecified (7) Lymphoma in remission: Status: Acute Category: Medical Code(s): C85.9A - Non-Hodgkin lymphoma, unspecified, in remission (8) CHF exacerbation: Status: Acute Qualifiers: Heart failure type: systolic Qualified Code(s): I50.23 - Acute on chronic systolic (congestive) heart failure Category: Medical Code(s): I50.9 - Heart failure, unspecified (9) Hypothyroidism: Status: Acute Qualifiers: Hypothyroidism type: postoperative Qualified Code(s): E89.0 - Postprocedural hypothyroidism Category: Medical Code(s): E03.9 - Hypothyroidism, unspecified (10) Hypokalemia: Status: Acute Category: Medical Code(s): E87.6 - Hypokalemia (11) Delirium: Status: Acute Category: Medical Code(s): R41.0 - Disorientation, unspecified Plan Kaur Dan is a 69-year-old female with a history of COPD not on home O2 who presents with shortness of breath, chest pain and admitted for acute hypoxic respiratory failure secondary to COPD exacerbation, mycoplasma pneumonia, A-fib RVR. Of note, her from COVID-19 at home just prior to admission. Patient has been sick for at least 2 weeks prior to admission. Showing very slow improvement. Continues to require inpatient management, stepdown level of care. CTA of chest yesterday with no PE. Looking better today. Weaning Vapotherm. Anticipate discharge in the coming days. Problems addressed as follows: #Acute hypoxic respiratory failure #Acute COPD exacerbation #Sepsis #Community-acquired pneumonia #Chronic pulmonary arterial hypertension ? Discussed case with pulmonology, recommend continuing high flow nasal cannula oxygen. Currently on 25 L and 50%. Plan to complete 10 days of vancomycin for MRSA pneumonia. -White count increased again today to 20. Inflammatory markers however coming down with CRP of 12.7, Pro-[place] normal at 0.122. Likely reactive to steroids with elevation of white count. -Hold off on broadening antibiotics -Repeat CBC, CMP, magnesium, CRP, procalcitonin ordered for the morning - Continue DuoNebs every 4 hours and Pulmicort twice daily. Methylprednisolone 40 mg IV twice daily. -Kidney function improving with BUN 39, creatinine 0.7. Potassium 3.7, magnesium 2.1. #A-fib versus SVT #RVR resolved QTc prolongation/torsades ? Initial EKG is suggestive of A-fib versus SVT with HR 167 bpm. Converted to NSR with IV diltiazem. ? No plan for intervention at this time from cardiology. ? [id number] score 3 for age, sex, hypertension. ? ECHO reveals normal biventricular function without valvular issues. - Repeat EKG yesterday with QT of 460. Avoiding QT prolonging meds. #Elevated TSH: TSH 16.8, however obtained in acute and severe illness. Can be repeated once more stable. Free T4 normal at 1.6. Continue levothyroxine 100 mcg daily #Restless leg syndrome: Continue home pramipexole. Developing some ICU delirium, appears to be improving. Continue melatonin 5 mg nightly for sleep. If needs anything stronger, will continue trazodone or temazepam. Will avoid antipsychotics due to QT prolongation, continue daily routine. Reorientation from nursing and family at bedside. Minimize interruptions and distractions at night. Full code PLOV Cardiac diet
[2024-10-07] VITALS (20 sets, daily range): BP systolic 92–174; BP diastolic 59–89; PULSE 60–83; RESP 18–31; TEMP 36.5–36.6; O2SAT 88–93; BMI 22.9
[2024-10-07] MEDS: LEVALBUTEROL 0.63MG/3ML NEB 0.63 MG IH ×6 (01:16→22:11)
[2024-10-07] MEDS: IPRATROPIUM BROMIDE 0.5 MG/2.5ML SOLUTION IH ×6 (01:16→22:11)
[2024-10-07] MEDS: BUDESONIDE 0.5MG/2ML NEB 0.5 MG IH ×2 (06:13→18:28)
[2024-10-07 06:15] LABS: Basophils # 0.1 K/mm3 (0-0.2); Basophils % 0.2 % (0.1-2.0); Hematocrit 36.8 % (37.0-47.0); Hemoglobin 12.1 g/dL (12.2-16.2); Lymphocytes # 0.9 K/mm3 (0.7-4.5); Lymphocytes % 3.5 % (10-50); Mean Corpuscular HGB Conc 32.9 g/dL (31.8-35.4); Mean Corpuscular Hemoglobin 26.7 pg (27.0-31.2); Mean Corpuscular Volume 81.1 fl (81-99); Mean Platelet Volume 10.9 fl (7.4-10.4); Monocytes # 1.2 K/mm3 (0.1-1.0); Monocytes % 4.7 % (1.7-9.3); Neutrophils # 22.6 K/mm3 (1.8-7.8); Neutrophils % 90.1 % (37.0-80.0); Platelet Count 290 K/mm3 (142-424); Red Blood Count 4.54 M/mm3 (4.20-5.40); Red Cell Distribution Width 13.8 % (11.5-17.5); White Blood Count 25.1 K/mm3 (4.8-10.8)
[2024-10-07 06:17] LABS: MANUAL DIFFERENTIAL MANUAL DIFFERENTIAL (MANUAL DIFF)
[2024-10-07] MEDS: LEVOTHYROXINE 100MCG (0.1MG) TAB 100 MCG PO (06:25)
[2024-10-07 06:34] LABS: Alanine Aminotransferase 44 U/L (12-78); Albumin Level 3.3 g/dl (3.5-5.0); Albumin/Globulin Ratio 1.4 (1.1-1.8); Alkaline Phosphatase 74 U/L (38-126); Anion Gap 9.7 mEq/L (5-15); Aspartate Amino Transferase 47 U/L (14-36); Bilirubin,Total 1.2 mg/dl (0.2-1.3); Blood Urea Nitrogen 38 mg/dl (7-17); Calcium 8.6 mg/dl (8.4-10.2); Carbon Dioxide 27 mmol/L (22.0-30.0); Chloride 103 mmol/L (98-107); Creatinine Clearance Estimated 52 mL/min (50-200); Estimated Glomerular Filt Rate 83 ml/min (>60); GFR (African American) 100 ML/MIN (>60); Globulin 2.3 g/dL (1.3-3.2); Glucose 132 mg/dl (74-100); Magnesium 2.2 mg/dl (1.6-2.3); Potassium 3.7 mmoL/L (3.5-5.1); Sodium 136 mmol/L (136-145); Total Protein,Serum 5.6 g/dl (6.3-8.2)
[2024-10-07 07:53] LABS: Hypochromasia 1+; Lymphocytes % 4 % (10-50); Monocytes % 1 % (2-9); Neutrophils % 95 % (42-76); Platelet Estimate Normal; Total Cells Counted 100
[2024-10-07] MEDS: POLYETHYLENE GLYCOL 3350 17 GM PACKET PO (09:18)
[2024-10-07] MEDS: METHYLPREDNISOLONE SOD SUCC 40MG VIAL 40 MG IV (09:19)
[2024-10-07] MEDS: ARTIFICIAL TEARS SOLN 15ML BOTTLE OP ×3 (09:19→20:50)
[2024-10-07] MEDS: METOPROLOL SUCCINATE XL 50MG TABLET 50 MG PO (09:19)
[2024-10-07] MEDS: ASPIRIN EC 81MG TABLET 81 MG PO (09:19)
[2024-10-07] MEDS: ENOXAPARIN 80MG/0.8ML SYRINGE 65 MG SUBCUT ×2 (09:20→20:50)
--- NOTE | 2024-10-07 09:39 | EXP.PULM.PN ---
Subjective *Date: 10/07/24 *Time: 12:08 Interval history: No acute respiratory vents overnight. Patient admits continued improvement in her respiratory symptoms. Pulmonology Exam Inpatient Vital signs and Labs for Last 24 Hours: Temp Pulse Resp BP Pulse Ox O2 Del Method O2 Flow Rate 97.9 F 72 18 104/61 L 93 L Vapotherm 10/07/24 08:00 10/07/24 08:00 10/07/24 08:00 10/07/24 08:00 10/07/24 08:00 10/07/24 08:00 10/07/24 08:00 FiO2 55 10/07/24 08:00 Laboratory Results - last 24 hr 10/07/24 05:43: WBC 25.1 H*, RBC 4.54, Hgb 12.1 L, Hct 36.8 L, MCV 81.1, MCH 26.7 L, MCHC 32.9, RDW 13.8, Plt Count 290, MPV 10.9 H, Neut % (Auto) 90.1 H, Lymph % (Auto) 3.5 L, [place] % (Auto) 4.7, Eos % (Auto) 0.0 L, Baso % (Auto) 0.2, Neut # (Auto) 22.6 H, Lymph # (Auto) 0.9, [place] # (Auto) 1.2 H, Eos # (Auto) 0.0, Baso # (Auto) 0.1, Total Counted 100, Neutrophils % (Manual) 95 H, Lymphocytes % (Manual) 4 L, Monocytes % (Manual) 1 L, Platelet Estimate Normal, Hypochromasia 1+, Sodium 136, Potassium 3.7, Chloride 103, Carbon Dioxide 27, Anion Gap 9.7, BUN 38 H, Creatinine 0.70, Estimated Creat Clear 52, Estimated GFR 83, Est GFR ( Amer) 100, Glucose 132 H, Calcium 8.6, Magnesium 2.2, Total Bilirubin 1.2, AST 47 H, ALT 44 D, Alkaline Phosphatase 74, Total Protein 5.6 L, Albumin 3.3 L, Globulin 2.3, Albumin/Globulin Ratio 1.4 Temp Pulse Resp BP Pulse Ox O2 Del Method O2 Flow Rate 98.2 F 76 20 159/74 H 91 L Vapotherm 30 09/30/24 08:13 09/30/24 10:07 09/30/24 10:07 09/30/24 10:08 09/30/24 10:07 09/30/24 07:00 09/30/24 07:00 FiO2 60 09/30/24 06:25 Laboratory Results - last 24 hr 09/29/24 06:10: TIBC 240 L, Iron Saturation 9.17332 L, Ferritin 332 H 09/30/24 06:35: WBC 26.8 H* D, RBC 4.90, Hgb 13.3, Hct 40.3, MCV 82.2, MCH 27.1, MCHC 33.0, RDW 14.3, Plt Count 302 D, MPV 10.5 H, Neut % (Auto) 94.1 H, Lymph % (Auto) 1.7 L, [place] % (Auto) 3.5, Eos % (Auto) 0.0 L, Baso % (Auto) 0.2, Neut # (Auto) 25.2 H, Lymph # (Auto) 0.5 L, [place] # (Auto) 0.9, Eos # (Auto) 0.0, Baso # (Auto) 0.1, Total Counted 100, Neutrophils % (Manual) 95 H, Lymphocytes % (Manual) 4 L, Monocytes % (Manual) 1 L, Platelet Estimate Normal, RBC Morphology Normal, Sodium 136, Potassium 4.3, Chloride 100, Carbon Dioxide 29, Anion Gap 11.3, BUN 29 H D, Creatinine 0.80, Estimated Creat Clear 54, Estimated GFR 71, Est GFR ( Amer) 86, Glucose 119 H, Lactate 0.9, Calcium 9.3, Phosphorus 3.7, Magnesium 2.4 H D, Total Bilirubin 0.7, AST 31, ALT 25, Alkaline Phosphatase 115, Total Protein 6.5, Albumin 3.6 D, Globulin 2.9, Albumin/Globulin Ratio 1.2, Free T4 1.65 09/30/24 08:11: VBG pH 7.40, VBG pCO2 44.6, VBG pO2 37.3, VBG HCO3 26.8, VBG Total CO2 28.1 H, VBG O2 Saturation 74.0 H, VBG Base Excess 1.9, VBG Lactic Acid 2.2 H I & O for Labs for Last 24 Hours: Intake & Output 10/04/24 10/05/24 10/06/2410/07/25 23:59 23:59 23:59 23:59 Intake Total 1330 / 1450 1890 / 2390 1345 / 1345 610 / 610 Output Total 500 / 500 1700 / 1700 900 / 900 Balance 830 / 950 190 / 690 445 / 445 610 / 610 Weight 137 lb 2 oz 138 lb 138 lb 137 lb 14.4 oz Intake & Output 09/27/24 09/28/24 09/29/24 09/30/24 23:59 23:59 23:59 23:59 Intake Total 1245 / 1345 590 / 590 Output Total 1100 / 1100 Balance 145 / 245 590 / 590 Weight 140 lb 150 lb 5 oz 141 lb 4.8 oz Microbiology Reports for the Last 24 Hours: Microbiology 09/29/24 12:21 Sputum - Expectorated Sputum Gram Stain - Final 09/29/24 12:21 Sputum - Expectorated Sputum Sputum Culture - Preliminary 09/28/24 22:55 Blood Blood Culture - Preliminary NO GROWTH AFTER 24 HOURS Constitutional: Present severe distress Head: Present normocephalic and atraumatic ENT: Present normal exam, normal oropharynx and mucous membranes moist Neck: Present normal inspection and full ROM Respiratory: Present prolonged expiratory phase, respiratory distress, rhonchi and wheezes; Absent able to speak in complete sentences Cardiac: Present S1/S2, Tachycardia and radial pulses present GI: Present soft and distention; Absent tenderness or guarding Rectal (female): Present deferred (female): Present deferred Skin: Present intact; Absent cyanosis or jaundice Neuro: Present alert, awake and oriented x 3 Extremities: Present normal inspection; Absent clubbing or cyanosis Psychiatric: Present normal affect and cooperative Assessment and Plan *Assessment and plan (1) COPD (chronic obstructive pulmonary disease): Status: Acute Qualifiers: COPD type: emphysema Emphysema type: panlobular Qualified Code(s): J43.1 - Panlobular emphysema Category: Medical Code(s): J44.9 - Chronic obstructive pulmonary disease, unspecified (2) Left lower lobe pneumonia: Status: Acute Qualifiers: Pneumonia type: due to unspecified organism Qualified Code(s): J18.9 - Pneumonia, unspecified organism Category: Medical Code(s): J18.9 - Pneumonia, unspecified organism (3) Acute hypoxemic respiratory failure: Status: Acute Category: Medical Code(s): J96.01 - Acute respiratory failure with hypoxia Plan Mr. Dan is a 69-year-old female presented to the ER with worsening respiratory distress needing high flow nasal oxygen supplementation pulmonary was called for further evaluation and management. Admits sick contact for COVID-19 pneumonia. CTA upon admission no evidence of pulmonary embolism. Diffuse centrilobular emphysematous changes. Left lower lobe lobar pneumonia noted. COVID-19 and flu PCR panel upon admission negative. Mycoplasma pneumonia positive. Receiving ceftriaxone and azithromycin. Worsening leukocytosis. On high flow nasal cannula. Prelim sputum cultures gram-negative rods. Continue to receive cefepime and vancomycin. CRP elevated at 216.1, improving now at 52.1 Sputum cultures growing Staph aureus MRSA. CTA bilateral lower lobe airspace disease left greater than right. Bilateral small effusions left greater than right. Left lingular opacity also noted. The left lingula and right lower lobe airspace disease were new from her admission CT scan. Procalcitonin from this morning within normal limits. CRP improving. Interval update: No acute respiratory vents overnight. Relatively stable oxygen requirements. Patient admits continued improvement in her respiratory status. Worsening leukocytosis now at 25. Afebrile. Chest x-ray from this morning stable with no new infiltrates. Continue to left lower lobe airspace disease and small effusion. Will hold off on escalating antibiotics at this point of time. Follow-up with repeat cultures. Plan: Continue high flow nasal oxygen supplementation. Currently on 25 L 55%. Weaned to nasal cannula as tolerated Continue vancomycin x 10 days Continue DuoNebs every 4 and Pulmicort every 12 scheduled Stop methylprednisolone 40mg IV twice daily Total critical care time spent on this patient is 35 minutes managing acute hypoxic respiratory failure HFNC . This time spent include reviewing test results including interpreting labs and optimizing the HFNC settings,formulating plan of care, discussing the plan of care with the team and the nursing staff.
--- NOTE | 2024-10-07 09:41 | XR_ITS ---
FINAL REPORT CLINICAL HISTORY: PNM COMPARISON: 10/03/2024 FINDINGS: There is slight worsening of left basilar pneumonia. Minimal right basilar pneumonia is noted. Small left effusion is identified. There is underlying emphysema. There is no pneumothorax. Mediastinum is unremarkable. Heart size is normal. IMPRESSION: Minimal worsening of pneumonia. Reviewed, Interpreted and Dictated by Charmaine Peacock MD Transcribed by Jessenia Raines Authenticated and [facility]
--- NOTE | 2024-10-07 10:37 | PC.NURSE ---
RESP CARE NOTE: Pt placed on 8 lpm high flow nasal cannula per Dr Evans bedside order and direct observation, SPO2 at 91%. Will continue to monitor patient continuously and adjust oxygen to keep SPO2 above 88%.
[2024-10-07] MEDS: VANCOMYCIN HCL 1,000 MG in 0.9 % SODIUM CHLORIDE 250 ML 125 MG IV ×2 (10:52→23:48)
[2024-10-07 11:00] LABS: Microscopic, Urine URINE MICROSCOPIC (MICROSCOPIC)
[2024-10-07 11:08] LABS: Appearance,Urine CLEAR (Clear); Bilirubin,Urine Negative (Negative); Blood, Urine Negative (Negative); Color,Urine YELLOW (Yellow); Glucose,Urine (UA) Negative (Negative); Ketones,Urine Negative (Negative); Leukocyte Esterase,Urine Negative (Negative); Nitrate,Urine Negative (Negative); PH,Urine 6.5 (5.0-8.5); Protein,Urine Negative (Negative); Urobilinogen,Urine 0.2 EU/dl (0.2)
[2024-10-07 11:58] LABS: Bacteria,Urine 3+ /lpf; RBC,Urine Occasional #/hpf (0-3); Renal Epithelial Cells,Urine Occasional #/lpf (0); WBC,Urine Occasional #/hpf (0-3)
--- NOTE | 2024-10-07 13:05 | P.PN_ITS ---
Subjective *Date: 10/07/24 *Time: 21:37 Interval history: Patient alert and oriented x 4 this morning. Transitioned from Vapotherm to high flow nasal cannula 8 L. Continues to have poor sleep but is in good spirits. Afebrile. Doing her breathing exercises with flutter valve and incentive spirometry. Tolerating p.o. intake. Medical Exam Vital signs and Labs for Last 24 Hours: Vital Signs Temp Pulse Pulse Resp BP BP Pulse Ox 10/07/24 11:59 97.9 F 69 18 174/76 H 88 L 10/07/24 11:00 10/07/24 10:36 91 L 10/07/24 10:34 69 20 92/59 L 91 L 10/07/24 09:47 62 10/07/24 09:47 63 10/07/24 09:47 90 L 10/07/24 09:30 90 L 10/07/24 09:00 10/07/24 08:00 97.9 F 10/07/24 08:00 72 18 104/61 L 93 L 10/07/24 08:00 70 10/07/24 06:39 10/07/24 06:13 60 10/07/24 06:13 60 10/07/24 06:13 90 L 10/07/24 06:00 60 22 124/74 92 L 10/07/24 05:00 10/07/24 04:00 89 L 10/07/24 04:00 70 10/07/24 04:00 97.7 F 10/07/24 03:00 10/07/24 01:16 67 10/07/24 01:16 63 10/07/24 01:00 10/07/24 00:04 97.7 F 10/07/24 00:00 70 10/06/24 23:46 60 20 117/84 90 L 10/06/24 23:00 10/06/24 22:50 92 L 10/06/24 22:18 70 10/06/24 22:18 68 10/06/24 22:18 90 L 10/06/24 22:00 63 21 99/65 L 92 L 10/06/24 21:00 10/06/24 20:00 65 19 125/61 91 L 10/06/24 20:00 92 L 10/06/24 20:00 80 10/06/24 20:00 97.3 F L 10/06/24 18:46 10/06/24 18:00 83 18 90/44 L 89 L 10/06/24 17:00 10/06/24 16:00 90 L 10/06/24 16:00 97.7 F 10/06/24 16:00 70 10/06/24 16:00 80 18 100/57 L 90 L 10/06/24 15:25 89 L 10/06/24 15:00 10/06/24 14:32 75 10/06/24 14:32 74 10/06/24 14:32 89 L 10/06/24 14:00 70 12 135/61 88 L O2 Del Method O2 Flow Rate FiO2 10/07/24 11:59 Nasal Cannula 8 10/07/24 11:00 Nasal Cannula 8 10/07/24 10:36 Nasal Cannula 8 10/07/24 10:34 Vapotherm 25 55 10/07/24 09:47 10/07/24 09:47 10/07/24 09:47 Vapotherm 25 55 10/07/24 09:30 Vapotherm 25 55 10/07/24 09:00 Vapotherm 25 10/07/24 08:00 10/07/24 08:00 Vapotherm 25 55 10/07/24 08:00 10/07/24 06:39 Vapotherm 25 10/07/24 06:13 10/07/24 06:13 10/07/24 06:13 Vapotherm 25 55 10/07/24 06:00 Vapotherm 25 55 10/07/24 05:00 Vapotherm 25 10/07/24 04:00 Vapotherm 25 55 10/07/24 04:00 10/07/24 04:00 10/07/24 03:00 Vapotherm 25 10/07/24 01:16 10/07/24 01:16 10/07/24 01:00 Vapotherm 25 10/07/24 00:04 10/07/24 00:00 10/06/24 23:46 Vapotherm 25 50 10/06/24 23:00 Vapotherm 25 10/06/24 22:50 Vapotherm 25 55 10/06/24 22:18 10/06/24 22:18 10/06/24 22:18 Vapotherm 25 50 01/13/25 22:00 Vapotherm 25 50 10/06/24 21:00 Vapotherm 25 10/06/24 20:00 Vapotherm 25 50 10/06/24 20:00 Vapotherm 25 50 10/06/24 20:00 10/06/24 20:00 10/06/24 18:46 Vapotherm 25 10/06/24 18:00 Vapotherm 25 50 10/06/24 17:00 Vapotherm 25 10/06/24 16:00 Vapotherm 25 50 10/06/24 16:00 10/06/24 16:00 10/06/24 16:00 Vapotherm 25 50 10/06/24 15:25 Vapotherm 25 50 10/06/24 15:00 Vapotherm 20 10/06/24 14:32 10/06/24 14:32 10/06/24 14:32 Vapotherm 25 50 10/06/24 14:00 Vapotherm Intake and Output 10/06/24 10/07/24 10/07/24 23:59 07:59 15:59 Intake Total 240 / 1345 490 / 610 120 / 610 Output Total 300 / 900 700 / 700 Balance -60 / 445 490 / -90 -580 / -90 Intake: Intake, Oral Amount 240 / 1095 240 / 360 120 / 360 Intake, Total IV Amount 250 / 250 Vancomycin HCl 1,000 mg In 0.9 250 / 250 % Sodium Chloride 250 ml @ 125 mls/hr IV 1100,2300 [facility] Rx#: [id number] Output: Output, Urine Amount 300 / 900 700 / 700 Other: Weight 62.55 kg Patient Weight 10/07/24 23:59 Weight 62.55 kg Laboratory Results - last 24 hr 10/07/24 05:43: WBC 25.1 H*, RBC 4.54, Hgb 12.1 L, Hct 36.8 L, MCV 81.1, MCH 26.7 L, MCHC 32.9, RDW 13.8, Plt Count 290, MPV 10.9 H, Neut % (Auto) 90.1 H, Lymph % (Auto) 3.5 L, [place] % (Auto) 4.7, Eos % (Auto) 0.0 L, Baso % (Auto) 0.2, Neut # (Auto) 22.6 H, Lymph # (Auto) 0.9, [place] # (Auto) 1.2 H, Eos # (Auto) 0.0, Baso # (Auto) 0.1, Total Counted 100, Neutrophils % (Manual) 95 H, Lymphocytes % (Manual) 4 L, Monocytes % (Manual) 1 L, Platelet Estimate Normal, Hypochromasia 1+, Sodium 136, Potassium 3.7, Chloride 103, Carbon Dioxide 27, Anion Gap 9.7, BUN 38 H, Creatinine 0.70, Estimated Creat Clear 52, Estimated GFR 83, Est GFR ( Amer) 100, Glucose 132 H, Calcium 8.6, Magnesium 2.2, Total Bilirubin 1.2, AST 47 H, ALT 44 D, Alkaline Phosphatase 74, Total Protein 5.6 L, Albumin 3.3 L, Globulin 2.3, Albumin/Globulin Ratio 1.4 10/07/24 10:54: Urine Color Yellow, Urine Appearance Clear, Urine pH 6.5, Ur Specific [place] 1.020, Urine Protein Negative, Urine Glucose (UA) Negative, Urine Ketones Negative, Urine Blood Negative, Urine Nitrate Negative, Urine Bilirubin Negative, Urine Urobilinogen 0.2, Ur Leukocyte Esterase Negative, Urine RBC Occasional, Urine WBC Occasional, Ur Squamous Epith Cells 5-10, Ur Renal Epithelial Cell Occasional, Urine Bacteria 3+ I & O for Labs for Last 24 Hours: Intake & Output 10/04/24 10/05/24 10/06/24 10/07/24 23:59 23:59 23:59 23:59 Intake Total 1330 / 1450 1890 / 2390 1345 / 1345 610 / 610 Output Total 500 / 500 1700 / 1700 900 / 900 700 / 700 Balance 830 / 950 190 / 690 445 / 445 -90 / -90 Weight 62.199 kg 62.596 kg 62.596 kg 62.55 kg Constitutional: Present no acute distress, average body habitus, chronically ill appearing and cooperative Head: Present atraumatic and normocephalic ENT: Present normal exam Respiratory: Present prolonged expiratory phase and crackles (Left lower lung field, right clear); Absent rhonchi or wheezes Cardiac: Present Reg Rate and Rhythm GI: Present soft and normal bowel sounds; Absent distention or tenderness Extremities: Present normal inspection and full ROM Skin: Present intact; Absent erythema Neuro: Present Grossly Intact, alert, awake, oriented x 3 and moves all extremities Assessment and Plan *Assessment and plan (1) Acute hypoxemic respiratory failure: Status: Acute Category: Medical Code(s): J96.01 - Acute respiratory failure with hypoxia (2) Atrial fibrillation with controlled ventricular rate: Status: Acute Category: Medical Code(s): I48.91 - Unspecified atrial fibrillation (3) Left lower lobe pneumonia: Status: Acute Qualifiers: Pneumonia type: due to unspecified organism Qualified Code(s): J18.9 - Pneumonia, unspecified organism Category: Medical Code(s): J18.9 - Pneumonia, unspecified organism (4) Viral upper respiratory illness: Status: Acute Category: Medical Code(s): J06.9 - Acute upper respiratory infection, unspecified (5) Oxygen deficiency: Status: Acute Category: Medical Code(s): R09.02 - Hypoxemia (6) COPD (chronic obstructive pulmonary disease): Status: Acute Qualifiers: COPD type: emphysema Emphysema type: panlobular Qualified Code(s): J43.1 - Panlobular emphysema Category: Medical Code(s): J44.9 - Chronic obstructive pulmonary disease, unspecified (7) Lymphoma in remission: Status: Acute Category: Medical Code(s): C85.9A - Non-Hodgkin lymphoma, unspecified, in remission (8) CHF exacerbation: Status: Acute Qualifiers: Heart failure type: systolic Qualified Code(s): I50.23 - Acute on chronic systolic (congestive) heart failure Category: Medical Code(s): I50.9 - Heart failure, unspecified (9) Hypothyroidism: Status: Acute Qualifiers: Hypothyroidism type: postoperative Qualified Code(s): E89.0 - Postprocedural hypothyroidism Category: Medical Code(s): E03.9 - Hypothyroidism, unspecified (10) Hypokalemia: Status: Acute Category: Medical Code(s): E87.6 - Hypokalemia (11) Delirium: Status: Acute Category: Medical Code(s): R41.0 - Disorientation, unspecified Plan Kaur Dan is a 69-year-old female with a history of COPD not on home O2 who presents with shortness of breath, chest pain and admitted for acute hypoxic respiratory failure secondary to COPD exacerbation, mycoplasma pneumonia, A-fib RVR. Of note, her from COVID-19 at home just prior to admission. Patient has been sick for at least 2 weeks prior to admission. Showing very slow improvement. Continues to require inpatient management, stepdown level of care. CTA of chest yesterday with no PE. Looking better today. Weaning oxygen delivery method. Anticipate discharge in the coming days. Problems addressed as follows: #Acute hypoxic respiratory failure #Acute COPD exacerbation #Sepsis #Community-acquired pneumonia #Chronic pulmonary arterial hypertension ? Discussed case with pulmonology, recommend weaning to high flow nasal cannula off Vapotherm. Tolerating 8 L this morning. Overall doing well. -White count increased again today to 25. Patient remains afebrile. No increased cough. Discussed antibiotics with pulmonology, recommends 14 days of antibiotics for MRSA. Will continue vancomycin today, consider transitioning to linezolid 600 mg twice daily tomorrow for ease of transition to oral dosing to complete 14 days total of therapy. -Repeat CBC, CMP, magnesium ordered for the morning. - Continue DuoNebs every 4 hours and Pulmicort twice daily. Methylprednisolone 40 mg IV twice daily. -Kidney function improving with BUN 38, creatinine 0.7. Potassium 3.7, magnesium 2.2. #A-fib versus SVT #RVR resolved QTc prolongation/torsades ? Initial EKG is suggestive of A-fib versus SVT with HR 167 bpm. Converted to NSR with IV diltiazem. ? No plan for intervention at this time from cardiology. ? [id number] score 3 for age, sex, hypertension. ? ECHO reveals normal biventricular function without valvular issues. #Elevated TSH: TSH 16.8, however obtained in acute and severe illness. Can be repeated once more stable. Free T4 normal at 1.6. Continue levothyroxine 100 mcg daily #Restless leg syndrome: Continue home pramipexole. Sleep difficulty. Continue melatonin 5 mg nightly Full code PLOV Cardiac diet
[2024-10-07] MEDS: FAMOTIDINE 20MG TABLET 20 MG PO (20:50)
[2024-10-07] MEDS: MELATONIN 5MG TABLET 5 MG PO (20:50)
[2024-10-08] VITALS (12 sets, daily range): BP systolic 106–179; BP diastolic 50–94; PULSE 60–95; RESP 19–23; TEMP 36.4–36.7; O2SAT 88–94; BMI 22.1
[2024-10-08] MEDS: IPRATROPIUM BROMIDE 0.5 MG/2.5ML SOLUTION IH ×3 (01:50→09:52)
[2024-10-08] MEDS: LEVALBUTEROL 0.63MG/3ML NEB 0.63 MG IH ×3 (01:50→09:52)
[2024-10-08] MEDS: ONDANSETRON 4MG/2ML VIAL 4 MG IV (05:17)
[2024-10-08] MEDS: BUDESONIDE 0.5MG/2ML NEB 0.5 MG IH (06:13)
[2024-10-08 07:08] LABS: Basophils # 0.1 K/mm3 (0-0.2); Basophils % 0.3 % (0.1-2.0); Eosinophils % 0.1 % (0.1-12.0); Hematocrit 39.3 % (37.0-47.0); Hemoglobin 12.6 g/dL (12.2-16.2); Lymphocytes % 6.6 % (10-50); Mean Corpuscular HGB Conc 32.1 g/dL (31.8-35.4); Mean Corpuscular Hemoglobin 26.7 pg (27.0-31.2); Mean Corpuscular Volume 83.3 fl (81-99); Monocytes # 2.4 K/mm3 (0.1-1.0); Monocytes % 8.2 % (1.7-9.3); Neutrophils # 24.7 K/mm3 (1.8-7.8); Platelet Count 373 K/mm3 (142-424); Red Blood Count 4.72 M/mm3 (4.20-5.40); Red Cell Distribution Width 14.2 % (11.5-17.5); White Blood Count 29.8 K/mm3 (4.8-10.8)
[2024-10-08 07:14] LABS: Alanine Aminotransferase 53 U/L (12-78); Albumin Level 3.6 g/dl (3.5-5.0); Albumin/Globulin Ratio 1.6 (1.1-1.8); Alkaline Phosphatase 77 U/L (38-126); Anion Gap 9.6 mEq/L (5-15); Aspartate Amino Transferase 51 U/L (14-36); Bilirubin,Total 1.2 mg/dl (0.2-1.3); Blood Urea Nitrogen 38 mg/dl (7-17); Calcium 9.1 mg/dl (8.4-10.2); Carbon Dioxide 30 mmol/L (22.0-30.0); Chloride 103 mmol/L (98-107); Creatinine Clearance Estimated 51 mL/min (50-200); Estimated Glomerular Filt Rate 83 ml/min (>60); GFR (African American) 100 ML/MIN (>60); Globulin 2.3 g/dL (1.3-3.2); Glucose 73 mg/dl (74-100); Potassium 3.6 mmoL/L (3.5-5.1); Sodium 139 mmol/L (136-145); Total Protein,Serum 5.9 g/dl (6.3-8.2)
[2024-10-08 07:19] LABS: C-Reactive Protein 20.2 mg/L (0-4)
[2024-10-08 07:27] LABS: MANUAL DIFFERENTIAL MANUAL DIFFERENTIAL (MANUAL DIFF)
[2024-10-08 07:45] LABS: Lymphocytes % 9 % (10-50); Monocytes % 1 % (2-9); Neutrophils % 90 % (42-76); Platelet Estimate Normal; Total Cells Counted 100
[2024-10-08 07:46] LABS: Microcytosis 1+
[2024-10-08] MEDS: ARTIFICIAL TEARS SOLN 15ML BOTTLE OP ×4 (07:58→20:44)
[2024-10-08] MEDS: LEVOTHYROXINE 100MCG (0.1MG) TAB 100 MCG PO (07:58)
[2024-10-08] MEDS: ENOXAPARIN 80MG/0.8ML SYRINGE 65 MG SUBCUT ×2 (07:58→20:43)
[2024-10-08] MEDS: ASPIRIN EC 81MG TABLET 81 MG PO (07:58)
[2024-10-08] MEDS: METOPROLOL SUCCINATE XL 50MG TABLET 50 MG PO (07:58)
[2024-10-08 08:05] LABS: Magnesium 2.1 mg/dl (1.6-2.3)
--- NOTE | 2024-10-08 09:46 | P.PN_ITS ---
Subjective *Date: 10/08/24 *Time: 11:09 Interval history: No acute respiratory events overnight. Patient admits continued improvement in her respiratory symptoms. Pulmonology Exam Inpatient Vital signs and Labs for Last 24 Hours: Temp Pulse Resp BP Pulse Ox O2 Del Method O2 Flow Rate 97.8 F 75 21 109/65 L 93 L Nasal Cannula 8 10/08/24 08:00 10/08/24 08:00 10/08/24 08:00 10/08/24 08:00 10/08/24 08:00 10/08/24 08:07 10/08/24 08:07 FiO2 55 10/07/24 10:34 Laboratory Results - last 24 hr 10/07/24 10:54: Urine Color Yellow, Urine Appearance Clear, Urine pH 6.5, Ur Specific [place] 1.020, Urine Protein Negative, Urine Glucose (UA) Negative, Urine Ketones Negative, Urine Blood Negative, Urine Nitrate Negative, Urine Bilirubin Negative, Urine Urobilinogen 0.2, Ur Leukocyte Esterase Negative, Urine RBC Occasional, Urine WBC Occasional, Ur Squamous Epith Cells 5-10, Ur Renal Epithelial Cell Occasional, Urine Bacteria 3+ 10/08/24 05:44: WBC 29.8 H*, RBC 4.72, Hgb 12.6, Hct 39.3, MCV 83.3, MCH 26.7 L, MCHC 32.1, RDW 14.2, Plt Count 373 D, MPV 11.0 H, Neut % (Auto) 83.0 H, Lymph % (Auto) 6.6 L, [place] % (Auto) 8.2, Eos % (Auto) 0.1, Baso % (Auto) 0.3, Neut # (Auto) 24.7 H, Lymph # (Auto) 2.0, [place] # (Auto) 2.4 H, Eos # (Auto) 0.0, Baso # (Auto) 0.1, Total Counted 100, Neutrophils % (Manual) 90 H, Lymphocytes % (Manual) 9 L, Monocytes % (Manual) 1 L, Platelet Estimate Normal, Microcytosis 1+, Sodium 139, Potassium 3.6, Chloride 103, Carbon Dioxide 30, Anion Gap 9.6, BUN 38 H, Creatinine 0.70, Estimated Creat Clear 51, Estimated GFR 83, Est GFR ( Amer) 100, Glucose 73 L, Calcium 9.1, Magnesium 2.1, Total Bilirubin 1.2, AST 51 H, ALT 53, Alkaline Phosphatase 77, C-Reactive Protein 20.2 H D, Total Protein 5.9 L, Albumin 3.6, Globulin 2.3, Albumin/Globulin Ratio 1.6 Temp Pulse Resp BP Pulse Ox O2 Del Method O2 Flow Rate 98.2 F 76 20 159/74 H 91 L Vapotherm 30 09/30/24 08:13 09/30/24 10:07 09/30/24 10:07 09/30/24 10:08 09/30/24 10:07 09/30/24 07:00 09/30/24 07:00 FiO2 60 09/30/24 06:25 Laboratory Results - last 24 hr 09/29/24 06:10: TIBC 240 L, Iron Saturation 9.25096 L, Ferritin 332 H 09/30/24 06:35: WBC 26.8 H* D, RBC 4.90, Hgb 13.3, Hct 40.3, MCV 82.2, MCH 27.1, MCHC 33.0, RDW 14.3, Plt Count 302 D, MPV 10.5 H, Neut % (Auto) 94.1 H, Lymph % (Auto) 1.7 L, [place] % (Auto) 3.5, Eos % (Auto) 0.0 L, Baso % (Auto) 0.2, Neut # (Auto) 25.2 H, Lymph # (Auto) 0.5 L, [place] # (Auto) 0.9, Eos # (Auto) 0.0, Baso # (Auto) 0.1, Total Counted 100, Neutrophils % (Manual) 95 H, Lymphocytes % (Manual) 4 L, Monocytes % (Manual) 1 L, Platelet Estimate Normal, RBC Morphology Normal, Sodium 136, Potassium 4.3, Chloride 100, Carbon Dioxide 29, Anion Gap 11.3, BUN 29 H D, Creatinine 0.80, Estimated Creat Clear 54, Estimated GFR 71, Est GFR ( Amer) 86, Glucose 119 H, Lactate 0.9, Calcium 9.3, Phosphorus 3.7, Magnesium 2.4 H D, Total Bilirubin 0.7, AST 31, ALT 25, Alkaline Phosphatase 115, Total Protein 6.5, Albumin 3.6 D, Globulin 2.9, Albumin/[place] bulin Ratio 1.2, Free T4 1.65 09/30/24 08:11: VBG pH 7.40, VBG pCO2 44.6, VBG pO2 37.3, VBG HCO3 26.8, VBG Total CO2 28.1 H, VBG O2 Saturation 74.0 H, VBG Base Excess 1.9, VBG Lactic Acid 2.2 H I & O for Labs for Last 24 Hours: Intake & Output 10/05/24 10/06/24 10/07/24 10/08/24 23:59 23:59 23:59 23:59 Intake Total 1890 / 2390 1345 / 1345 1480 / 1970 610 / 610 Output Total 1700 / 1700 900 / 900 700 / 700 0 / 0 Balance 190 / 690 445 / 445 780 / 1270 610 / 610 Weight 138 lb 138 lb 137 lb 14.4 oz 132 lb 14.4 oz Intake & Output 09/27/24 09/28/24 09/29/24 09/30/24 23:59 23:59 23:59 23:59 Intake Total 1245 / 1345 590 / 590 Output Total 1100 / 1100 Balance 145 / 245 590 / 590 Weight 140 lb 150 lb 5 oz 141 lb 4.8 oz Microbiology Reports for the Last 24 Hours: Microbiology 10/07/24 11:07 Sputum - Expectorated Sputum Gram Stain - Final 10/07/24 11:07 Sputum - Expectorated Sputum Sputum Culture - Preliminary Microbiology 09/29/24 12:21 Sputum - Expectorated Sputum Gram Stain - Final 09/29/24 12:21 Sputum - Expectorated Sputum Sputum Culture - Preliminary 09/28/24 22:55 Blood Blood Culture - Preliminary NO GROWTH AFTER 24 HOURS Constitutional: Present severe distress Head: Present normocephalic and atraumatic ENT: Present normal exam, normal oropharynx and mucous membranes moist Neck: Present normal inspection and full ROM Respiratory: Present prolonged expiratory phase, respiratory distress, rhonchi and wheezes; Absent able to speak in complete sentences Cardiac: Present S1/S2, Tachycardia and radial pulses present GI: Present soft and distention; Absent tenderness or guarding Rectal (female): Present deferred (female): Present deferred Skin: Present intact; Absent cyanosis or jaundice Neuro: Present alert, awake and oriented x 3 Extremities: Present normal inspection; Absent clubbing or cyanosis Psychiatric: Present normal affect and cooperative Assessment and Plan *Assessment and plan (1) COPD (chronic obstructive pulmonary disease): Status: Acute Qualifiers: COPD type: emphysema Emphysema type: panlobular Qualified Code(s): J43.1 - Panlobular emphysema Category: Medical Code(s): J44.9 - Chronic obstructive pulmonary disease, unspecified (2) Left lower lobe pneumonia: Status: Acute Qualifiers: Pneumonia type: due to unspecified organism Qualified Code(s): J18.9 - Pneumonia, unspecified organism Category: Medical Code(s): J18.9 - Pneumonia, unspecified organism (3) Acute hypoxemic respiratory failure: Status: Acute Category: Medical Code(s): J96.01 - Acute respiratory failure with hypoxia Plan Mr. Dan is a 69-year-old female presented to the ER with worsening respiratory distress needing high flow nasal oxygen supplementation pulmonary was called for further evaluation and management. Admits sick contact for COVID-19 pneumonia. CTA upon admission no evidence of pulmonary embolism. Diffuse centrilobular emphysematous changes. Left lower lobe lobar pneumonia noted. COVID-19 and flu PCR panel upon admission negative. Mycoplasma pneumonia positive. Receiving ceftriaxone and azithromycin. Worsening leukocytosis. On high flow nasal cannula. Prelim sputum cultures gram-negative rods. Continue to receive cefepime and vancomycin. CRP elevated at 216.1, improving now at 52.1 Sputum cultures growing Staph aureus MRSA. CTA bilateral lower lobe airspace disease left greater than right. Bilateral small effusions left greater than right. Left lingular opacity also noted. The left lingula and right lower lobe airspace disease were new from her admission CT scan. Procalcitonin from this morning within normal limits. CRP improving. Chest x-ray 10/07/2024 stable airspace disease with stable left effusion. Interval update: No acute respiratory vents overnight. Tolerating well on 8 L nasal cannula, weaned to 4 to 6 L this morning. Continued worsening leukocytosis. CRP relatively stable at 15 today. Patient continued to have small left pleural effusion on her x-ray that appeared to be relatively stable. There is a remote possibility of this effusion being empyema leading to worsening leukocytosis. Follow-up chest x-rays the effusion appeared to be remained stable. Will follow-up with ultrasound of the chest. Blood and urine cultures pending. Plan: Continue nasal cannula oxygen supplementation to maintain O2 saturation of 90% and Continue linezolid to complete total of 14-day course including her vancomycin course Nystatin for oral thrush Itraconazole 200 mg twice daily pending final sputum culture Trelegy 100 inhaler Thank you for involving pulmonary in this patient care. Will continue to follow.
[2024-10-08] MEDS: MAGIC MOUTHWASH 300ML BOTTLE 15 ML PO ×4 (10:33→20:45)
[2024-10-08] MEDS: levoFLOXacin 750 MG TABLET PO (10:33)
--- NOTE | 2024-10-08 10:49 | US_ITS ---
FINAL REPORT CLINICAL HISTORY: Pleural effusion FINDINGS: Limited sonographic images of the chest were obtained. There is a small left pleural effusion which does not appear particularly loculated. IMPRESSION: Small pleural effusion. Reviewed, Interpreted and Dictated by Charmaine Peacock MD Transcribed by Jessenia Raines Authenticated and [facility]
[2024-10-08] MEDS: ITRACONAZOLE 100MG CAPSULE 200 MG PO ×2 (11:50→20:43)
[2024-10-08] MEDS: LINEZOLID 600 MG/300 ML IV.SOLN 300 MG IV ×2 (11:51→22:54)
[2024-10-08] MEDS: NYSTATIN SUSP 500,000 UNITS/5ML UDC 500000 UNIT PO ×3 (11:52→20:43)
[2024-10-08] MEDS: ACETAMINOPHEN 325MG TAB 650 MG PO ×3 (12:36→22:50)
--- NOTE | 2024-10-08 16:08 | PC.NURSE ---
Aox 4, up with assistance times one, 02-8L HF nc sats 88-91%, 18g R AC SL, consults to PT, OT, Cardiology, and Pulmonary.
[2024-10-08] MEDS: FAMOTIDINE 20MG TABLET 20 MG PO (20:43)
[2024-10-08] MEDS: MELATONIN 5MG TABLET 5 MG PO (20:43)
--- NOTE | 2024-10-08 21:26 | P.PN_ITS ---
Subjective *Date: 10/08/24 *Time: 21:26 Exam Data for Last 24 hours Vital signs and Labs for Last 24 Hours: Temp Pulse Resp BP Pulse Ox O2 Del Method O2 Flow Rate 97.9 F 70 20 122/66 91 L Nasal Cannula 8 10/08/24 16:00 10/08/24 16:00 10/08/24 16:00 10/08/24 16:00 10/08/24 16:00 10/08/24 18:09 10/08/24 18:09 FiO2 55 10/07/24 10:34 Laboratory Results - last 24 hr 10/08/24 05:44: WBC 29.8 H*, RBC 4.72, Hgb 12.6, Hct 39.3, MCV 83.3, MCH 26.7 L, MCHC 32.1, RDW 14.2, Plt Count 373 D, MPV 11.0 H, Neut % (Auto) 83.0 H, Lymph % (Auto) 6.6 L, [place] % (Auto) 8.2, Eos % (Auto) 0.1, Baso % (Auto) 0.3, Neut # (Auto) 24.7 H, Lymph # (Auto) 2.0, [place] # (Auto) 2.4 H, Eos # (Auto) 0.0, Baso # (Auto) 0.1, Total Counted 100, Neutrophils % (Manual) 90 H, Lymphocytes % (Manual) 9 L, Monocytes % (Manual) 1 L, Platelet Estimate Normal, Microcytosis 1+, Sodium 139, Potassium 3.6, Chloride 103, Carbon Dioxide 30, Anion Gap 9.6, BUN 38 H, Creatinine 0.70, Estimated Creat Clear 51, Estimated GFR 83, Est GFR ( Amer) 100, Glucose 73 L, Calcium 9.1, Magnesium 2.1, Total Bilirubin 1.2, AST 51 H, ALT 53, Alkaline Phosphatase 77, C-Reactive Protein 20.2 H D, Total Protein 5.9 L, Albumin 3.6, Globulin 2.3, Albumin/Globulin Ratio 1.6 I & O for Last 24 hours: Intake & Output 10/05/24 10/06/24 10/07/24 10/08/24 23:59 23:59 23:59 23:59 Intake Total 1890 / 2390 1345 / 1345 1480 / 1970 1540 / 1540 Output Total 1700 / 1700 900 / 900 700 / 700 Balance 190 / 690 445 / 445 780 / 1270 1539 / 1539 Weight 62.596 kg 62.596 kg 62.55 kg 60.282 kg Microbiology Reports for the Last 24 Hours: Microbiology 10/07/24 10:28 Blood Blood Culture - Preliminary NO GROWTH AFTER 24 HOURS 10/07/24 10:18 Blood Blood Culture - Preliminary NO GROWTH AFTER 24 HOURS 10/07/24 11:07 Sputum - Expectorated Sputum Gram Stain - Final 10/07/24 11:07 Sputum - Expectorated Sputum Sputum Culture - Preliminary Constitutional Constitutional: no acute distress *Routine HEENT Exam Head: Present normocephalic Eye: Present EOMI and PERRL ENT: Present mucous membranes moist *Routine Neck Exam Neck: Present supple; Absent lymphadenopathy *Routine Respiratory Exam Respiratory: Present CTA bilaterally *Routine Cardiovascular Exam Cardiovascular: Present RRR *Routine Abdominal Exam Abdominal: Present soft and normoactive bowel sounds; Absent tenderness *Routine Extremities Exam Extremities: Absent cyanosis, clubbing or edema *Routine Skin Exam Skin: Present warm; Absent rash *Routine Neurological Exam Neurological: Present alert and oriented X3 Assessment and Plan *Assessment and plan (1) Acute hypoxemic respiratory failure: Status: Acute Category: Medical Code(s): J96.01 - Acute respiratory failure with hypoxia (2) Atrial fibrillation with controlled ventricular rate: Status: Acute Category: Medical Code(s): I48.91 - Unspecified atrial fibrillation (3) Left lower lobe pneumonia: Status: Acute Qualifiers: Pneumonia type: due to unspecified organism Qualified Code(s): J18.9 - Pneumonia, unspecified organism Category: Medical Code(s): J18.9 - Pneumonia, unspecified organism (4) Viral upper respiratory illness: Status: Acute Category: Medical Code(s): J06.9 - Acute upper respiratory infection, unspecified (5) Oxygen deficiency: Status: Acute Category: Medical Code(s): R09.02 - Hypoxemia (6) COPD (chronic obstructive pulmonary disease): Status: Acute Qualifiers: COPD type: emphysema Emphysema type: panlobular Qualified Code(s): J43.1 - Panlobular emphysema Category: Medical Code(s): J44.9 - Chronic obstructive pulmonary disease, unspecified (7) Lymphoma in remission: Status: Acute Category: Medical Code(s): C85.9A - Non-Hodgkin lymphoma, unspecified, in remission (8) CHF exacerbation: Status: Acute Qualifiers: Heart failure type: systolic Qualified Code(s): I50.23 - Acute on chronic systolic (congestive) heart failure Category: Medical Code(s): I50.9 - Heart failure, unspecified (9) Hypothyroidism: Status: Acute Qualifiers: Hypothyroidism type: postoperative Qualified Code(s): E89.0 - Postprocedural hypothyroidism Category: Medical Code(s): E03.9 - Hypothyroidism, unspecified (10) Hypokalemia: Status: Acute Category: Medical Code(s): E87.6 - Hypokalemia (11) Delirium: Status: Acute Category: Medical Code(s): R41.0 - Disorientation, unspecified Plan Kaur Dan is a 69-year-old female with a history of COPD not on home O2 who presents with shortness of breath, chest pain and admitted for acute hypoxic respiratory failure secondary to COPD exacerbation, mycoplasma pneumonia, A-fib RVR. Of note, her from COVID-19 at home just prior to admission. Patient has been sick for at least 2 weeks prior to admission. Showing very slow improvement. Continues to require inpatient management, stepdown level of care. CTA of chest yesterday with no PE. Looking better today. Weaning oxygen delivery method. Anticipate discharge in the coming days. Problems addressed as follows: #Acute hypoxic respiratory failure #Acute COPD exacerbation #Sepsis #Community-acquired pneumonia #Chronic pulmonary arterial hypertension ? Discussed case with pulmonology, recommend weaning to high flow nasal cannula off Vapotherm. Tolerating 8 L this morning. Overall doing well. -White count increased again today to 29.8. Patient remains afebrile. No increased cough. Discussed antibiotics with pulmonology, recommends 14 days of antibiotics for MRSA. Will continue vancomycin today, consider transitioning to linezolid 600 mg twice daily tomorrow for ease of transition to oral dosing to complete 14 days total of therapy. - Started levofloxicin due to worsening WBC. Pulm start itraconazole pending sputum cultures. -Repeat CBC, CMP, magnesium ordered for the morning. - Continue DuoNebs every 4 hours and Pulmicort twice daily. Methylprednisolone 40 mg IV twice daily. -Kidney function improving with BUN 38, creatinine 0.7. Potassium 3.7, magnesium 2.2. #A-fib versus SVT #RVR resolved QTc prolongation/torsades ? Initial EKG is suggestive of A-fib versus SVT with HR 167 bpm. Converted to NSR with IV diltiazem. ? No plan for intervention at this time from cardiology. ? [id number] score 3 for age, sex, hypertension. ? ECHO reveals normal biventricular function without valvular issues. - Plan to switch to Eliquis tomorrow from lovenox. #Elevated TSH: TSH 16.8, however obtained in acute and severe illness. Can be repeated once more stable. Free T4 normal at 1.6. Continue levothyroxine 100 mcg daily #Restless leg syndrome: Continue home pramipexole. Sleep difficulty. Continue melatonin 5 mg nightly Full code PLOV Cardiac diet
--- NOTE | 2024-10-08 23:50 | PC.NURSE ---
Pt was sleeping, went in to start IV medication, patient woke up slightly confused, but has reoriented to normal, pt states she thinks she woke up scared due to lack of sleep, also states she is cold, temperature increased in room and warm blanket applied.
[2024-10-09] VITALS (8 sets, daily range): BP systolic 119–160; BP diastolic 46–69; PULSE 60–89; RESP 18–25; TEMP 36.3–36.7; O2SAT 90–92; BMI 24.1
[2024-10-09] MEDS: TRAZODONE 50MG TABLET 25 MG PO (00:33)
[2024-10-09 06:19] LABS: Alanine Aminotransferase 39 U/L (12-78); Albumin Level 2.8 g/dl (3.5-5.0); Albumin/Globulin Ratio 1.3 (1.1-1.8); Alkaline Phosphatase 62 U/L (38-126); Aspartate Amino Transferase 28 U/L (14-36); Bilirubin,Total 1.9 mg/dl (0.2-1.3); Blood Urea Nitrogen 25 mg/dl (7-17); Calcium 8.5 mg/dl (8.4-10.2); Carbon Dioxide 29 mmol/L (22.0-30.0); Chloride 103 mmol/L (98-107); Creatinine Clearance Estimated 51 mL/min (50-200); Estimated Glomerular Filt Rate 83 ml/min (>60); GFR (African American) 100 ML/MIN (>60); Globulin 2.2 g/dL (1.3-3.2); Glucose 88 mg/dl (74-100); Sodium 134 mmol/L (136-145)
[2024-10-09] MEDS: FLUTICASONE/UMECLIDIN/VILANTER 100/62.5/25MCG INHALER 1 PUFF IH (06:24)
[2024-10-09] MEDS: LEVOTHYROXINE 100MCG (0.1MG) TAB 100 MCG PO (06:39)
[2024-10-09 06:48] LABS: Anion Gap 5.7 mEq/L (5-15); Potassium 3.7 mmoL/L (3.5-5.1)
[2024-10-09 07:36] LABS: Basophils % 0.1 % (0.1-2.0); Eosinophils # 0.1 K/mm3 (0.0-0.4); Eosinophils % 0.2 % (0.1-12.0); Hematocrit 33.1 % (37.0-47.0); Hemoglobin 10.8 g/dL (12.2-16.2); Lymphocytes # 1.2 K/mm3 (0.7-4.5); Mean Corpuscular HGB Conc 32.6 g/dL (31.8-35.4); Mean Corpuscular Hemoglobin 27.1 pg (27.0-31.2); Mean Corpuscular Volume 83.2 fl (81-99); Mean Platelet Volume 11.5 fl (7.4-10.4); Monocytes # 2.8 K/mm3 (0.1-1.0); Monocytes % 11.3 % (1.7-9.3); Neutrophils # 20.3 K/mm3 (1.8-7.8); Neutrophils % 82.2 % (37.0-80.0); Platelet Count 274 K/mm3 (142-424); Red Blood Count 3.98 M/mm3 (4.20-5.40); Red Cell Distribution Width 14.2 % (11.5-17.5); White Blood Count 24.6 K/mm3 (4.8-10.8)
[2024-10-09 07:54] LABS: MANUAL DIFFERENTIAL MANUAL DIFFERENTIAL (MANUAL DIFF)
[2024-10-09] MEDS: ENOXAPARIN 80MG/0.8ML SYRINGE 65 MG SUBCUT ×2 (08:19→21:29)
[2024-10-09] MEDS: NYSTATIN SUSP 500,000 UNITS/5ML UDC 500000 UNIT PO ×4 (08:19→21:29)
[2024-10-09] MEDS: METOPROLOL SUCCINATE XL 50MG TABLET 50 MG PO (08:19)
[2024-10-09] MEDS: ITRACONAZOLE 100MG CAPSULE 200 MG PO ×2 (08:19→21:29)
[2024-10-09] MEDS: MAGIC MOUTHWASH 300ML BOTTLE 15 ML PO ×4 (08:19→21:30)
[2024-10-09] MEDS: ARTIFICIAL TEARS SOLN 15ML BOTTLE OP ×4 (08:19→21:29)
[2024-10-09] MEDS: ASPIRIN EC 81MG TABLET 81 MG PO (08:19)
[2024-10-09 08:23] LABS: Lymphocytes % 10 % (10-50); Monocytes % 8 % (2-9); Neutrophils % 82 % (42-76); Platelet Estimate Normal; RBC Morphology Normal; Total Cells Counted 100
--- NOTE | 2024-10-09 09:51 | P.PN_ITS ---
Subjective *Date: 10/09/24 *Time: 11:53 Interval history: No acute respiratory vents overnight. Patient denies any new respiratory complaints. Pulmonology Exam Inpatient Vital signs and Labs for Last 24 Hours: Temp Pulse Resp BP Pulse Ox O2 Del Method O2 Flow Rate 97.4 F L 72 22 132/54 L 90 L Nasal Cannula 10 10/09/24 04:00 10/09/24 08:00 10/09/24 08:00 10/09/24 08:00 10/09/24 08:00 10/09/24 08:00 10/09/24 08:00 FiO2 55 10/07/24 10:34 Laboratory Results - last 24 hr 10/07/24 10:54: Urine Color Yellow, Urine Appearance Clear, Urine pH 6.5, Ur Specific [place] 1.020, Urine Protein Negative, Urine Glucose (UA) Negative, Urine Ketones Negative, Urine Blood Negative, Urine Nitrate Negative, Urine Bilirubin Negative, Urine Urobilinogen 0.2, Ur Leukocyte Esterase Negative, Urine RBC Occasional, Urine WBC Occasional, Ur Squamous Epith Cells 5-10, Ur Renal Epithelial Cell Occasional, Urine Bacteria 3+ 10/09/24 05:46: WBC 24.6 H*, RBC 3.98 L, Hgb 10.8 L, Hct 33.1 L, MCV 83.2, MCH 27.1, MCHC 32.6, RDW 14.2, Plt Count 274 D, MPV 11.5 H, Neut % (Auto) 82.2 H, Lymph % (Auto) 5.0 L, [place] % (Auto) 11.3 H, Eos % (Auto) 0.2, Baso % (Auto) 0.1, Neut # (Auto) 20.3 H, Lymph # (Auto) 1.2, [place] # (Auto) 2.8 H, Eos # (Auto) 0.1, Baso # (Auto) 0.0, Total Counted 100, Neutrophils % (Manual) 82 H, Lymphocytes % (Manual) 10, Monocytes % (Manual) 8, Platelet Estimate Normal, RBC Morphology Normal, Sodium 134 L, Potassium 3.7, Chloride 103, Carbon Dioxide 29, Anion Gap 5.7, BUN 25 H D, Creatinine 0.70, Estimated Creat Clear 51, Estimated GFR 83, Est GFR ( Amer) 100, Glucose 88, Calcium 8.5, Total Bilirubin 1.9 H, AST 28 D, ALT 39 D, Alkaline Phosphatase 62, Total Protein 5.0 L, Albumin 2.8 L D, Globulin 2.2, Albumin/Globulin Ratio 1.3 Temp Pulse Resp BP Pulse Ox O2 Del Method O2 Flow Rate 98.2 F 76 20 159/74 H 91 L Vapotherm 30 09/30/24 08:13 09/30/24 10:07 09/30/24 10:07 09/30/24 10:08 09/30/24 10:07 09/30/24 07:00 09/30/24 07:00 FiO2 60 09/30/24 06:25 Laboratory Results - last 24 hr 09/29/24 06:10: TIBC 240 L, Iron Saturation 9.02531 L, Ferritin 332 H 09/30/24 06:35: WBC 26.8 H* D, RBC 4.90, Hgb 13.3, Hct 40.3, MCV 82.2, MCH 27.1, MCHC 33.0, RDW 14.3, Plt Count 302 D, MPV 10.5 H, Neut % (Auto) 94.1 H, Lymph % (Auto) 1.7 L, [place] % (Auto) 3.5, Eos % (Auto) 0.0 L, Baso % (Auto) 0.2, Neut # (Auto) 25.2 H, Lymph # (Auto) 0.5 L, [place] # (Auto) 0.9, Eos # (Auto) 0.0, Baso # (Auto) 0.1, Total Counted 100, Neutrophils % (Manual) 95 H, Lymphocytes % (Manual) 4 L, Monocytes % (Manual) 1 L, Platelet Estimate Normal, RBC Morphology Normal, Sodium 136, Potassium 4.3, Chloride 100, Carbon Dioxide 29, Anion Gap 11.3, BUN 29 H D, Creatinine 0.80, Estimated Creat Clear 54, Estimated GFR 71, Est GFR ( Amer) 86, Glucose 119 H, Lactate 0.9, Calcium 9.3, Phosphorus 3.7, Magnesium 2.4 H D, Total Bilirubin 0.7, AST 31, ALT 25, Alkaline Phosphatase 115, Total Protein 6.5, Albumin 3.6 D, Globulin 2.9, Albumin/Globulin Ratio 1.2, Free T4 1.65 09/30/24 08:11: VBG pH 7.40, VBG pCO2 44.6, VBG pO2 37.3, VBG HCO3 26.8, VBG Total CO2 28.1 H, VBG O2 Saturation 74.0 H, VBG Base Excess 1.9, VBG Lactic Acid 2.2 H I & O for Labs for Last 24 Hours: Intake & Output 10/06/24 10/07/24 10/08/24 10/09/24 23:59 23:59 23:59 23:59 Intake Total 1345 / 1345 1480 / 1970 2140 / 2140 270 / 270 Output Total 900 / 900 700 / 700 Balance 445 / 445 780 / 1270 2139 / 2139 270 / 270 Weight 138 lb 137 lb 14.4 oz 132 lb 14.4 oz 145 lb Intake & Output 09/27/24 09/28/24 09/29/24 09/30/24 23:59 23:59 23:59 23:59 Intake Total 1245 / 1345 590 / 590 Output Total 1100 / 1100 Balance 145 / 245 590 / 590 Weight 140 lb 150 lb 5 oz 141 lb 4.8 oz Microbiology Reports for the Last 24 Hours: Microbiology 10/07/24 10:54 Urine,Clean Catch Urine Culture - Final No growth. 10/07/24 11:07 Sputum - Expectorated Sputum Gram Stain - Final 10/07/24 11:07 Sputum - Expectorated Sputum Sputum Culture - Preliminary Gram Positive Cocci 10/07/24 10:28 Blood Blood Culture - Preliminary NO GROWTH AFTER 24 HOURS 10/07/24 10:18 Blood Blood Culture - Preliminary NO GROWTH AFTER 24 HOURS Microbiology 09/29/24 12:21 Sputum - Expectorated Sputum Gram Stain - Final 09/29/24 12:21 Sputum - Expectorated Sputum Sputum Culture - Preliminary 09/28/24 22:55 Blood Blood Culture - Preliminary NO GROWTH AFTER 24 HOURS Constitutional: Present severe distress Head: Present normocephalic and atraumatic ENT: Present normal exam, normal oropharynx and mucous membranes moist Neck: Present normal inspection and full ROM Respiratory: Present prolonged expiratory phase, respiratory distress, rhonchi and wheezes; Absent able to speak in complete sentences Cardiac: Present S1/S2, Tachycardia and radial pulses present GI: Present soft and distention; Absent tenderness or guarding Rectal (female): Present deferred (female): Present deferred Skin: Present intact; Absent cyanosis or jaundice Neuro: Present alert, awake and oriented x 3 Extremities: Present normal inspection; Absent clubbing or cyanosis Psychiatric: Present normal affect and cooperative Assessment and Plan *Assessment and plan (1) COPD (chronic obstructive pulmonary disease): Status: Acute Qualifiers: COPD type: emphysema Emphysema type: panlobular Qualified Code(s): J43.1 - Panlobular emphysema Category: Medical Code(s): J44.9 - Chronic obstructive pulmonary disease, unspecified (2) Left lower lobe pneumonia: Status: Acute Qualifiers: Pneumonia type: due to unspecified organism Qualified Code(s): J18.9 - Pneumonia, unspecified organism Category: Medical Code(s): J18.9 - Pneumonia, unspecified organism (3) Acute hypoxemic respiratory failure: Status: Acute Category: Medical Code(s): J96.01 - Acute respiratory failure with hypoxia Plan Mr. Dan is a 69-year-old female presented to the ER with worsening res piratory distress needing high flow nasal oxygen supplementation pulmonary was called for further evaluation and management. Admits sick contact for COVID-19 pneumonia. CTA upon admission no evidence of pulmonary embolism. Diffuse centrilobular emphysematous changes. Left lower lobe lobar pneumonia noted. COVID-19 and flu PCR panel upon admission negative. Mycoplasma pneumonia positive. Receiving ceftriaxone and azithromycin. Worsening leukocytosis. On high flow nasal cannula. Prelim sputum cultures gram-negative rods. Continue to receive cefepime and vancomycin. CRP elevated at 216.1, improving now at 52.1 Sputum cultures growing Staph aureus MRSA. CTA bilateral lower lobe airspace disease left greater than right. Bilateral small effusions left greater than right. Left lingular opacity also noted. The left lingula and right lower lobe airspace disease were new from her admission CT scan. Interval update: Chest ultrasound, minimal nonloculated pleural effusion. No need for t horacentesis. Improving leukocytosis Sputum cultures continue to show gram-positive cocci. Currently on linezolid, itraconazole and oral nystatin for thrush. Will discontinue levofloxacin. Plan: Continue nasal cannula oxygen supplementation to maintain O2 saturation of 90% and Continue linezolid to complete total of 14-day course including her vancomycin course Nystatin for oral thrush Itraconazole 200 mg twice daily pending final sputum culture Trelegy 100 inhaler Thank you for involving pulmonary in this patient care. Will continue to follow.
[2024-10-09] MEDS: FUROSEMIDE 40MG/4ML VIAL 40 MG IV (10:14)
[2024-10-09] MEDS: LINEZOLID 600 MG/300 ML IV.SOLN 300 MG IV ×2 (10:14→22:56)
[2024-10-09] MEDS: levoFLOXacin 750 MG TABLET PO (10:15)
--- NOTE | 2024-10-09 10:29 | DIET.NUTRFU ---
Spoke to patient today, her meal intake declined yesterday. Went from 50-75% of meals to 25-0% yesterday. Patient reported thrush, nystatin started. Patient consumed yogurt for breakfast. She reports she dislikes the ensure, willing to try homemade milkshake, notified kitchen. Denies any GI distress. She did report loose bowels yesterday.
[2024-10-09] MEDS: ACETAMINOPHEN 325MG TAB 650 MG PO ×2 (11:45→21:40)
--- NOTE | 2024-10-09 18:34 | EXP.PN ---
Subjective *Date: 10/09/24 *Time: 18:34 Exam Data for Last 24 hours Vital signs and Labs for Last 24 Hours: Temp Pulse Resp BP Pulse Ox O2 Del Method O2 Flow Rate 97.6 F 65 18 119/46 L 92 L Nasal Cannula 10 10/09/24 11:55 10/09/24 16:00 10/09/24 16:00 10/09/24 11:55 10/09/24 16:00 10/09/24 17:00 10/09/24 17:00 FiO2 55 10/07/24 10:34 Laboratory Results - last 24 hr 10/07/24 10:54: Urine Color Yellow, Urine Appearance Clear, Urine pH 6.5, Ur Specific [place] 1.020, Urine Protein Negative, Urine Glucose (UA) Negative, Urine Ketones Negative, Urine Blood Negative, Urine Nitrate Negative, Urine Bilirubin Negative, Urine Urobilinogen 0.2, Ur Leukocyte Esterase Negative, Urine RBC Occasional, Urine WBC Occasional, Ur Squamous Epith Cells 5-10, Ur Renal Epithelial Cell Occasional, Urine Bacteria 3+ 10/09/24 05:46: WBC 24.6 H*, RBC 3.98 L, Hgb 10.8 L, Hct 33.1 L, MCV 83.2, MCH 27.1, MCHC 32.6, RDW 14.2, Plt Count 274 D, MPV 11.5 H, Neut % (Auto) 82.2 H, Lymph % (Auto) 5.0 L, [place] % (Auto) 11.3 H, Eos % (Auto) 0.2, Baso % (Auto) 0.1, Neut # (Auto) 20.3 H, Lymph # (Auto) 1.2, [place] # (Auto) 2.8 H, Eos # (Auto) 0.1, Baso # (Auto) 0.0, Total Counted 100, Neutrophils % (Manual) 82 H, Lymphocytes % (Manual) 10, Monocytes % (Manual) 8, Platelet Estimate Normal, RBC Morphology Normal, Sodium 134 L, Potassium 3.7, Chloride 103, Carbon Dioxide 29, Anion Gap 5.7, BUN 25 H D, Creatinine 0.70, Estimated Creat Clear 51, Estimated GFR 83, Est GFR ( Amer) 100, Glucose 88, Calcium 8.5, Total Bilirubin 1.9 H, AST 28 D, ALT 39 D, Alkaline Phosphatase 62, Total Protein 5.0 L, Albumin 2.8 L D, Globulin 2.2, Albumin/Globulin Ratio 1.3 I & O for Last 24 hours: Intake & Output 10/06/24 10/07/24 10/08/24 10/09/24 23:59 23:59 23:59 23:59 Intake Total 1345 / 1345 1480 / 1970 2140 / 2140 510 / 510 Output Total 900 / 900 700 / 700 1 / 1 0 / 0 Balance 445 / 445 780 / 1270 2139 / 2139 510 / 510 Weight 62.596 kg 62.55 kg 60.282 kg 65.771 kg Microbiology Reports for the Last 24 Hours: Microbiology 10/07/24 10:28 Blood Blood Culture - Preliminary NO GROWTH AFTER 48 HOURS 10/07/24 10:18 Blood Blood Culture - Preliminary NO GROWTH AFTER 48 HOURS 10/07/24 10:54 Urine,Clean Catch Urine Culture - Final No growth. 10/07/24 11:07 Sputum - Expectorated Sputum Gram Stain - Final 10/07/24 11:07 Sputum - Expectorated Sputum Sputum Culture - Preliminary Gram Positive Cocci Constitutional Constitutional: no acute distress *Routine HEENT Exam Head: Present normocephalic Eye: Present EOMI and PERRL ENT: Present mucous membranes moist *Routine Neck Exam Neck: Present supple; Absent lymphadenopathy *Routine Respiratory Exam Respiratory: Present CTA bilaterally *Routine Cardiovascular Exam Cardiovascular: Present RRR *Routine Abdominal Exam Abdominal: Present soft and normoactive bowel sounds; Absent tenderness *Routine Extremities Exam Extremities: Absent cyanosis, clubbing or edema *Routine Skin Exam Skin: Present warm; Absent rash *Routine Neurological Exam Neurological: Present alert and oriented X3 Assessment and Plan *Assessment and plan (1) Acute hypoxemic respiratory failure: Status: Acute Category: Medical Code(s): J96.01 - Acute respiratory failure with hypoxia (2) Atrial fibrillation with controlled ventricular rate: Status: Acute Category: Medical Code(s): I48.91 - Unspecified atrial fibrillation (3) Viral upper respiratory illness: Status: Acute Category: Medical Code(s): J06.9 - Acute upper respiratory infection, unspecified (4) Oxygen deficiency: Status: Acute Category: Medical Code(s): R09.02 - Hypoxemia (5) COPD (chronic obstructive pulmonary disease): Status: Acute Qualifiers: COPD type: emphysema Emphysema type: panlobular Qualified Code(s): J43.1 - Panlobular emphysema Category: Medical Code(s): J44.9 - Chronic obstructive pulmonary disease, unspecified (6) Lymphoma in remission: Status: Acute Category: Medical Code(s): C85.9A - Non-Hodgkin lymphoma, unspecified, in remission (7) CHF exacerbation: Status: Acute Qualifiers: Heart failure type: systolic Qualified Code(s): I50.23 - Acute on chronic systolic (congestive) heart failure Category: Medical Code(s): I50.9 - Heart failure, unspecified (8) Hypothyroidism: Status: Acute Qualifiers: Hypothyroidism type: postoperative Qualified Code(s): E89.0 - Postprocedural hypothyroidism Category: Medical Code(s): E03.9 - Hypothyroidism, unspecified (9) Hypokalemia: Status: Acute Category: Medical Code(s): E87.6 - Hypokalemia (10) Delirium: Status: Acute Category: Medical Code(s): R41.0 - Disorientation, unspecified Plan Kaur Dan is a 69-year-old female with a history of COPD not on home O2 who presents with shortness of breath, chest pain and admitted for acute hypoxic respiratory failure secondary to COPD exacerbation, mycoplasma pneumonia, A-fib RVR. Of note, her from COVID-19 at home just prior to admission. Patient has been sick for at least 2 weeks prior to admission. Showing very slow improvement. #Acute hypoxic respiratory failure #Acute COPD exacerbation #Sepsis #Community-acquired pneumonia #Chronic pulmonary arterial hypertension ? Discussed case with pulmonology, recommend weaning to high flow nasal cannula off Vapotherm. Requiring little bit more oxygen today, 10 L this morning. Overall doing well though. - WBC down trended to 24.6, first downtrend in 6 days after starting levofloxacin on 10/08/2024. Will continue levofloxacin for now. Will obtain CT abdomen/pelvis to further evaluate for other sources of sepsis. ? Discussed antibiotics with pulmonology, recommends 14 days of antibiotics for MRSA. Continue linezolid 600 mg twice a day. - Repeat CBC, CMP, magnesium ordered for the morning. - Continue DuoNebs every 4 hours and Pulmicort twice daily. Methylprednisolone 40 mg IV twice daily. #A-fib versus SVT #RVR resolved QTc prolongation/torsades ? Initial EKG is suggestive of A-fib versus SVT with HR 167 bpm. Converted to NSR with IV diltiazem. ? No plan for intervention at this time from cardiology. ? [id number] score 3 for age, sex, hypertension. ? ECHO reveals normal biventricular function without valvular issues. - Plan to switch to Eliquis tomorrow from lovenox. #Elevated TSH: TSH 16.8, however obtained in acute and severe illness. Can be repeated once more stable. Free T4 normal at 1.6. Continue levothyroxine 100 mcg daily #Restless leg syndrome: Continue home pramipexole. Sleep difficulty. Continue melatonin 5 mg nightly Full code PLOV Cardiac diet
--- NOTE | 2024-10-09 18:39 | CT_ITS ---
PROCEDURE INFORMATION: Exam: CT Abdomen And Pelvis With Contrast Exam date and time: 10/09/2024 7:01 PM Age: 69 years old Clinical indication: Other: Sepsis; Additional info: Worsening sepsis. TECHNIQUE: Imaging protocol: Computed tomography of the abdomen and pelvis with contrast. Radiation optimization: All CT scans at this facility use at least one of these dose optimization techniques: automated exposure control; mA and/or kV adjustment per patient size (includes targeted exams where dose is matched to clinical indication); or iterative reconstruction. Contrast material: ISOVUE; Contrast volume: 75 ml; Contrast route: IV; COMPARISON: CT ANGIO CHEST PE PROTOCOL 10/05/2024 10:26 AM FINDINGS: Pleural spaces: Moderately large, complex, loculated left pleural effusion scattered air collections. Liver: Normal. No mass. Gallbladder and biliary ducts: Normal. No calcified stones. No ductal dilation. Pancreas: Normal. No ductal dilation. Spleen: Normal. No splenomegaly. Adrenal glands: Normal. No mass. Kidneys and ureters: Normal. No hydronephrosis. Stomach and bowel: Unremarkable. No obstruction. No mucosal thickening. Appendix: Not visualized. Intraperitoneal space: Unremarkable. No free air. No significant fluid collection. Vasculature: Left lower lobar consolidation. Right lower lobar opacity. Atherosclerotic calcification of aortoiliac arteries without aneurysm. Lymph nodes: Unremarkable. No enlarged lymph nodes. Urinary bladder: Unremarkable as visualized. Reproductive: Bilateral tubal ligation clips. Ovaries suboptimally visualized and evaluated. Bones/joints: Unremarkable. No acute fracture. Soft tissues: Unremarkable. IMPRESSION: 1. No acute intra abdominopelvic findings identified. 2. Complex, loculated left pleural effusion with scattered air collection suspicious for evolving empyema. 3. Bilateral lower lobar infectious/inflammatory consolidation and/or atelectasis.
[2024-10-09] MEDS: IOPAMIDOL-370 (76%);100ML BOTTLE 75 ML IV (19:02)
[2024-10-09] MEDS: SODIUM CHLORIDE 0.9% 10ML SYR (RAD ONLY) 10 ML IV (19:02)
[2024-10-09] MEDS: MELATONIN 5MG TABLET 5 MG PO (21:29)
[2024-10-09] MEDS: FAMOTIDINE 20MG TABLET 20 MG PO (21:29)
[2024-10-10] VITALS (8 sets, daily range): BP systolic 97–127; BP diastolic 45–53; PULSE 56–72; RESP 16–24; TEMP 36.4–37; O2SAT 90–93; BMI 23.4
[2024-10-10] MEDS: LEVOTHYROXINE 100MCG (0.1MG) TAB 100 MCG PO (06:13)
[2024-10-10] MEDS: FLUTICASONE/UMECLIDIN/VILANTER 100/62.5/25MCG INHALER 1 PUFF IH (06:43)
--- NOTE | 2024-10-10 06:50 | PC.NURSE ---
Alert and oriented, intermittent confusion, easily reoriented. Uses bedside commode. Respiratory increased O2 to 12L due to patient sitting 84% on 10L. Lung sounds diminished. Sister remained at the bedside. Bed alarm on. Pt complained of back pain 1 time, treated per nov. Call light in reach.
[2024-10-10] MEDS: ENOXAPARIN 80MG/0.8ML SYRINGE 65 MG SUBCUT ×2 (08:17→20:38)
[2024-10-10] MEDS: NYSTATIN SUSP 500,000 UNITS/5ML UDC 500000 UNIT PO ×4 (08:17→20:37)
[2024-10-10] MEDS: ASPIRIN EC 81MG TABLET 81 MG PO (08:17)
[2024-10-10] MEDS: ITRACONAZOLE 100MG CAPSULE 200 MG PO ×2 (08:17→20:38)
[2024-10-10 08:19] LABS: Basophils % 0.1 % (0.1-2.0); Eosinophils # 0.1 K/mm3 (0.0-0.4); Eosinophils % 0.2 % (0.1-12.0); Hematocrit 34.6 % (37.0-47.0); Hemoglobin 11.2 g/dL (12.2-16.2); Lymphocytes # 0.9 K/mm3 (0.7-4.5); Lymphocytes % 3.2 % (10-50); Mean Corpuscular HGB Conc 32.4 g/dL (31.8-35.4); Mean Corpuscular Volume 83.4 fl (81-99); Mean Platelet Volume 10.8 fl (7.4-10.4); Monocytes % 11.1 % (1.7-9.3); Neutrophils # 23.1 K/mm3 (1.8-7.8); Neutrophils % 84.3 % (37.0-80.0); Platelet Count 330 K/mm3 (142-424); Red Blood Count 4.15 M/mm3 (4.20-5.40); Red Cell Distribution Width 14.5 % (11.5-17.5); White Blood Count 27.4 K/mm3 (4.8-10.8)
[2024-10-10] MEDS: MAGIC MOUTHWASH 300ML BOTTLE 15 ML PO ×4 (08:19→20:37)
[2024-10-10 08:20] LABS: MANUAL DIFFERENTIAL MANUAL DIFFERENTIAL (MANUAL DIFF)
[2024-10-10] MEDS: METOPROLOL SUCCINATE XL 25MG TABLET 25 MG PO (08:20)
[2024-10-10 08:26] LABS: Alanine Aminotransferase 31 U/L (12-78); Albumin Level 2.8 g/dl (3.5-5.0); Albumin/Globulin Ratio 1.1 (1.1-1.8); Alkaline Phosphatase 67 U/L (38-126); Anion Gap 7.8 mEq/L (5-15); Aspartate Amino Transferase 21 U/L (14-36); Bilirubin,Total 1.6 mg/dl (0.2-1.3); Blood Urea Nitrogen 25 mg/dl (7-17); Calcium 8.6 mg/dl (8.4-10.2); Carbon Dioxide 31 mmol/L (22.0-30.0); Chloride 98 mmol/L (98-107); Creatinine Clearance Estimated 53 mL/min (50-200); Estimated Glomerular Filt Rate 62 ml/min (>60); GFR (African American) 75 ML/MIN (>60); Globulin 2.5 g/dL (1.3-3.2); Glucose 91 mg/dl (74-100); Magnesium 2.2 mg/dl (1.6-2.3); Potassium 3.8 mmoL/L (3.5-5.1); Sodium 133 mmol/L (136-145); Total Protein,Serum 5.3 g/dl (6.3-8.2)
--- NOTE | 2024-10-10 09:49 | EXP.PULM.PN ---
Subjective *Date: 10/10/24 *Time: 11:02 Interval history: No acute respiratory vents overnight. Patient denies any new respiratory complaints Pulmonology Exam Inpatient Vital signs and Labs for Last 24 Hours: Temp Pulse Resp BP Pulse Ox O2 Del Method O2 Flow Rate 97.5 F L 72 18 97/53 L 92 L Nasal Cannula 12 10/10/24 08:00 10/10/24 08:00 10/10/24 08:00 10/10/24 08:00 10/10/24 08:00 10/10/24 08:00 10/10/24 08:00 FiO2 55 10/07/24 10:34 Laboratory Results - last 24 hr 10/10/24 08:10: WBC 27.4 H*, RBC 4.15 L, Hgb 11.2 L, Hct 34.6 L, MCV 83.4, MCH 27.0, MCHC 32.4, RDW 14.5, Plt Count 330, MPV 10.8 H, Neut % (Auto) 84.3 H, Lymph % (Auto) 3.2 L, [place] % (Auto) 11.1 H, Eos % (Auto) 0.2, Baso % (Auto) 0.1, Neut # (Auto) 23.1 H, Lymph # (Auto) 0.9, [place] # (Auto) 3.0 H, Eos # (Auto) 0.1, Baso # (Auto) 0.0, Sodium 133 L, Potassium 3.8, Chloride 98, Carbon Dioxide 31 H, Anion Gap 7.8, BUN 25 H, Creatinine 0.90 D, Estimated Creat Clear 53, Estimated GFR 62, Est GFR ( Amer) 75 D, Glucose 91, Calcium 8.6, Magnesium 2.2, Total Bilirubin 1.6 H, AST 21, ALT 31, Alkaline Phosphatase 67, Total Protein 5.3 L, Albumin 2.8 L, Globulin 2.5, Albumin/Globulin Ratio 1.1 Temp Pulse Resp BP Pulse Ox O2 Del Method O2 Flow Rate 98.2 F 76 20 159/74 H 91 L Vapotherm 30 09/30/24 08:13 09/30/24 10:07 09/30/24 10:07 09/30/24 10:08 09/30/24 10:07 09/30/24 07:00 09/30/24 07:00 FiO2 60 09/30/24 06:25 Laboratory Results - last 24 hr 09/29/24 06:10: TIBC 240 L, Iron Saturation 9.59015 L, Ferritin 332 H 09/30/24 06:35: WBC 26.8 H* D, RBC 4.90, Hgb 13.3, Hct 40.3, MCV 82.2, MCH 27.1, MCHC 33.0, RDW 14.3, Plt Count 302 D, MPV 10.5 H, Neut % (Auto) 94.1 H, Lymph % (Auto) 1.7 L, [place] % (Auto) 3.5, Eos % (Auto) 0.0 L, Baso % (Auto) 0.2, Neut # (Auto) 25.2 H, Lymph # (Auto) 0.5 L, [place] # (Auto) 0.9, Eos # (Auto) 0.0, Baso # (Auto) 0.1, Total Counted 100, Neutrophils % (Manual) 95 H, Lymphocytes % (Manual) 4 L, Monocytes % (Manual) 1 L, Platelet Estimate Normal, RBC Morphology Normal, Sodium 136, Potassium 4.3, Chloride 100, Carbon Dioxide 29, Anion Gap 11.3, BUN 29 H D, Creatinine 0.80, Estimated Creat Clear 54, Estimated GFR 71, Est GFR ( Amer) 86, Glucose 119 H, Lactate 0.9, Calcium 9.3, Phosphorus 3.7, Magnesium 2.4 H D, Total Bilirubin 0.7, AST 31, ALT 25, Alkaline Phosphatase 115, Total Protein 6.5, Albumin 3.6 D, Globulin 2.9, Albumin/Globulin Ratio 1.2, Free T4 1.65 09/30/24 08:11: VBG pH 7.40, VBG pCO2 44.6, VBG pO2 37.3, VBG HCO3 26.8, VBG Total CO2 28.1 H, VBG O2 Saturation 74.0 H, VBG Base Excess 1.9, VBG Lactic Acid 2.2 H I & O for Labs for Last 24 Hours: Intake & Output 10/07/24 10/08/24 10/09/24 10/10/24 23:59 23:59 23:59 23:59 Intake Total 1480 / 1970 2140 / 2140 750 / 1230 480 / 480 Output Total 700 / 700 1 / 1 0 / 0 200 / 200 Balance 780 / 1270 2139 / 2139 750 / 1230 280 / 280 Weight 137 lb 14.4 oz 132 lb 14.4 oz 145 lb 140 lb 9.6 oz Intake & Output 09/27/24 09/28/24 09/29/24 09/30/24 23:59 23:59 23:59 23:59 Intake Total 1245 / 1345 590 / 590 Output Total 1100 / 1100 Balance 145 / 245 590 / 590 Weight 140 lb 150 lb 5 oz 141 lb 4.8 oz Microbiology Reports for the Last 24 Hours: Microbiology 10/07/24 11:07 Sputum - Expectorated Sputum Gram Stain - Final 10/07/24 11:07 Sputum - Expectorated Sputum Sputum Culture - Preliminary Staphylococcus aureus 10/07/24 10:28 Blood Blood Culture - Preliminary NO GROWTH AFTER 48 HOURS 10/07/24 10:18 Blood Blood Culture - Preliminary NO GROWTH AFTER 48 HOURS 10/07/24 10:54 Urine,Clean Catch Urine Culture - Final No growth. Microbiology 09/29/24 12:21 Sputum - Expectorated Sputum Gram Stain - Final 09/29/24 12:21 Sputum - Expectorated Sputum Sputum Culture - Preliminary 09/28/24 22:55 Blood Blood Culture - Preliminary NO GROWTH AFTER 24 HOURS Constitutional: Present severe distress Head: Present normocephalic and atraumatic ENT: Present normal exam, normal oropharynx and mucous membranes moist Neck: Present normal inspection and full ROM Respiratory: Present prolonged expiratory phase, respiratory distress, rhonchi, wheezes and diminished air movement; Absent able to speak in complete sentences Cardiac: Present S1/S2, Tachycardia and radial pulses present GI: Present soft and distention; Absent tenderness or guarding Rectal (female): Present deferred (female): Present deferred Skin: Present intact; Absent cyanosis or jaundice Neuro: Present alert, awake and oriented x 3 Extremities: Present normal inspection; Absent clubbing or cyanosis Psychiatric: Present normal affect and cooperative Assessment and Plan *Assessment and plan (1) COPD (chronic obstructive pulmonary disease): Status: Acute Qualifiers: COPD type: emphysema Emphysema type: panlobular Qualified Code(s): J43.1 - Panlobular emphysema Category: Medical Code(s): J44.9 - Chronic obstructive pulmonary disease, unspecified (2) Left lower lobe pneumonia: Status: Acute Qualifiers: Pneumonia type: due to unspecified organism Qualified Code(s): J18.9 - Pneumonia, unspecified organism Category: Medical Code(s): J18.9 - Pneumonia, unspecified organism (3) Acute hypoxemic respiratory failure: Status: Acute Category: Medical Code(s): J96.01 - Acute respiratory failure with hypoxia Plan Mr. Dan is a 69-year-old female presented to the ER with worsening respiratory distress needing high flow nasal oxygen supplementation pulmonary was called for further evaluation and management. Admits sick contact for COVID-19 pneumonia. CTA upon admission no evidence of pulmonary embolism. Diffuse centrilobular emphysematous changes. Left lower lobe lobar pneumonia noted. COVID-19 and flu PCR panel upon admission negative. Mycoplasma pneumonia positive. Receiving ceftriaxone and azithromycin. Worsening leukocytosis. On high flow nasal cannula. Prelim sputum cultures gram-negative rods. Continue to receive cefepime and vancomycin. CRP elevated at 216.1, improving now at 52.1 Sputum cultures growing Staph aureus MRSA. CTA bilateral lower lobe airspace disease left greater than right. Bilateral small effusions left greater than right. Left lingular opacity also noted. The left lingula and right lower lobe airspace disease were new from her admission CT scan. Chest ultrasound, minimal nonloculated pleural effusion. Interval update: CT abdomen showed large loculated left pleural effusion. Currently on linezolid, itraconazole and oral nystatin for thrush. Plan: Chest tube placement with possible tPA dornase after reviewing ultrasound imaging Continue nasal cannula oxygen supplementation to maintain O2 saturation of 90% and Continue linezolid to complete total of 14-day course including her vancomycin course Nystatin for oral thrush Itraconazole 200 mg twice daily pending final sputum culture Trelegy 100 inhaler Thank you for involving pulmonary in this patient care. Will continue to follow.
[2024-10-10] MEDS: LINEZOLID 600 MG/300 ML IV.SOLN 300 MG IV ×2 (10:14→23:04)
[2024-10-10] MEDS: levoFLOXacin 750 MG TABLET PO (10:14)
--- NOTE | 2024-10-10 10:31 | US_ITS ---
FINAL REPORT CLINICAL HISTORY: pleural effusions // CHEST TUBE PLACEMENT FINDINGS: Ultrasound guidance thoracentesis History: Pleural effusion Findings: Sonographic guidance was provided for thoracentesis performed by the clinical service. Limited images document a complex septated left pleural effusion. Reportedly chest tube was placed under sonographic guidance with some pleural fluid. IMPRESSION: Sonographic guidance provided during chest tube placement performed by the clinical service Authenticated and ERN
[2024-10-10 11:16] LABS: Lactate Dehydrogenase 277 U/L (313-618)
[2024-10-10 11:35] LABS: Lymphocytes % 10 % (10-50); Monocytes % 1 % (2-9); Neutrophils % 89 % (42-76); Platelet Estimate Normal; RBC Morphology Normal; Total Cells Counted 100
[2024-10-10 14:48] LABS: Appearance,Body Fld. Bloody; Source, Body Fld. Thoracentesis Fluid; Volume,Body Fld. 600 mL
[2024-10-10] MEDS: DORNASE ALFA 1 MG/ML SOLUTION 5 MG IJ (14:48)
[2024-10-10] MEDS: CATHFLO 2MG VIAL 10 MG IJ (14:48)
[2024-10-10 14:51] LABS: RBC,Body Fluid 28000 cells/uL (< 10 X 10^3); TNC,Body Fluid 1583 cells/uL (< 1000)
[2024-10-10 15:37] LABS: Mononuclear WBCs,Body Fluid 13 %; Polynuclear WBC,Body Fluid 87 %
--- NOTE | 2024-10-10 16:24 | XR_ITS ---
PROCEDURE INFORMATION: Exam: XR Chest Exam date and time: 10/10/2024 4:37 PM Age: 69 years old Clinical indication: Device placement; Chest tube; Other: Increase o2 needs TECHNIQUE: Imaging protocol: Radiologic exam of the chest. Views: 1 view. COMPARISON: 1. CR XR CHEST PORTABLE 10/07/2024 10:[address] ABDOMEN PELVIS W CON 10/09/2024 7:01 PM FINDINGS: Tubes, catheters and devices: Interval placement of a drainage catheter into the loculated left lower hemithorax pleural effusion since CT abdomen of 10/09/2024. The size of the pleural effusion appears increased compared to chest x-ray 10/07/2024. Associated opacification of the lower 1/2 of the left hemithorax also increased in the interval. No evident pneumothorax. Right lung and costophrenic angle are clear. Lungs: See Tubes, catheters and devices finding. Pleural spaces: See Tubes, catheters and devices finding. Heart/Mediastinum: Unremarkable. No cardiomegaly. Bones/joints: Unremarkable. IMPRESSION: Drainage catheter placement on the left. Moderate size loculated left pleural effusion and associated opacification of the left mid lower lung field that may reflect atelectasis or consolidation with interval increase compared to chest x-ray 10/07/2024 but appears similar to the CT abdomen online marketing analyst film of 10/09/2024.
[2024-10-10] MEDS: ACETAMINOPHEN 325MG TAB 650 MG PO (17:22)
--- NOTE | 2024-10-10 17:36 | PC.NURSE ---
PT IS RESTING IN BED WITH FAMILY AT BEDSIDE. PT STATES SHE IS NOT FEELING WELL TODAY. TOLERATED CHEST TUBE PLACEMENT WELL THIS SHIFT. AFTER TUBE WAS PLACED HIGH FLOW OXYGEN WAS ABLE TO DECREASED FROM 12 TO 8 L. O2 SATURATION MAINTAINED 90-94% FOR A COUPLE OF HOURS ON 8 L. AT 1600 PT DESAT TO 85% AND MAINTAINED FOR SEVERAL MINUTES. O2 INCREASED TO 10 L HOWEVER PT WAS UNABLE TO KEEP SAT ABOVE 87%. O2 INCREASED TO 12 L. NOTIFIED. STAT CXR ORDERED. PT REPOSITIONED IN BED. CHEST TUBE @ 20 CM H20 LOW WALL CONTINUOUS SUCTION. 570 ML'S OF DRAINAGE NOTED. AFTER CXR O2 SATURATION MAINTAINING 88-89% ON 12 L. O2 INCREASED TO 13 L. SATURATION 90-92%. NOTIFIED AND STATED TO LEAVE PT AT 13 L FOR NOW AND IF PT CONTINUES TO DESAT TO PUT PT ON 100%NON REBREATHER AND TO NOTIFY HIM. PT MEDICATED PER NOV FOR BACK PAIN. LUNG SOUNDS DIMINISHED. WILL CONTINUE TO MONITOR.
[2024-10-10] MEDS: HYDROCODONE 10MG/APAP 325MG TAB 1 TAB PO (19:53)
[2024-10-10] MEDS: MELATONIN 5MG TABLET 5 MG PO (20:37)
[2024-10-10] MEDS: FAMOTIDINE 20MG TABLET 20 MG PO (20:37)
--- NOTE | 2024-10-10 22:00 | XR_ITS ---
PROCEDURE INFORMATION: Exam: XR Chest Exam date and time: 10/10/2024 10:53 PM Age: 69 years old Clinical indication: Shortness of breath; Additional info: Increase o2 need TECHNIQUE: Imaging protocol: Radiologic exam of the chest. Views: 1 view. COMPARISON: CR XR CHEST PORTABLE 10/10/2024 4:37 PM FINDINGS: Lungs: See Pleural spaces finding. Pleural spaces: Moderate size left pleural effusion and associated opacification of the lower 1/2 of the left hemithorax redemonstrated with mild improvement in the left effusion in the interval. Stable position of the drainage catheter. Lungs are otherwise clear. Heart/Mediastinum: Unremarkable. No cardiomegaly. Bones/joints: Unremarkable. IMPRESSION: Moderate left effusion with associated opacification compatible with effusion and atelectasis or consolidation. Slight interval decrease in the left effusion.
--- NOTE | 2024-10-10 22:00 | P.PN_ITS ---
Subjective *Date: 10/10/24 *Time: 22:02 Exam Data for Last 24 hours Vital signs and Labs for Last 24 Hours: Temp Pulse Resp BP Pulse Ox O2 Del Method O2 Flow Rate 98.6 F 65 16 99/45 L 93 L Vapotherm 10 10/10/24 20:00 10/10/24 20:00 10/10/24 20:00 10/10/24 20:00 10/10/24 20:00 10/10/24 21:00 10/10/24 20:00 FiO2 55 10/07/24 10:34 Laboratory Results - last 24 hr 10/10/24 08:10: WBC 27.4 H*, RBC 4.15 L, Hgb 11.2 L, Hct 34.6 L, MCV 83.4, MCH 27.0, MCHC 32.4, RDW 14.5, Plt Count 330, MPV 10.8 H, Neut % (Auto) 84.3 H, Lymph % (Auto) 3.2 L, [place] % (Auto) 11.1 H, Eos % (Auto) 0.2, Baso % (Auto) 0.1, Neut # (Auto) 23.1 H, Lymph # (Auto) 0.9, [place] # (Auto) 3.0 H, Eos # (Auto) 0.1, Baso # (Auto) 0.0, Total Counted 100, Neutrophils % (Manual) 89 H, Lymphocytes % (Manual) 10, Monocytes % (Manual) 1 L, Platelet Estimate Normal, RBC Morphology Normal, Sodium 133 L, Potassium 3.8, Chloride 98, Carbon Dioxide 31 H, Anion Gap 7.8, BUN 25 H, Creatinine 0.90 D, Estimated Creat Clear 53, Estimated GFR 62, Est GFR ( Amer) 75 D, Glucose 91, Calcium 8.6, Magnesium 2.2, Total Bilirubin 1.6 H, AST 21, ALT 31, Alkaline Phosphatase 67, Lactate Dehydrogenase 277 L, Total Protein 5.3 L, Albumin 2.8 L, Globulin 2.5, Albumin/Globulin Ratio 1.1 10/10/24 12:40: Fluid Source Thoracentesis fluid, Fluid Volume 600, Fluid Appearance Bloody, Fluid RBC (Auto) 19439, Fld Tot Nucleated Cell 1583, Fld Polynuclear WBCs % 87, Fld Mononuclear WBCs % 13 I & O for Last 24 hours: Intake & Output 10/07/24 10/08/24 10/09/24 10/10/24 23:59 23:59 23:59 23:59 Intake Total 1480 / 1970 2140 / 2140 750 / 1230 1330 / 1330 Output Total 700 / 700 1 / 0 / 0 770 / 770 Balance 780 / 1270 2139 / 2139 750 / 1230 560 / 560 Weight 62.55 kg 60.282 kg 65.771 kg 63.775 kg Microbiology Reports for the Last 24 Hours: Microbiology 10/07/24 11:07 Sputum - Expectorated Sputum Gram Stain - Final 10/07/24 11:07 Sputum - Expectorated Sputum Sputum Culture - Preliminary Staphylococcus aureus Constitutional Constitutional: no acute distress *Routine HEENT Exam Head: Present normocephalic Eye: Present EOMI and PERRL ENT: Present mucous membranes moist *Routine Neck Exam Neck: Present supple; Absent lymphadenopathy *Routine Respiratory Exam Respiratory: Present CTA bilaterally *Routine Cardiovascular Exam Cardiovascular: Present RRR *Routine Abdominal Exam Abdominal: Present soft and normoactive bowel sounds; Absent tenderness *Routine Extremities Exam Extremities: Absent cyanosis, clubbing or edema *Routine Skin Exam Skin: Present warm; Absent rash *Routine Neurological Exam Neurological: Present alert and oriented X3 Assessment and Plan *Assessment and plan (1) Acute hypoxemic respiratory failure: Status: Acute Category: Medical Code(s): J96.01 - Acute respiratory failure with hypoxia (2) Atrial fibrillation with controlled ventricular rate: Status: Acute Category: Medical Code(s): I48.91 - Unspecified atrial fibrillation (3) Viral upper respiratory illness: Status: Acute Category: Medical Code(s): J06.9 - Acute upper respiratory infection, unspecified (4) Oxygen deficiency: Status: Acute Category: Medical Code(s): R09.02 - Hypoxemia (5) COPD (chronic obstructive pulmonary disease): Status: Acute Qualifiers: COPD type: emphysema Emphysema type: panlobular Qualified Code(s): J43.1 - Panlobular emphysema Category: Medical Code(s): J44.9 - Chronic obstructive pulmonary disease, unspecified (6) Lymphoma in remission: Status: Acute Category: Medical Code(s): C85.9A - Non-Hodgkin lymphoma, unspecified, in remission (7) CHF exacerbation: Status: Acute Qualifiers: Heart failure type: systolic Qualified Code(s): I50.23 - Acute on chronic systolic (congestive) heart failure Category: Medical Code(s): I50.9 - Heart failure, unspecified (8) Hypothyroidism: Status: Acute Qualifiers: Hypothyroidism type: postoperative Qualified Code(s): E89.0 - Postprocedural hypothyroidism Category: Medical Code(s): E03.9 - Hypothyroidism, unspecified (9) Hypokalemia: Status: Acute Category: Medical Code(s): E87.6 - Hypokalemia (10) Delirium: Status: Acute Category: Medical Code(s): R41.0 - Disorientation, unspecified Plan Kaur Dan is a 69-year-old female with a history of COPD not on home O2 who presents with shortness of breath, chest pain and admitted for acute hypoxic respiratory failure secondary to COPD exacerbation, mycoplasma pneumonia, A-fib RVR. Of note, her from COVID-19 at home just prior to adm ission. Patient has been sick for at least 2 weeks prior to admission. Showing very slow improvement. #Acute hypoxic respiratory failure #Acute COPD exacerbation #Sepsis #Community-acquired pneumonia #Chronic pulmonary arterial hypertension #Left Large loculated pleural effusion ? Discussed case with pulmonology, recommend weaning to high flow nasal cannula off Vapotherm. Requiring little bit more oxygen today, 12 L this afternoon. Overall doing well though. - CT abdomen showed large loculated left pleural effusion. - WBC down bumped to 27.4. Will continue levofloxacin for now. - Pulm following, s/p chest tube with close to 1.1L of serousanginous drainage so far. ? Discussed antibiotics with pulmonology, recommends total of 14 days of antibiotics for MRSA. Continue linezolid 600 mg twice a day. - Repeat CBC, CMP, magnesium ordered for the morning. - Continue DuoNebs every 4 hours and Pulmicort twice daily. Methylprednisolone 40 mg IV twice daily. #A-fib versus SVT #RVR resolved QTc prolongation/torsades ? Initial EKG is suggestive of A-fib versus SVT with HR 167 bpm. Converted to NSR with IV diltiazem. ? No plan for intervention at this time from cardiology. ? [id number] score 3 for age, sex, hypertension. ? ECHO reveals normal biventricular function without valvular issues. - Plan to switch to Eliquis tomorrow from lovenox. #Elevated TSH: TSH 16.8, however obtained in acute and severe illness. Can be repeated once more stable. Free T4 normal at 1.6. Continue levothyroxine 100 mcg daily #Restless leg syndrome: Continue home pramipexole. Sleep difficulty. Continue melatonin 5 mg nightly Full code PLOV Cardiac diet
[2024-10-11] VITALS (8 sets, daily range): BP systolic 96–131; BP diastolic 41–59; PULSE 58–80; RESP 18–22; TEMP 36.3–37.3; O2SAT 87–92
[2024-10-11] MEDS: ONDANSETRON 4MG/2ML VIAL 4 MG IV ×3 (00:15→17:08)
[2024-10-11] MEDS: HYDROCODONE 10MG/APAP 325MG TAB 1 TAB PO (00:19)
[2024-10-11] MEDS: CATHFLO 2MG VIAL 10 MG IJ ×2 (01:53→14:39)
[2024-10-11] MEDS: DORNASE ALFA 1 MG/ML SOLUTION 5 MG IJ ×2 (01:53→14:39)
--- NOTE | 2024-10-11 05:33 | PC.NURSE ---
Patient had a decent night and was able to sleep. She has had a productive cough and she states she feels much better than she did yesterday. She said the coughing does help. She does have some major pain at the chest tube site but that is controlled with medication. Family has remained at bedside. Alpesh was contacted over 2200 x-ray. stated it was okay to give the 2am Chest tube medication.
[2024-10-11] MEDS: LEVOTHYROXINE 100MCG (0.1MG) TAB 100 MCG PO (06:11)
[2024-10-11] MEDS: FLUTICASONE/UMECLIDIN/VILANTER 100/62.5/25MCG INHALER 1 PUFF IH (06:27)
[2024-10-11 08:16] LABS: Basophils % 0.1 % (0.1-2.0); Hematocrit 31.8 % (37.0-47.0); Hemoglobin 10.3 g/dL (12.2-16.2); Lymphocytes # 0.7 K/mm3 (0.7-4.5); Lymphocytes % 3.1 % (10-50); Mean Corpuscular HGB Conc 32.4 g/dL (31.8-35.4); Mean Corpuscular Hemoglobin 27.2 pg (27.0-31.2); Mean Corpuscular Volume 84.1 fl (81-99); Mean Platelet Volume 11.5 fl (7.4-10.4); Monocytes # 2.5 K/mm3 (0.1-1.0); Monocytes % 11.7 % (1.7-9.3); Neutrophils # 17.5 K/mm3 (1.8-7.8); Neutrophils % 84.1 % (37.0-80.0); Platelet Count 320 K/mm3 (142-424); Red Blood Count 3.78 M/mm3 (4.20-5.40); White Blood Count 20.9 K/mm3 (4.8-10.8)
[2024-10-11 08:20] LABS: MANUAL DIFFERENTIAL MANUAL DIFFERENTIAL (MANUAL DIFF)
[2024-10-11 08:26] LABS: Alanine Aminotransferase 24 U/L (12-78); Albumin Level 2.5 g/dl (3.5-5.0); Alkaline Phosphatase 68 U/L (38-126); Anion Gap 10.6 mEq/L (5-15); Aspartate Amino Transferase 21 U/L (14-36); Bilirubin,Total 1.1 mg/dl (0.2-1.3); Blood Urea Nitrogen 34 mg/dl (7-17); Calcium 8.4 mg/dl (8.4-10.2); Carbon Dioxide 29 mmol/L (22.0-30.0); Chloride 96 mmol/L (98-107); Creatinine Clearance Estimated 49 mL/min (50-200); Estimated Glomerular Filt Rate 49 ml/min (>60); GFR (African American) 60 ML/MIN (>60); Globulin 2.6 g/dL (1.3-3.2); Glucose 101 mg/dl (74-100); Magnesium 2.3 mg/dl (1.6-2.3); Potassium 3.6 mmoL/L (3.5-5.1); Sodium 132 mmol/L (136-145); Total Protein,Serum 5.1 g/dl (6.3-8.2)
[2024-10-11] MEDS: ITRACONAZOLE 100MG CAPSULE 200 MG PO (09:04)
[2024-10-11] MEDS: ENOXAPARIN 80MG/0.8ML SYRINGE 65 MG SUBCUT ×2 (09:04→21:08)
[2024-10-11] MEDS: NYSTATIN SUSP 500,000 UNITS/5ML UDC 500000 UNIT PO ×2 (09:04→17:08)
[2024-10-11] MEDS: SENNA 8.6MG TABLET 8.6 MG PO (09:05)
[2024-10-11] MEDS: ARTIFICIAL TEARS SOLN 15ML BOTTLE OP (09:05)
[2024-10-11] MEDS: ASPIRIN EC 81MG TABLET 81 MG PO (09:05)
[2024-10-11] MEDS: METOPROLOL SUCCINATE XL 25MG TABLET 25 MG PO (09:05)
[2024-10-11] MEDS: MAGIC MOUTHWASH 300ML BOTTLE 15 ML PO ×2 (09:06→17:08)
--- NOTE | 2024-10-11 09:13 | EXP.PHA.PN ---
Subjective *Date: 10/11/24 *Time: 09:13 Medical Exam Vital signs and Labs for Last 24 Hours: Vital Signs Temp Pulse Pulse Resp BP Pulse Ox O2 Del Method 10/11/24 08:00 97.8 F 64 18 113/47 L 87 L Nasal Cannula 10/11/24 06:59 Nasal Cannula 10/11/24 06:28 92 L Nasal Cannula 10/11/24 05:00 Nasal Cannula 10/11/24 04:00 60 10/11/24 04:00 97.3 F L 59 L 18 131/49 L 92 L Nasal Cannula 10/11/24 03:00 Nasal Cannula 10/11/24 01:00 Nasal Cannula 10/11/24 00:00 65 10/11/24 00:00 97.5 F L 58 L 18 109/59 L 92 L Nasal Cannula 10/10/24 23:00 Nasal Cannula 10/10/24 21:00 Vapotherm 10/10/24 20:00 65 10/10/24 20:00 Vapotherm 10/10/24 20:00 98.6 F 65 16 99/45 L 93 L Nasal Cannula 10/10/24 19:54 90 L Nasal Cannula 10/10/24 18:38 Nasal Cannula 10/10/24 17:00 Nasal Cannula 10/10/24 16:00 98.1 F 66 22 127/52 L 90 L Nasal Cannula 10/10/24 15:00 Nasal Cannula 10/10/24 12:50 Nasal Cannula 10/10/24 12:00 97.7 F 71 24 115/48 L 90 L Nasal Cannula 10/10/24 11:00 Nasal Cannula O2 Flow Rate 10/11/24 08:00 10 10/11/24 06:59 10 10/11/24 06:28 10 10/11/24 05:00 10 10/11/24 04:00 10/11/24 04:00 10 10/11/24 03:00 10 10/11/24 01:00 10 10/11/24 00:00 10/11/24 00:00 10 10/10/24 23:00 10 10/10/24 21:00 10/10/24 20:00 10/10/24 20:00 10/10/24 20:00 10 10/10/24 19:54 10 10/10/24 18:38 13 10/10/24 17:00 12 10/10/24 16:00 12 10/10/24 15:00 12 10/10/24 12:50 12 10/10/24 12:00 12 10/10/24 11:00 12 Intake and Output 10/10/24 10/11/24 10/11/24 23:59 07:59 15:59 Intake Total 450 / 720 270 / 720 Output Total 570 / 770 1180 / 1180 Balance -570 / 1010 -730 / -460 270 / -460 Intake: Intake, Oral Amount 150 / 420 270 / 420 Intake, Total IV Amount 300 / 300 Linezolid 600 mg In 300 ml @ 300 / 300 300 mls/hr IV Q[facility] Rx#: [id number] Output: Output, Urine Amount 400 / 400 Output, Chest Tube Drainage 570 / 570 780 / 780 Amount Left Lower Posterior Chest 570 / 570 780 / 780 Laboratory Results - last 24 hr 10/10/24 08:10: Total Counted 100, Neutrophils % (Manual) 89 H, Lymphocytes % (Manual) 10, Monocytes % (Manual) 1 L, Platelet Estimate Normal, RBC Morphology Normal, Lactate Dehydrogenase 277 L 10/10/24 12:40: Fluid Source Thoracentesis fluid, Fluid Volume 600, Fluid Appearance Bloody, Fluid RBC (Auto) 85343, Fld Tot Nucleated Cell 1583, Fld Polynuclear WBCs % 87, Fld Mononuclear WBCs % 13 10/11/24 07:55: WBC 20.9 H*, RBC 3.78 L, Hgb 10.3 L, Hct 31.8 L, MCV 84.1, MCH 27.2, MCHC 32.4, RDW 15.0, Plt Count 320, MPV 11.5 H, Neut % (Auto) 84.1 H, Lymph % (Auto) 3.1 L, [place] % (Auto) 11.7 H, Eos % (Auto) 0.0 L, Baso % (Auto) 0.1, Neut # (Auto) 17.5 H, Lymph # (Auto) 0.7, [place] # (Auto) 2.5 H, Eos # (Auto) 0.0, Baso # (Auto) 0.0, Sodium 132 L, Potassium 3.6, Chloride 96 L, Carbon Dioxide 29, Anion Gap 10.6, BUN 34 H D, Creatinine 1.10 H D, Estimated Creat Clear 49, Estimated GFR 49 L, Est GFR ( Amer) 60, Glucose 101 H, Calcium 8.4, Magnesium 2.3, Total Bilirubin 1.1, AST 21, ALT 24, Alkaline Phosphatase 68, Total Protein 5.1 L, Albumin 2.5 L D, Globulin 2.6, Albumin/Globulin Ratio 1.0 L I & O for Labs for Last 24 Hours: Intake & Output 10/08/24 10/09/24 10/10/24 10/11/24 23:59 23:59 23:59 23:59 Intake Total 2140 / 2140 750 / 1230 1330 / 1780 720 / 720 Output Total 0 / 0 770 / 770 1180 / 1180 Balance 2139 / 2139 750 / 1230 560 / 1010 -460 / -460 Weight 60.282 kg 65.771 kg 63.775 kg Microbiology Reports for the Last 24 Hours: Microbiology 10/07/24 11:07 Sputum - Expectorated Sputum Gram Stain - Final 10/07/24 11:07 Sputum - Expectorated Sputum Sputum Culture - Final Staphylococcus aureus 10/10/24 12:40 Pleural Fluid Gram Stain - Final The patient's infection will respond to the chosen ABx?: Yes (SPUTUM = MRSA, ZYVOX WILL TREAT, AFEBRILE OVER 24 HRS.) Is the patient receiving the right drug, dose, and route?: Yes Could a more targeted ABx be ordered?: No How long ABx needed (days)?: 7
[2024-10-11] MEDS: PROMETHAZINE HCL 25MG/ML 1ML VIAL 12.5 MG IV ×2 (10:23→18:21)
[2024-10-11] MEDS: 0.9 % SODIUM CHLORIDE 25 ML 100 ML IV ×2 (10:24→18:22)
[2024-10-11] MEDS: LINEZOLID 600 MG/300 ML IV.SOLN 300 MG IV ×2 (10:54→22:50)
[2024-10-11] MEDS: levoFLOXacin 750 MG TABLET PO (10:54)
[2024-10-11 12:01] LABS: Lymphocytes % 1 % (10-50); Monocytes % 7 % (2-9); Neutrophils % 92 % (42-76); Platelet Estimate P; Total Cells Counted 100
[2024-10-11 12:02] LABS: RBC Morphology Normal
--- NOTE | 2024-10-11 18:32 | EXP.PN ---
Subjective *Date: 10/11/24 *Time: 18:32 Interval history: Doing well, slept quite a bit during the day- catching up. Tolerating chest tube well, 1.5L serousanginous. WBC improving. Exam Data for Last 24 hours Vital signs and Labs for Last 24 Hours: Temp Pulse Resp BP Pulse Ox O2 Del Method O2 Flow Rate 98.3 F 80 22 122/51 L 90 L Venturi Mask 50 10/11/24 11:50 10/11/24 16:00 10/11/24 11:50 10/11/24 11:50 10/11/24 16:00 10/11/24 16:00 10/11/24 16:00 FiO2 55 10/07/24 10:34 Laboratory Results - last 24 hr 10/11/24 07:55: WBC 20.9 H*, RBC 3.78 L, Hgb 10.3 L, Hct 31.8 L, MCV 84.1, MCH 27.2, MCHC 32.4, RDW 15.0, Plt Count 320, MPV 11.5 H, Neut % (Auto) 84.1 H, Lymph % (Auto) 3.1 L, [place] % (Auto) 11.7 H, Eos % (Auto) 0.0 L, Baso % (Auto) 0.1, Neut # (Auto) 17.5 H, Lymph # (Auto) 0.7, [place] # (Auto) 2.5 H, Eos # (Auto) 0.0, Baso # (Auto) 0.0, Total Counted 100, Neutrophils % (Manual) 92 H, Lymphocytes % (Manual) 1 L, Monocytes % (Manual) 7, Platelet Estimate P, RBC Morphology Normal, Sodium 132 L, Potassium 3.6, Chloride 96 L, Carbon Dioxide 29, Anion Gap 10.6, BUN 34 H D, Creatinine 1.10 H D, Estimated Creat Clear 49, Estimated GFR 49 L, Est GFR ( Amer) 60, Glucose 101 H, Calcium 8.4, Magnesium 2.3, Total Bilirubin 1.1, AST 21, ALT 24, Alkaline Phosphatase 68, Total Protein 5.1 L, Albumin 2.5 L D, Globulin 2.6, Albumin/Globulin Ratio 1.0 L I & O for Last 24 hours: Intake & Output 10/08/24 10/09/24 10/10/2410/11/25 23:59 23:59 23:59 23:59 Intake Total 2140 / 2140 750 / 1230 1330 / 1780 720 / 720 Output Total 0 0 770 / 770 1180 / 1180 Balance 2139 / 2139 750 / 1230 560 / 1010 -460 / -460 Weight 60.282 kg 65.771 kg 63.775 kg Microbiology Reports for the Last 24 Hours: Microbiology 10/10/24 12:40 Pleural Fluid Gram Stain - Final 10/10/24 12:40 Pleural Fluid Body Fluid Culture - Preliminary NO GROWTH AFTER 24 HOURS 10/07/24 10:28 Blood Blood Culture - Preliminary NO GROWTH AFTER 4 DAYS 10/07/24 10:18 Blood Blood Culture - Preliminary NO GROWTH AFTER 4 DAYS 10/07/24 11:07 Sputum - Expectorated Sputum Gram Stain - Final 10/07/24 11:07 Sputum - Expectorated Sputum Sputum Culture - Final Staphylococcus aureus Constitutional Constitutional: no acute distress *Routine HEENT Exam Head: Present normocephalic Eye: Present EOMI and PERRL ENT: Present mucous membranes moist *Routine Neck Exam Neck: Present supple; Absent lymphadenopathy *Routine Respiratory Exam Respiratory: Present CTA bilaterally *Routine Cardiovascular Exam Cardiovascular: Present RRR *Routine Abdominal Exam Abdominal: Present soft and normoactive bowel sounds; Absent tenderness *Routine Extremities Exam Extremities: Absent cyanosis, clubbing or edema *Routine Skin Exam Skin: Present warm; Absent rash *Routine Neurological Exam Neurological: Present alert and oriented X3 Assessment and Plan *Assessment and plan (1) Acute hypoxemic respiratory failure: Status: Acute Category: Medical Code(s): J96.01 - Acute respiratory failure with hypoxia (2) Atrial fibrillation with controlled ventricular rate: Status: Acute Category: Medical Code(s): I48.91 - Unspecified atrial fibrillation (3) Viral upper respiratory illness: Status: Acute Category: Medical Code(s): J06.9 - Acute upper respiratory infection, unspecified (4) Oxygen deficiency: Status: Acute Category: Medical Code(s): R09.02 - Hypoxemia (5) COPD (chronic obstructive pulmonary disease): Status: Acute Qualifiers: COPD type: emphysema Emphysema type: panlobular Qualified Code(s): J43.1 - Panlobular emphysema Category: Medical Code(s): J44.9 - Chronic obstructive pulmonary disease, unspecified (6) Lymphoma in remission: Status: Acute Category: Medical Code(s): C85.9A - Non-Hodgkin lymphoma, unspecified, in remission (7) CHF exacerbation: Status: Acute Qualifiers: Heart failure type: systolic Qualified Code(s): I50.23 - Acute on chronic systolic (congestive) heart failure Category: Medical Code(s): I50.9 - Heart failure, unspecified (8) Hypothyroidism: Status: Acute Qualifiers: Hypothyroidism type: postoperative Qualified Code(s): E89.0 - Postprocedural hypothyroidism Category: Medical Code(s): E03.9 - Hypothyroidism, unspecified (9) Hypokalemia: Status: Acute Category: Medical Code(s): E87.6 - Hypokalemia (10) Delirium: Status: Acute Category: Medical Code(s): R41.0 - Disorientation, unspecified Plan Kaur Dan is a 69-year-old female with a history of COPD not on home O2 who presents with shortness of breath, chest pain and admitted for acute hypoxic respiratory failure secondary to COPD exacerbation, mycoplasma pneumonia, A-fib RVR. Of note, her from COVID-19 at home just prior to admission. Patient has been sick for at least 2 weeks prior to admission. Showing very slow improvement. #Acute hypoxic respiratory failure #Acute COPD exacerbation #Sepsis #Community-acquired pneumonia #Chronic pulmonary arterial hypertension #Left Large loculated pleural effusion ? Discussed case with pulmonology, recommend weaning to high flow nasal cannula off Vapotherm. Oxygenating well today, currently on 10 L high flow. - CT abdomen showed large loculated left pleural effusion. - WBC down bumped to 20.9. Will continue levofloxacin for now. - Pulm following, s/p chest tube 10/08/23 with close to 1.5L of serousanginous drainage so far. ? Discussed antibiotics with pulmonology, recommends total of 14 days of antibiotics for MRSA. Continue linezolid 600 mg twice a day. - Repeat CBC, CMP, magnesium ordered for the morning. - Continue DuoNebs every 4 hours and Pulmicort twice daily. Methylprednisolone 40 mg IV twice daily. #A-fib versus SVT #RVR resolved QTc prolongation/torsades ? Initial EKG is suggestive of A-fib versus SVT with HR 167 bpm. Converted to NSR with IV diltiazem. ? No plan for intervention at this time from cardiology. ? [id number] score 3 for age, sex, hypertension. ? ECHO reveals normal biventricular function without valvular issues. - Plan to switch to Eliquis tomorrow from lovenox. #Elevated TSH: TSH 16.8, however obtained in acute and severe illness. Can be repeated once more stable. Free T4 normal at 1.6. Continue levothyroxine 100 mcg daily #Restless leg syndrome: Continue home pramipexole. Sleep difficulty. Continue melatonin 5 mg nightly Full code PLOV Cardiac diet
--- NOTE | 2024-10-11 21:37 | PC.NURSE ---
Attempted to pass patient's PO medications around 21:29. Patient has appeared very fatigued thus far and is hard to keep aroused for more than a few seconds during wakeful periods. Patient also stated that she did not want to take [her] pills right now. Her son stated that she has been receiving phenergan today for her consistent complaints of nausea; her last administration according to the MAR was at 18:21 (during the previous shift). He stated that each time after receiving, she has remained quite out of it and has slept for most of the day. Charge nurse (Santiago Curran RN) also notified of patient's verbal refusal. Due to the concern of swallowing the medications safely and the patient's verbal refusal to me, her PO medications (including Nystatin and Magic Mouthwash) were not given to her. Patient also verbally refused her artificial tears, saying that she did not want them. Patient did allow enoxaparin administration in due time. Patient is currently resting supine in bed with eyes closed and respirations even and unlabored. Opened PO medications were wasted as appropriately in the non-controlled waste bin.
[2024-10-12] VITALS (7 sets, daily range): BP systolic 89–107; BP diastolic 39–65; PULSE 66–111; RESP 17–21; TEMP 36.4–37.3; O2SAT 90–100; BMI 23.3
[2024-10-12] MEDS: SODIUM CHLORIDE 0.9% 10ML FLUSH SYRINGE 10 ML IV ×3 (02:56→03:00)
[2024-10-12] MEDS: DORNASE ALFA 1 MG/ML SOLUTION 5 MG IJ ×2 (02:56→14:52)
[2024-10-12] MEDS: CATHFLO 2MG VIAL 10 MG IJ ×2 (02:56→14:52)
--- NOTE | 2024-10-12 03:02 | PC.NURSE ---
Addendum entered by Georgette Hogan RN 10/12/24 05:02: Chest tube suction resumed at this time. Original Note: Chest tube located to the left side. Chest tube medication administration completed by 03:00 this shift per NOV. Chest tube suction will remain off for two hours. Patient tolerated chest tube medication administration very well; no pain or discomfort was reported during the procedure. Drainage in the chamber was also marked by me at this time. Drainage increased from 450 mL (starting at shift change) to 890 mL currently, in the chamber. Drainage color is red.
--- NOTE | 2024-10-12 04:30 | PC.NURSE ---
Addendum entered by Georgette Hogan RN 10/12/24 06:44: Patient was able to take her Synthroid by mouth this morning. Original Note: Ms Kaur Dan was observed to be quite fatigued and drowsy during this shift. Speech has been mumbled, soft, and monotone during wakeful periods. Patient is alert and oriented, but confusion was apparent at times. She occasionally did not know where she was at, has stated that she continues to feel sick-sick, has asked what happened multiple times, and has been unsure about the time of day. Her son has remained at the bedside throughout the night. She was observed to have eyes closed, respirations even and unlabored (but shallow) on 8 L of oxygen via high-flow cannula, and no apparent distress for the majority of the night. Patient refused her medications (except for enoxaparin) earlier this shift (see prior note). Chest tube medications and IV antibiotics were able to be administered as appropriately per MAR. Diminished lung sounds, S1/S2 heart sounds, and active bowel sounds could be heard with auscultation. Patient has been running normal sinus rhythm on telemetry. Bruises were noted across the patient's abdomen; soft and non-tender with palpation. She has also reported having a dry mouth and an occasional cough with small sputum production. Patient requires assistance from staff with ambulation and repositioning in bed. Blood pressures have been hypotensive this shift; other vital signs have remained stable. At this time, the patient is resting in bed without further complaints. Electrolyte protocol ongoing. Call light within reach. Contact/droplet precautions for Mycoplasma pneumoniae.
[2024-10-12] MEDS: FLUTICASONE/UMECLIDIN/VILANTER 100/62.5/25MCG INHALER 1 PUFF IH (06:31)
[2024-10-12] MEDS: LEVOTHYROXINE 100MCG (0.1MG) TAB 100 MCG PO (06:35)
[2024-10-12 06:46] LABS: Albumin, Body Fluid 2.4 g/dL (Not Estab.); Glucose, Body Fluid 88 mg/dL (.); LD, Body Fluid 565 IU/L (.); Protein, Body Fluid 3.2 g/dL (.)
[2024-10-12] MEDS: NYSTATIN SUSP 500,000 UNITS/5ML UDC 500000 UNIT PO ×2 (08:57→17:20)
[2024-10-12] MEDS: METOPROLOL SUCCINATE XL 25MG TABLET 25 MG PO (08:57)
[2024-10-12] MEDS: ASPIRIN EC 81MG TABLET 81 MG PO (08:57)
[2024-10-12] MEDS: ENOXAPARIN 80MG/0.8ML SYRINGE 65 MG SUBCUT (08:58)
[2024-10-12] MEDS: ITRACONAZOLE 100MG CAPSULE 200 MG PO (08:58)
[2024-10-12] MEDS: MAGIC MOUTHWASH 300ML BOTTLE 15 ML PO ×2 (08:59→17:20)
[2024-10-12 09:30] LABS: Basophils % 0.1 % (0.1-2.0); Hematocrit 30.3 % (37.0-47.0); Lymphocytes # 0.8 K/mm3 (0.7-4.5); Lymphocytes % 3.7 % (10-50); Mean Corpuscular Hemoglobin 27.6 pg (27.0-31.2); Mean Corpuscular Volume 83.7 fl (81-99); Mean Platelet Volume 10.8 fl (7.4-10.4); Monocytes # 2.1 K/mm3 (0.1-1.0); Monocytes % 9.5 % (1.7-9.3); Neutrophils # 18.9 K/mm3 (1.8-7.8); Neutrophils % 85.3 % (37.0-80.0); Platelet Count 443 K/mm3 (142-424); Red Blood Count 3.62 M/mm3 (4.20-5.40); Red Cell Distribution Width 15.3 % (11.5-17.5); White Blood Count 22.2 K/mm3 (4.8-10.8)
[2024-10-12 09:34] LABS: MANUAL DIFFERENTIAL MANUAL DIFFERENTIAL (MANUAL DIFF)
[2024-10-12] MEDS: LINEZOLID 600 MG/300 ML IV.SOLN 300 MG IV (10:08)
[2024-10-12 10:09] LABS: Albumin Level 2.1 g/dl (3.5-5.0); Chloride 94 mmol/L (98-107); Potassium 4.4 mmoL/L (3.5-5.1); Sodium 126 mmol/L (136-145)
[2024-10-12 10:12] LABS: Alanine Aminotransferase 44 U/L (12-78); Alkaline Phosphatase 68 U/L (38-126); Anion Gap 11.4 mEq/L (5-15); Aspartate Amino Transferase 74 U/L (14-36); Bilirubin,Total 1.4 mg/dl (0.2-1.3); Blood Urea Nitrogen 50 mg/dl (7-17); Calcium 8.1 mg/dl (8.4-10.2); Carbon Dioxide 25 mmol/L (22.0-30.0); Creatinine Clearance Estimated 35 mL/min (50-200); Estimated Glomerular Filt Rate 34 ml/min (>60); GFR (African American) 42 ML/MIN (>60); Globulin 2.1 g/dL (1.3-3.2); Glucose 119 mg/dl (74-100); Magnesium 2.2 mg/dl (1.6-2.3); Total Protein,Serum 4.2 g/dl (6.3-8.2)
[2024-10-12 10:17] LABS: Lymphocytes % 4 % (10-50); Monocytes % 5 % (2-9); Neutrophils % 91 % (42-76); Platelet Estimate Normal; RBC Morphology Normal; Total Cells Counted 100
[2024-10-12] MEDS: 0.9 % SODIUM CHLORIDE 1000ML 500 ML IV (10:37)
--- NOTE | 2024-10-12 14:29 | P.PN_ITS ---
Subjective *Date: 10/12/24 *Time: 14:29 Interval history: Patient has been is resting a lot better, catching up on sleep. Little groggy this morning, but no complaints. States she is breathing well. Tolerating chest tube which continues to drain, additional 1.1 L serosanguineous output so far today. Exam Data for Last 24 hours Vital signs and Labs for Last 24 Hours: Temp Pulse Resp BP Pulse Ox O2 Del Method O2 Flow Rate 97.8 F 66 20 107/39 L 100 Nasal Cannula 7 10/12/24 12:00 10/12/24 12:00 10/12/24 12:00 10/12/24 12:00 10/12/24 12:00 10/12/24 12:00 10/12/24 12:00 FiO2 55 10/07/24 10:34 Laboratory Results - last 24 hr 10/10/24 12:40: Fluid Glucose 88, Fluid Total Protein 3.2, Fluid Albumin 2.4, Fluid LDH 565 10/12/24 08:00: WBC 22.2 H*, RBC 3.62 L, Hgb 10.0 L, Hct 30.3 L, MCV 83.7, MCH 27.6, MCHC 33.0, RDW 15.3, Plt Count 443 H D, MPV 10.8 H, Neut % (Auto) 85.3 H, Lymph % (Auto) 3.7 L, [place] % (Auto) 9.5 H, Eos % (Auto) 0.0 L, Baso % (Auto) 0.1, Neut # (Auto) 18.9 H, Lymph # (Auto) 0.8, [place] # (Auto) 2.1 H, Eos # (Auto) 0.0, Baso # (Auto) 0.0, Total Counted 100, Neutrophils % (Manual) 91 H, Lymphocytes % (Manual) 4 L, Monocytes % (Manual) 5, Platelet Estimate Normal, RBC Morphology Normal, Sodium 126 L, Potassium 4.4 D, Chloride 94 L, Carbon Dioxide 25, Anion Gap 11.4, BUN 50 H D, Creatinine 1.50 H D, Estimated Creat Clear 35, Estimated GFR 34 L, Est GFR ( Amer) 42 L D, Glucose 119 H, Calcium 8.1 L, Magnesium 2.2, Total Bilirubin 1.4 H, AST 74 H D, ALT 44 D, Alkaline Phosphatase 68, Total Protein 4.2 L, Albumin 2.1 L D, Globulin 2.1, Albumin/Globulin Ratio 1.0 L, TSH 8.10 H I & O for Last 24 hours: Intake & Output 10/09/24 10/10/24 10/11/24 10/12/24 23:59 23:59 23:59 23:59 Intake Total 750 / 1230 1330 / 1780 1140 / 1540 400 / 400 Output Total 0 / 0 770 / 770 2230 / 2230 Balance 750 / 1230 560 / 1010 -1090 / -690 400 / 400 Weight 65.771 kg 63.775 kg 63.5 kg Microbiology Reports for the Last 24 Hours: Microbiology 10/10/24 12:40 Pleural Fluid Gram Stain - Final 10/10/24 12:40 Pleural Fluid Body Fluid Culture - Preliminary NO GROWTH AFTER 48 HOURS 10/07/24 10:28 Blood Blood Culture - Final NO GROWTH AFTER 5 DAYS 10/07/24 10:18 Blood Blood Culture - Final NO GROWTH AFTER 5 DAYS Constitutional Constitutional: no acute distress *Routine HEENT Exam Head: Present normocephalic Eye: Present EOMI and PERRL ENT: Present mucous membranes moist *Routine Neck Exam Neck: Present supple; Absent lymphadenopathy *Routine Respiratory Exam Respiratory: Present CTA bilaterally *Routine Cardiovascular Exam Cardiovascular: Present RRR *Routine Abdominal Exam Abdominal: Present soft and normoactive bowel sounds; Absent tenderness *Routine Extremities Exam Extremities: Absent cyanosis, clubbing or edema *Routine Skin Exam Skin: Present warm; Absent rash *Routine Neurological Exam Neurological: Present alert and oriented X3 Assessment and Plan *Assessment and plan (1) Acute hypoxemic respiratory failure: Status: Acute Category: Medical Code(s): J96.01 - Acute respiratory failure with hypoxia (2) Atrial fibrillation with controlled ventricular rate: Status: Acute Category: Medical Code(s): I48.91 - Unspecified atrial fibrillation (3) Viral upper respiratory illness: Status: Acute Category: Medical Code(s): J06.9 - Acute upper respiratory infection, unspecified (4) Oxygen deficiency: Status: Acute Category: Medical Code(s): R09.02 - Hypoxemia (5) COPD (chronic obstructive pulmonary disease): Status: Acute Qualifiers: COPD type: emphysema Emphysema type: panlobular Qualified Code(s): J43.1 - Panlobular emphysema Category: Medical Code(s): J44.9 - Chronic obstructive pulmonary disease, unspecified (6) Lymphoma in remission: Status: Acute Category: Medical Code(s): C85.9A - Non-Hodgkin lymphoma, unspecified, in remission (7) CHF exacerbation: Status: Acute Qualifiers: Heart failure type: systolic Qualified Code(s): I50.23 - Acute on chronic systolic (congestive) heart failure Category: Medical Code(s): I50.9 - Heart failure, unspecified (8) Hypothyroidism: Status: Acute Qualifiers: Hypothyroidism type: postoperative Qualified Code(s): E89.0 - Postprocedural hypothyroidism Category: Medical Code(s): E03.9 - Hypothyroidism, unspecified (9) Hypokalemia: Status: Acute Category: Medical Code(s): E87.6 - Hypokalemia (10) Delirium: Status: Acute Category: Medical Code(s): R41.0 - Disorientation, unspecified Plan Kaur Dan is a 69-year-old female with a history of COPD not on home O2 who presents with shortness of breath, chest pain and admitted for acute hypoxic respiratory failure secondary to COPD exacerbation, mycoplasma pneumonia, A-fib RVR. Of note, her from COVID-19 at home just prior to admission. Patient has been sick for at least 2 weeks prior to admission. Showing very slow improvement. #Acute hypoxic respiratory failure #Acute COPD exacerbation #Sepsis #Community-acquired pneumonia #Chronic pulmonary arterial hypertension #Left Large loculated pleural effusion ? Patient continues to improve from a respiratory standpoint, currently requiring 7 L nasal cannula at 100% saturation. Will continue to wean as tolerated. - CT abdomen 10/09/2024 showed large loculated left pleural effusion. - Pulm following, s/p chest tube 10/08/23 with close to 2.4L of serousanginous drainage so far. ? Discussed antibiotics with pulmonology, recommends total of 14 days of antibiotics for MRSA. Continue linezolid 600 mg twice a day. ? WBC bumped slightly from 20.9-22.2, follow-up procalcitonin, ESR, CRP. - Repeat CBC, CMP, magnesium ordered for the morning. #A-fib versus SVT #RVR resolved QTc prolongation/torsades ? Initial EKG is suggestive of A-fib versus SVT with HR 167 bpm. Converted to NSR with IV diltiazem. ? No plan for intervention at this time from cardiology. ? [id number] score 3 for age, sex, hypertension. ? ECHO reveals normal biventricular function without valvular issues. - Continue Lovenox for now in the setting of chest tube. #Elevated TSH: TSH 16.8, however obtained in acute and severe illness. Can be repeated once more stable. Free T4 normal at 1.6. Continue levothyroxine 100 mcg daily #Restless leg syndrome: Continue home pramipexole. Sleep difficulty. Continue melatonin 5 mg nightly Full code PLOV Cardiac diet
--- NOTE | 2024-10-12 15:14 | PC.NURSE ---
Addendum entered by Dahlia Del Toro RN 10/12/24 16:46: pt still unable to urinate at this time. MD aware. Original Note: bladder scanned pt due to no output this shift. scan showed 298. pt stated that she did not have to pee. encouraged pt to get up to the bedside. pt stated that she did not want to get out of bed at this time. purewick placed.
[2024-10-12] MEDS: BELLADONNA ALKALOIDS 60 ML ML PO (16:05)
[2024-10-12 17:44] LABS: Blood Urea Nitrogen 52 mg/dl (7-17); Calcium 7.8 mg/dl (8.4-10.2); Carbon Dioxide 23 mmol/L (22.0-30.0); Chloride 94 mmol/L (98-107); Creatinine Clearance Estimated 33 mL/min (50-200); Estimated Glomerular Filt Rate 32 ml/min (>60); GFR (African American) 39 ML/MIN (>60); Glucose 121 mg/dl (74-100); Sodium 125 mmol/L (136-145)
[2024-10-12 18:00] LABS: Anion Gap 11.9 mEq/L (5-15); Potassium 3.9 mmoL/L (3.5-5.1)
--- NOTE | 2024-10-12 18:35 | PC.NURSE ---
pt a&ox4. very fatigued and resistive to care at times, but agreeable when encouraged. pt ambulated with x2 assistance to the chair this shift and sat for about 1 hour before going back to bed. pt was given thorough bath, linen change, clothing change and oral care. pt complained of GI upset and was given a GI cocktail. pt verbalized relief. pt given 500ml bolus this shift. remains hypotensive with maps >60. pt has only eaten a few bites of meals and verbalizes that she doesnt want to eat. pt weaned to 5L NC with sats >90. medications given per chest tube and orally this shift- pt tolerated well. chest tube drained 800 this shift as of 1800. canister replaced. pt has complained of generalized pain this shift, but refuses pain medication. family at bedside, no needs or complaints at this time. call light within reach.
[2024-10-12 18:39] LABS: Creatine Kinase 48 U/L (30-135)
[2024-10-12] MEDS: 0.9 % SODIUM CHLORIDE 1000ML 1,000 ML 333 ML IV (18:49)
[2024-10-12] MEDS: ONDANSETRON 4MG/2ML VIAL 4 MG IV (20:59)
--- NOTE | 2024-10-12 21:01 | P.EN_ITS ---
. Patient does have a complaint of nausea which has been a problem. , Last chest x-ray was done on the after chest tube placement . , Also noting more alkalosis on the last venous blood gas , and lower sodium on her chemistries. . Second of 500 cc of normal saline has not yet been infused. . Nursing noted that she had 440 cc on her bladder scan. Problem: Patient's famil y felt that it was a noticeable change in the patient's behavior. Came to the room to see the patient after reviewing her chart.. Notable for white count being elevated which is been this way for several week. Patient is continuing to complain about nausea, is receiving Zofran Exam : The patient the patient is in the bed and appears to be alert and answers some questions. Family is also at bedside. Patient appears pale with poor skin turgor. Examination of chart showed some decrease in weight over the last 3 days. Examination of the mouth it was moist but the tongue appeared to have s mall viral type red tiny papules. Lungs were actually clear to auscultation., Heart sounds relatively normal. Skin turgor poor. Per nursing bladder scan shows 440 cc there was no significant abdominal pain upon palpation.. Patient is definitely uncomfortable she is moving all extremities kind of wiggling in the bed., Nursing talking with her says that she would like to try to get up and use the bedside commode,. plan, will oreder a venous blood gas to evaluate alkalosis. Also will check a troponin and get a twelve-lead EKG. Will evaluate to make sure that there is gastric protection due to the chronic nausea. To protect from any ulcer development. Patient is uncomfortable but not particularly from pain just does not feel well and is nauseated.. All recent labs and imaging have been reviewed. Plus reviewed notes from other providers. Notable that white count is remaining greater than 20., But no other significant changes except for nausea and decreased oral intake over the last 3 days. 22:22 Patient has ., Talking with the nurse who has called a rapid response. Dr. Vasquez from the ER has also come up. Came in to see the patient who his heart rate had decreased to 65 if she was nonresponsive at that time but still breathing. O2 saturations were adequate per pulse ox.. This suddenly quit working. Patient appeared to stop breathing Ambu bag was started. Dr. Vasquez then intubated the patient., Patient then bradycardia down. CPR was started, ACLS drugs were given, please refer to nursing record of the code., Patient went into ventricular fibrillation. Received 1 shock., Then converted back to a sinus rhythm.. CPR was then once again continued. And stopped and patient was pulseless., This period of time approximately 30 minutes, of treati ng the patient Patient's family members were in the room at time and waiting in the hallway.. Dr. Vasquez updated them on the situation as he was able.. Patient recent resumed a palpable pulse, also VBG's showed pH of 7.18, other labs were evaluated.. Patient then became pulseless again and CPR was resumed. At 1 moment her time there was a PEA and then patient was systole there was nothing again to shock.. During this period of time also Dr. Win was called and consulted over the phone as to if any intervention would be beneficial. Patient then went pulseless again. Bedside cardiac echo also showed no cardiac wall motion. family came into the room updated on everything that it been done and told us to stop CPR. Dr. Arias was updated by phone. Time of 22:10
--- NOTE | 2024-10-12 21:05 | ECG_ITS ---
APPROVED REPORT Exam: Resting ECG HR:93 bpm ECG Measurements Heart Rate 93 AXES AL 149 P 72 QRSd 86 QRS 56 QT 353 T 67 QTc 403 Conclusion SINUS RHYTHM MINIMAL ST DEPRESSION [0.025+ mV ST DEPRESSION] No STEMI Electronically signed by : TRU VINCENT, 10/13/2024 08:26:14
[2024-10-12] MEDS: ATROPINE 1MG/10ML SYRINGE (CRASH CART) 1 MG IV ×2 (21:32→21:40)
[2024-10-12] MEDS: CALCIUM CHLORIDE 1 GM in 0.9 % SODIUM CHLORIDE 100 ML IV (21:41)
[2024-10-12] MEDS: EPINEPHrine 0.1 MG/ML 10ML SYRINGE (CRASH CART) 1 MG IV ×3 (21:41→22:01)
[2024-10-12 21:42] LABS: VBG Base Excess -17.8 mmol/L (-2.4-2.3); VBG HCO3 10.5 mmol/L (23-30); VBG Oxygen Saturation 70.9 % (50-70); VBG PCO2 28.9 mmol/L (35-51); VBG PO2 41.2 mmol/L (28-40); VBG Total CO2 11.4 mmol/L (23-27)
[2024-10-12] MEDS: SODIUM BICARB 8.4% 50ML SYRINGE (CRASH CART) 50 MEQ IV ×2 (21:44→21:50)
[2024-10-12] MEDS: AMIODARONE HCL 150MG/3ML VIAL 300 MG IVP (21:47)
[2024-10-12] MEDS: LIDOCAINE 2% 100 MG/5ML SYRINGE (CRASH CART) IV (21:47)
--- NOTE | 2024-10-12 21:56 | ECG_ITS ---
APPROVED REPORT Exam: Resting ECG HR:83 bpm ECG Measurements Heart Rate 83 AXES QRSd 170 QRS 267 QT 438 T 50 QTc 477 Conclusion ATRIAL FIBRILLATION RIGHT AXIS DEVIATION [QRS AXIS > 100] RIGHT BUNDLE BRANCH BLOCK [120+ ms QRS DURATION, UPRIGHT V1, 40+ ms S IN I/aVL/V4/V5/V6] POSSIBLE SEPTAL MYOCARDIAL INFARCTION , PROBABLY OLD [30 ms Q WAVE IN V1/V2] ABNORMAL ECG UNCONFIRMED REPORT Electronically signed by : Timothy Del Rio MD 10/14/2024 19:20:32
[2024-10-12 22:02] LABS: Troponin I < 0.01 ng/ml (0.00-0.034)
[2024-10-12 22:11] LABS: Lactate Venous 12.4 mmol/L (0.4-2.0); VBG PH 7.18 mmol/L (7.31-7.41)
--- NOTE | 2024-10-12 22:31 | EXP.DEATH.NO ---
Pronouncement Note Date and Time of Date of : 10/12/24 Time of : 22:10 PCOD Preliminary cause of : Cardiac arrest due to other underlying condition Contributing Factors (1) Acute hypoxemic respiratory failure: Contributing factors: Patient was admitted 19 days ago. With history of having COVID feeling better then coming down with flu a. Was admitted in atrial for with RVR and respiratory distress. This did improve but patient's white count never really decreased below 20 and developed an empyema in the left lung requiring a chest tube. (2) Atrial fibrillation with controlled ventricular rate: Contributing factors: Patient had converted back to sinus rhythm (3) Viral upper respiratory illness: Contributing factors: Patient caught COVID before Jorge. Was able to get over that and felt better for a few days testing negative but then became positive for flu A (4) Oxygen deficiency: Contributing factors: Patient's oxygen saturations improved. And then got worse over the past couple days requiring nasal cannula but oxygen saturations remained above 93 in most cases (5) COPD (chronic obstructive pulmonary disease): Contributing factors: Patient was not a smoker at present but did have a [id number] history previously (6) Lymphoma in remission: (7) CHF exacerbation: (8) Hypothyroidism: (9) Hypokalemia: (10) Delirium: Summary Additional details: The day the patient was admitted her had the same type of situation as far as respiratory illnesses. He at home., She was with him when this happened. Additional Data Confirmation of : no pulse, no respirations and no heart sounds Family: at bedside Attending/PCP notified?: Yes Attending physician: Jovany Arias MD Was code activated?: Yes Autopsy should be considered if:: Unknown or unanticipated medical complications Cause is not known with certainty on clinical grounds Would allay concerns of the public/family regarding Unexplained/unexpected apparently natural and not subject to a forensic medical jurisdiction DOA Within 24 hours of admission Sustained or apparently sustained injury while in the hospital Result of high risk, infectious and contagious disease Obstetric and pediatric arising from environmental or occupational hazard Unexplained/unexpected from dental, medical, or surgical diagnostic procedures and/or therapies Would disclose a known or suspected illness which also may have a bearing on survivors or recipients of transplanted organs Autopsy requested?: No Inappropriate situation adjustment examiner notified?: No Organ bank notified?: No Advance directives: No
--- NOTE | 2024-10-12 22:35 | EXP.EVENT.NO ---
I was called up to a rapid response red to miss Dan's room. When I arrived the patient was cyanotic and having agonal respirations but did have a pulse at the time. It was clear that the patient needed to be intubated. I spoke to the family regarding her CODE STATUS and they stated they wanted to do everything. Therefore we preoxygenated the patient and while preparing to administer succinylcholine and etomidate patient became apneic she sought a pulse time but I was able to intubate her with out any sedation or paralytics. Please see procedure note below. Patient subsequently became bradycardic she was given atropine with transient response. Patient began to become more bradycardic and eventually lost a pulse and was in PEA. Bedside ultrasound was obtained and patient initially was in a shockable rhythm. Patient was given numerous doses of epinephrine and venous blood gas came back showing a pH of 7.1 she was given multiple doses and rounds of bicarb as well as calcium as well. Additionally the patient was in a shockable rhythm initially and had a run of V. tach and V-fib and was given amiodarone and lidocaine. Pads were placed and the patient she had multiple shocks as well during this time. Her rhythm and her contractility on the bedside echo continue to devolve from having organized contractility to eventually becoming completely asystolic and having no cardiac activity on bedside ultrasound. Patient's family was at the bedside the entire time during this and had conversations with the multiple times. After 20 minutes of ACLS patient did have a brief moment of review of spontaneous circulation she was started on epinephrine drip at that time twelve-lead EKG was performed which showed a wide-complex rhythm potassium was normal with blood gas and I reviewed the case with Dr. Win. Patient has been in the hospital for 14 days have been getting DVT prophylaxis but on bedside ultrasound she did have an LV RV ratio close to 1 so it is possible that the patient had a large pulmonary embolism. While discussing this with Dr. Win patient continued to decompensate again likely having an epi dependent rhythm and went back into cardiac arrest family was at the bedside I had a discussion with them that she had no evidence of any type of cardiac activity on bedside ultrasound and the likelihood that she would have any type of neurologic outcome would be exceedingly low and they asked to discontinue resuscitative efforts. Time of was called at [address] [place] [address] medicine the primary team was at the bedside during this time. Procedure endotracheal intubation Indication respiratory distress and profound cyanosis and hypoxemia Patient was preoxygenated with nonrebreather and nasal cannula 7-1/2 tube was used using fiberoptic laryngoscopy directly visualized going through the cords utilizing a bougie. Were secured at 22 at the teeth bilateral breath sounds and color capnography were used to confirm the tube.
[2024-10-12] MEDS: EPINEPHrine 5 MG in 0.9 % SODIUM CHLORIDE 250 ML 12.24 MG IV (23:32)
--- NOTE | 2024-10-12 23:47 | PC.NURSE ---
[facility] contacted at 23:38.
--- NOTE | 2024-10-13 01:22 | PC.NURSE ---
Patient officially left the second floor with [employer] mortician supplies sales representative at 01:14. Patient was previously cleansed; post mortem care was conducted by staff. Patient's family gathered all of her belongings with their departure earlier within the shift.
[2024-10-13 02:10] LABS: Reflex Lactic Add Lactic Reflex
--- NOTE | 2024-10-13 04:21 | PC.NURSE ---
Late entry 10/12/20242037- Patient daughter approached this RN about concern for her mother and the way she was acting Went in to assess patient, patient could tell her name, but unsure of where she was, patient daughter concerned about urine output, stated she has no had any out today, Patient stated I feel sick, I am hot 2039- called Deana Mireles APRN to come to bedside and assess patient, this RN went to get bladder scanner 2042- bladder scanned patient 410ml in bladder, Chi at the bedside, ordered chest xray, troponin, VBG, EKG 2043- respiratory in for EKG, patient talking and responding at this time 2058- PRN nausea medication given Patient urinated in bed, purewick did not work, this RN went to utility room to get new bedding and Samantha SRNA came to room to assist cleaning and changing linens During changing the patient, patient was ask if she felt better from nausea medication, patient stated yes , daughter at bedside entire change, after rolling patient back to her back, patient did not respond to name and sternal rub 2118- This RN called trim operator to call Rapid to room 2121- multiple staff arrived, Clifton RN, Pal RN, Deana Mireles APRN, Sofi Vasquez MD, Garrick SELBY, OB RN, Adilia RN, Devante RN Noonan, Giuliano RN 2121- confirmed code status with family, lab at bedside to draw labs 2122- ambu bag, chest xray 2123- nonrebreather, IV #20 left AC placed 2124- Decision to intubate from Sofi Vasquez MD, crash cart in room 2131- airway in ET tube 09/25, placed at 22, color change noted, bradycardia on monitor 2131- atropine given 2133- doppler for pulse, PEA 2134-blood gas obtained, no pulse per doppler 2135- 12 lead obtained, CT head& neck ordered 2137-pulse 45 2139- atropine given 2140- compressions started, epi given, calcium given 2142- pulse per ultrasound, shockable rhythm, shock given 2143-bicarb given, epi given 2144- pulse check 2146- amiodarone given, lidocaine given, pulse check, continued compressions 2148- pulse check, epi given, continued compressions 2150- bicarb given, pulse check, aystole 2151- pulse felt in femoral 2153- 12 lead obtained 2155- pulse 83 2155- call made to brayn from Sofi Vasquez RN 2156- continued to bag 2157- epi gtt started 2199- doppler HR, pulse decreasing 2200- epi pushed 2202- pulseless, compressions started 2204- talking to family 2204- pulse check, asystole, compressions 2205- patient family stated to stop everything 2209- Deana Mireles APRN called [facility]
--- NOTE | 2024-10-13 04:52 | PC.NURSE ---
This RN spoke with CAROLE Pena @ 2302 10/12/2024, ruled out. #[id number]
--- NOTE | 2024-10-23 10:49 | P.PCN_ITS ---
[facility] Procedure Note Date: 10/10/24 Time: 12:30 Procedure Note:: Procedure: Right chest tube placement Indication for procedure: Loculated Pleural effusion and hypoxic respiratory failure A time out was performed, and the chest x-ray was reviewed, the appropriate side was confirmed and marked. My hands were washed immediately prior to the procedure. I wore a surgical cap, mask with protective eyewear, sterile gown, and sterile gloves throughout the procedure. The patient was prepped and draped in a sterile manner using chlorhexidine scrub after the appropriate level was percussed and confirmed by ultrasound. Ultrasound showed large loculated pleural effusion. 1% lidocaine was used to anesthetize the skin, subcutaneous tissue, superior aspect of the rib periosteum and parietal pleura.? A finder needle was then introduced at the?Sixth intercoastal space to locate the pleural fluid and?blood-tinged?fluid was aspirated.?The syringe? was removed and a guidewire was advanced into the introducer needle.? The guidewire was vi sualized in the pleural space by ultrasound.? A small incision was made at the skin surface with a scalpel and the? introducer needle was exchanged for a dilator over the guidewire. After? appropriate dilation was obtained, the dilator was exchanged over the wire for chest tube.??The chest tube in a sterile fashion was connected to atrium and suction at ?negative 20 cm water 60 ml of?bloody tined pleural fluid was removed without difficulty.? No immediate complications were noted during the procedure. The fluid will be sent for routine pleural studies, cultures along with cytopathology.?
--- NOTE | 2024-10-23 22:34 | EXP.DEATH.NO ---
Pronouncement Note Date and Time of Date of : 10/12/24 Contributing Factors (1) Acute hypoxemic respiratory failure: (2) Atrial fibrillation with controlled ventricular rate: (3) Viral upper respiratory illness: (4) Oxygen deficiency: (5) COPD (chronic obstructive pulmonary disease): (6) Lymphoma in remission: (7) CHF exacerbation: (8) Hypothyroidism: (9) Hypokalemia: (10) Delirium: Additional Data Attending physician: Jovany Arias MD Autopsy should be considered if:: Unknown or unanticipated medical complications Cause is not known with certainty on clinical grounds Would allay concerns of the public/family regarding Unexplained/unexpected apparently natural and not subject to a forensic medical jurisdiction DOA Within 24 hours of admission Sustained or apparently sustained injury while in the hospital Result of high risk, infectious and contagious disease Obstetric and pediatric arising from environmental or occupational hazard Unexplained/unexpected from dental, medical, or surgical diagnostic procedures and/or therapies Would disclose a known or suspected illness which also may have a bearing on survivors or recipients of transplanted organs
--- NOTE | 2024-10-23 22:40 | P.DS_ITS ---
General Admission date:: 09/29/24 Discharge date: 10/12/24 HPI HPI HPI: This 69-year-old female, has come to the emergency room with a elevated heart rate and atrial fibs significant dehydration, viral illness, respiratory distress. Also noting that her and her both have had COVID before approximately 10 September, the went to the bathroom today and collapsed called her name. She came in was unable to help him went to get the phone to call 911 when she returned her had . The patient herself says that she has tested negative for COVID on the felt good for a day or 2 but then was around other family members including an that are positive for flu A. She also had episodes of vomiting not being able to drink.. 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 Family then convinced her not to stay with her and has brought her to the emergency room.. In the emergency room heart rates into the 170s 180s atrial for, oxygen is required by nasal cannula. She was given breathing treatments, steroids, antibiotics started,. CT scan of the chest shows a significant consolidation in the left lower lung of pneumonia.. 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 Was going to see oncology in September for that. Patient is a noted smoker for more than 30 years, she stopped in 2017. Emphysema is an underlying condition on her. , Laboratory test significant for elevated white blood count, hypoxia on venous blood gas on oxygen.. EKG with very rapid ventricular rate on EKG, TO NOTE patient's heart rate was afib in the 150's when brought to the ICU, patient had received calcium channel renetta in the emergency room slowing the heart rate from in the 180 down to the 150s.. Patient was changed from nasal cannula onto Vapotherm. Oxygen saturations marino from 88% pulse ox to 95%. 1 dose of metoprolol IV 5 mg was given IV patient converted to sinus rhythm with heart rate in the 90s. Also noting the patient appears to be still significantly dehydrated, had received 2 L of fluid in the emergency room and an abundance of nebulizer treatments due to her lung wh eezing. Steroids have also been administered. With the improved oxygen saturation and now being in sinus rhythm in the 70s, I will give 1 dose of Cardizem 30mg po and then we will stop the Cardizem bolus in 1 hour.. At that point in time we will also continue to replace electrolytes per labs.. Patient is much more stable at this point in time but still very fragile. Will have cardiology and pulmonology to see the patient in the a.m. have not addressed any type of mental health needs at this time for potential grieving due to the loss of her carlos manuel. But have 1 mg of Ativan ordered IV if it is needed. Family members were in the room while I was talking with the patient. Most of the patient's daughters are registered nurses. And I was given permission to speak with one of them by phone. Update given on the seriousness of this condition that their mother was in. Patient is a full code. Patient was cared for in the ICU for several days improved and was moved to the floor., Noted per history that the patient began develop pleural effusion and required a paracentesis. Patient began to decompensate over the 24 to 48 hours before her ., Please refer to the previous notes of the note that I did on the . And the ER physician's note for the event note.. , Hospital Course Hospital Course Hospital Course: Patient was admitted to the hospital in severe condition. Creased heart rate decreased saturations. Her had just recently at home with the patient there. The patient had called the ambulance and family came to support their mother. Patient was admitted to the ICU in critical condition stabilized and slowly improved over several days. Patient was able to be transferred to the floor. Was improving but then developed a pulmonary effusion. Which required a paracentesis. From that period of time approximately 36 to 48 hours patient began to decompensate. Patient then quickly deteriorated over period of approximately an hour and a half and not breathing and then had cardiac failure.. Rapid response was called, and the intervention was given. No positive outcome. Being that family was in room when the code was called. Exam Data for Last 24 hours Vital signs and Labs for Last 24 Hours: Temp Pulse Resp BP Pulse Ox O2 Del Method O2 Flow Rate 97.6 F 71 17 93/65 L 95 Nasal Cannula 5 10/12/24 16:00 10/12/24 20:00 10/12/24 20:00 10/12/24 16:00 10/12/24 20:00 10/12/24 20:00 10/12/24 20:00 FiO2 55 10/07/24 10:34 *Routine Respiratory Exam Comments: No respirations *Routine Cardiovascular Exam Comments: No cardiac function *Routine Neurological Exam Comments: Patient does not respond to any stimulus Results Data Completed and Pending Completed studies during hospitalization [Text1]: Please refer to note on several different days the patient had multiple change lab work and interventions done. Pending studies at discharge: None Impressions Impressions: Patient from a combination illness COVID then flu A. Lead to cardiovascular collapse Additional Comments Additional comments: Please refer to previous notes., Nakia was present at their mother's condition deteriorated DS: Diagnosis Discharge Diagnosis (1) Acute hypoxemic respiratory failure: Start date: 09/29/24 Start time: 06:00 Status: Acute Code(s): J96.01 - Acute respiratory failure with hypoxia Problem details: Rodríguez illness with there is pain hypoxia that puts stress upon the heart causing atrial fibs with RVR. (2) Atrial fibrillation with controlled ventricular rate: Start date: 10/12/24 Status: Acute Code(s): I48.91 - Unspecified atrial fibrillation Problem details: Cardiovascular failure, aspiratory failure (3) Viral upper respiratory illness: Status: Acute Code(s): J06.9 - Acute upper respiratory infection, unspecified (4) Oxygen deficiency: Status: Acute Code(s): R09.02 - Hypoxemia (5) COPD (chronic obstructive pulmonary disease): Status: Acute Code(s): J44.9 - Chronic obstructive pulmonary disease, unspecified Qualifiers: COPD type: emphysema Emphysema type: panlobular Qualified Code(s): J43.1 - Panlobular emphysema (6) Lymphoma in remission: Status: Acute Code(s): C85.9A - Non-Hodgkin lymphoma, unspecified, in remission (7) CHF exacerbation: Status: Acute Code(s): I50.9 - Heart failure, unspecified Qualifiers: Heart failure type: systolic Qualified Code(s): I50.23 - Acute on chronic systolic (congestive) heart failure (8) Hypothyroidism: Status: Acute Code(s): E03.9 - Hypothyroidism, unspecified Qualifiers: Hypothyroidism type: postoperative Qualified Code(s): E89.0 - Postprocedural hypothyroidism (9) Hypokalemia: Status: Acute Code(s): E87.6 - Hypokalemia (10) Delirium: Status: Acute Code(s): R41.0 - Disorientation, unspecified (11) Cardiovascular collapse: Start date: 10/12/24 Status: Acute Code(s): R57.0 - Cardiogenic shock Problem details: Patient succumbed due to her kash and cardiac events Meds Home Medications and Allergies Home Medications ?Medication ?Instructions ?Recorded ?Confirmed ?Type bisoprolol 5 1 tab PO DAILY 09/28/24 09/29/24 History mg-hydrochlorothiazide 6.25 mg tablet levothyroxine 100 mcg tablet 100 mcg PO DAILY 09/28/24 09/29/24 History omeprazole 20 mg capsule,delayed 20 mg PO DAILY 09/28/24 09/29/24 History release sertraline 50 mg tablet 50 mg PO DAILY 09/28/24 09/29/24 History albuterol 90 mcg/actuation aerosol 90 mcg inhalation Q4HP PRN 09/29/24 09/29/24 History inhaler Shortness Of Breath pramipexole 1 mg tablet 1 mg PO TID 09/29/24 09/29/24 History New Prescriptions to Start Prescriptions: Allergies Allergy/AdvReac Type Severity Reaction Status Date / Time No Known Allergies Allergy Verified 09/29/24 01:55 Discharge Plan Disposition Patient Disposition: Condition: Other Patient Discharge Instructions Print Language: Tunisian Date/Time Date/Time: 10/12/24 22:10 Providers Primary Care Provider: Provider,Referral Admit Provider: Jovany Arias Attending Provider: Jovany Arias
== END 2024-10-12 22:10 | disposition expired | DRG 193 ==
LOC: ER 23:32 → ICU 09-29 00:24 → 2ND 10-06 13:02
PROVIDERS: Internal Medicine; Internal Medicine Adolescent Medicine; Internal Medicine Pulmonary Disease; Nurse Practitioner Family; Admitting Provider Student in an Organized Health Care Education/Training Program; Emergency Provider Emergency Medicine; Visit Provider Student in an Organized Health Care Education/Training Program
DX: J18.9 Pneumonia, unspecified organism (principal); A41.9 Sepsis, unspecified organism; I50.33 Acute on chronic diastolic (congestive) heart failure; J96.01 Acute respiratory failure with hypoxia; N17.9 Acute kidney failure, unspecified; E87.1 Hypo-osmolality and hyponatremia; I48.20 Chronic atrial fibrillation, unspecified; C85.9A Non-Hodgkin lymphoma, unspecified, in remission; J44.1 Chronic obstructive pulmonary disease with (acute) exacerbation; B37.0 Candidal stomatitis; I46.9 Cardiac arrest, cause unspecified; Z79.899 Other long term (current) drug therapy; E03.9 Hypothyroidism, unspecified; Z63.79 Other stressful life events affecting family and household
CPT/HCPCS: 32555; 36415; 71045; 71275; 74177; 76604; 80048; 80053; 80202; 81001; 82042; 82550; 82728; 82803; 82945; 83540; 83550; 83605; 83615; 83735; 83880; 84100; 84145; 84155; 84436; 84439; 84443; 84484; 85007; 85025; 85610; 85730; 86140; 86738; 86803; 87040; 87070; 87077; 87081; 87086; 87186; 87205; 87389; 87631; 89051; 93005; 93306; 93308; 94640; 94760; 94761; 97110; 97163; 97166; 97530; 97535; 99291; J0171; J0282; J0456; J0461; J0696; J1650; J1885; J1939; J1940; J2020; J2060; J2405; J2550; J2919; J2997; J3370; J3372; J3475; J7030; J7050; J7120; J7620; J7639; J7644; Q9967; S0028